=== PATIENT | male | born 1940 | race Caucasian/White ===

== ENCOUNTER 2020-04-06 09:32 | Outpatient (CLI) | payer MEDICARE, OTHER, SELFPAY ==
--- NOTE | ~2020-04-06 | CT_ITS ---
EXAMINATION: CT abdomen pelvis wo/w con DATE: 04/06/2020 10:33 INDICATION: Hematuria TECHNIQUE: Computed tomography (CT) of the head was performed without and with 130 cc Omnipaque 350 i ntravenous contrast. The dose-length product was 2012.61 mGy-cm. Automated exposure control and itera tive reconstruction technique were employed. COMPARISON: CT dated 11/19/2011 FINDINGS: There are areas of pleural thickening with pleural calcifications, consistent with previous asbestos exposure. There is bibasilar dependent atelectasis. Cardiomegaly. Pacemaker leads are prese nt. No significant pleural or pericardial effusion. There are bilateral renal cysts. No enhancing renal masses are identified. No hydronephrosis. Ureters are normal in course and caliber. Prostate gland is enlarged. No renal stones. Gallbladder is presen t. Colonic diverticulosis without diverticulitis. Normal appendix. Nonobstructive bowel gas pattern. No lymphadenopathy. Small fat-containing bilateral inguinal hernia. No free air or free fluid. There is atherosclerosis and ectasia of the aorta without aneurysm. No abnormal pelvic masses or fluid jackie ections. There is mild-moderate lumbar spondylosis. IMPRESSION: 1. Bilateral renal cysts. 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 Reviewed, dictated and finalized at location A. IMPRESSION: 1. Bilateral renal cysts. 2: Bilateral calcified pleural plaques, consistent with previous asbestos expos ure.
[2020-04-06 10:08] LABS: Estimated Glomerular Filt Rate > 60
== END 2020-04-06 09:33 | disposition home or self-care (01) ==
LOC: ANHIMG 09:38
PROVIDERS: PCP Internal Medicine; Visit Provider Nurse Practitioner
DX: R10.9 Unspecified abdominal pain (principal); R31.9 Hematuria, unspecified; N28.1 Cyst of kidney, acquired
CPT/HCPCS: 74178; Q9967

== ENCOUNTER 2020-05-09 09:22 | Outpatient (CLI) | payer MEDICARE, OTHER, SELFPAY ==
--- NOTE | ~2020-05-09 | CT_ITS ---
EXAMINATION: CT chest wo con DATE: 05/09/2020 09:43 INDICATION: SOLITARY PULMONARY NODULE R91.1 - Solitary pulmonary nodule TECHNIQUE: Computed tomography (CT) of the chest was performed without intravenous contrast. Addition al 3D reconstructions utilizing coronal maximum intensity projection (MIP) were performed. Automated exposure control and iterative reconstruction technique were employed. The dose-length product was 14 8.04 mGy-cm. COMPARISON: 04/28/2018 and 01/18/2016 FINDINGS: Mild paraseptal emphysema. Bilateral calcified pleural plaques consistent with prior asbestos exposur e. No interval change in peripheral reticular opacities at the lung bases. No interval change in a 4 mm subpleural nodule described as on the right upper lobe on the prior study but upon review of sagit evelia images is actually located in the right middle lobe. No interval change in a couple additional goddard bpleural nodules measuring 7 mm in the right lower lobe at the posterior dome of the right hemidiaphr agm and at the lingula. No new or enlarging pulmonary nodules. No pneumonia or pleural effusion. Hear t size is normal. Atherosclerotic coronary artery calcification. No pericardial effusion. Right atria l appendage and at the apex of the right ventricle. Scattered atherosclerotic calcification along the normal caliber thoracic aorta. No pathologically enlarged thoracic lymphadenopathy. Bilateral renal cysts, the largest on the left measuring 4.6 similar in maximal diameter. Mild upper thoracic levocur vature with mild spondylosis. IMPRESSION: 1. No interval change since 2015 in 3 small likely benign subpleural nodules in the lingula and right middle and lower lobes which are likely sequela of old granulomatous disease. No new or enlarging pu lmonary nodules. 2. Mild emphysema. 3. Bilateral calcified pleural plaques likely related to prior asbestos exposure with stable appearan ce of chronic mild interstitial fibrosis peripherally at the lung bases consistent with asbestosis. Reviewed, dictated and finalized at location B. IMPRESSION: 1. No interval change since 2015 in 3 small likely benign subpleural nodules in the lingula and right middle and lower lobes which are likely sequela of old g ranulomatous disease. No new or enlarging pulmonary nodules. 2. Mild emphysema. 3. Bilateral calcified pleural plaques likely related to prior asbestos exposur e with stable appearance of chronic mild interstitial fibrosis peripherally at the lung bases consistent with asbestosis.
== END 2020-05-09 09:23 | disposition home or self-care (01) ==
LOC: ANHIMG 09:26
PROVIDERS: PCP Internal Medicine; Visit Provider Internal Medicine Critical Care Medicine
DX: R91.1 Solitary pulmonary nodule (principal); J43.9 Emphysema, unspecified; R91.8 Other nonspecific abnormal finding of lung field
CPT/HCPCS: 71250

== ENCOUNTER 2021-05-08 08:25 | Observation (INO) | payer MEDICARE, OTHER, SELFPAY ==
[2021-05-08] VITALS (26 sets, daily range): BP systolic 106–163; BP diastolic 55–84; PULSE 65–70; RESP 13–23; TEMP 36.1–36.5; O2SAT 92–100; BMI 29.2
--- NOTE | 2021-05-08 09:06 | ECG_ITS ---
Measurements Intervals [place] Rate: 65 P: UT: 0 QRS: -77 QRSD: 205 T: 93 QT: 500 QTc: 521 Interpretive Statements ELECTRONIC VENTRICULAR PACEMAKER BASELINE ARTIFACT- V1-V2 NO FURTHER INTERPRETATION IS POSSIBLE ATYPICAL ECG Electronically Signed On 05-08-2021 10:00:41 CDT by Domingo Sun D.O.
[2021-05-08 09:08] LABS: Basophils Percent Auto 0.4 % (0.2-1.2); Eosinophils Absolute Auto 0.1 K/mm3 (0-0.3); Eosinophils Percent Auto 1.6 % (0-4.4); Hematocrit 40.6 % (42.0-52.0); Hemoglobin 13.8 g/dL (14.0-18.0); Immature Granulocyte Absolute 0.03 K/mm3 (0.00-0.031); Immature Granulocyte Percent A 0.4 % (0-0.5); Lymphocytes Absolute Auto 1.16 K/mm3 (0.9-3.2); Lymphocytes Percent Auto 14.7 % (18.3-44.2); Mean Corpuscular Hemoglobin 30.4 pg (26-34); Mean Corpuscular Volume 89.4 fl (80-100); Monocytes Absolute Auto 0.6 K/mm3 (0.1-0.6); Monocytes Percent Auto 7.2 % (2.6-8.5); Neutrophils Percent Auto 75.7 % (45.5-73.1); Platelet Count Result 162 k/mm3 (150-375); Red Blood Count 4.54 M/mm3 (4.6-6.20); Red Cell Distribution Width 13.9 % (11.5-14.5); White Blood Count 7.9 K/mm3 (4.5-10.0)
--- NOTE | 2021-05-08 09:20 | ED.RECABL ---
HPI - Recheck/Abnormal Lab/Rx General Chief Complaint: Recheck/Abnormal Lab/Rx Stated Complaint: Low potassium Time Seen by Provider: 05/08/21 08:27 Source: RN notes reviewed History of Present Illness HPI narrative: Patient presents emergency department from home for hypokalemia. The patient states he had issues with diarrhea last week that resolved approximately 3 days ago. He states secondary to this he was seen his PCP Dr. Talamantes he had lab work drawn last week that showed his potassium level been low and he been told to take extra potassium. States he had repeat lab work done yesterday and was called this morning to come to the emergency department for hypokalemia. Patient states that he has had no diarrhea for the past 3 days. He states he has been feeling weak with intermittent feelings of numbness and tingling in his bilateral upper and lower extremities. Denies any fevers or chills chest pain shortness of breath abdominal pain or any other symptoms Related Data Home Medications Medication Instructions Recorded Confirmed acetaminophen 325 mg tablet 325 mg PO Q6H PRN 06/29/19 05/01/21 aspirin 81 mg tablet,delayed 81 mg PO DAILY 06/29/19 05/01/21 release potassium gluconate 595 mg (99 mg) 595 mg PO BID tablet 03/07/20 05/01/21 tablet fexofenadine 180 mg tablet 180 mg PO DAILY 05/22/20 05/01/21 apixaban 5 mg tablet 5 mg PO BID 05/01/21 05/01/21 carvedilol 12.5 mg tablet 25 mg PO BID tablet 05/01/21 05/01/21 olmesartan 40 mg tablet 40 mg PO DAILY 05/01/21 05/01/21 Allergies Allergy/AdvReac Type Severity Reaction Status Date / Time No Known Allergies Allergy Mild Verified 05/08/21 08:48 Review of Systems Review of Systems: Gen.: Denies fevers or chills ENT: Denies congestion Respiratory: Denies shortness of breath or cough CV: Denies chest pain or palpitations GI: Denies abdominal pain nausea, emesis or diarrhea Musculoskeletal: Denies back pain or muscle pain Neuro: See HPI Skin: Denies rash Except as documented, all other systems reviewed and negative PMFSH Past Medical History Medical History Atrial fibrillation Cervical herniated disc COPD (chronic obstructive pulmonary disease) Eczema Hyperlipidemia Hypertension Hypomagnesemia Lung nodule Pacemaker Stent Peripheral polyneuropathy Type 2 diabetes mellitus Surgical History Surgical History H/O neck surgery H/O nephrolithotomy with removal of calculi Family History Family History Sibling Acute myocardial infarction Breast cancer Mother Leukemia Father Cirrhosis of liver Son Cancer Social History Social History Smoking packs per day: 0.5 Smoking cigarettes per day: 10.0 Smoking status: Heavy tobacco smoker Tobacco type: cigarettes Alcohol intake: current Alcohol use details: rarely Exam Narrative: APPEARANCE: No acute distress, nontoxic, resting in bed EYES: EOMI HEENT: Normocephalic, atraumatic, OMM RESPIRATORY: No respiratory distress Clear to auscultation bilaterally with no rhonchi wheezing or rales. CARDIOVASCULAR: Regular rate and rhythm without murmurs rubs or gallops. ABDOMINAL: Soft, nontender, nondistended, no rebound or guarding MUSCULOSKELETAl: Moves all extremities. No clubbing, cyanosis or edema. NEURO: Awake and alert. Following commands, speech normal, no focal deficits SKIN:: Warm, dry. No rashes lesions or abrasions PSYCHIATRIC: Normal affect/mood, Course Course Emergency Course: Reviewed records from lab draw yesterday showed a potassium of 2.[address] Justin presentation work-up agrees with admission at this time Discussed with patient and family results of workup and diagnosis. Discussed need for admission. Patient and family understand and agree to
[2021-05-08 09:41] LABS: Alanine Aminotransferase 19 U/L (4-50); Albumin Level 3.9 g/dL (3.5-5.1); Alkaline Phosphatase 50 U/L (38-126); Aspartate Amino Transferase 30 U/L (17-59); Bilirubin,Total 1.1 mg/dL (0.2-1.3); Blood Urea Nitrogen 16 mg/dL (9-20); Carbon Dioxide > 40 mmol/L (22-30); Chloride 94 mmol/L (98-107); Estimated CRCL calculation 63 ml/min; Estimated Glomerular Filt Rate > 60; Glucose 155 mg/dL (65-110); Magnesium 0.6 mg/dL (1.6-2.3); Potassium 2.7 mmol/L (3.4-5.0); Sodium 140 mmol/L (137-145)
[2021-05-08] MEDS: POTASSIUM CHLORIDE 20 MEQ TABLET 40 MEQ PO (09:55)
[2021-05-08] MEDS: MAGNESIUM SULFATE 3GM/D5W100ML 3 GM/100 ML BAG IVPB (10:32)
[2021-05-08] MEDS: ACETAMINOPHEN 500 MG TABLET 1000 MG PO (12:28)
--- NOTE | 2021-05-08 13:47 | PM.IMHP ---
H&P: HPI History of Present Illness Date/Time: 05/08/21 13:47 this is a 80-year-old male patient who has been dealing with diarrhea until the last 3 days. The patient stated that his diarrhea to stopped office of 3 days ago. He is not having normal bowel movements. The patient had some lab work performed by his primary care doctor and it showed that his potassium was low and he has been taking extra potassium. Has lab work done yesterday had been abnormal in his primary care doctor sent him to the emergency room. The patient has been feeling weak and having some numbness and tingling to his bilateral upper and lower extremities. He denied any fever chills or any shortness of breath. His H&H was 13.8 and 40.6. Potassium was found to be 2.7. His glucose is 155. Magnesium 0.6. The patient had been checked for C diff on the and was found to be negative. No ova cysts or parasites seen either. The patient was given magnesium IV, potassium IV and oral potassium. Patient is being admitted for observation status on the date of service of 05/08/2021. Chief Complaint: Paresthesia Review of Systems Review of Systems: All systems reviewed & are unremarkable except as noted in HPI and below Constitutional: Constitutional: Reports as per HPI and Reports no additional constitutional complaints Eyes: Eyes: Reports as per HPI and Reports no additional eye complaints ENT: Reports system reviewed and no additional complaints, except as documented and Reports Normal hearing present Cardiovascular: Cardiovascular: Reports no additional cardiovascular complaints Respiratory: Respiratory: Reports no additional respiratory complaints and Reports no additional respiratory complaints Gastrointestinal: Gastrointestinal: Reports as per HPI and Reports no additional gastrointestinal complaints Musculoskeletal: Musculoskeletal: Reports no additional musculoskeletal complaints Integumentary/Breasts: Skin/Breast: Reports system reviewed and no additional complaints, except as docu and Reports as per HPI Neurologic: Reports system reviewed and no additional complaints, except as documented, Reports as per HPI and Reports Normal hearing present Psychiatric: Psychiatric: Reports no additional psychiatric complaints and Reports as per HPI Endocrine: Endocrine: Reports no additional endocrine complaints Hematologic/Lymphatic: Hematologic/Lymphatic: Reports no additional hematologic/lymphatic complaints Allergic/Immunologic: Allergic/Immunologic: Reports no additional allergic/immunologic complaints [facility] Past Medical History Medical History (Updated 05/08/21 @ 14:09 by Yolande Tovar NP) Asbestosis Atrial fibrillation BPH (benign prostatic hyperplasia) Cervical herniated disc COPD (chronic obstructive pulmonary disease) Eczema Hyperkalemia Hyperlipidemia Hypertension Hypomagnesemia Lung nodule Pacemaker Stent Peripheral polyneuropathy Type 2 diabetes mellitus Surgical History Surgical History (Updated 05/08/21 @ 13:54 by Yolande Tovar NP) H/O colonoscopy with polypectomy H/O neck surgery H/O nephrolithotomy with removal of calculi S/P tonsillectomy and adenoidectomy Family History Family History Sibling Acute myocardial infarction Breast cancer Mother Leukemia Father Cirrhosis of liver Son Cancer Social History Social History (Updated 05/08/21 @ 14:00 by Yolande Tovar NP) Social History: The patient lives with his . He has 4 boys. 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 His is the durable power litigation attorney associate. Come patient smokes about half pack a cigarettes a day. No alcohol marijuana or illicit drugs. Code status full code Smoking packs per day: 0.5 Smoking cigarettes per day: 10.0 Years smoked: 55 Smoking pack-years: 27.50 Smoking status: Heavy tobacco smoker Tobacco type: cigarettes Second hand tobacco smoke ex
--- NOTE | 2021-05-08 13:48 | ADMGEN ---
This patient, Isacc Sorto, was admitted to [facility] Surg Room [id number]. Patient/family oriented to hospital policies and general routines including ID bracelet, bed and alarms, visiting hours, pain management, procedures, bathroom and other care routines, personal items, smoking policy, room service/diet, and visiting hours. Information on how to activate the Rapid Response Team has been discussed. Patient/Family are encouraged to report perceived risks to care and to ask questions if they do not understand what they are told or what they should do.
--- NOTE | 2021-05-08 17:09 | ADMGEN ---
This patient, Isacc Sorto, was admitted to 3 [facility] Surg Room [phone]. Patient/family oriented to hospital policies and general routines including ID bracelet, bed and alarms, visiting hours, pain management, procedures, bathroom and other care routines, personal items, smoking policy, room service/diet, and visiting hours. Information on how to activate the Rapid Response Team has been discussed. Patient/Family are encouraged to report perceived risks to care and to ask questions if they do not understand what they are told or what they should do.
[2021-05-08] MEDS: NICOTINE (*PBKC) 14 MG PATCH 1 PATCH TRANSDERM (18:12)
[2021-05-08] MEDS: OLMESARTAN MEDOXOMIL 20 MG TABLET PO (18:12)
[2021-05-08] MEDS: APIXABAN 5 MG TABLET PO (18:13)
[2021-05-08] MEDS: ASPIRIN 81 MG ENTERIC TABLET PO (21:15)
[2021-05-08] MEDS: carvediloL 25 MG TABLET PO (21:15)
[2021-05-08] MEDS: PANTOPRAZOLE 40 MG TABLET PO (21:16)
[2021-05-08 22:32] LABS: Anion Gap 9 mmol/L (8-16); Blood Urea Nitrogen 14 mg/dL (9-20); Calcium 7.8 mg/dL (8.4-10.2); Carbon Dioxide 33 mmol/L (22-30); Chloride 97 mmol/L (98-107); Estimated CRCL calculation 57 ml/min; Estimated Glomerular Filt Rate > 60; Glucose 101 mg/dL (65-110); Magnesium 1.3 mg/dL (1.6-2.3); Potassium 3.1 mmol/L (3.4-5.0); Sodium 139 mmol/L (137-145)
[2021-05-08] MEDS: diphenhydrAMINE HCl CAP 25 MG CAPSULE PO (22:35)
[2021-05-08] MEDS: ACETAMINOPHEN 325 MG TABLET PO (22:35)
[2021-05-09] VITALS: PULSE 65
[2021-05-09] MEDS: POTASSIUM CHLORIDE 20 MEQ TABLET PO (00:20)
[2021-05-09] MEDS: MAGNESIUM SULF 2 GM/WATER 50ML 2 GM/50 ML BAG IVPB (02:17)
[2021-05-09 06:00] VITALS: BP 161/78; PULSE 65; RESP 18; TEMP 36; O2SAT 97
[2021-05-09 06:22] LABS: Basophils Percent Auto 0.4 % (0.2-1.2); Eosinophils Absolute Auto 0.1 K/mm3 (0-0.3); Eosinophils Percent Auto 1.6 % (0-4.4); Hematocrit 40.5 % (42.0-52.0); Hemoglobin 13.3 g/dL (14.0-18.0); Immature Granulocyte Absolute 0.02 K/mm3 (0.00-0.031); Immature Granulocyte Percent A 0.3 % (0-0.5); Lymphocytes Absolute Auto 1.27 K/mm3 (0.9-3.2); Lymphocytes Percent Auto 16.5 % (18.3-44.2); Mean Corpuscular HGB Conc 32.8 g/dl (32-36); Mean Corpuscular Hemoglobin 30.2 pg (26-34); Mean Corpuscular Volume 91.8 fl (80-100); Mean Platelet Volume 11.2 fl (7.4-10.4); Monocytes Absolute Auto 0.7 K/mm3 (0.1-0.6); Monocytes Percent Auto 8.6 % (2.6-8.5); Neutrophils Absolute Auto 5.6 K/mm3 (1.3-6.7); Neutrophils Percent Auto 72.6 % (45.5-73.1); Platelet Count Result 156 k/mm3 (150-375); Red Blood Count 4.41 M/mm3 (4.6-6.20); White Blood Count 7.7 K/mm3 (4.5-10.0)
[2021-05-09 06:31] LABS: Anion Gap 8 mmol/L (8-16); Blood Urea Nitrogen 12 mg/dL (9-20); Calcium 7.9 mg/dL (8.4-10.2); Carbon Dioxide 33 mmol/L (22-30); Chloride 99 mmol/L (98-107); Estimated CRCL calculation 70 ml/min; Estimated Glomerular Filt Rate > 60; Glucose 108 mg/dL (65-110); Magnesium 1.9 mg/dL (1.6-2.3); Potassium 3.1 mmol/L (3.4-5.0); Sodium 140 mmol/L (137-145)
[2021-05-09] MEDS: POTASSIUM CHLORIDE 10 MEQ TABLET PO (09:15)
[2021-05-09 09:16] VITALS: PULSE 65
[2021-05-09] MEDS: OLMESARTAN MEDOXOMIL 20 MG TABLET PO (09:16)
[2021-05-09] MEDS: TAMSULOSIN HCL 0.4 MG CAPSULE PO (09:16)
[2021-05-09] MEDS: carvediloL 25 MG TABLET PO (09:16)
[2021-05-09] MEDS: SIMVASTATIN 20 MG TABLET 40 MG PO (09:16)
[2021-05-09] MEDS: LORATADINE 10 MG TABLET PO (09:16)
[2021-05-09 09:17] VITALS: PULSE 79
[2021-05-09] MEDS: DULoxetine HCL 60 MG CAPSULE.DR PO (09:17)
[2021-05-09] MEDS: APIXABAN 5 MG TABLET PO (09:17)
[2021-05-09] MEDS: NICOTINE (*PBKC) 14 MG PATCH 1 PATCH TRANSDERM (09:17)
[2021-05-09] MEDS: ACETAMINOPHEN 325 MG TABLET PO (09:17)
[2021-05-09] MEDS: POTASSIUM CHLORIDE 20 MEQ PACKET (FOR LIQUID) 40 MEQ PO (10:15)
[2021-05-09 12:00] VITALS: PULSE 70
[2021-05-09 13:06] LABS: Anion Gap 7 mmol/L (8-16); Blood Urea Nitrogen 12 mg/dL (9-20); Calcium 8.1 mg/dL (8.4-10.2); Carbon Dioxide 32 mmol/L (22-30); Chloride 99 mmol/L (98-107); Estimated CRCL calculation 70 ml/min; Estimated Glomerular Filt Rate > 60; Glucose 123 mg/dL (65-110); Magnesium 1.8 mg/dL (1.6-2.3); Potassium 4.1 mmol/L (3.4-5.0); Sodium 138 mmol/L (137-145)
--- NOTE | 2021-05-09 13:09 | PM.DS ---
DS: Admitting Diagnosis Discharge Date 05/09/2021 Admitting Diagnosis Chief Complaint: Paresthesia DS: Discharge Diagnosis Discharge Diagnosis (1) Acute hypokalemia: Code(s): E87.6 - Hypokalemia Status: Acute Assessment and Plan: Replace as necessary. Recheck labs again tonight. Patient had several days of diarrhea but has not had any since 3 days ago. Also the patient had been on diuretics. We will hold diuretics for now. (2) Hypomagnesemia: Code(s): E83.42 - Hypomagnesemia Status: Acute Assessment and Plan: Replace as necessary. Recheck again tonight. (3) Weakness: Code(s): R53.1 - Weakness Status: Acute Assessment and Plan: Most likely due to the electrolyte imbalance. (4) Paresthesias: Code(s): R20.2 - Paresthesia of skin Status: Acute Assessment and Plan: Most likely related to electrolyte imbalance. (5) Situational anxiety: Code(s): F41.8 - Other specified anxiety disorders Status: Acute Assessment and Plan: Continue with home medications. (6) Atrial fibrillation: Qualifiers: Atrial fibrillation type: unspecified Qualified Code(s): I48.91 - Unspecified atrial fibrillation Code(s): I48.91 - Unspecified atrial fibrillation Status: Chronic Assessment and Plan: Continue with apixaban and Coreg. The patient has paced beats at this time. (7) Hyperlipidemia: Code(s): E78.5 - Hyperlipidemia, unspecified Status: Acute Assessment and Plan: Continue with simvastatin (8) Hypertension: Qualifiers: Hypertension type: essential hypertension Qualified Code(s): I10 - Essential (primary) hypertension Code(s): I10 - Essential (primary) hypertension Status: Acute Assessment and Plan: Hold diuretics. Continue with Coreg and Benicar (9) Eczema: Code(s): L30.9 - Dermatitis, unspecified Status: Acute Assessment and Plan: P.r.n.steroid cream (10) BPH (benign prostatic hyperplasia): Code(s): N40.0 - Benign prostatic hyperplasia without lower urinary tract symptoms Status: Chronic Assessment and Plan: Continue with tamsulosin DS: Summary Hospital Course Reason for hospitalization: this is a 80-year-old male patient who has been dealing with diarrhea until the last 3 days. The patient stated that his diarrhea to stopped office of 3 days ago. He is not having normal bowel movements. The patient had some lab work performed by his primary care doctor and it showed that his potassium was low and he has been taking extra potassium. Has lab work done yesterday had been abnormal in his primary care doctor sent him to the emergency room. The patient has been feeling weak and having some numbness and tingling to his bilateral upper and lower extremities. He denied any fever chills or any shortness of breath. His H&H was 13.8 and 40.6. Potassium was found to be 2.7. His glucose is 155. Magnesium 0.6. The patient had been checked for C diff on the and was found to be negative. No ova cysts or parasites seen either. The patient was given magnesium IV, potassium IV and oral potassium. Patient is being admitted for observation status on the date of service of 05/08/2021. Hospital Course: Patient with a nausea or vomiting diarrhea, hypokalemia most likely secondary to diarrhea, today patient symptoms have improved is able to tolerate his diet, repeat potassium levels are normal, patient has no new complaint, patient states he has his sick at home and there is no one to take care of her, will like to be discharged as soon as possible, patient is clinically stable, will discharge the patient today. Status at Discharge Functional status at discharge: independent ambulation Overall status at discharge: patient is back to baseline Time Spent with Patient Time attestation: Total time spent providing and/or coordina
== END 2021-05-09 13:50 | disposition home or self-care (01) ==
LOC: ANHED 10:29 → ANH3MEDSUR 13:52
PROVIDERS: Nurse Practitioner; Admitting Provider Internal Medicine; Emergency Provider Emergency Medicine; PCP Internal Medicine; Visit Provider Family Medicine
DX: E87.6 Hypokalemia (principal); R20.2 Paresthesia of skin; E83.42 Hypomagnesemia; R53.1 Weakness; E78.5 Hyperlipidemia, unspecified; E11.9 Type 2 diabetes mellitus without complications; F41.8 Other specified anxiety disorders; F17.210 Nicotine dependence, cigarettes, uncomplicated; I48.91 Unspecified atrial fibrillation; I10 Essential (primary) hypertension; J44.9 Chronic obstructive pulmonary disease, unspecified; N40.0 Benign prostatic hyperplasia without lower urinary tract symptoms; Z79.82 Long term (current) use of aspirin; Z95.0 Presence of cardiac pacemaker
CPT/HCPCS: 36415; 80048; 80053; 83735; 85025; 93005; 96365; 96366; 96367; 96375; 96376; 99285; A9270; G0378; J3475; J3480; J7060

== ENCOUNTER 2021-07-10 14:07 | Outpatient (CLI) | payer MEDICARE, OTHER, SELFPAY ==
--- NOTE | ~2021-07-10 | US_ITS ---
EXAMINATION: US arterial ankle brachial ind DATE: 07/10/2021 14:49 INDICATION: Peripheral vascular disease TECHNIQUE: Segmental pressures and plethysmographic and Doppler waveforms of the brachial and lower e xtremity arteries were obtained. COMPARISON: None. FINDINGS: Right and left brachial artery pressures of 118 mm Hg and 132 mm Hg, respectively, are concordant (no rmal difference <= 30 mmHg). The right ankle-brachial index (TYRONE) is 0.93 (normal >= 0.9-1.0). The right great toe-brachial index (TBI) is 0.59 (normal >= 0.65). Arterial Doppler waveforms are biphasic with brisk systolic upstrokes at both the right posterior tibial and dorsalis pedis arteries. The moderately decreased left TYRONE is 0.55. The moderate to severely decreased left TBI is 0.20. Arter ial Doppler waveforms are biphasic but dampened with borderline delayed upstrokes.. IMPRESSION: 1. 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 Reviewed, dictated and finalized at location A. AVER APPRENTICE DECORATIVE IMPRESSION: 1. Mild right-sided and moderate to severe left-sided lower limb arterial occlu sive disease.
== END 2021-07-10 14:08 | disposition home or self-care (01) ==
LOC: ANHIMG 14:08
PROVIDERS: PCP Internal Medicine; Visit Provider Internal Medicine
DX: I73.9 Peripheral vascular disease, unspecified (principal); F17.200 Nicotine dependence, unspecified, uncomplicated; I77.9 Disorder of arteries and arterioles, unspecified; M79.604 Pain in right leg; M79.605 Pain in left leg
CPT/HCPCS: 93922

== ENCOUNTER → 2021-12-04 09:11 | Outpatient (CLI) | payer MEDICARE, OTHER, SELFPAY ==
--- NOTE | ~2021-12-04 | CT_ITS ---
EXAMINATION: CT diagnostic chest wo con DATE: 12/04/2021 09:30 INDICATION: Solitary nodule of lung TECHNIQUE: Computed tomography (CT) of the chest was performed without intravenous contrast. Addition al 3D reconstructions utilizing coronal maximum intensity projection (MIP) were performed. Automated exposure control and iterative reconstruction technique were employed. The dose-length product was 18 5.19 mGy-cm. COMPARISON: 05/01/2020, 01/18/2016 and 12/14/2009 FINDINGS: Extensive bilateral calcified and noncalcified pleural plaques suggestive of prior asbestos exposure. Mild emphysema. No significant interval change in a previous noted subpleural nodules measuring 4 mm in the right middle lobe, 7 mm in the right lower lobe along the posterior dome of the diaphragm and 5-6 mm at the lingula. No new or enlarging pulmonary nodules identified. Unchanged supine thickening at the bilateral lung bases most likely mild chronic interstitial lung disease/asbestosis with diffe rential including mild pulmonary edema. No pneumonia or pleural effusion. Heart size is normal. Ather osclerotic coronary artery calcifications. No pericardial effusion. Dual-lead cardiac pacemaker with lead tips at the right atrial appendage and apex of the right ventricle. Small amount of atherosclero tic calcific lesion along the normal caliber thoracic aorta. 1.5 cm left thyroid nodule. No pathologi sejal enlarged thoracic lymphadenopathy. Stenosis at the visualized upper poles of both kidneys measu ring at least 4 cm on the left and 1.9 cm on the right. There is also a 5 mm high attenuation likely proteinaceous/hemorrhagic cyst at the upper pole of the right kidney. Mild upper thoracic levocurvatu re with mild spondylosis. IMPRESSION: 1. Mild emphysema with extensive bilateral calcified and noncalcified pleural plaques suggesting prio r asbestos exposure. 2. Chronic mild irregular septal line thickening at the lung bases consistent with chronic interstiti al lung disease or potentially asbestosis. 3. No change in a few chronic likely noncalcified subpleural granuloma. No new or enlarging pulmonary nodules. 4. 1.5 cm left thyroid nodule. Could consider thyroid ultrasound for risk stratification. Reviewed, dictated and finalized at location B. IMPRESSION: 1. Mild emphysema with extensive bilateral calcified and noncalcified pleural p laques suggesting prior asbestos exposure. 2. Chronic mild irregular septal line thickening at the lung bases consistent w ith chronic interstitial lung disease or potentially asbestosis. 3. No change in a few chronic likely noncalcified subpleural granuloma. No new or enlarging pulmonary nodules. 4. 1.5 cm left thyroid nodule. Could consider thyroid ultrasound for risk strat ification.
== END ==
PROVIDERS: PCP Internal Medicine; Visit Provider Nurse Practitioner
DX: R91.1 Solitary pulmonary nodule (principal); E04.1 Nontoxic single thyroid nodule; M47.814 Spondylosis without myelopathy or radiculopathy, thoracic region; I25.10 Atherosclerotic heart disease of native coronary artery without angina pectoris
CPT/HCPCS: 71250

== ENCOUNTER → 2022-01-09 12:27 | Outpatient (CLI) | payer MEDICARE, OTHER, SELFPAY ==
--- NOTE | ~2022-01-09 | US_ITS ---
US thyroid INDICATION: Dysphasia and enlarged thyroid. TECHNIQUE: Real-time sonographic images of the thyroid gland were obtained. COMPARISON: Thyroid nodule FINDINGS: The right thyroid lobe measures 3.5 x 1.7 x 1.4 cm. The left thyroid lobe measures 2.7 x 2 x 1.3 cm. There is normal echotexture and echogenicity throughout the thyroid gland. There is a left thyroid nodule measuring 11 x 9 x 9 mm which is solid hypoechoic, wider than tall, smoothly marginat ed without calcifications, TR 4. Normal vascular flow is present. IMPRESSION: 1. Left thyroid nodule measuring 11 mm, TR 4. Recommend follow-up thyroid ultrasound to assess stabi lity. Reviewed, dictated and finalized at location A. IMPRESSION: 1. Left thyroid nodule measuring 11 mm, TR 4. Recommend follow-up thyroid ultr asound to assess stability.
== END ==
PROVIDERS: PCP Internal Medicine; Visit Provider Internal Medicine
DX: E04.1 Nontoxic single thyroid nodule (principal)
CPT/HCPCS: 76536

== ENCOUNTER → 2022-05-20 09:17 | Outpatient (CLI) | payer MEDICARE, OTHER, SELFPAY ==
--- NOTE | ~2022-05-20 | CT_ITS ---
EXAMINATION: CT diagnostic chest wo con DATE: 05/20/2022 09:39 INDICATION: Interstitial lung disease TECHNIQUE: Computed tomography (CT) of the chest was performed without intravenous contrast. The dose -length product (DLP) was 452.58 mGy-cm. Automated exposure control and iterative reconstruction tech nique were employed. COMPARISON: 12/04/2021 FINDINGS: Calcified and noncalcified bilateral pleural plaques are again noted which can be seen in t he setting of prior asbestos exposure. There are stable chronic subpleural reticular and groundglass opacities with a mid and lower lung zone predominance. There is mild emphysema. No pathologically enl arged thoracic lymph nodes are identified. The heart size is normal. Calcified coronary artery athero sclerosis is noted. There is mild thoracic spondylosis. IMPRESSION: 1. Stable chronic subpleural reticular and groundglass opacities in the mid and lower lung zone predo minance, consistent with chronic interstitial lung disease and/or asbestosis. 2. Unchanged bilateral calcified and noncalcified pleural plaques which can be seen in the setting of prior asbestos exposure. Reviewed, dictated and finalized at location B. AG MACHINE OPERATOR IMPRESSION: 1. Stable chronic subpleural reticular and groundglass opacities in the mid and lower lung zone predominance, consistent with chronic interstitial lung diseas e and/or asbestosis. 2. Unchanged bilateral calcified and noncalcified pleural plaques which can be seen in the setting of prior asbestos exposure.
== END ==
PROVIDERS: PCP Internal Medicine; Visit Provider Nurse Practitioner
DX: J84.9 Interstitial pulmonary disease, unspecified (principal); R91.8 Other nonspecific abnormal finding of lung field
CPT/HCPCS: 71250

== ENCOUNTER 2022-09-29 10:04 | Outpatient (CLI) | payer MEDICARE, SELFPAY ==
[2022-09-29 20:11] LABS: Basophils Absolute Auto 0.1 K/mm3 (0.0-0.1); Basophils Percent Auto 0.6 % (0.2-1.2); Eosinophils Absolute Auto 0.1 K/mm3 (0-0.3); Eosinophils Percent Auto 1.7 % (0-4.4); Hematocrit 45.8 % (42.0-52.0); Hemoglobin 14.7 g/dL (14.0-18.0); Immature Granulocyte Absolute 0.02 K/mm3 (0.00-0.031); Immature Granulocyte Percent A 0.2 % (0-0.5); Lymphocytes Absolute Auto 1.67 K/mm3 (0.9-3.2); Lymphocytes Percent Auto 20.2 % (18.3-44.2); Mean Corpuscular HGB Conc 32.1 g/dl (32-36); Mean Corpuscular Hemoglobin 29.3 pg (26-34); Mean Corpuscular Volume 91.2 fl (80-100); Monocytes Absolute Auto 0.7 K/mm3 (0.1-0.6); Neutrophils Absolute Auto 5.7 K/mm3 (1.3-6.7); Neutrophils Percent Auto 69.3 % (45.5-73.1); Platelet Count Result 164 k/mm3 (150-375); Red Blood Count 5.02 M/mm3 (4.6-6.20); Red Cell Distribution Width 15.4 % (11.5-14.5); White Blood Count 8.3 K/mm3 (4.5-10.0)
[2022-09-29 20:59] LABS: Appearance Urine Clear (Clear); Bilirubin Urine Negative (Negative); Blood Urine Trace-intact (Negative); Color Urine Yellow (Yellow); Glucose Urine UA Negative (Negative); Ketones Urine Negative (Negative); Leukocyte Esterase Ur Negative LEU/UL (NEGATIVE); Nitrate Urine Negative (Negative); Protein Urine 2+ mg/dL (Negative); Specific Grav Ur 1.025 (1.001-1.035); Urobilinogen Urine 0.2 mg/dL (<2.0)
[2022-09-29 21:03] LABS: Alanine Aminotransferase 18 U/L (6-50); Albumin Level 4.4 g/dL (3.5-5.1); Alkaline Phosphatase 62 U/L (38-126); Anion Gap 10 mmol/L (8-16); Aspartate Amino Transferase 25 U/L (17-59); Bilirubin,Total 0.9 mg/dL (0.2-1.3); Blood Urea Nitrogen 18 mg/dL (9-20); Calcium 8.9 mg/dL (8.4-10.2); Carbon Dioxide 29 mmol/L (22-30); Chloride 99 mmol/L (98-107); Estimated Glomerular Filt Rate > 60; Glucose 137 mg/dL (65-110); Potassium 3.5 mmol/L (3.4-5.0); Sodium 138 mmol/L (137-145)
[2022-09-29 21:20] LABS: Add Urine Microscopic? YES
[2022-09-29 21:22] LABS: RBC Urine 0-2 /hpf (0-2)
[2022-09-29 21:23] LABS: Squamous Epithelial Cell Urine None seen /hpf (Few)
[2022-09-29 21:24] LABS: Bacteria Urine None Seen /hpf; Hemoglobin A1C 6.6 % (<5.7)
== END 2022-09-29 10:05 | disposition home or self-care (01) ==
LOC: ANHGOSHLAB 10:06
PROVIDERS: PCP Internal Medicine; Visit Provider Internal Medicine
DX: E11.9 Type 2 diabetes mellitus without complications (principal); I48.91 Unspecified atrial fibrillation; I73.9 Peripheral vascular disease, unspecified
CPT/HCPCS: 36415; 80053; 81001; 83036; 85025

== ENCOUNTER 2022-11-27 08:04 | Outpatient (CLI) | payer MEDICARE, SELFPAY ==
[2022-11-18 13:32] VITALS: BMI 27.8
--- NOTE | 2022-11-18 13:33 | PC.NURSE ---
Pre Radiology instructions Report to the outpatient [facility]de on date __11/27/22___ at time ___0800____ for procedure Time: __1000__ YOU MAY BE MONITORED AT HOSPITAL FOR UP TO 4 HOURS AFTER YOUR PROCEDURE. A visitor will be allowed to accompany the patient into the hospital. You and your visitor will be asked to self-screen and do not enter if you have any COVID symptoms. A mask is OPTIONAL within the hospital. Patients are to have no food or drink 6 hours prior to procedure time Driving will be restricted after the procedure, you must have a person to drive you home. Labs will be drawn in preop area and once reviewed, you will be taken to radiology area for procedure. When the procedure is completed, you will be taken to outpatient where you will be monitored for several hours. You may have one visitor in this area. Other than holding anti-coagulants, patient may take other medication(s) as scheduled. Prior to your appointment date patients are instructed to hold anti-coagulants after discussing with ordering provider to stop. If unable to discontinue anti-coagulants please notify radiologist. ? No aspirin or warfarin (Coumadin) for 7 days prior to the procedure. ? No clopidogrel (Plavix), ticagrelor (Brilinta), prasugrel (Effient) or dabigatran (Pradaxa) for 5 days prior to the procedure. ? No rivaroxaban (Xarelto), apixaban (Eliquis), dipyridamole (Aggrenox or Persantine) or cilostazol (Pletal) for 2 days prior to the procedure. Medications to discontinue per physician: __ASPIRIN, ELIQUIS [address] KONG - (PT STATED) Date to take last dose: __11/23/22 Please leave all valuables, including medications, at home the day of procedure. The hospital will not accept responsibility for valuables. Wear comfortable, loose fitting clothing.? Follow any additional instructions given to you from ordering provider. Telephone instructions given to __PATIENT__and asked if any additional questions and then verbalized understanding. Patient advised to call scheduling provider office or registration scheduling [phone] if any additional questions.
--- NOTE | ~2022-11-27 | CT_ITS ---
EXAMINATION: 1. XR myelogram spine lumbosacral 2. CT lumbar spine w con DATE: 11/27/2022 10:13 INDICATION: Lumbar spinal stenosis with neurogenic claudication. TECHNIQUE: The procedure including the risks, benefits, and alternatives was discussed with the patie nt. Risks discussed included spinal headache, bleeding, and infection. The patient understood the ris ks and agreed to proceed. A timeout was performed to verify the patient's name, date of , and procedure to be performed. The skin overlying the L3-L4 level was prepped and draped in usual steri le fashion. Subcutaneous 1% lidocaine was used for local anesthesia. A 22 gauge spinal needle was a dvanced under fluoroscopic guidance. 17 mL Omnipaque 180 was injected. The needle was removed and the entry site was cleaned and dressed. There were no immediate complications. Fluoroscopy exposure snehal e was 0.6 minutes. The total number of images was 9. Computed tomography (CT) of the lumbar spine was performed without intravenous contrast. Automated exposure control and iterative reconstruction tech [employer] were employed. The dose-length product was 1131.97 mGy-cm. COMPARISON: lumbar spine CT 11/19/18 FINDINGS: LUMBAR MYELOGRAM: Real-time fluoroscopy demonstrates the needle at the L3-L4 level. There is indentat ion of the thecal sac at multiple levels that will be further described on the postmyelogram CT. Ther e is no abnormal motion with flexion or extension. POST MYELOGRAM LUMBAR SPINE CT: There are cysts in the kidneys measuring up to 3.3 cm on the left. Th ere is calcified atherosclerosis of the aorta and many of the other arteries. There is a stent in lef t common and external iliac artery. There is 9 degrees dextrocurvature of lumbar spine. There is 3 mm retrolisthesis of L2 on L3, L4 on L5, and L5 on S1. There is mild chronic anterior wedging of T12-L2 vertebral bodies. There is mildly decreased disc height at L2-L3, moderately decreased disc height a t L3-L4 and L4-L5, and severely decreased disc height at L5-S1 with endplate remodeling. The conus me dullaris is at L1. The following disc levels are specifically discussed: L1-L2: The disc does not extend beyond the endplate margin. There is severe right and mild left facet joint osteoarthritis. There is no neural foraminal stenosis. There is no central canal stenosis. L2-L3: The disc is bulging. There is moderate bilateral facet joint osteoarthritis. There is mild indira ateral neural foraminal stenosis. There is mild central canal stenosis. L3-L4: The disc is bulging. There is moderate right and mild left facet joint osteoarthritis. There i s mild right and moderate left neural foraminal stenosis. There is mild central canal stenosis. There is moderate stenosis of left lateral recess. L4-L5: The disc is bulging. There is moderate bilateral facet joint osteoarthritis. There is mild rig ht and moderate left neural foraminal stenosis. There is mild central canal stenosis. There is modera te stenosis of left lateral recess. L5-S1: The disc is bulging. There is severe bilateral facet joint osteoarthritis. There is moderate b ilateral neural foraminal stenosis. There is mild central canal stenosis. IMPRESSION: 1. Severe lumbar spondylosis, stable from 11/19/2018. Reviewed, dictated and finalized at location A. IMPRESSION: 1. Severe lumbar spondylosis, stable from 11/19/2018.
[2022-11-27 08:50] VITALS: BP 154/76; PULSE 59; RESP 14; TEMP 35.9; O2SAT 100
[2022-11-27 08:50] LABS: Mean Platelet Volume 11.5 fl (7.4-10.4); Platelet Count Result 150 k/mm3 (150-375)
[2022-11-27 09:04] LABS: Prothrombin Time 13.3 Seconds (11.1-14.7)
[2022-11-27 10:10] VITALS: BP 138/68; PULSE 59; RESP 14; O2SAT 100
[2022-11-27 10:25] VITALS: BP 131/70; PULSE 59; RESP 12; O2SAT 99
[2022-11-27 10:40] VITALS: BP 132/62; PULSE 59; RESP 16; O2SAT 95
[2022-11-27 10:55] VITALS: BP 145/66; PULSE 60; RESP 16; O2SAT 99
[2022-11-27 11:25] VITALS: BP 142/72; PULSE 59; RESP 16
--- NOTE | 2022-11-27 13:32 | SUR.PHASEII ---
[address] robertson on pt condition, pt meets discharge protocol. dr robertson ok for discharge
== END 2022-11-27 12:20 | disposition home or self-care (01) ==
PROVIDERS: PCP Internal Medicine; Referring Provider Anesthesiology Pain Medicine; Visit Provider Radiology Diagnostic Radiology
DX: M48.062 Spinal stenosis, lumbar region with neurogenic claudication (principal); M47.896 Other spondylosis, lumbar region
CPT/HCPCS: 36415; 62304; 72132; 85049; 85610; Q9965

== ENCOUNTER 2023-01-27 06:18 | Day surgery (SDC) | payer MEDICARE, SELFPAY ==
[2023-01-23 10:04] VITALS: BMI 28.4
--- NOTE | ~2023-01-27 | XR_ITS ---
EXAMINATION: XR fluoroscopy no charge DATE: 01/27/2023 8:30 CDT INDICATION: L4-5 INTERLAMINAR EPIDURAL STEROID . TECHNIQUE: 2 fluoroscopic images of the lumbar spine were obtained during L4-5 interlaminar epidural steroid performed by the surgeon. I was not present in the operating room. Fluoroscopy exposure time was 7 seconds. DAP 4.91 mGym2. COMPARISON: None FINDINGS: Needle access at the level of L4-5. Epidural contrast is present. IMPRESSION: Fluoroscopic documentation of L4-5 interlaminar epidural steroid. Please refer to the operative note for complete procedural details . Reviewed, dictated and finalized at location K.
--- NOTE | 2023-01-27 07:22 | WPDHPUPDATE1 ---
History and Physical Update Update Date/Time: 01/27/23 07:22 History and Physical has been reviewed, including an updated exam of the patient. There are NO changes in the patient's condition. Risks, benefits, and alternatives have been discussed and questions answered. Patient agrees to proceed with procedure.
[2023-01-27 07:48] VITALS: BP 148/79; PULSE 59; RESP 18; TEMP 36.7; O2SAT 99; BMI 28.7
[2023-01-27 08:39] VITALS: BP 140/90; PULSE 60; RESP 14; O2SAT 98
[2023-01-27 08:44] VITALS: BP 138/70; PULSE 62; O2SAT 98
--- NOTE | 2023-01-27 08:46 | W.PM.PROC2 ---
Procedure Note - Detailed Date of Procedure 01/27/23 Pre-op Diagnosis Lumbar Radiculopathy, Lumbar Spinal Stenosis with Neurogenic Claudication Post-op Diagnosis Same Procedure Performed Lumbar Interlaminar Epidural Steroid Injection with Fluoroscopy Surgeon Kip Parrish MD Anesthesia Local Description of Procedure INFORMED CONSENT: Risks, benefits and alternatives to the procedure were discussed in detail with the patient who expressed explicit understanding and consent to proceed. Patient was informed verbally and in written form regarding the risks associated with the procedure including the low risk of serious infection, bleeding/bruising, allergic reaction, nerve or organ injury, paralysis, procedural site pain or discomfort, worsening pain and/or mobility, failure to treat and/or disfigurement. The patient expressed explicit understanding and consent to proceed. All materials required for the procedure were available prior to procedure start. Site and side were marked prior to procedure and confirmed in the presence of the patient. PROCEDURE IN DETAIL: The patient was brought to the procedural suite and placed in the prone position. Patient was made comfortable with use of pillows under the head/chest, hips and ankles. Skin overlying the injection site was prepared broadly with ChloraPrep applicator and draped in a sterile manner. Aseptic technique was employed throughout. The endplates of the vertebral body at the site of interest were aligned in the AP view. Slight caudad tilt and ipsilateral oblique angulation was utilized to optimize visualization of the targeted posterior intervertebral foramen at L4-5. Local anesthesia was established by infiltration with approximately 5 mL of 2% lidocaine via a 1-1/2 inch 27-gauge needle. A 20-gauge 3.5-inch Tuohy epidural needle was advanced intermittently until appropriate loss of resistance to air was identified via plastic loss of resistance syringe. Lateral view was used to confirm the appropriate positioning of the needle tip within the posterior epidural space. In the AP and lateral views, a total of 2.0 mL of Omnipaque 300 contrast medium was injected after negative aspiration for CSF, blood or other bodily fluid, showing appropriate posterior epidural spread of contrast without evidence of intravascular or intrathecal placement. After a repeat negative aspiration for blood or other bodily fluid, a 6 mL solution containing 10 mg of dexamethasone in sterile PF Normal Saline was injected after negative repeat aspiration. Appropriate spread of the injectate was confirmed with washout of previously injected contrast. No parasthesias were elicited. Needle was removed completely intact without difficulty. Images were saved and documented in the patient chart. Patient's skin was cleaned and sterile bandage applied. The patient tolerated the procedure well. The patient was transported to the recovery area in stable condition where they were observed for an appropriate amount of time prior to discharge, without evidence of complication. The patient was instructed to avoid excessive activity for the next 48 hours, including climbing and frequent use of stairs. Showers only for 48 hours. They were instructed not to drive or operate heavy machinery for 24 hours. They are to monitor for severe headaches, fevers, chills, night sweats, erythema/swelling at the site or any other signs of infection, bleeding/bruising, bowel or bladder changes as well as new pain, weakness or numbness in the upper or lower extremity. Should they notice these changes, they are instructed to call our office immediately or report directly to the nearest Emergency Department if no answer or if after posted office hours. COMPLICATIONS: None COMMENTS: None EXPOSURE: Time: 7.0s, Dose: 4.91mGy CONTRAST WASTED: 13mL Omnipaque 300. Complications No immediate complications Condition Stable Disposition PACU [facility] - Charge For
[2023-01-27] MEDS: LIDOCAINE HCL 1% PF INJ 5 ML VIAL 3 ML AFFCTD EYE (08:51)
--- NOTE | 2023-01-27 09:20 | SUR.PHASEII ---
late note 0900 Pt states headache post-procedure 4-11/19. Pt states has had injection previously and is not prone to headaches. Pt states has not ate this AM, drank his normal caffeine, or taken morning medications. VSS. Pt denies dizziness or blurry vision. extremity strength and sensation normal in post-op. This RN educated Pt that a severe headache not relieved by OTC medications should be reported to physician. Dr. Parrish paged to notify. Pt states does not want to wait for physician to reply and states headache is getting better. Pt states will call office if comes back, has dizziness, blurry vision, neck stiffness. Pt wheeled out of surgery center in no apparent distress. VSS, no blurry vision or dizziness at time of D/C. 0924 Dr. Parrish called back. Updated physician on pt condition, no new orders at this time.
== END 2023-01-27 09:20 | disposition home or self-care (01) ==
PROVIDERS: PCP Internal Medicine; Visit Provider Anesthesiology Pain Medicine
PROC: (CPT 62323; principal; 2023-01-27 08:30)
DX: M54.16 Radiculopathy, lumbar region (principal)
CPT/HCPCS: 62323; 99199

== ENCOUNTER 2023-03-10 07:47 | Day surgery (SDC) | payer MEDICARE, SELFPAY ==
[2023-03-03 07:35] VITALS: BMI 26.9
--- NOTE | ~2023-03-10 | XR_ITS ---
EXAMINATION: XR fluoroscopy no charge DATE: 03/10/2023 9:30 CDT INDICATION: BILATERAL L2,L3,L4,[id number] BRANCH DORSAL RAMUS BLOCK . TECHNIQUE: 7 fluoroscopic images of the lumbar spine were obtained during bilateral L2, L3, L4, and L 5 medial branch, dorsal ramus block performed by the surgeon. I was not present in the operating room . Fluoroscopy exposure time was 34.3 seconds. Air Kerma 23.04 mGy. COMPARISON: None FINDINGS: Bilateral needles approach the lateral aspect of L2, L3, L4, and L5, followed by localizing contrast injection. IMPRESSION: Fluoroscopic documentation of bilateral L2, L3, L4, and L5 medial branch, dorsal ramus block. Please refer to the operative note for complete procedural details . Reviewed, dictated and finalized at location K. IMPRESSION: Fluoroscopic documentation of bilateral L2, L3, L4, and L5 medial branch, dorsa l ramus block. Please refer to the operative note for complete procedural detai ls .
--- NOTE | 2023-03-10 08:05 | WPDHPUPDATE1 ---
History and Physical Update Update Date/Time: 03/10/23 08:05 History and Physical has been reviewed, including an updated exam of the patient. There are NO changes in the patient's condition. Risks, benefits, and alternatives have been discussed and questions answered. Patient agrees to proceed with procedure.
--- NOTE | 2023-03-10 08:10 | WPDHPUPDATE1 ---
History and Physical Update Update Date/Time: 03/10/23 08:10 History and Physical has been reviewed, including an updated exam of the patient. There are NO changes in the patient's condition. Risks, benefits, and alternatives have been discussed and questions answered. Patient agrees to proceed with procedure. Decision was made with the patient's informed consent to add the L2 level (L2, L3, L4, L5) given the broad region of pain and concordant arthropathy and the need to limit time off 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/reduce number of visits required to complete total treatment. Facet levels to be addressed today, therefore, include the bilateral L3-4, L4-5, L5-S1 joints.
[2023-03-10 08:17] VITALS: BP 142/75; PULSE 60; RESP 16; TEMP 36.4; O2SAT 100
[2023-03-10 09:30] VITALS: BP 164/74; PULSE 59; O2SAT 97
[2023-03-10 09:40] VITALS: BP 144/71; PULSE 59; O2SAT 99
[2023-03-10] MEDS: LIDOCAINE HCL 1% PF INJ 5 ML VIAL 3 ML XX (09:47)
[2023-03-10] MEDS: BUPivacaine HCL 0.5% 10 ML AMP INFILTRATE (09:49)
[2023-03-10 09:50] VITALS: BP 143/74; PULSE 59; O2SAT 100
--- NOTE | 2023-03-10 09:56 | W.PM.PROC2 ---
Procedure Note - Detailed Date of Procedure 03/10/23 Pre-op Diagnosis Lumbosacral Spondylosis, Chronic Low Back Pain Post-op Diagnosis Same Procedure Performed Bilateral L2, L3, L4, L5 medial branch/dorsal ramus blocks (#1) addressing the bilateral L3-4, L4-5, L5-S1 lumbar facet joints (6 total) under fluoroscopic guidance with contrast control. Surgeon Kip Parrish MD Anesthesia Local Indications Chronic low back pain secondary to extensive lumbar facet arthropathy Description of Procedure INFORMED CONSENT: Risks, benefits and alternatives to the procedure were discussed in detail with the patient who expressed explicit understanding and consent to proceed. Patient was informed verbally and in written form regarding the risks associated with the procedure including the low risk of serious infection, bleeding/bruising, allergic reaction, nerve or organ injury, paralysis, procedural site pain or discomfort, worsening pain and/or mobility, failure to treat and/or disfigurement. The patient expressed explicit understanding and consent to proceed. All materials required for the procedure were available prior to procedure start. Site and side were marked prior to procedure and confirmed in the presence of the patient. PROCEDURE IN DETAIL: The patient was brought to the procedural suite and placed in the prone position. Patient was made comfortable with use of pillows under the head/chest, hips and ankles. Skin overlying the injection site on the affected side(s) was prepared broadly with ChloraPrep applicator and draped in a sterile manner. Aseptic technique was used throughout. The endplates of the vertebral bodies at the site(s) of interest were aligned in the AP view. Ipsilateral oblique angulation was utilized to optimize visualization of the intersection between the superior articulating process and transverse process at each target site. Local anesthesia was established by infiltration with approximately 5 mL of 1% lidocaine via a 1-1/2 inch 27-gauge needle. A 25-gauge 3.5 inch Quincke spinal needle was advanced until the needle tip contacted periosteum at the target site, left L3. Lateral view was utilized to confirm the appropriate placement of the needle tip just anterior to the facet line and superior to the pedicle. In the Lateral view, 0.25 mL of Omnipaque 300 contrast medium was injected after negative aspiration for CSF, blood or other bodily fluid, showing appropriate extra-articular spread of contrast without evidence of intravascular, foraminal or intrathecal placement. A 0.5 mL solution of 0.5% PF bupivacaine was injected after negative repeat aspiration. Appropriate spread of the injectate was confirmed with washout of previously injected contrast. No parasthesias were elicited. Needle was removed completely intact without difficulty. The same exact procedure was repeated for all remaining levels on the ipsilateral side, left L4, L5 medial branches/dorsal ramus, modified as necessary to accommodate for the new target location with identical findings and results and no evidence of complication. The same exact procedure was repeated for all remaining levels on the contralateral side, right L3, L4, L5 medial branches/dorsal ramus, modified as necessary to accommodate for the new target location with identical findings and results and no evidence of complication. Images were saved and documented in the patient chart. Patient's skin was cleaned and sterile bandage applied. The patient tolerated the procedure well. The patient was transported to the recovery area in stable condition where they were observed for an appropriate amount of time prior to discharge, without evidence of complication. Patient was instructed on the appropriate completion of a pain diary over the next 12-24 hours. The patient was instructed to avoid excessive activity for the next 48 hours, including climbing and frequent use of stairs. Showers only for 48 hours. They were instru
[2023-03-10 09:58] VITALS: BP 151/74; PULSE 59; RESP 16; O2SAT 100
== END 2023-03-10 10:23 | disposition home or self-care (01) ==
PROVIDERS: PCP Internal Medicine; Visit Provider Anesthesiology Pain Medicine
PROC: (CPT 64493; principal; 2023-03-10 09:00)
DX: M47.817 Spondylosis without myelopathy or radiculopathy, lumbosacral region (principal); M54.59 Other low back pain
CPT/HCPCS: 64493; 99199

== ENCOUNTER → 2023-05-01 12:38 | Outpatient (CLI) | payer MEDICARE, SELFPAY ==
--- NOTE | ~2023-05-01 | CT_ITS ---
EXAMINATION: CT diagnostic chest wo con DATE: 05/01/2023 12:53 INDICATION: Pleural plaques TECHNIQUE: Computed tomography (CT) of the chest was performed without intravenous contrast. The dose -length product (DLP) was 347.16 mGy-cm. Automated exposure control and iterative reconstruction tech [employer] were employed. COMPARISON: 05/20/2022 FINDINGS: Again noted are calcified and noncalcified bilateral pleural plaques. There are subpleural reticular and groundglass opacities with a mid and lower lung zone predominance which demonstrate sli ght interval worsening. No honeycombing is identified. There is mild emphysema. No pathologically enl arged thoracic lymph nodes are identified. The heart size is normal. There is mild thoracic spondylos is. There are multiple cysts of the partially imaged kidneys, one of which on the right is hemorrhagi c. IMPRESSION: 1. Stable bilateral calcified and noncalcified pleural plaques which can be seen in the setting of pr ior asbestos exposure. 2. Chronic subpleural reticular and groundglass opacities with a mid and lower lung zone predominance which demonstrate slight interval worsening, consistent with chronic interstitial lung disease and/o r asbestosis. Reviewed, dictated and finalized at location F. IMPRESSION: 1. Stable bilateral calcified and noncalcified pleural plaques which can be see n in the setting of prior asbestos exposure. 2. Chronic subpleural reticular and groundglass opacities with a mid and lower lung zone predominance which demonstrate slight interval worsening, consistent with chronic interstitial lung disease and/or asbestosis.
== END ==
PROVIDERS: PCP Internal Medicine; Visit Provider Nurse Practitioner
DX: J92.9 Pleural plaque without asbestos (principal)
CPT/HCPCS: 71250

== ENCOUNTER 2023-05-12 08:30 | Outpatient (CLI) | payer MEDICARE, SELFPAY ==
--- NOTE | ~2023-05-12 | US_ITS ---
EXAMINATION: US arterial ankle brachial ind DATE: 05/12/2023 09:16 INDICATION: Peripheral vascular disease. TECHNIQUE: Segmental pressures and plethysmographic and Doppler waveforms of the brachial and lower e xtremity arteries were obtained. COMPARISON: ABIs 07/10/2021 FINDINGS: Right and left brachial artery pressures of 129 mm Hg and 124 mm Hg, respectively, are concordant (no rmal difference <= 30 mmHg). The right ankle-brachial index (TYRONE) is 1.21 (normal >= 0.9-1.0). The right great toe-brachial index (TBI) is 0.55 (normal >= 0.65). Arterial Doppler waveforms are biphasic in posterior tibial artery an d triphasic in dorsalis pedis. The left TYRONE is 1.19. The left TBI is 0.60. Arterial Doppler waveforms are biphasic at the ankle. IMPRESSION: 1. Mildly decreased TBIs and normal ABIs with interval improvement, consistent with arterial occlusiv e disease. Reviewed, dictated and finalized at location E. IMPRESSION: 1. Mildly decreased TBIs and normal ABIs with interval improvement, consistent with arterial occlusive disease.
== END 2023-05-12 08:31 | disposition home or self-care (01) ==
LOC: ANHIMG 08:33
PROVIDERS: PCP Internal Medicine; Visit Provider Internal Medicine
DX: I73.9 Peripheral vascular disease, unspecified (principal)
CPT/HCPCS: 93922

== ENCOUNTER 2023-05-19 12:26 | Outpatient (CLI) | payer MEDICARE, SELFPAY ==
--- NOTE | 2023-05-19 16:50 | WPDPFTINT ---
PFT Procedure Performed PFT Procedure Performed Spirometry with Pre/Post Bronchodilator Plethysmography (Lung Vol) Diffusing Cap (DLCO) Flow Vol Loop PFT Interpretation This is a pulmonary function test with pre and post-bronchodilator spirometry, plethysmography and diffusing capacity. The test was performed and results interpreted in accordance with the 2019 and 2005 ATS/ERS Task Force guidelines respectively using the Global Lung Function Initiative-2012 reference equations. Patient demonstrated good effort and cooperation. Reproducibility criteria were met. The quality of the pre bronchodilator spirometry maneuver was Grade A and post bronchodilator spirometry maneuver was Grade A. Findings: Spirometry: There is decreased maximal expiratory airflow at low lung volumes with concave expiratory flow tracing. The contour the inspiratory flow tracing is normal. The pre bronchodilator FVC is 3.26 L, 80% predicted. The pre bronchodilator FEV1 is 2.22 L, 74% predicted. The pre bronchodilator FEV1: FVC ratio 68%. The post bronchodilator FVC is 3.14 L, representing a 4% decrease. The post bronchodilator FEV1 is 2.14 L, representing a 4% decrease. The post bronchodilator FEV1: FVC ratio 68%. Plethysmography: The total lung capacity is 7.14 L, 95% predicted. The functional residual capacity is 4.58 L, 112% predicted. The residual volume is 3.84 L, 137% predicted. The residual volume: Total lung capacity ratio is 54% predicted. Diffusing capacity: The diffusing capacity unadjusted for hemoglobin and carboxyhemoglobin is 16.0, 66% predicted. The diffusing capacity adjusted for alveolar volume is 3.48, 101% predicted. In comparison to previous pulmonary function testing on 05/26/2018 in which only pre bronchodilator spirometry was performed the pre bronchodilator FVC is unchanged from 3.78 L to 3.26 L. The pre bronchodilator FEV1 is decreased from 2.54 L to 2.22 L. The total lung capacity has increased from 6.23 L to 7.14 L. The functional residual capacity has increased from 3.42 L to 4.58 L. The residual volume has increased from 2.44 L to 3.84 L. The diffusing capacity unadjusted for hemoglobin and carboxyhemoglobin is unchanged from 17.9 to 16.0. The diffusing capacity adjusted for alveolar volume is unchanged from 3.22 to 3.48. Impression: The spirometry is normal without evidence of an obstructive abnormality. There is no significant improvement after inhaling a single dose of albuterol. The total lung capacity is normal. The residual volume is increased with an increased residual volume: Total lung capacity ratio consistent with hyperinflation. The diffusing capacity unadjusted for hemoglobin and carboxyhemoglobin is mildly decreased and normalizes when adjusted for alveolar volume. In comparison to previous pulmonary function testing on 05/26/2018 there has been a greater than anticipated time dependent decrease in the FEV1. There has been a greater than anticipated time dependent increase in the total lung capacity, functional residual capacity and residual volume with no significant change in the FVC or diffusing capacity. Clinical correlation is recommended.
== END 2023-05-19 12:27 | disposition home or self-care (01) ==
PROVIDERS: PCP Internal Medicine; Visit Provider Nurse Practitioner
DX: J44.9 Chronic obstructive pulmonary disease, unspecified (principal)
CPT/HCPCS: 94060; 94726; 94729

== ENCOUNTER 2023-05-29 08:47 | Outpatient (CLI) | payer MEDICARE, SELFPAY ==
[2023-05-29 18:39] LABS: Basophils Absolute Auto 0.1 K/mm3 (0.0-0.1); Basophils Percent Auto 0.8 % (0.2-1.2); Eosinophils Absolute Auto 0.2 K/mm3 (0-0.3); Eosinophils Percent Auto 3.1 % (0-4.4); Hematocrit 46.8 % (42.0-52.0); Hemoglobin 14.7 g/dL (14.0-18.0); Immature Granulocyte Absolute 0.02 K/mm3 (0.00-0.031); Immature Granulocyte Percent A 0.3 % (0-0.5); Lymphocytes Absolute Auto 1.92 K/mm3 (0.9-3.2); Lymphocytes Percent Auto 26.6 % (18.3-44.2); Mean Corpuscular HGB Conc 31.4 g/dl (32-36); Mean Corpuscular Hemoglobin 28.5 pg (26-34); Mean Corpuscular Volume 90.7 fl (80-100); Mean Platelet Volume 10.8 fl (7.4-10.4); Monocytes Absolute Auto 0.6 K/mm3 (0.1-0.6); Monocytes Percent Auto 8.6 % (2.6-8.5); Neutrophils Absolute Auto 4.4 K/mm3 (1.3-6.7); Neutrophils Percent Auto 60.6 % (45.5-73.1); Platelet Count Result 156 k/mm3 (150-375); Red Blood Count 5.16 M/mm3 (4.6-6.20); Red Cell Distribution Width 14.5 % (11.5-14.5); White Blood Count 7.2 K/mm3 (4.5-10.0)
[2023-05-29 18:50] LABS: Alanine Aminotransferase 17 U/L (6-50); Albumin Level 4.1 g/dL (3.5-5.1); Alkaline Phosphatase 62 U/L (38-126); Anion Gap 6 mmol/L (8-16); Aspartate Amino Transferase 35 U/L (17-59); Bilirubin,Total 0.9 mg/dL (0.2-1.3); Blood Urea Nitrogen 22 mg/dL (9-20); Calcium 9.8 mg/dL (8.4-10.2); Carbon Dioxide 33 mmol/L (22-30); Chloride 101 mmol/L (98-107); Cholesterol 174 mg/dL (0-200); Estimated Glomerular Filt Rate > 60; Glucose 111 mg/dL (65-110); HDL Direct 40 mg/dL; Potassium 4.5 mmol/L (3.4-5.0); Sodium 140 mmol/L (137-145); Triglycerides 123 mg/dL (<150)
[2023-05-29 19:01] LABS: LDL Cholesterol Direct 104 mg/dL
[2023-05-29 20:31] LABS: Hemoglobin A1C 5.9 % (<5.7)
== END 2023-05-29 08:48 | disposition home or self-care (01) ==
PROVIDERS: PCP Internal Medicine; Visit Provider Internal Medicine
DX: I25.10 Atherosclerotic heart disease of native coronary artery without angina pectoris (principal); I48.91 Unspecified atrial fibrillation; I73.9 Peripheral vascular disease, unspecified; E11.9 Type 2 diabetes mellitus without complications; E83.42 Hypomagnesemia; E78.5 Hyperlipidemia, unspecified
CPT/HCPCS: 36415; 80053; 80061; 83036; 83735; 85025

== ENCOUNTER 2023-08-28 11:43 | Observation (INO) | payer MEDICARE, SELFPAY ==
[2023-08-28] VITALS (13 sets, daily range): BP systolic 117–195; BP diastolic 53–92; PULSE 60–75; RESP 14–18; TEMP 36–36.5; O2SAT 95–99; BMI 27.0
--- NOTE | ~2023-08-28 | XR_ITS ---
EXAMINATION: XR chest 2V DATE: 08/28/2023 12:24 INDICATION: Left-sided chest pain and heaviness. TECHNIQUE: PA and lateral views of the chest were obtained. COMPARISON: Chest CT dated 05/01/2023 FINDINGS: There are bilateral calcified pleural plaques. There are coarse reticular opacities at the bilateral lung bases inflammatory CT favoring chronic interstitial lung disease. No new airspace opacities, ple ural effusion or pneumothorax. Cardiomegaly. Dual lead pacemaker seen with leads projecting over the expected locations of the right atrium and right ventricle. IMPRESSION: 1. Bilateral calcified pleural plaques and chronic interstitial lung disease to bilateral lower lung zones. No acute cardiopulmonary disease. 2. Cardiomegaly. Reviewed, dictated and finalized at location A. O TECHNICIAN
--- NOTE | 2023-08-28 11:48 | ECG_ITS ---
Measurements Intervals [place] Rate: 59 P: MT: 0 QRS: -75 QRSD: 199 T: 103 QT: 489 QTc: 487 Interpretive Statements ELECTRONIC VENTRICULAR PACEMAKER ABNORMAL RHYTHM ECG COMPARED TO ECG 05/08/2021 09:18:11 NO SIGNIFICANT CHANGES Electronically Signed On 08-28-2023 15:25:52 SENIOR ACCOUNTANT CPA by Obi Trujillo M.D.
[2023-08-28 12:12] LABS: Basophils Percent Auto 0.4 % (0.2-1.2); Eosinophils Absolute Auto 0.1 K/mm3 (0-0.3); Eosinophils Percent Auto 1.4 % (0-4.4); Hemoglobin 14.4 g/dL (14.0-18.0); Immature Granulocyte Absolute 0.02 K/mm3 (0.00-0.031); Immature Granulocyte Percent A 0.3 % (0-0.5); Lymphocytes Absolute Auto 1.49 K/mm3 (0.9-3.2); Lymphocytes Percent Auto 20.2 % (18.3-44.2); Mean Corpuscular Hemoglobin 28.7 pg (26-34); Mean Corpuscular Volume 89.6 fl (80-100); Mean Platelet Volume 10.5 fl (7.4-10.4); Monocytes Absolute Auto 0.6 K/mm3 (0.1-0.6); Monocytes Percent Auto 7.4 % (2.6-8.5); Neutrophils Absolute Auto 5.2 K/mm3 (1.3-6.7); Neutrophils Percent Auto 70.3 % (45.5-73.1); Platelet Count Result 157 k/mm3 (150-375); Red Blood Count 5.02 M/mm3 (4.6-6.20); Red Cell Distribution Width 15.5 % (11.5-14.5); White Blood Count 7.4 K/mm3 (4.5-10.0)
[2023-08-28 12:26] LABS: INR 1.1; Prothrombin Time 15.1 Seconds (11.1-14.7)
[2023-08-28 12:27] LABS: Alanine Aminotransferase 34 U/L (6-50); Albumin Level 4.1 g/dL (3.5-5.1); Alkaline Phosphatase 86 U/L (38-126); Anion Gap 5 mmol/L (8-16); Aspartate Amino Transferase 34 U/L (17-59); Bilirubin,Total 1.1 mg/dL (0.2-1.3); Blood Urea Nitrogen 14 mg/dL (9-20); Calcium 9.6 mg/dL (8.4-10.2); Carbon Dioxide 36 mmol/L (22-30); Chloride 97 mmol/L (98-107); Estimated CRCL calculation 61 ml/min; Estimated Glomerular Filt Rate > 60; Glucose 113 mg/dL (65-110); Lipase 64 U/L (23-300); Partial Thromboplastin Time 38.1 SECONDS (22.3-36.8); Potassium 3.7 mmol/L (3.4-5.0); Sodium 138 mmol/L (137-145)
[2023-08-28 12:39] LABS: Troponin I < 0.012 ng/mL (0.000-0.034)
--- NOTE | 2023-08-28 14:47 | ECG_ITS ---
Measurements Intervals [place] Rate: 67 P: [place]: 0 QRS: 183 QRSD: 156 T: -71 QT: 464 QTc: 492 Interpretive Statements ATRIAL FIBRILLATION ELECTRONIC VENTRICULAR DEMAND PACEMAKER DEMONSTRATING APPROPRIATE SENSING AND CAPTURE MARKED RIGHT AXIS DEVIATION [QRS AXIS > 100] RIGHT BUNDLE BRANCH BLOCK [120+ ms QRS DURATION, UPRIGHT V1, 40+ ms S IN I/aVL/V4/V5/V6] ST DEVIATION AND MARKED T-WAVE ABNORMALITY, CONSIDER INFERIOR ISCHEMIA [-0.5+ mV T WAVE IN II/aVF] COMPARED TO ECG 08/28/2023 12:03:33 THE CURRENT TRACING DEMONSTRATES SOME INTRINSIC COMPLEXES WITH NORMAL PACEMAKER SENSING AND CAPTURE. PREVIOUS TRACING WAS PACED Electronically Signed On 08-28-2023 15:30:59 TOOL AND DIE MACHINIST by Obi Trujillo M.D.
[2023-08-28] MEDS: ASPIRIN 81 MG CHEWABLE TABLET 324 MG PO (15:17)
--- NOTE | 2023-08-28 15:19 | ED.CHESTPAIN ---
HPI - Chest Pain General Chief Complaint: Chest Pain <WILLAM Pa Last Filed: 08/28/23 19:37> Stated Complaint: heart problems <WILLAM Pa Last Filed: 08/28/23 19:37> Time Seen by Provider: 08/28/23 14:55 <WILLAM Pa Last Filed: 08/28/23 19:37> Source: patient <WILLAM Pa Last Filed: 08/28/23 19:37> Mode of arrival: ambulatory <WILLAM Pa Last Filed: 08/28/23 19:37> Limitations: no limitations <WILLAM Pa Last Filed: 08/28/23 19:37> History of Present Illness HPI narrative: Patient is an 82 y/o male, with past medical history of CAD, PAD, DM, AFIB chronically anticoagulated on eliquis, pacemaker, who presents to the ED with c/o CP. Patient reports having intermittent midsternal chest pain the last 1 week. No significant aggravating or alleviating factors. States pain occurred at random. No significant aggravation with exertion. Pain became worse today which prompted his presentation. He does complain of heaviness and pressure across his midsternal chest currently. He also reports he having intermittent lower extremity swelling over the last couple of days, intermittent shortness of breath, headaches, elevated blood pressures. Denies abd pain, N/V, cough, fevers, BLE pain. <WILLAM Pa Last Filed: 08/28/23 19:37> Related Data Home Medications: Home Medications Medication Instructions Recorded Confirmed apixaban 5 mg tablet (Eliquis) 5 mg PO Q12H 05/01/21 08/28/23 magnesium oxide 400 mg (241.3 mg 400 mg PO DAILY 09/30/21 08/28/23 magnesium) tablet acetaminophen 500 mg tablet 1,000 mg PO Q6H PRN Pain 11/18/22 08/28/23 aspirin 81 mg capsule 81 mg PO DAILY 11/18/22 08/28/23 gabapentin 600 mg tablet 600 mg PO BID 02/17/23 08/28/23 Metanx levomefolate/alge-S/Pydoxal 2 mg PO BID 06/16/23 08/28/23 Phos/Methycob carvedilol 25 mg tablet 12.5 mg PO BID 06/16/23 08/28/23 olmesartan 40 mg tablet (Benicar) 40 mg PO DAILY 08/28/23 08/28/23 <Angeli Moreno PA-C - Last Filed: 08/28/23 19:37> Allergies/Adverse Reactions: Allergies Allergy/AdvReac Type Severity Reaction Status Date / Time No Known Allergies Allergy Mild Verified 08/28/23 10:36 <Angeli Moreno PA-C - Last Filed: 08/28/23 19:37> Review of Systems Review of Systems: CONSTITUTIONAL: Denies fever, chills, or sweats. CARDIOVASCULAR: See HPI. RESPIRATORY: See HPI. GASTROINTESTINAL: Denies abdominal pain, nausea, vomiting. MUSCULOSKELETAL: Denies back pain, extremity pain, myalgia. NEUROLOGIC: See HPI. <Angeli Moreno PA-C - Last Filed: 08/28/23 19:37> All systems reviewed & are unremarkable except as noted in HPI and below <Angeli Moreno PA-C - Last Filed: 08/28/23 19:37> [facility] Past Medical History Medical History: Medical History Actinic keratosis Asbestosis Benign prostatic hyperplasia Cervical herniated disc Chronic anticoagulation Chronic obstructive pulmonary disease Eczema Gastroesophageal reflux disease History of nephrolithotomy with removal of calculi Hyperlipidemia Hypertension Lung nodule Paroxysmal atrial fibrillation Peripheral arterial disease Peripheral polyneuropathy Spinal stenosis Type 2 diabetes mellitus <Angeli Moreno PA-C - Last Filed: 08/28/23 19:37> Surgical History Surgical History: Surgical History History of cardiac catheterization History of colonoscopy with polypectomy History of coronary artery stent placement History of cystoscopy History of neck surgery History of skin graft History of tonsillectomy and adenoidectomy History of vascular surgery (09/2021) Lower extremity stents. <Angeli Moreno PA-C - Last Filed: 08/28/23 19:37> Family History Family History:
[2023-08-28] MEDS: NITROGLYCERIN SL 0.4 MG TABLET SUBLINGUAL (15:23)
[2023-08-28 15:25] LABS: Troponin I 0.014 ng/mL (0.000-0.034)
--- NOTE | 2023-08-28 15:52 | PC.NURSE ---
1528: second dose of 0.4mg nitroglycerin given sublingually after pt reported chest pressure is still present 1532: third dose of 0.4mg nitroglycerin given sublingually after pt reported chest pressure is still present 1537: Pt reports chest pressure is better but states he still has slight discomfort.
[2023-08-28 16:00] LABS: NT Pro B Type Natriuretic Pept 2990 pg/mL (19.9-100)
[2023-08-28 16:13] LABS: D Dimer 0.71 ug/mL (<0.48)
--- NOTE | 2023-08-28 17:26 | PM.IMHP ---
H&P: HPI History of Present Illness Date/Time: 08/28/23 19:30 Chief Complaint: Chest pain. Narrative: This is a pleasant 82-year-old male with coronary artery disease, status post permanent pacemaker implantation, paroxysmal atrial fibrillation on chronic anticoagulation, peripheral arterial disease with history of lower extremity stents, hypertension, hyperlipidemia, diet control type 2 diabetes mellitus, and benign prostatic hyperplasia who presented to the emergency department for evaluation of chest pain. The patient provides the following history. His of 63 years about 2 weeks ago since that time he has had intermittent episodes of self-limiting, nonradiating mid chest pressure. He sees no pattern as to when his symptoms occur and denies that they are solely related to exertion. He has not noticed any aggravating factors. Sometimes he feels better after eating. With further questioning he admits that at 1st he thought it was due to indigestion as he has been belching more than usual though his symptoms seem to be better after that as well. He denies syncope, near syncope, sweats, nausea, vomiting, shortness of breath, pleuritic pain, calf pain, abdominal pain, hematemesis, melena, or hematochezia. He has intermittent lower extremity edema which tends to go down by morning, and that has not changed. Initial EKG showed a paced rhythm. His initial troponin was normal. Given his extensive cardiac history, I was asked to admit the patient in this setting for closer monitoring and Cardiology consultation. At the time my evaluation he is resting comfortably and has no current discomfort. Review of Systems Review of Systems: Twelve systems were reviewed and are negative except for as per HPI. [facility] Past Medical History Medical History Actinic keratosis Asbestosis Benign prostatic hyperplasia Cervical herniated disc Chronic anticoagulation Chronic obstructive pulmonary disease Eczema Gastroesophageal reflux disease History of nephrolithotomy with removal of calculi Hyperlipidemia Hypertension Lung nodule Paroxysmal atrial fibrillation Peripheral arterial disease Peripheral polyneuropathy Spinal stenosis Type 2 diabetes mellitus Surgical History Surgical History (Updated 08/28/23 @ 23:48 by Anila Oneill PA-C) History of cardiac catheterization History of colonoscopy with polypectomy History of coronary angioplasty History of cystoscopy History of neck surgery History of skin graft History of tonsillectomy and adenoidectomy History of vascular surgery (09/2021) Lower extremity stents. Family History Family History Sibling Acute myocardial infarction Breast cancer Mother Leukemia Father Cirrhosis of liver Son Cancer Social History Social History (Updated 08/28/23 @ 23:49 by Anila Oneill PA-C) Social History: Surrogate medical decision maker: Obi Sorto, son. Code status: Full code. Smoking packs per day: 0.5 Smoking cigarettes per day: 10.0 Years smoked: 50 Smoking pack-years: 25.00 Smoking status: Current every day smoker Tobacco type: cigarettes Second hand tobacco smoke exposure: No Alcohol intake: former Drinks per week: 0 Alcohol use details: rarely Substance use: former Substance use type: marijuana Last use: 1987 Do You Feel Safe in your Home?: Yes Lack of Transportation: No Lack of Food: Never True Current Housing: I Have Housing Concerned About Future Housing: No Difficulty Paying Gas/Electric Bills: No Difficulty Paying for Meds: No Currently Unemployed: No Education: Associate Degree Difficulty w/ Childcare or Family Care: No Living arrangements: with family Additional living arrangements comments: as of July 2023. Lives in [place]. Has 4 sons. 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
--- NOTE | 2023-08-28 17:42 | ECG_ITS ---
Measurements Intervals [place] Rate: 59 P: [place]: 0 QRS: -76 QRSD: 205 T: 106 QT: 495 QTc: 493 Interpretive Statements ELECTRONIC VENTRICULAR PACEMAKER WITH APPROPRIATE SENSING AND CAPTURE INTRINSIC RHYTHM IS MOST CONSISTENT WITH CONTROLLED ATRIAL FIBRILLATION NONSPECIFIC T-WAVE ABNORMALITY ABNORMAL RHYTHM ECG COMPARED TO ECG 08/28/2023 15:08:27 NO SIGNIFICANT CHANGES Electronically Signed On 08-29-2023 8:16:48 PSYCHIATRIC NURSING AIDE by Obi Trujillo M.D.
[2023-08-28 18:19] LABS: Troponin I 0.015 ng/mL (0.000-0.034)
[2023-08-28] MEDS: GABAPENTIN 300 MG CAPSULE 600 MG PO (20:40)
[2023-08-28] MEDS: POTASSIUM CHLORIDE 10 MEQ ER TABLET PO (20:40)
[2023-08-28] MEDS: carvediloL 12.5 MG TABLET PO (20:45)
[2023-08-28] MEDS: APIXABAN 5 MG TABLET PO (20:46)
--- NOTE | 2023-08-28 23:06 | ADMGEN ---
This patient, Isacc Sorto, was admitted to IMU Room 211-01 at approximately 1845. Patient/family oriented to hospital policies and general routines including ID bracelet, bed and alarms, visiting hours, pain management, procedures, bathroom and other care routines, personal items, smoking policy, room service/diet, and visiting hours. Information on how to activate the Rapid Response Team has been discussed. Patient/Family are encouraged to report perceived risks to care and to ask questions if they do not understand what they are told or what they should do.
[2023-08-29] VITALS (10 sets, daily range): BP systolic 142–159; BP diastolic 69–82; PULSE 58–88; RESP 18–20; TEMP 35.9–36.5; O2SAT 96–97
[2023-08-29 05:15] LABS: Anion Gap 3 mmol/L (8-16); Blood Urea Nitrogen 15 mg/dL (9-20); Calcium 9.2 mg/dL (8.4-10.2); Carbon Dioxide 34 mmol/L (22-30); Chloride 100 mmol/L (98-107); Estimated CRCL calculation 61 ml/min; Estimated Glomerular Filt Rate > 60; Glucose 90 mg/dL (65-110); Magnesium 1.3 mg/dL (1.6-2.3); Sodium 137 mmol/L (137-145)
[2023-08-29] MEDS: ACETAMINOPHEN 325 MG TABLET 650 MG PO (08:22)
[2023-08-29] MEDS: hydroCHLOROthiazide 12.5 MG CAPSULE PO (09:50)
[2023-08-29] MEDS: GABAPENTIN 300 MG CAPSULE 600 MG PO (09:50)
[2023-08-29] MEDS: NICOTINE (*PBKC) 14 MG PATCH 1 PATCH TRANSDERM (09:50)
[2023-08-29] MEDS: POTASSIUM CHLORIDE 20 MEQ ER TABLET 40 MEQ PO (09:51)
[2023-08-29] MEDS: MAGNESIUM OXIDE 400 MG TABLET PO (09:51)
[2023-08-29] MEDS: POTASSIUM CHLORIDE 10 MEQ ER TABLET PO (09:51)
[2023-08-29] MEDS: ROSUVASTATIN 10 MG TABLET PO (09:51)
[2023-08-29] MEDS: TAMSULOSIN HCL 0.4 MG CAPSULE PO (09:51)
[2023-08-29] MEDS: OLMESARTAN MEDOXOMIL 20 MG TABLET 40 MG PO (09:51)
[2023-08-29] MEDS: carvediloL 12.5 MG TABLET PO (09:51)
[2023-08-29] MEDS: MAGNESIUM SULF 4 GM/WATER100ML 4 GM/100 ML BAG IVPB (09:52)
[2023-08-29] MEDS: FLUTICASONE PROPIONATE 0.05% NA SPR 16 GM BTL (*BKC) 2 SPRAY NASAL (09:52)
[2023-08-29] MEDS: KCL 20 MEQ/SW 100 ML 100 ML 50 MEQ IVPB (09:52)
[2023-08-29] MEDS: ASPIRIN 81 MG ENTERIC TABLET PO (09:52)
[2023-08-29] MEDS: APIXABAN 5 MG TABLET PO (09:52)
--- NOTE | 2023-08-29 10:29 | PM.IMPN ---
Subjective Date/time seen: 08/29/23 10:29 Objective Data Vital Signs Vital Signs: Vital Signs - 24 hr 08/28/23 11:49 08/28/23 14:41 08/28/23 14:44 Temperature 36.0 C L Pulse Rate 60 66 Respiratory Rate 16 14 Blood Pressure 195/79 H 174/92 H Pulse Oximetry 99 99 99 Oxygen Delivery Room Air Room Air 08/28/23 14:44 08/28/23 15:23 08/28/23 15:28 Temperature Pulse Rate 68 67 67 Respiratory Rate 15 16 Blood Pressure 178/76 H 130/70 Pulse Oximetry 95 95 Oxygen Delivery 08/28/23 15:32 08/28/23 17:41 08/28/23 18:36 Temperature Pulse Rate 68 60 75 Respiratory Rate 17 14 15 Blood Pressure 117/68 147/73 H 154/74 H Pulse Oximetry 95 96 96 Oxygen Delivery 08/28/23 19:28 08/28/23 20:45 08/28/23 20:00 Temperature 36.2 C L Pulse Rate 60 66 Respiratory Rate 16 Blood Pressure 169/69 H Pulse Oximetry 98 Oxygen Delivery Room Air 08/28/23 23:38 08/28/23 20:00 08/28/23 22:00 Temperature 36.5 C Pulse Rate 60 67 63 Respiratory Rate 18 Blood Pressure 122/53 L Pulse Oximetry 97 Oxygen Delivery 08/29/23 00:00 08/29/23 02:00 08/29/23 04:00 Temperature Pulse Rate 60 58 L 60 Respiratory Rate Blood Pressure Pulse Oximetry Oxygen Delivery 08/29/23 04:00 08/29/23 06:00 08/29/23 08:11 Temperature 36.5 C 36.3 C L Pulse Rate 60 59 L 62 Respiratory Rate 18 20 Blood Pressure 158/82 H 142/69 H Pulse Oximetry 96 96 Oxygen Delivery 08/29/23 09:51 Temperature Pulse Rate 62 Respiratory Rate Blood Pressure Pulse Oximetry Oxygen Delivery Intake/Output Intake/Output: Intake & Output 08/26/23 08/27/23 08/28/23 08/29/23 23:59 23:59 23:59 23:59 Intake Total 500 Balance 500 Meds/Results Medications: Active Medications Generic Name Dose Route Start Last Admin Trade Name Freq PRN Reason Stop Dose Admin Acetaminophen 650 mg 08/28/23 17:37 08/29/23 08:22 Acetaminophen 325 Mg Tablet PO 650 mg Q6H PRN Administration Mild Pain (1-3) or Fever Apixaban 5 mg 08/28/23 09:00 08/29/23 09:52 Apixaban 5 Mg Tablet PO 5 mg Q12H ALEXANDRA Administration Aspirin 81 mg 08/29/23 09:00 08/29/23 09:52 Aspirin 81 Mg Enteric Tablet PO 09/28/23 08:59 81 mg DAILY ALEXANDRA Administration Carvedilol 12.5 mg 08/29/23 09:00 08/29/23 09:51 Carvedilol 12.5 Mg Tablet PO 12.5 mg Q12HR ALEXANDRA Administration Fluticasone Propionate 2 spray 08/28/23 09:00 08/29/23 09:52 Fluticasone Propionate 0.05% Na Spr 16 Gm Btl (*Bkc) NASAL 2 spray DAILY ALEXANDRA Administration Gabapentin 600 mg 08/29/23 09:00 08/29/23 09:50 Gabapentin 300 Mg Capsule PO 600 mg Q12HR ALEXANDRA Administration Hydrochlorothiazide 12.5 mg 08/29/23 09:00 08/29/23 09:50 Hydrochlorothiazide 12.5 Mg Capsule PO 12.5 mg DAILY ALEXANDRA Administration Magnesium Sulfate 4 gm in 100 mls @ 25 mls/hr 08/29/23 07:51 08/29/23 09:52 Magnesium Sulf 4 Gm/[id number] IVPB 08/29/23 11:50 25 mls/hr ONCE ONE Administration Magnesium Oxide 400 mg 08/29/23 09:00 08/29/23 09:51 Magnesium Oxide 400 Mg Tablet PO 400 mg DAILY ALEXANDRA Administration Miscellaneous Information 1 each 08/28/23 00:01 Nonformulary Drug (Metanx Levomefolate/Alge-S/Pydoxal Phos/Methycob 2 Mg) Can Patient Use XX 09/27/23 00:00 [facility]IFY [facility] Nicotine 1 patch 08/29/23 09:00 08/29/23 09:50 Nicotine (*Pbkc) 14 Mg Patch TRANSDERM 1 patch DAILY ALEXANDRA Administration Nitroglycerin 0.4 mg 08/28/23 16:44 Nitroglycerin Sl 0.4 Mg Tablet SUBLINGUAL Q5MIN PRN Chest Pain Non-Formulary Medication 2 mg 08/29/23 09:00 Metanx Levomefolate/Alge-S/Pydoxal Phos/Methycob PO 09/28/23 08:59 BID ALEXANDRA Olmesartan 40 mg 08/29/23 09:00 08/29/23 09:51 Olmesartan Medoxomil 20 Mg Tablet PO 09/28/23 08:59 40 mg DAILY ALEXANDRA Administration Pantoprazole Sodium 40 mg 08/29/23 21:00 Pantoprazole 40 Mg Tablet PO 09/28/23 20:59 HS ALEXANDRA
--- NOTE | 2023-08-29 12:12 | PM.CNCAR ---
Assessment and Plan Assessment and plan (1) Chest pain: Qualifiers: Chest pain type: unspecified Qualified Code(s): R07.9 - Chest pain, unspecified Code(s): R07.9 - Chest pain, unspecified Status: Acute Plan This is an 82-year-old man with longstanding coronary disease he has been stable following percutaneous revascularization approximately 20 years ago. He has chronic atrial fibrillation and for the most part his rhythm is electronically paced. Despite his symptoms and history his troponin levels are negative for any evidence of acute coronary syndrome. Obviously with his paced rhythm his electrocardiogram is unhelpful as far as ischemic evaluation is concern. I believe most of his symptoms currently are related to the very stressful event of losing his and I do not believe we need to initiate an ischemia workup at [facility]. From my perspective he can be discharged for follow-up with his established shared services representative Obi Trujillo MD [facility] History of Present Illness History of Present Illness Consult date/time: 08/29/23 12:12 Reason For Visit: cp heart score - 5 Narrative: This is 82-year-old man I am seeing today at the request of the hospitalist because of some chest pain that occurred yesterday which caused him concerned enough to come to the emergency room where he was evaluated and admitted to this hospital. This patient is not known to me prior to this consultation but he has a long history of coronary disease, atrial fib, pacemaker and peripheral vascular disease and is followed by the cardiologists elsewhere. He states that he has been under lot of stress lately as his of 62 years recently after a fall and a hip fracture and complications of this. She apparently also had severe longstanding COPD. The patient states that yesterday he began to become concerned about his health because he was checking his blood pressure at home and found it to be higher than it typically is he took some of his blood pressure medication and instead of the pressure improving it got worse so that he became concerned and came to the emergency room here for evaluation. He was reporting some mild central chest discomfort at the time of his ER evaluation but he states that is not the main reason he came into the emergency room it was primarily because of his concern regarding his blood pressure. The patient's electrocardiogram in the ER shows electronically paced rhythm and his troponin levels have been negative. He is not reporting any orthopnea PND or edema and denies any symptoms otherwise and he is comfortable at the time of this interview. The patient's electrocardiograms in the chart either show paced rhythm some of them show paced rhythm alternating with intrinsic rhythm which is appropriately sensed and his inferior leads shows significant T-wave inversion on those leads. In any event he states that he is a long-standing patient of shared services representative, Dr. Cheng and he is known to have coronary disease he has believes that he has had several of his coronary arteries addressed with stenting but nothing recent. He is known to have atrial fibrillation and a pacemaker device although this is followed in his shared services representative's office. He also has chronic atrial fibrillation for which he is anticoagulated with apixaban. Review of Systems Constitutional: Constitutional: Reports no additional constitutional complaints Eyes: Eyes: Reports no additional eye complaints ENT: Reports system reviewed and no additional complaints, except as documented Cardiovascular: Cardiovascular: Reports as per HPI Respiratory: Respiratory: Reports no additional respiratory complaints Gastrointestinal: Gastrointestinal: Reports no additional gastrointestinal complaints Musculoskeletal: Musculoskeletal: Reports back pain Integumentary/Breasts: Skin/Breast: Reports system reviewed and no additional complaints, except as docu Neurologic
--- NOTE | 2023-08-29 13:51 | PM.DS ---
DS: Admitting Diagnosis Discharge Date 08/29/2023 Admitting Diagnosis Chest pain, coronary artery disease, hypertension, paroxysmal atrial fibrillation, chronic anticoagulation type 2 diabetes mellitus DS: Discharge Diagnosis Discharge Diagnosis (1) Chest pain: Qualifiers: Chest pain type: unspecified Qualified Code(s): R07.9 - Chest pain, unspecified Code(s): R07.9 - Chest pain, unspecified Status: Acute (2) Coronary artery disease: Qualifiers: Coronary Disease-Associated Artery/Lesion type: [place] artery [place] vs. transplanted heart: [place] heart Associated angina: without angina Qualified Code(s): I25.10 - Atherosclerotic heart disease of [place] coronary artery without angina pectoris Code(s): I25.10 - Atherosclerotic heart disease of [place] coronary artery without angina pectoris Status: Acute (3) Hypertension: Qualifiers: Hypertension type: essential hypertension Qualified Code(s): I10 - Essential (primary) hypertension Code(s): I10 - Essential (primary) hypertension Status: Acute (4) Paroxysmal atrial fibrillation: Code(s): I48.0 - Paroxysmal atrial fibrillation Status: Acute (5) Chronic anticoagulation: Code(s): Z79.01 - emt intermediate (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 Status: Acute (6) Type 2 diabetes mellitus: Qualifiers: Diabetes mellitus senior living insulin use: without intermediate school teacher use Diabetes mellitus complication status: without complication Qualified Code(s): E11.9 - Type 2 diabetes mellitus without complications Code(s): E11.9 - Type 2 diabetes mellitus without complications Status: Acute (7) Pacemaker: Code(s): Z95.0 - Presence of cardiac pacemaker Status: Acute DS: Summary Hospital Course Hospital Course: This is an 82-year-old male patient who was admitted to the hospital due to elevated blood pressure and chest discomfort. Patient recently lost his 2 weeks ago and states he has not been feeling well ever since. He had negative troponins and denies chest pain stating that it is actually a little bit just upset stomach that he believes is stress related. Blood pressure was well controlled in the hospital. He has an underlying pacemaker with known AFib currently anticoagulated on Eliquis. Potassium and magnesium were found to be low today and replaced. Patient refused to complete the IV potassium replacement because he was ready to go home immediately after Cardiology saw him and stated no further ischemic workup needed to be completed. Patient refused to stay to complete potassium or additional blood draw. He states that he is going to see his primary care, his primary vp sales and will take his potassium that he already has at home. Patient has family at the bedside who is supportive of his decision to leave at this time. Patient already takes omeprazole daily. Prescription for Pepcid twice daily written as patient describes stressed related abdominal discomfort. Discussed strict return precautions. Status at Discharge Cognitive/behavioral status at discharge: Awake alert oriented and pleasant Functional status at discharge: independent ambulation Overall status at discharge: patient is back to baseline Time Spent with Patient Time attestation: Total time spent providing and/or coordinating discharge services: 35 minutes Time spent: Greater than 30 minutes Exam Narrative: General: Well-developed elderly gentleman lying on his right side in bed in no acute distress. Weight: 90.5 kg. BMI: 27.1. HEENT: Hard of hearing. PERRL, EOMI. Sclera anicteric. Oral mucosa moist. Neck: Supple. Respiratory: Lungs are clear to auscultation bilaterally. Chest: No tenderness to palpation over the chest wall. Pacemaker in the left anterior chest. Cardiovascular: Regular rate and rhythm. Occasional ectopy. Gastrointestinal: Abdomen is soft, nontender, and nondistended w
== END 2023-08-29 12:55 | disposition home or self-care (01) ==
LOC: ANHED 16:46 → ANHIMU 19:37
PROVIDERS: Emergency Medicine; Physician Assistant; Admitting Provider Hospitalist; Emergency Provider Physician Assistant; PCP Internal Medicine; Visit Provider Internal Medicine
DX: R07.9 Chest pain, unspecified (principal); I25.10 Atherosclerotic heart disease of native coronary artery without angina pectoris; Z95.5 Presence of coronary angioplasty implant and graft; I10 Essential (primary) hypertension; I48.0 Paroxysmal atrial fibrillation; E11.51 Type 2 diabetes mellitus with diabetic peripheral angiopathy without gangrene; E11.42 Type 2 diabetes mellitus with diabetic polyneuropathy; Z98.62 Peripheral vascular angioplasty status; Z95.0 Presence of cardiac pacemaker; J92.9 Pleural plaque without asbestos; E78.5 Hyperlipidemia, unspecified; K21.9 Gastro-esophageal reflux disease without esophagitis; N40.0 Benign prostatic hyperplasia without lower urinary tract symptoms; J84.9 Interstitial pulmonary disease, unspecified; R60.0 Localized edema; J44.9 Chronic obstructive pulmonary disease, unspecified; R51.9 Headache, unspecified; F17.210 Nicotine dependence, cigarettes, uncomplicated; Z79.01 Long term (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; Z79.1 Long term (current) use of non-steroidal anti-inflammatories (NSAID); Z79.82 Long term (current) use of aspirin; Z79.899 Other long term (current) drug therapy; Z82.49 Family history of ischemic heart disease and other diseases of the circulatory system
CPT/HCPCS: 36415; 71046; 80048; 80053; 83690; 83735; 83880; 84443; 84484; 85025; 85380; 85610; 85730; 93005; 96374; 96375; 99285; A9270; G0378; J3475; J3480

== ENCOUNTER 2023-09-25 09:14 | Outpatient (CLI) | payer MEDICARE, SELFPAY ==
--- NOTE | ~2023-09-25 | CT_ITS ---
Head CT History: Dizziness and gait Technique: Axial imaging of the brain was performed prior to and following intravenous administratio n of 100 cc of Omnipaque 350 contrast material. Dose reduction technique was used on this scan by uti lizing automated exposure control and iterative reconstruction technique. The dose-length product (DL P) was 1199.14 mGy-cm. Findings: There is no evidence of intracranial hemorrhage, mass lesion, or acute infarct. Hypodense areas in the periventricular white matter consistent with chronic microvascular ischemic change. The ventricles and subarachnoid spaces are normal in size. The calvarium appears normal. The visualize d paranasal sinuses and mastoid air cells are clear. No abnormal postcontrast enhancement seen. Impression: No acute abnormality. Mild to moderate chronic microvascular ischemic changes. Reviewed, dictated and finalized at [facility]. Impression: No acute abnormality. Mild to moderate chronic microvascular ischemic changes.
[2023-09-25 09:31] LABS: Estimated Glomerular Filt Rate 49
== END 2023-09-25 09:15 ==
LOC: MICIMG 09:15
PROVIDERS: PCP Internal Medicine; Visit Provider Nurse Practitioner
DX: R51.9 Headache, unspecified (principal); R42 Dizziness and giddiness
CPT/HCPCS: 36415; 70470; Q9967

== ENCOUNTER 2023-10-28 10:41 | Outpatient (CLI) | payer MEDICARE, SELFPAY ==
--- NOTE | ~2023-10-28 | US_ITS ---
EXAMINATION: US soft tissue groin RT, US soft tissue groin LT DATE: 10/28/2023 11:23 INDICATION: Bilateral groin pain and swelling TECHNIQUE: Multiple grayscale and Doppler ultrasound images of the inguinal regions were obtained. COMPARISON: CT abdomen and pelvis dated 04/06/2020 FINDINGS: There are normal-sized inguinal lymph nodes with central fatty aida at the bilateral inguinal regions of concern. No inguinal hernias identified on the provided images however review of prior CT demonst rates small bilateral fat-containing inguinal hernias with the junction of the descending and sigmoid colon extending minimally into the orifice of the left inguinal hernia. No other abnormal masses or fluid collections identified. IMPRESSION: 1. No pathologically enlarged lymphadenopathy or other abnormal masses or fluid collections identifie d at the bilateral inguinal regions of concern. 2. There are small bilateral fat-containing inguinal hernias evident on the prior CT imaging which ar e not identified on the provided ultrasound images. If clinically indicated could consider CT of the pelvis to assess for any interval change. Reviewed, dictated and finalized at location A. IMPRESSION: 1. No pathologically enlarged lymphadenopathy or other abnormal masses or fluid collections identified at the bilateral inguinal regions of concern. 2. There are small bilateral fat-containing inguinal hernias evident on the lara or CT imaging which are not identified on the provided ultrasound images. If cl inically indicated could consider CT of the pelvis to assess for any interval c hange.
== END 2023-10-28 10:42 ==
LOC: MICIMG 10:42
PROVIDERS: PCP Internal Medicine; Visit Provider Nurse Practitioner
DX: K40.20 Bilateral inguinal hernia, without obstruction or gangrene, not specified as recurrent (principal); M79.604 Pain in right leg; M79.605 Pain in left leg
CPT/HCPCS: 76882

== ENCOUNTER 2023-12-15 14:12 | Outpatient (CLI) | payer MEDICARE, SELFPAY ==
[2023-12-15 20:17] LABS: Anion Gap 8 mmol/L (4-12); Blood Urea Nitrogen 26 mg/dL (9-20); Calcium 9.6 mg/dL (8.4-10.2); Carbon Dioxide 27 mmol/L (22-30); Chloride 101 mmol/L (98-107); Estimated Glomerular Filt Rate 53; Glucose 81 mg/dL (65-110); Potassium 4.6 mmol/L (3.4-5.0); Sodium 136 mmol/L (137-145)
[2023-12-15 20:21] LABS: Hemoglobin A1C 6.1 % (<5.7)
== END 2023-12-15 14:13 | disposition home or self-care (01) ==
LOC: ANHGOSHLAB 14:14
PROVIDERS: PCP Internal Medicine; Visit Provider Internal Medicine
DX: Z95.0 Presence of cardiac pacemaker (principal); K40.20 Bilateral inguinal hernia, without obstruction or gangrene, not specified as recurrent; J44.9 Chronic obstructive pulmonary disease, unspecified; I48.91 Unspecified atrial fibrillation; I25.10 Atherosclerotic heart disease of native coronary artery without angina pectoris; Z79.01 Long term (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; I10 Essential (primary) hypertension; E11.9 Type 2 diabetes mellitus without complications
CPT/HCPCS: 36415; 80048; 83036

== ENCOUNTER 2023-12-18 10:02 | Outpatient (CLI) | payer MEDICARE, SELFPAY | END 2023-12-18 10:03 | disposition home or self-care (01) | PROVIDERS: PCP Internal Medicine; Visit Provider Surgery | DX: K40.20 Bilateral inguinal hernia, without obstruction or gangrene, not specified as recurrent (principal); Z01.818 Encounter for other preprocedural examination | CPT/HCPCS: 36415; 86850; 86900; 86901 ==

== ENCOUNTER 2024-02-13 09:33 | Outpatient (CLI) | payer MEDICARE, SELFPAY ==
[2024-02-13 10:37] LABS: Anion Gap 7 mmol/L (4-12); Blood Urea Nitrogen 16 mg/dL (9-20); Calcium 9.1 mg/dL (8.4-10.2); Carbon Dioxide 31 mmol/L (22-30); Chloride 98 mmol/L (98-107); Estimated Glomerular Filt Rate > 60; Glucose 121 mg/dL (65-110); Potassium 4.4 mmol/L (3.4-5.0); Sodium 136 mmol/L (137-145)
== END 2024-02-13 09:34 | disposition home or self-care (01) ==
PROVIDERS: PCP Internal Medicine; Visit Provider Anesthesiology
DX: Z01.818 Encounter for other preprocedural examination (principal); K40.90 Unilateral inguinal hernia, without obstruction or gangrene, not specified as recurrent; Z79.899 Other long term (current) drug therapy
CPT/HCPCS: 36415; 80048; 86850; 86900; 86901

== ENCOUNTER 2024-02-17 00:30 | Day surgery (SDC) | payer MEDICARE, SELFPAY ==
[2023-12-16 09:31] VITALS: BMI 27.8
--- NOTE | 2023-12-16 09:51 | PC.NURSE ---
PRE-OP INSTRUCTIONS PLEASE READ CAREFULLY Report to the Outpatient Waiting Room, entrance under the green pavilion located off [facility], at time _0600_ on date _12/23/23_. Planned Procedure Time: _0730_. PACK A SMALL OVERNIGHT BAG AND LEAVE IN THE CAR Time changes happen often and if your time is changed the preop area will call you the afternoon before. - You and your visitor will be asked to self-screen and do not enter if you have any COVID symptoms. - A mask is optional within the hospital at this time. -VISITING HOURS 8AM-8PM Patients may have clear liquids (water, carbonated beverages, clear teas, apple juice) until 3 hours prior to surgery (0430 AM) with a maximum of 20 ounces. - No food from midnight until time of surgery Take the following medications with a SIP of water the morning of surgery: _COREG, GABAPENTIN, & TYLENOL IF NEEDED_ DO NOT STOP ANY OF YOUR OTHER PRESCRIPTION MEDICATIONS PRIOR TO SURGERY ?EXCEPT THE FOLLOWING Medications to discontinue per DR. STERLING/DR. DE LA FUENTE -_ELIQUIS 3 DAYS PRIOR TO SURGERY, Date to take last dose 12/19/23_ Medications to discontinue per ANESTHESIA - _METANX 3 DAYS PRIOR TO SURGERY, Date to take last dose 12/19/23_ Please no make-up, nail luxembourgish, hairspray, perfume, deodorant, or body powder the day of surgery. No jewelry (including any body piercings) or valuables the day of surgery, leave them at home. Please take a shower or bath the night before, or the morning of, surgery with an antibacterial soap. Wear comfortable, loose fitting clothing. - Jewelry must be removed prior to entering the operating room. Rings and piercings that are not removed may be cut off. - The hospital will not accept responsibility for valuables. - Please leave all valuables, including medications, at home the day of surgery. If you are going home after surgery, a licensed utility worker driver must drive you home. - NO public transportation without another adult if you receive anesthesia. - We recommend that an adult stay with you for 24 hours following discharge. - We also recommend that you do not drive, make important decision, drink alcoholic beverages, or take any drugs that were not prescribed by your health care provider for at least 24 hours after your discharge time. Follow any additional instructions given to you from your surgeon. If you or anyone in your household have experienced Covid symptoms in the past week, please notify your surgeon or the nurse liaison at the phone number below for possible testing. Telephone instructions given to _PATIENT_and asked if any additional questions and then verbalized understanding. Patient advised to call surgeon office or pre surgery nurse liaison [phone] if any additional questions.
--- NOTE | 2024-02-12 15:49 | PC.NURSE ---
Report to the Outpatient Waiting Room, entrance under the green pavilion located off [facility], at time _0600_ on date _[id number]_. Planned Procedure Time: _0730_. Time changes happen often and if your time is changed the preop area will call you the afternoon before. - You and your visitor will be asked to self-screen and do not enter if you have any COVID symptoms. - A mask is optional within the hospital at this time. Patients may have clear liquids (water, carbonated beverages, clear teas, apple juice) until 3 hours prior to surgery with a maximum of 20 ounces. - No food from midnight until time of surgery Take the following medications with a SIP of water the morning of surgery: ___Carvidilol and Gabapentin DO NOT STOP ANY OF YOUR OTHER PRESCRIPTION MEDICATIONS PRIOR TO SURGERY ?EXCEPT THE FOLLOWING Medications to discontinue per physician ___Metanx Date to take last kxua___[id number] Fffj stopping Eliquis 3 days prior to surgery as instructed by Dr Gallardo and Dr Cheng Please no make-up, nail jordanian, hairspray, perfume, deodorant, or body powder the day of surgery. No jewelry (including any body piercings) or valuables the day of surgery, leave them at home. Please take a shower or bath the night before, or the morning of, surgery with an antibacterial soap. Wear comfortable, loose fitting clothing. - Jewelry must be removed prior to entering the operating room. Rings and piercings that are not removed may be cut off. - The hospital will not accept responsibility for valuables. - Please leave all valuables, including medications, at home the day of surgery. If you are going home after surgery, a licensed clark driver must drive you home. - NO public transportation without another adult if you receive anesthesia. - We recommend that an adult stay with you for 24 hours following discharge. - We also recommend that you do not drive, make important decision, drink alcoholic beverages, or take any drugs that were not prescribed by your health care provider for at least 24 hours after your discharge time. Follow any additional instructions given to you from your surgeon. If you or anyone in your household have experienced Covid symptoms in the past week, please notify your surgeon or the nurse liaison at the phone number below for possible testing. Telephone instructions given to __David__and asked if any additional questions and then verbalized understanding. Patient advised to call surgeon office or pre surgery nurse liaison [phone] if any additional questions.
[2024-02-17] VITALS (15 sets, daily range): BP systolic 91–163; BP diastolic 52–74; PULSE 59–64; RESP 10–19; TEMP 36.2–36.6; O2SAT 92–99; BMI 28.5
[2024-02-17] MEDS: LACTATED RINGERS 1,000 ML 30 ML IV CONT ×2 (06:40→09:15)
[2024-02-17] MEDS: ACETAMINOPHEN 500 MG TABLET 1000 MG PO (06:55)
[2024-02-17] MEDS: KETOROLAC 15 MG/ML VIAL (*BKC) IV PUSH (06:55)
--- NOTE | 2024-02-17 07:15 | PM.IMHP ---
H&P: HPI History of Present Illness Date/Time: 02/17/24 07:15 Chief Complaint: bilateral inguinal hernias Narrative: 83 yo man presents for bilateral inguinal hernia repair. He reports no changes since last seen in office. Review of Systems Review of Systems: All systems reviewed & are unremarkable except as noted in HPI and below Constitutional: Constitutional: Denies chills, Denies fever(s), Denies headache(s) and Denies weight loss Eyes: Eyes: Denies change in vision ENT: Denies dizziness, Denies headache(s), Denies neck mass and Denies throat swelling Cardiovascular: Cardiovascular: Denies chest pain, Denies lightheadedness and Denies dyspnea Respiratory: Respiratory: Denies cough, Denies dyspnea and Denies wheezing Gastrointestinal: Gastrointestinal: Denies abdominal pain, Denies change in bowel habits, Denies nausea and Denies vomiting Genitourinary: Genitourinary: Denies hematuria and Denies dysuria Musculoskeletal: Musculoskeletal: Reports as per HPI Integumentary/Breasts: Skin/Breast: Reports as per HPI Neurologic: Denies dizziness and Denies headache(s) Allergic/Immunologic: Allergic/Immunologic: Denies throat swelling and Denies wheezing [facility] Past Medical History Medical History (Updated 12/15/23 @ 14:02 by Isacc Talamantes DO) Actinic keratosis Asbestosis Benign prostatic hyperplasia Cervical herniated disc Chronic anticoagulation Chronic obstructive pulmonary disease Eczema Essential hypertension Gastroesophageal reflux disease History of nephrolithotomy with removal of calculi Hyperlipidemia Hypertension Lung nodule Paroxysmal atrial fibrillation Peripheral arterial disease Peripheral polyneuropathy Spinal stenosis Type 2 diabetes mellitus Surgical History Surgical History History of cardiac catheterization History of colonoscopy with polypectomy History of coronary angioplasty History of cystoscopy History of neck surgery History of skin graft History of tonsillectomy and adenoidectomy History of vascular surgery (09/2021) Lower extremity stents. Family History Family History Sibling Acute myocardial infarction Breast cancer Mother Leukemia Father Cirrhosis of liver Son Cancer Social History Social History Social History: Surrogate medical decision maker: Obi Sorto, son. Code status: Full code. Smoking packs per day: 0.5 Smoking cigarettes per day: 10.0 Years smoked: 50 Smoking pack-years: 25.00 Smoking status: Current every day smoker Tobacco type: cigarettes Second hand tobacco smoke exposure: No Additional smoking assessment comments: PT STATES SMOKING 50+ YEARS Alcohol intake: current Drinks per week: 0 Alcohol use details: 2-3/WEEK Substance use: former Substance use type: marijuana Last use: 1987 Do You Feel Safe in your Home?: Yes Lack of Transportation: No Lack of Food: Never True Current Housing: I Have Housing Concerned About Future Housing: No Difficulty Paying Gas/Electric Bills: No Difficulty Paying for Meds: No Currently Unemployed: No Education: Associate Degree Difficulty w/ Childcare or Family Care: No Living arrangements: alone Additional living arrangements comments: as of July 2023. Lives in [place]. Has 4 sons. 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 Spiritual care concerns: No Meds Home Medications and Allergies Home Medications Medication Instructions Recorded Confirmed Type apixaban 5 mg tablet (Eliquis) 5 mg PO Q12H 05/01/21 02/17/24 History acetaminophen 500 mg tablet 1,000 mg PO Q6H PRN Pain 11/18/22 02/12/24 History aspirin 81 mg capsule 81 mg PO DAILY 11/18/22 02/12/24 History gabapentin 600 mg tablet 600 mg PO BID 02/17/23 02/17/24 Hi
--- NOTE | 2024-02-17 07:17 | WPDHPUPDATE1 ---
History and Physical Update Update Date/Time: 02/17/24 07:17 History and Physical has been reviewed, including an updated exam of the patient. There are NO changes in the patient's condition. Risks, benefits, and alternatives have been discussed and questions answered. Patient agrees to proceed with procedure.
--- NOTE | 2024-02-17 07:31 | WPDANESEPPF ---
Anes - Initial Pre Proc Eval Procedure: Operation Date: 02/17/24 07:30 Proposed Procedures p Laparoscopic Bilateral Inguinal Hernia Repair with Mesh, Davinci Assisted - Asad Gallardo DO Date/Time: 02/17/24 07:31 Surgeon: Asad Gallardo DO Pre Op Diagnosis: Bilateral Ing Hernias Patient Data Age: 83 Gender: M Height: 1.83 m Weight: 95.5 kg Last Vital Signs Temp 97.8 F 02/17/24 06:10 Pulse 59 L 02/17/24 06:10 Resp 16 02/17/24 06:10 BP 148/68 H 02/17/24 06:10 Pulse Ox 99 02/17/24 06:10 O2 Del Method Room Air 02/17/24 06:10 Allergies Allergy/AdvReac Type Severity Reaction Status Date / Time No Known Allergies Allergy Mild Verified 02/17/24 06:59 Home Medications Medication Instructions Recorded Confirmed Type apixaban 5 mg tablet (Eliquis) 5 mg PO Q12H 05/01/21 02/17/24 History acetaminophen 500 mg tablet 1,000 mg PO Q6H PRN Pain 11/18/22 02/12/24 History aspirin 81 mg capsule 81 mg PO DAILY 11/18/22 02/12/24 History gabapentin 600 mg tablet 600 mg PO BID 02/17/23 02/17/24 History hydrochlorothiazide 25 mg tablet 12.5 mg PO DAILY #90 tabs 02/17/23 02/12/24 Rx Metanx levomefolate/alge-S/Pydoxal 2 mg PO BID 06/16/23 02/17/24 History Phos/Methycob carvedilol 25 mg tablet 12.5 mg PO BID 06/16/23 02/17/24 History rosuvastatin 10 mg tablet 10 mg PO DAILY #90 tabs 09/21/23 02/12/24 Rx tamsulosin 0.4 mg capsule (Flomax) 0.4 mg PO DAILY #90 caps 09/21/23 02/12/24 Rx olmesartan 40 mg tablet (Benicar) 20 mg PO DAILY 12/15/23 02/12/24 History diphenhydramine 25 2 tablet PO HS 12/16/23 02/12/24 History mg-acetaminophen 500 mg tablet (Tylenol PM Extra Strength) fluticasone propionate 50 See Rx Instructions .Route 12/16/23 02/12/24 History mcg/actuation nasal .COMPLEX PRN Congestion spray,suspension magnesium 500 mg tablet 500 mg PO DAILY 12/16/23 02/12/24 History sertraline 25 mg tablet 25 mg PO DAILY #90 tabs 01/18/24 02/12/24 Rx esomeprazole magnesium 40 mg 40 mg PO HS #90 caps 02/05/24 02/12/24 Rx capsule,delayed release (Nexium) potassium chloride 10 mEq 10 meq PO BID #180 tabs 02/05/24 02/12/24 Rx tablet,extended release Patient hx anesthesia problems: none Family hx anesthesia problems: none Results Review: All pre-operative results and documents have been reviewed as part of the pre-operative evaluation. [facility] Past Medical History Medical History (Updated 12/15/23 @ 14:02 by Isacc Talamantes DO) Actinic keratosis Asbestosis Benign prostatic hyperplasia Cervical herniated disc Chronic anticoagulation Chronic obstructive pulmonary disease Eczema Essential hypertension Gastroesophageal reflux disease History of nephrolithotomy with removal of calculi Hyperlipidemia Hypertension Lung nodule Paroxysmal atrial fibrillation Peripheral arterial disease Peripheral polyneuropathy Spinal stenosis Type 2 diabetes mellitus Surgical History Surgical History (Reviewed 12/15/23 @ 13:31 by Bridget Melendez [facility]) History of cardiac catheterization History of colonoscopy with polypectomy History of coronary angioplasty History of cystoscopy History of neck surgery History of skin graft History of tonsillectomy and adenoidectomy History of vascular surgery (09/2021) Lower extremity stents. Family History Family History (Reviewed 12/15/23 @ 13:31 by Bridget Melendez [facility]) Sibling Acute myocardial infarction Breast cancer Mother Leukemia Father Cirrhosis of liver Son Cancer Social History Social History Social History: Surrogate medical decision maker: Obi Sorto, son. Code status: Full code. Smoking packs per day: 0.5 Smoking cigarettes per day: 10.0 Years smoked: 50 Smoking pack-years: 25.00 Smoking status: Current every day smoker Tobacco type: cigarettes Second hand tobacco smoke exposure: No Additional smoking assessment comments: PT STATES SMOKING 5
[2024-02-17] MEDS: ceFAZolin 2 GM/D5W 50 ML 2 GM/50 ML BAG IVPB (07:37)
[2024-02-17] MEDS: BUPIVACAINE/EPINEPHRINE 0.5% 50 ML VIAL 30 ML INFILTRATE (08:10)
--- NOTE | 2024-02-17 09:14 | W.PM.PROC2 ---
Procedure Note - Detailed Date of Procedure 02/17/24 Pre-op Diagnosis Bilateral Ing Hernias Post-op Diagnosis Same (Bilateral indirect inguinal hernias) Procedure Performed Laparoscopic bilateral inguinal hernia repair with mesh, da Avery assisted Surgeon Asad Gallardo, Anesthesia General and Local (0.5% bupivacaine with epinephrine) Indications This is an 83-year-old man who presented with bilateral groin bulges that he 1st noticed about 8-10 months ago. He was noticing some discomfort in the left groin but none in the right. He was found to have bilateral inguinal hernias on exam. He also had an ultrasound and CT which confirmed bilateral inguinal hernias. The patient has a cardiac history and is on blood thinners. Discussions were made with the patient about watchful waiting verses proceeding with surgery. Cardiac clearance was obtained for surgery and decision was made to proceed with robotic assisted laparoscopic bilateral inguinal hernia repair with mesh. Findings Laparoscopic bilateral inguinal hernia repair was performed. The patient was found to have bilateral indirect inguinal hernias. The left inguinal hernia was slightly larger and contained a loop of sigmoid colon. A robotic transabdominal preperitoneal approach was utilized for repair. Once a wide enough preperitoneal pocket was created on each side, I then placed a large 3DMax mid mesh overlying each myopectineal orifice. No specimens were obtained for pathology. Description of Procedure Procedure as well as risks, benefits, and alternatives were discussed with the patient. Written consent was obtained and placed in chart prior to procedure. Patient was brought back to surgical suite. He was placed supine on operating table. Time-out was done to confirm patient and procedure. He was then intubated by Anesthesia Department. He is abdomen was prepped and draped in sterile fashion using chlorhexidine prep. 0.5% bupivacaine with epinephrine was infiltrated at each location for incision. An 8 mm incision was made in the left lateral abdomen, and a 5 mm Optiview trocar was advanced through the abdominal layers under direct visualization. Once inside the abdominal cavity, carbon dioxide insufflation was used to create a pneumoperitoneum. A camera was inserted and the abdominal cavity was inspected. The patient was placed in slight Trendelenburg position. An 8 millimeter incision was made on the right lateral abdomen and an 8 millimeter trocar was inserted under direct visualization. Another 8 millimeter incision was made just superior to the umbilicus and an 8 millimeter trocar was inserted under direct visualization. The 5 mm port was then removed and this was replaced with another 8 mm robotic port. The robotic arms were brought up to the patient's bedside and secured to the ports. The camera and instruments were inserted. I then moved over to the robotic console and took control of the camera and instruments. After careful inspection of the abdominal cavity, I began scoring the peritoneum along the left lower quadrant using scissors with electrocautery. The preperitoneal plane was entered and this was carefully dissected caudally along the inferior epigastric vessels. Careful dissection with scissors with electrocautery and blunt dissection was used to continue this dissection. I dissected far enough laterally to allow for mesh placement, and also dissected medially to identify the pubic arch and César's ligament. The hernia sac was identified and carefully dissected posteriorly. The cord contents were also identified and the peritoneum was carefully dissected far enough posteriorly to allow for mesh placement. Once an adequate pocket was created, I then placed the mesh within the preperitoneal pocket and carefully unfolded it. The mesh was centered on the hernia defect with adequate overlap circumferentially. The inferior edge of the mesh was inspected to ensure that it was
--- NOTE | 2024-02-17 11:01 | PC.NURSE ---
This patient, Isacc Sorto, was admitted to [facility] Surg Room 302-01 at 10:46. Patient/family oriented to hospital policies and general routines including ID bracelet, bed and alarms, visiting hours, pain management, procedures, bathroom and other care routines, personal items, smoking policy, room service/diet, and visiting hours. Information on how to activate the Rapid Response Team has been discussed. Patient/Family are encouraged to report perceived risks to care and to ask questions if they do not understand what they are told or what they should do.
[2024-02-17] MEDS: hydroCHLOROthiazide 6.25 MG TABLET 12.5 MG PO (11:23)
[2024-02-17] MEDS: HYDROcodone/acetaminophen (*CRX) 5-325 MG TABLET 1 TAB PO ×2 (11:23→18:09)
[2024-02-17] MEDS: LACTATED RINGERS 1,000 ML 100 ML IV CONT (11:23)
[2024-02-17] MEDS: NICOTINE (*PBKC) 21 MG PATCH 1 PATCH TRANSDERM (11:23)
[2024-02-17] MEDS: OLMESARTAN MEDOXOMIL 20 MG TABLET PO (14:56)
[2024-02-17] MEDS: HYDROcodone/acetaminophen (*CRX) 10-325 MG TABLET 1 TAB PO ×2 (15:05→21:47)
[2024-02-17] MEDS: POTASSIUM CHLORIDE 10 MEQ ER TABLET PO (17:07)
[2024-02-17] MEDS: PANTOPRAZOLE 40 MG TABLET PO (20:01)
[2024-02-17] MEDS: GABAPENTIN 300 MG CAPSULE 600 MG PO (20:01)
[2024-02-17] MEDS: ASPIRIN 81 MG ENTERIC TABLET PO (20:01)
[2024-02-17] MEDS: SERTRALINE HCL 25 MG TABLET PO (20:01)
[2024-02-17] MEDS: carvediloL 12.5 MG TABLET PO (20:02)
[2024-02-18 00:15] VITALS: BP 122/61; PULSE 59; RESP 18; TEMP 36.6; O2SAT 95
[2024-02-18 04:14] VITALS: BP 133/55; PULSE 58; RESP 19; TEMP 36.4; O2SAT 97
[2024-02-18] MEDS: HYDROcodone/acetaminophen (*CRX) 5-325 MG TABLET 1 TAB PO (05:11)
[2024-02-18 08:22] VITALS: BP 175/78; PULSE 59; RESP 18; TEMP 36.1; O2SAT 99
[2024-02-18] MEDS: polyethylene glycoL 3350 17 GM POWD.PACK PO (08:35)
[2024-02-18] MEDS: GABAPENTIN 300 MG CAPSULE 600 MG PO (08:36)
[2024-02-18] MEDS: ROSUVASTATIN 10 MG TABLET PO (08:36)
[2024-02-18] MEDS: hydroCHLOROthiazide 6.25 MG TABLET 12.5 MG PO (08:36)
[2024-02-18] MEDS: NICOTINE (*PBKC) 21 MG PATCH 1 PATCH TRANSDERM (08:36)
[2024-02-18 08:37] VITALS: PULSE 70
[2024-02-18] MEDS: carvediloL 12.5 MG TABLET PO (08:37)
[2024-02-18] MEDS: POTASSIUM CHLORIDE 10 MEQ ER TABLET PO (08:39)
--- NOTE | 2024-02-18 11:40 | WPDANESPN ---
Anes - Prog Note Post-Op Date/Time: 02/18/24 11:40 Cardiovascular status: normal Respiratory status: normal Airway patency: baseline Mental status: baseline Post-Op hydration status: normal Vital Signs: Last Vital Signs Temp 36.1 C L 02/18/24 08:22 Pulse 70 02/18/24 08:37 Resp 18 02/18/24 08:22 BP 175/78 H 02/18/24 08:22 Pulse Ox 99 02/18/24 08:22 O2 Del Method Room Air 02/17/24 10:54 O2 Flow Rate 8 02/17/24 09:30 Pain Score (VAS): 0 I/O: Intake & Output 02/17/24 02/18/24 02/18/24 23:59 07:59 15:59 Intake Total 1240 118 Output Total 350 Balance 890 118 Post-procedural complaints: none Patient Feedback: Patient satisfied with anesthetic care.
--- NOTE | 2024-02-18 12:18 | PM.DS ---
DS: Admitting Diagnosis Discharge Date 02/18/2024 Admitting Diagnosis Bilateral inguinal hernia, paroxysmal AFib, peripheral arterial disease, hypertension, type 2 diabetes DS: Discharge Diagnosis Discharge Diagnosis (1) Bilateral inguinal hernia: Qualifiers: Obstruction and gangrene presence: without obstruction or gangrene Recurrence: non-recurrent Qualified Code(s): K40.20 - Bilateral inguinal hernia, without obstruction or gangrene, not specified as recurrent Code(s): K40.20 - Bilateral inguinal hernia, without obstruction or gangrene, not specified as recurrent Status: Acute (2) Paroxysmal atrial fibrillation: Code(s): I48.0 - Paroxysmal atrial fibrillation Status: Acute (3) Peripheral arterial disease: Code(s): I73.9 - Peripheral vascular disease, unspecified Status: Acute (4) Tobacco abuse: Code(s): Z72.0 - Tobacco use Status: Acute (5) Essential hypertension: Code(s): I10 - Essential (primary) hypertension Status: Acute (6) Type 2 diabetes mellitus: Qualifiers: Diabetes mellitus jail insulin use: without jail use Diabetes mellitus complication status: without complication Qualified Code(s): E11.9 - Type 2 diabetes mellitus without complications Code(s): E11.9 - Type 2 diabetes mellitus without complications Status: Acute DS: Summary Hospital Course Reason for hospitalization: Bilateral inguinal hernia Hospital Course: This is a an 83-year-old man who presented for robotic assisted laparoscopic bilateral inguinal hernia repair with mesh 02/17/2024. He was placed in out patient extended recovery due to his multiple other comorbidities. Surgery was uncomplicated. He was recovered in the typical fashion postoperatively. His diet and activity were gradually advanced as tolerated. Pain was controlled with p.o. pain medications. He remained hemodynamically stable. On postop day 1 his pain was continuing to improve and he was tolerating a regular diet. He was ambulating in the halls and vitals remained stable. He was discharged on 02/18/2024. Time spent discussing smoking cessation with patient: 3 to 10 minutes Status at Discharge Functional status at discharge: independent ambulation Overall status at discharge: patient is progressing back to baseline Time Spent with Patient Time attestation: Total time spent providing and/or coordinating discharge services: Time spent: Less than 30 minutes Exam Const: General: comfortable and no acute distress Cardio: Rate: regular rate Rhythm: regular rhythm Heart sounds: S1 normal heart sound present and S2 normal heart sound present GI: Inspection: non-distended and incision (Intact with glue) GI Palp: Yes Soft to palpation, No Tenderness to palpation present (GI) and No Guarding due to palpation present (GI) : Scrotum: no inguinal hernias Discharge Plan Discharge Patient Disposition: Home, Self-Care Discharge Instructions: DISCHARGE INSTRUCTION SHEET FOR HERNIA, GALLBLADDER AND APPENDIX SURGERIES DR. STERLING PATIENT TO TAKE HOME 1. May shower, no soaking in bath x 2weeks. 2. Call office for: Wound increasingly painful or bleeding Vomiting Fever of greater than 101 degrees 3. If no bowel movement for three days, take 1 oz. (30 ml) Milk of Magnesia or MiraLax 17g 1 to 2 times daily. 4. No heavy lifting > 10-15 pounds x 2 weeks for hernia repairs 5. No driving for 3 days or while taking narcotic pain medications. 6. Ice to surgical site for 48 hours (30 min on, then 30 min off). 7. Up walking 10-30 minutes three times per day. 8. Resume previous home medications. 9. Follow-up 10-14 days in office for wound check or as previously scheduled. ([id number]) 10. Oral pain medications prescription to be sent to pharmacy. Take Tylenol 500mg every 6 hours and Ibuprofen 600mg every
[2024-02-18 12:22] VITALS: BP 167/80; PULSE 101; RESP 18; TEMP 36.1; O2SAT 100
== END 2024-02-18 13:08 | disposition home or self-care (01) ==
LOC: ANHSURGERY 09:10 → ANH3MEDSUR 10:41
PROVIDERS: PCP Internal Medicine; Visit Provider Surgery
PROC: 8E0Y4CZ Robotic Assisted Procedure of Lower Extremity, Percutaneous Endoscopic Approach (ICD-10-PCS; CPT 49650; principal; 2024-02-17 07:30)
DX: K40.20 Bilateral inguinal hernia, without obstruction or gangrene, not specified as recurrent (principal); I10 Essential (primary) hypertension; E78.5 Hyperlipidemia, unspecified; N40.0 Benign prostatic hyperplasia without lower urinary tract symptoms; J44.9 Chronic obstructive pulmonary disease, unspecified; K21.9 Gastro-esophageal reflux disease without esophagitis; I48.0 Paroxysmal atrial fibrillation; E11.9 Type 2 diabetes mellitus without complications; I73.9 Peripheral vascular disease, unspecified; F17.210 Nicotine dependence, cigarettes, uncomplicated; F12.90 Cannabis use, unspecified, uncomplicated; E66.9 Obesity, unspecified; Z68.28 Body mass index [BMI] 28.0-28.9, adult; Z79.01 Long term (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; Z79.82 Long term (current) use of aspirin; Z98.890 Other specified postprocedural states; Z98.61 Coronary angioplasty status; Z80.3 Family history of malignant neoplasm of breast; Z82.49 Family history of ischemic heart disease and other diseases of the circulatory system
CPT/HCPCS: 49650; S2900; 36415; 80048; 86850; 86900; 86901; A9270; C1781; J0690; J1100; J1885; J2405; J2704; J3010; J7030; J7120

== ENCOUNTER 2024-06-29 15:24 | Outpatient (CLI) | payer MEDICARE, SELFPAY | END 2024-06-29 15:25 | disposition home or self-care (01) | LOC: ANHGOSHLAB 15:26 | PROVIDERS: PCP Internal Medicine; Visit Provider Nurse Practitioner | DX: Z12.5 Encounter for screening for malignant neoplasm of prostate (principal) | CPT/HCPCS: 36415; 84153; G0103 ==

== ENCOUNTER 2024-06-29 22:58 | Emergency (ER) | payer MEDICARE, SELFPAY ==
--- NOTE | ~2024-06-29 | CT_ITS ---
CT ANGIOGRAM NECK AND HEAD History: Vertigo. Technique: Axial noncontrast imaging of the brain was performed. Serial spiral axial images through t he head and neck were then obtained during arterial phase IV injection of 100 cc of Omnipaque 350. 3- D postprocessing and MIP images were then reconstructed on the remote workstation. Dose reduction ralph hnique was used on this scan by utilizing automated exposure control and iterative reconstruction ralph hnique. The dose-length product (DLP) was 2044.36 mGy-cm. CTA neck findings: Bilateral vertebral arteries are patent. Bilateral common carotid, internal carot id, and external carotid arteries were patent. There are small calcified plaques the proximal interna l carotid arteries bilaterally, without significant stenosis. No large vessel occlusion or stenosis. No aneurysm. The proximal right internal carotid artery demonstrates 0% stenosis relative to the norm al distal artery lumen diameter. The proximal left internal carotid artery demonstrates 0% stenosis r elative to the normal distal artery lumen diameter. CTA head findings: Distal vertebral arteries, basilar artery, and posterior cerebral arteries are pat ent. Distal internal carotid arteries, middle cerebral arteries, and anterior cerebral arteries are p atent. No large vessel occlusion or stenosis. No aneurysm identified. Axial noncontrast imaging of brain demonstrate no acute infarct, intracranial hemorrhage, or mass les ion. There are hypointense areas in the periventricular white matter bilaterally, consistent with chr onic microvascular ischemic change. No mass effect or midline shift. Ventricles and subarachnoid spac es are dilated, consistent with moderate atrophy. Paranasal sinuses and mastoid air cells are clear. Calvarium intact. Impression: No acute abnormality in the brain. Chronic microvascular ischemic change and moderate generalized atrophy. No significant vascular abnormality seen. Reviewed, dictated and finalized at [facility]. ER HELPER Impression: No acute abnormality in the brain. Chronic microvascular ischemic change and moderate generalized atrophy. No significant vascular abnormality seen.
[2024-06-29 22:55] VITALS: BP 152/78; PULSE 60; RESP 17; TEMP 36.5; O2SAT 97
[2024-06-29 23:08] VITALS: PULSE 60
[2024-06-29 23:19] LABS: Basophils Absolute Auto 0.1 K/mm3 (0.0-0.1); Basophils Percent Auto 0.6 % (0.2-1.2); Eosinophils Absolute Auto 0.2 K/mm3 (0-0.3); Eosinophils Percent Auto 1.7 % (0-4.4); Hematocrit 46.9 % (42.0-52.0); Hemoglobin 15.6 g/dL (14.0-18.0); Immature Granulocyte Absolute 0.03 K/mm3 (0.00-0.031); Immature Granulocyte Percent A 0.3 % (0-0.5); Lymphocytes Absolute Auto 1.79 K/mm3 (0.9-3.2); Lymphocytes Percent Auto 20.8 % (18.3-44.2); Mean Corpuscular HGB Conc 33.3 g/dl (32-36); Mean Corpuscular Hemoglobin 29.8 pg (26-34); Mean Corpuscular Volume 89.5 fl (80-100); Mean Platelet Volume 10.5 fl (7.4-10.4); Monocytes Absolute Auto 0.7 K/mm3 (0.1-0.6); Monocytes Percent Auto 8.4 % (2.6-8.5); Neutrophils Absolute Auto 5.9 K/mm3 (1.3-6.7); Neutrophils Percent Auto 68.2 % (45.5-73.1); Platelet Count Result 146 k/mm3 (150-375); Red Blood Count 5.24 M/mm3 (4.6-6.20); Red Cell Distribution Width 14.7 % (11.5-14.5); White Blood Count 8.6 K/mm3 (4.5-10.0)
[2024-06-29 23:30] LABS: Alanine Aminotransferase 18 U/L (6-50); Albumin Level 4.1 g/dL (3.5-5.1); Alkaline Phosphatase 68 U/L (38-126); Anion Gap 5 mmol/L (4-12); Aspartate Amino Transferase 31 U/L (17-59); Bilirubin,Total 0.6 mg/dL (0.2-1.3); Blood Urea Nitrogen 21 mg/dL (9-20); Calcium 9.5 mg/dL (8.4-10.2); Carbon Dioxide 29 mmol/L (22-30); Chloride 100 mmol/L (98-107); Estimated CRCL calculation 56 ml/min; Estimated Glomerular Filt Rate > 60; Glucose 133 mg/dL (65-110); Potassium 3.8 mmol/L (3.4-5.0); Sodium 134 mmol/L (137-145)
[2024-06-29] MEDS: SODIUM CHLORIDE 0.9% IV 1,000 ML 999 ML IV CONT (23:55)
[2024-06-29] MEDS: ONDANSETRON INJ 4 MG/2 ML VIAL IV PUSH (23:56)
[2024-06-29] MEDS: MECLIZINE HCL 25 MG TABLET PO (23:56)
[2024-06-30] VITALS (8 sets, daily range): BP systolic 132–154; BP diastolic 60–82; PULSE 55–135; RESP 14–18; O2SAT 98–100
--- NOTE | 2024-06-30 01:36 | ED.GENADULT ---
HPI - General Adult General Chief complaint: Dizziness Stated complaint: SUDDEN ONSET N/V/D & DIZZINESS Time Seen by Provider: 06/29/24 23:01 History of Present Illness HPI narrative: This is an 83-year-old male presenting ED with chief complaint of dizziness. Patient was feeling well throughout the day when he had a bowel movement. When he got up he felt a sensation vertigo. He then had 1 episode of nausea and vomiting. No falls. No dysarthria dysphagia double vision or loss of coordination. No numbness tingling weakness to any extremity. Symptoms are worse with head movement, specifically going from lying to standing. Related Data Home Medications ?Medication ?Instructions ?Recorded ?Confirmed ?Last Taken ?Type apixaban 5 mg tablet (Eliquis) 5 mg PO Q12H 05/01/21 06/29/24 02/13/24 History acetaminophen 500 mg tablet 1,000 mg PO Q6H PRN Pain 11/18/22 06/29/24 01/26/23 History aspirin 81 mg capsule 81 mg PO DAILY 11/18/22 06/29/24 08/27/23 History gabapentin 600 mg tablet 600 mg PO BID 02/17/23 06/29/24 02/17/24 05:00 History Metanx levomefolate/alge-S/Pydoxal 2 mg PO BID 06/16/23 06/29/24 02/13/24 History Phos/Methycob carvedilol 25 mg tablet 12.5 mg PO BID 06/16/23 06/29/24 02/17/24 05:00 History olmesartan 40 mg tablet (Benicar) 20 mg PO DAILY 12/15/23 06/29/24 Unknown History diphenhydramine 25 2 tablet PO HS 12/16/23 06/29/24 Unknown History mg-acetaminophen 500 mg tablet (Tylenol PM Extra Strength) fluticasone propionate 50 See Rx Instructions .Route 12/16/23 06/29/24 Unknown History mcg/actuation nasal .COMPLEX PRN Congestion spray,suspension magnesium 500 mg tablet 500 mg PO DAILY 12/16/23 06/29/24 Unknown History Allergies Allergy/AdvReac Type Severity Reaction Status Date / Time No Known Allergies Allergy Mild Verified 06/29/24 14:48 [facility] Past Medical History Medical History Essential hypertension History of nephrolithotomy with removal of calculi Spinal stenosis Gastroesophageal reflux disease Peripheral arterial disease Chronic obstructive pulmonary disease Benign prostatic hyperplasia Chronic anticoagulation Paroxysmal atrial fibrillation Actinic keratosis Asbestosis Eczema Lung nodule Cervical herniated disc Peripheral polyneuropathy Hyperlipidemia Hypertension Type 2 diabetes mellitus Surgical History Surgical History H/O inguinal hernia repair 02/17/24 Laparoscopic bilateral inguinal hernia repair with mesh, da [facility] assisted History of coronary angioplasty History of neck surgery History of cystoscopy History of vascular surgery (09/2021) Lower extremity stents. History of cardiac catheterization History of tonsillectomy and adenoidectomy History of skin graft History of colonoscopy with polypectomy Family History Family History Sibling Acute myocardial infarction Breast cancer Mother Leukemia Father Cirrhosis of liver Son Cancer Social History Social History Social History: Surrogate medical decision maker: Obi Sorto, son. Code status: Full code. Smoking packs per day: 0.5 Smoking cigarettes per day: 10.0 Years smoked: 50 Smoking pack-years: 25.00 Smoking status: Current every day smoker Tobacco type: cigarettes Second hand tobacco smoke exposure: No Additional smoking assessment comments: PT STATES SMOKING 50+ YEARS Alcohol intake: former Drinks per week: 0 Alcohol use details: 2-3/WEEK Substance use: never Substance use type: marijuana Last use: 1987 Do You Feel Safe in your Home?: Yes Lack of Transportation: No Lack of Food: Never True Current Housing: I Have Housing Concerned About Future Housing: No Difficulty Paying Gas/Electric Bills: No Difficulty Paying for Meds: No Currently Unemployed: No Education: Decline to Answer Difficulty w/ Childcare or Family Care: No Living arrangements: alone Additional living arrangements comments: as of July 2023. Lives in [place]. Has 4 sons. 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 Spiritual care concerns: No Exam Narrative: APPEARANCE: No apparent distress. A&O x4 hard of hearing Head: atraumatic. EYES: EOMI, no nystagmus at rest, NOSE: Atraumatic NECK: Trachea midline RESPIRATORY: No increased rate of breathing CARDIOVASCULAR: RRR, ABDOMINAL: Non-distended MUSCULOSKELETAl: No obvious deformities NEURO: Alert. Cranial nerves 2-12 grossly intact. Sensation light touch, motor function cerebellar function intact for 4 extremities. Gait exam was deferred. SKIN:: Warm, dry. Normal color PSYCHIATRIC: Normal affect Course Vital Signs Vital signs: Vital Signs Temperature 97.7 F 06/29/24 22:55 Pulse Rate 60 06/29/24 22:55 Respiratory Rate 17 06/29/24 22:55 Blood Pressure 152/78 H 06/29/24 22:55 Pulse Oximetry 97 06/29/24 22:55 Oxygen Delivery Room Air 06/29/24 22:55 Temperature 97.7 F 06/29/24 22:55 Pulse Rate 76 06/30/24 01:09 Respiratory Rate 15 06/30/24 00:23 Blood Pressure 154/60 H 06/30/24 01:09 Pulse Oximetry 99 06/30/24 00:23 Oxygen Delivery Room Air 06/29/24 22:55 Medical Decision Making [facility] Narrative Medical decision making narrative: -Course: 83-year-old male presenting dizziness, nausea and vomiting. Neurologic exam was normal. CTA of the head and neck without acute findings. Patient received meclizine and 1 L of fluids with improvement. His vertigo is now resolved. He is able to ambulate around the emergency department with a steady gait. He is requesting discharge home. Patient discharged with prescription of meclizine and return precautions. -DDX includes but is not limited to: Vertigo, orthostatic hypertension, vasovagal syncope CVA -Co-morbidities complicating care: hypertension, GERD, AFib, BPH -Social determinants of health: lives alone, denies drugs or alcohol -Independent interpretation of studies: labs reviewed, stat read interpretation CTA showed no acute findings. -Interventions: 1 L normal saline, meclizine -Shared decision making / Disposition: discharged. Vital Signs Vital Signs: Vital Signs Temperature 97.7 F 06/29/24 22:55 Pulse Rate 60 06/29/24 22:55 Respiratory Rate 17 06/29/24 22:55 Blood Pressure 152/78 H 06/29/24 22:55 Pulse Oximetry 97 06/29/24 22:55 Oxygen Delivery Room Air 06/29/24 22:55 Temperature 97.7 F 06/29/24 22:55 Pulse Rate 76 06/30/24 01:09 Respiratory Rate 15 06/30/24 00:23 Blood Pressure 154/60 H 06/30/24 01:09 Pulse Oximetry 99 06/30/24 00:23 Oxygen Delivery Room Air 06/29/24 22:55 Lab Data 06/29/24 23:11 06/29/24 23:11 Labs: Lab Results 06/29/24 Range/Units 23:11 WBC 8.6 (4.5-10.0) K/mm3 RBC 5.24 (4.6-6.20) M/mm3 Hgb 15.6 (14.0-18.0) g/dL Hct 46.9 (42.0-52.0) % MCV 89.5 (80-100) fl MCH 29.8 (26-34) pg MCHC 33.3 (32-36) g/dl RDW 14.7 H (11.5-14.5) % Plt Count 146 L (150-375) k/mm3 MPV 10.5 H (7.4-10.4) fl Immature Gran % (Auto) 0.3 (0-0.5) % Neut % (Auto) 68.2 (45.5-73.1) % Lymph % (Auto) 20.8 (18.3-44.2) % [place] % (Auto) 8.4 (2.6-8.5) % Eos % (Auto) 1.7 (0-4.4) % Baso % (Auto) 0.6 (0.2-1.2) % Lymph # (Auto) 1.79 (0.9-3.2) K/mm3 [place] # (Auto) 0.7 H (0.1-0.6) K/mm3 Eos # (Auto) 0.2 (0-0.3) K/mm3 Baso # (Auto) 0.1 (0.0-0.1) K/mm3 Abs Immat Gran (auto) 0.03 (0.00-0.031) K/mm3 Absolute Neuts (auto) 5.9 (1.3-6.7) K/mm3 Absolute Nucleated RBC 0.000 (0.0-0.012) K/mm3 Nucleated RBC % 0.0 (0.0-0.2) % Sodium 134 L (137-145) mmol/L Potassium 3.8 (3.4-5.0) mmol/L Chloride 100 (98-107) mmol/L Carbon Dioxide 29 (22-30) mmol/L Anion Gap 5 (4-12) mmol/L BUN 21 H (9-20) mg/dL Creatinine 1.10 (0.7-1.3) mg/dL Estim Creat Clear Calc 56 ml/min Estimated GFR > 60 (59 - ) Glucose 133 H (65-110) mg/dL Calcium 9.5 (8.4-10.2) mg/dL Total Bilirubin 0.6 (0.2-1.3) mg/dL AST 31 (17-59) U/L ALT 18 (6-50) U/L Alkaline Phosphatase 68 (38-126) U/L Total Protein 7.0 (6.3-8.2) g/dL Albumin 4.1 (3.5-5.1) g/dL Discharge Plan Discharge Clinical Impression: Dizziness Patient Disposition: Home, Self-Care Condition: Stable Instructions: Antibiotic Form, Dizziness (ED) Patient Language: Taiwanese Prescriptions: New meclizine 25 mg tablet 25 mg PO TID Qty: 30 0RF No Action Eliquis 5 mg tablet 5 mg PO Q12H Rx Instructions: PRESCRIBED BY CARDIOLOGY gabapentin 600 mg tablet 600 mg PO BID hydrochlorothiazide 25 mg tablet 12.5 mg PO DAILY Qty: 90 3RF olmesartan [Benicar] 40 mg tablet 20 mg PO DAILY Rx Instructions: PRESCRIBED BY CARDIOLOGY TAKES IN AFTERNOON AROUND [id number] carvedilol 25 mg tablet 12.5 mg PO BID Metanx levomefolate/alge-S/Pydoxal Phos/Methycob 2 mg PO BID tamsulosin [Flomax] 0.4 mg capsule 0.4 mg PO DAILY Qty: 90 1RF acetaminophen 500 mg Tablet 1,000 mg PO Q6H PRN (Reason: Pain) aspirin 81 mg Capsule 81 mg PO DAILY Rx Instructions: TAKES AT HS magnesium 500 mg Tablet 500 mg PO DAILY Rx Instructions: Take at 1600 diphenhydramine-acetaminophen [Tylenol PM Extra Strength] 25-500 mg Tablet 2 tablet PO HS fluticasone propionate 50 mcg/actuation spray,suspension See Rx Instructions .ROUTE .COMPLEX PRN (Reason: Congestion) Rx Instructions: INHALE TWO SPRAYS IN EACH NOSTRIL ONCE DAILY rosuvastatin 10 mg tablet 10 mg PO DAILY Qty: 90 3RF esomeprazole magnesium [Nexium] 40 mg capsule,delayed release(DR/EC) 40 mg PO HS Qty: 90 1RF potassium chloride 10 mEq tablet extended release 10 meq PO BID Qty: 180 1RF sertraline 25 mg tablet 25 mg PO DAILY Qty: 90 1RF Rx Instructions: TAKES AT HS Follow-up/Referrals: Isacc Talamantes DO [Primary Care Provider] -
--- NOTE | 2024-06-30 11:53 | ECG_ITS ---
Test Date: 2024-06-29 22:59:04 Measurements Intervals [place] Rate: 59 P: 0 FL: 0 QRS: -78 QRSD: 199 T: 95 QT: 486 QTc: 484 Interpretive Statements ELECTRONIC VENTRICULAR PACEMAKER ABNORMAL RHYTHM ECG No previous ECG available for comparison Electronically Signed On 06-30-2024 15:55:39 RECEIVER/LABORER by Fitz De Dios M.D.
== END 2024-06-30 02:00 | disposition home or self-care (01) ==
PROVIDERS: Emergency Provider Emergency Medicine; PCP Internal Medicine
DX: R42 Dizziness and giddiness (principal); J44.9 Chronic obstructive pulmonary disease, unspecified; I10 Essential (primary) hypertension; I48.0 Paroxysmal atrial fibrillation; E11.42 Type 2 diabetes mellitus with diabetic polyneuropathy; E11.51 Type 2 diabetes mellitus with diabetic peripheral angiopathy without gangrene; I73.9 Peripheral vascular disease, unspecified; N40.0 Benign prostatic hyperplasia without lower urinary tract symptoms; K21.9 Gastro-esophageal reflux disease without esophagitis; F17.210 Nicotine dependence, cigarettes, uncomplicated; Z98.61 Coronary angioplasty status; Z95.0 Presence of cardiac pacemaker; Z86.0100 Personal history of colon polyps, unspecified; Z87.442 Personal history of urinary calculi; Z79.82 Long term (current) use of aspirin; Z79.899 Other long term (current) drug therapy; Z79.01 Long term (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
CPT/HCPCS: 36415; 70496; 70498; 80053; 84153; 85025; 93005; 96361; 96374; 99284; A9270; G0103; J2405; J7030; Q9967

== ENCOUNTER 2024-07-12 12:20 | Outpatient (CLI) | payer MEDICARE, SELFPAY ==
[2024-07-12 12:12] LABS: Basophils Percent Auto 0.5 % (0.2-1.2); Eosinophils Absolute Auto 0.2 K/mm3 (0-0.3); Eosinophils Percent Auto 2.5 % (0-4.4); Hematocrit 46.5 % (42.0-52.0); Hemoglobin 15.1 g/dL (14.0-18.0); Immature Granulocyte Absolute 0.02 K/mm3 (0.00-0.031); Immature Granulocyte Percent A 0.3 % (0-0.5); Lymphocytes Absolute Auto 1.74 K/mm3 (0.9-3.2); Lymphocytes Percent Auto 26.8 % (18.3-44.2); Mean Corpuscular HGB Conc 32.5 g/dl (32-36); Mean Corpuscular Hemoglobin 29.6 pg (26-34); Mean Corpuscular Volume 91.2 fl (80-100); Monocytes Absolute Auto 0.5 K/mm3 (0.1-0.6); Monocytes Percent Auto 7.2 % (2.6-8.5); Neutrophils Absolute Auto 4.1 K/mm3 (1.3-6.7); Neutrophils Percent Auto 62.7 % (45.5-73.1); Platelet Count Result 141 k/mm3 (150-375); Red Cell Distribution Width 14.6 % (11.5-14.5); White Blood Count 6.5 K/mm3 (4.5-10.0)
[2024-07-12 12:47] LABS: Alanine Aminotransferase 19 U/L (6-50); Albumin Level 3.8 g/dL (3.5-5.1); Alkaline Phosphatase 56 U/L (38-126); Anion Gap 1 mmol/L (4-12); Aspartate Amino Transferase 58 U/L (17-59); Bilirubin,Total 0.9 mg/dL (0.2-1.3); Blood Urea Nitrogen 16 mg/dL (9-20); Carbon Dioxide 32 mmol/L (22-30); Chloride 105 mmol/L (98-107); Estimated Glomerular Filt Rate > 60; Glucose 143 mg/dL (65-110); Magnesium 1.5 mg/dL (1.6-2.3); Potassium 3.9 mmol/L (3.4-5.0); Sodium 138 mmol/L (137-145)
[2024-07-12 12:50] LABS: Add Urine Microscopic? YES; Appearance Urine Cloudy (Clear); Bacteria Urine None Seen /hpf; Bilirubin Urine 1+ (Negative); Blood Urine Negative (Negative); Color Urine Dark Yellow (Yellow); Glucose Urine UA Negative (Negative); Ketones Urine Trace mg/dL (Negative); Leukocyte Esterase Ur 1+ LEU/UL (Negative); Need Manual Microscopic Reviewed; Nitrate Urine Negative (Negative); Non Pathogenic Casts >20; Protein Urine 3+ mg/dL (Negative); RBC Urine 0-2 /hpf (0-2); Specific Grav Ur 1.026 (1.001-1.035); Squamous Epithelial Cell Urine Few /hpf (Few); WBC Urine 21-50 /hpf (0-3); pH Urine 5.5 (5.0-9.0)
[2024-07-12 13:07] LABS: Hemoglobin A1C 6.5 % (<5.7)
[2024-07-12 13:53] LABS: Vitamin B12 > 1000.0 pg/mL (239-931)
[2024-07-12 15:04] LABS: Toxigenic C. Diff NEGATIVE (NEGATIVE)
== END 2024-07-12 12:21 | disposition home or self-care (01) ==
PROVIDERS: PCP Internal Medicine; Visit Provider Clinical Nurse Specialist
DX: R19.7 Diarrhea, unspecified (principal); I48.91 Unspecified atrial fibrillation; E04.1 Nontoxic single thyroid nodule; E83.42 Hypomagnesemia; E87.6 Hypokalemia; R53.1 Weakness
CPT/HCPCS: 36415; 80053; 81001; 82607; 83036; 83735; 84443; 85025; 87045; 87086; 87177; 87209; 87427; 87449; 87493; 89055

== ENCOUNTER 2024-08-03 14:41 | Outpatient (CLI) | payer MEDICARE, SELFPAY ==
[2024-08-03 19:27] LABS: Basophils Percent Auto 0.4 % (0.2-1.2); Eosinophils Absolute Auto 0.2 K/mm3 (0-0.3); Hematocrit 46.6 % (42.0-52.0); Hemoglobin 15.1 g/dL (14.0-18.0); Immature Granulocyte Absolute 0.07 K/mm3 (0.00-0.031); Immature Granulocyte Percent A 0.6 % (0-0.5); Lymphocytes Absolute Auto 2.39 K/mm3 (0.9-3.2); Lymphocytes Percent Auto 21.8 % (18.3-44.2); Mean Corpuscular HGB Conc 32.4 g/dl (32-36); Mean Corpuscular Hemoglobin 29.4 pg (26-34); Mean Corpuscular Volume 90.7 fl (80-100); Monocytes Percent Auto 8.9 % (2.6-8.5); Neutrophils Absolute Auto 7.3 K/mm3 (1.3-6.7); Neutrophils Percent Auto 66.3 % (45.5-73.1); Platelet Count Result 183 k/mm3 (150-375); Red Blood Count 5.14 M/mm3 (4.6-6.20); Red Cell Distribution Width 15.1 % (11.5-14.5)
[2024-08-03 20:08] LABS: Erythrocyte Sedimentation Rate 6 mm/hr (0-20)
[2024-08-03 20:18] LABS: HIV 1/2 Ab P24 Ag Result Negative (Negative)
[2024-08-03 20:26] LABS: Hepatitis C Virus Antibody Negative (Negative)
[2024-08-03 20:27] LABS: Alanine Aminotransferase 16 U/L (6-50); Albumin Level 3.6 g/dL (3.5-5.1); Alkaline Phosphatase 57 U/L (38-126); Anion Gap 6 mmol/L (4-12); Aspartate Amino Transferase 31 U/L (17-59); Blood Urea Nitrogen 25 mg/dL (9-20); Calcium 7.7 mg/dL (8.4-10.2); Carbon Dioxide 36 mmol/L (22-30); Chloride 97 mmol/L (98-107); Estimated Glomerular Filt Rate 57; Glucose 81 mg/dL (65-110); Potassium 3.8 mmol/L (3.4-5.0); Sodium 139 mmol/L (137-145)
--- OUTSIDE RECORDS SUMMARY | 2024-08-05 02:23 | XMS_ITS | Patient Health Summary ---
Author Organization [facility] Address [address] [place] [address] Care Team Providers Care Nematologist Name Role Phone Jones Talamantes DO Primary Care Provider [phone] Note from [facility],non-owned Affiliates and Associated Physician Practices is amultiple site organization consisting of ambulatory clinics and hospital sitesin [place] and [place]. This disclosure is being madepursuant to the Care Everywhere program and may not contain all information available regarding this patient. Last updated 18.[facility] Allergies No known active allergies Medications * Be aware that medications may not be up to date on this document. Alwaysverify current medications with the patient. * acetaminophen (TYLENOL) 325 MG tablet Take 650 mg by mouth as needed * apixaban (ELIQUIS) 5 MG tablet(Started 12/17/2016) Take 5 mg by mouth * esomeprazole (NEXIUM) 40 MG capsule(Started 10/13/2014) 40 mg * carvedilol (COREG) 12.5 MG tablet(Started 04/02/2015) 12.5 mg * hydroCHLOROthiazide (HYDRODIURIL) 25 MG tablet(Started 10/07/2016) 25 mg * fluticasone propionate (FLONASE) 50 MCG/ACT nasal spray(Started 10/13/2014) [place]vere 1 spray into each nostril once daily * aspirin (ASPIRIN) 81 MG tablet(Started 10/13/2014) 81 mg * Potassium Gluconate 595 MG(Started 10/13/2014) * olmesartan (BENICAR) 40 MG tablet Take 40 mg by mouth once daily * Loratadine (CLARITIN PO) Take 10 mg by mouth once daily * simvastatin (ZOCOR) 20 MG tablet Take 10 mg by mouth once daily * fexofenadine (LEONID) 60 MG tablet Take 180 mg by mouth once daily * azilsartan (EDARBI) 40 MG tablet Take 40 mg by mouth 2 times daily * magnesium oxide (MAG-OX) 400 (241.3 Mg) MG tablet(Started 03/30/2019) TAKE ONE TABLET DAILY FOR 2 WEEKS * diclofenac sodium (VOLTAREN) 1 % gel(Started 03/02/2019) APPLY 2 GRAMS TO EACH KNEE THREE TIMES DAILY 5 refills left * ketoconazole (NIZORAL) 2 % cream(Started 05/13/2019) Apply to both feet twice daily. 30 days supply. 2 refills remaining * fluorouracil (EFUDEX) 5 % cream(Started 02/20/2020) Apply to affected area (scalp, lateral neck, forearms/dorsal hands) twice daily for 2 weeks at a time. #30 DS 1 refill by 02/19/2021 Active Problems Problem Noted Date Diagnosed Date Tinea pedis of both feet 05/15/2019 Onychodystrophy 05/15/2019 Melanocytic nevi of trunk 05/15/2019 Multiple benign nevi of uppe r and lower extremities, and trunk 12/05/2017 Actinic keratosis 12/05/2017 Seborrheic keratosis 12/05/2017 Solar lentiginosis 12/05/2017 History of nonmelanoma skin cancer 11/07/2017 Chronic atrial fibrillation 04/07/2017 Cardiac pacemaker in situ 04/02/2017 Lumbago 05/01/2014 S/P sinus surgery 03/12/2009 Status post skin graft 03/12/2009 Myalgia and myositis 03/12/2009 Lumbar spondylosis 03/12/2009 Headache 03/12/2009 Chronic pain 03/12/2009 Neck pain 03/12/1989 Social History Tobacco Use Types Packs/Day Years Used Date Smoking Tobacco: Every Day Cigarettes 1 43 Smokeless Tobacco: Never Alcohol Use Standard Drinks/Week Comments Yes 2.5 (1 standard drink = 0.6 oz p ure alcohol) social Sex and Gender Information Value Date Recorded Sex Assigned at Not on file Gender Identity Not on file Sexual Orientation Not on file Last Filed Vital Signs Vital Sign Reading Time Taken Comments Blood Pressure 161/97 09/22/2017 10:15 AM CDT Pulse 63 09/22/2017 10:15 AM CDT Temperature - - Respiratory Rate - - Oxygen Saturation 96% 09/22/2017 10:15 AM CDT Inhaled Oxygen Concentration - - Weight 90.7 kg (200 lb) 09/22/2017 7:21 AM CDT Height 182.9 cm (6') 09/22/2017 7:21 AM CDT Body Mass Index 27.12 09/22/2017 7:21 AM CDT Procedures * DC DSTRJ ALL PRMLG 15 OR MORE(Performed 05/13/2019) Performed for Actinic keratoses * DC DSTRJ ALL PRMLG 15 OR MORE(Performed 11/12/2018) Performed for Actinic keratosis * DC DESTROY PREMALIG LESION, 1ST LESION(Performed 05/14/2018) Performed for Actinic keratosis * DC DESTROY PREMALIG LESION, 2-14(Performed 05/14/2018) Performed for Actinic keratosis * DC DESTROY PREMALIG LESION, 1ST LESION(Performed 11/09/2017) Performed for Actinic keratosis * DC DESTROY PREMALIG LESION, 2-14(Performed 11/09/2017) Performed for Actinic keratosis * DERMATOPATHOLOGY(Performed 05/01/2017) * DERMATOPATHOLOGY(Performed 02/01/2016) * DERMATOPATHOLOGY(Performed 08/03/2015) * TROPONIN I(Performed 01/19/2009) Performed for Syncope and Collapse * CK + CKMB PANEL(Performed 01/19/2009) Performed for Syncope and Collapse * LIPID PROFILE(Performed 01/19/2009) Performed for Unspecified Chest Pain * TROPONIN I(Performed 01/19/2009) Performed for Syncope and Collapse * MAGNESIUM BLOOD(Performed 01/19/2009) Performed for Syncope and Collapse * CK + CKMB PANEL(Performed 01/19/2009) Performed for Syncope and Collapse * CT CHEST ABDOMEN WWO CONTRAST(Performed 01/18/2009) Performed for Unspecified Chest Pain * CT HEAD WO CONTRAST(Performed 01/18/2009) Performed for Syncope and Collapse * XR CHEST 2VW(Performed 01/18/2009) Performed for Syncope and Collapse * URINALYSIS REFLEX TO MICROSCOPIC NO CULTURE(Performed 01/18/2009) Performed for Syncope and Collapse * TROPONIN I(Performed 01/18/2009) Performed for Syncope and Collapse * MYOGLOBIN BLOOD(Performed 01/18/2009) Performed for Syncope and Collapse * COMPREHENSIVE METABOLIC PANEL(Performed 01/18/2009) Performed for Syncope and Collapse * CBC W AUTO DIFFERENTIAL(Performed 01/18/2009) Performed for Syncope and Collapse Results * DC DSTRJ ALL PRMLG 15 OR MORE (11/12/2018 10:41 AM CDT) Narrative Shai Hull MD - 11/12/2018 10:41 AM CDT Shai Hull MD ? 11/12/2018 10:41 AM 23 lesions cryo Shai Hull MD PROCEDURE/MINOR SURG ICAL ORDERABLES * DC DESTROY PREMALIG LESION, 2-14, DC DESTROY PREMALIG LESION, 1ST LESION (11/09/2017 5:06 PM CDT) Narrative Shai Hull MD - 11/09/2017 5:06 PM CDT Franklyn Hinton MD ? 11/07/2017 12:33 PM Diagnosis and treatment options discussed. Cryotherapy (Liquid Nitrogen) to 11 lesions for 5-7 seconds each. Number of cycles: 1. Wound care reviewed. Franklyn Hinton M.D. PGY-2 dermatology resident Shai Hull MD PROCEDURE/MINOR SURG ICAL ORDERABLES * PATHOLOGY TISSUE FOR DERMATOLOGY (05/01/2017 12:00 AM CDT) Only the most recent of3 resultswithin the time period is included. Result CASE: [id number] PATIENT: JONES SORTO PATHOLOGIC DIAGNOSIS: A. 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 Left helix: SQUAMOUS CELL CARCINOMA, ACANTHOLYTIC TYPE CLINICAL DATA: A-B: R/O NMSC. GROSS DESCRIPTION: A: Received is one formalin filled container labeled with the patients name and designated right volar forearm. The specimen consists of a shave biopsy measuring [id number]. Jar 0. B: Received is one formalin filled container labeled with the patients name and designated left helix. The specimen consists of a shave biopsy measuring [id number]. Jar 0. MICROSCOPIC DESCRIPTION: SPECIMEN ??A The epidermis shows full thickness disorderly maturation of keratinocytes, mitoses at different levels, and dyskeratotic cells. ??There is overlying parakeratosis. SPECIMEN ??B Sections show skin with irregularly shaped nests of keratinocytes with evidence of cornification. In some nests, there is loss of cohesion between the neoplastic cells, as well as individual dyskeratotic cells that lack intercellular bridges. Electronically signed out by Heather Steven M.D. 05/05/2017 1:12:58PM [facility] Comment: Performed at: Dermatopathology Laboratory [facility] Department of Dermatology [address]th [place] [address] Phone number: [phone] FAX: [phone] Skin (tissue) specimen (specimen) 05/01/2017 05/04/2017 Narrative [facility] - 05/05/2017 1:13 PM CDT How many specimens?->2 Specimen A: Type->Shave ?Site->R volar forearm History->pink scaly plaque ?Impression->r/o NMSC ?Check Margins:->N/A ?Prior Biopsy->N/A Specimen B: Type->Shave ?Site->L helix ?History->crusty papule, failed cryo ?Impression->r/o NMSC ?Check Margins:->N/A ?Prior Biopsy->N/A Shai Hull MD LAB - PATHOLOGY/CYTO LOGY ORDERABLES [facility] [address] [place] [address]. [address] [place] [address], [facility] [phone] * TROPONIN I (01/19/2009 1:26 PM CDT) Only the most recent of3 resultswithin the time period is included. Troponin I <0.10 SEE BELOW ng/ml [facility] Comment: Normal ? <0.10 [place] ??0.10-0.99 Positive ?? >=1.00 BLOOD SPECIMEN / Unknown 01/19/2009 1:26 PM CDT Sofia Spangler MD LAB - CHEMISTRY NAYELY LAU Performing Organization Address [facility] Co de Phone Number [facility] [address] [place] [address] * CK + CKMB PANEL (01/19/2009 1:26 PM CDT) Only the most recent of2 resultswithin the time period is included. Pathologist [facility] CK 61 55.0 - 170.0 U/L [facility] CK-MB 1.7 ng/ml [facility] Interpretation CK-MB [facility] Comment: An abrupt rise/fall of CKMB over 24 hours is an acute injury pattern. BLOOD SPECIMEN / Unknown 01/19/2009 1:26 PM CDT Sofia Spangler MD LAB - CHEMISTRY NAYELY LAU Performing Organization Address [facility] de Phone Number [facility] [address] [place] [address] * MAGNESIUM BLOOD (01/19/2009 5:17 AM CDT) Pathologist [facility] Magnesium 1.9 1.6 - 2.3 mg/dl [facility] BLOOD SPECIMEN / Unknown 01/19/2009 5:17 AM CDT Sofia Spangler MD LAB - CHEMISTRY NAYELY LAU Performing Organization Address [facility] Co de Phone Number [facility] [address] [place] [address] * (ABNORMAL) LIPID PROFILE (01/19/2009 5:17 AM CDT) Pathologist [facility] Cholesterol 148 120.0 - 200.0 mg/dl [facility] Triglycerides 369(H) 0.0 - 250.0 mg/dl [facility] HDL Cholesterol 27(L) >40 mg/dl [facility] LDL Calculated 47.2 mg/dl [facility] Chol HDL Ratio 5.5 [facility] Comment Lipid [facility] Comment: Risk Classification ? HDL CHOL ?? LDL CHOL ?TOTAL CHOL According to NCEP ? (mg/dl) ?(mg/dL) ?(mg/dl) ? Desirable ? >40 ?<130 ? < 200 ? Borderline/High ?- ?130-159 ?200-239 ? High ? - ? >159 ? > 239 The total cholesterol to HDL cholesterol ratio may be used to predict risk for coronary heart disease in untreated patients according to data reported from the [place] Study by Kip Turner M.D. ??The predictive value in patients over 60 years of age is uncertain. ? Risk ?TOTAL CHOL/HDL RATIO ? MEN ?WOMEN ? 1/2 Average ? 3.43 ? 3.27 ? Average ? 4.97 ? 4.44 ? 2X Average ?9.55 ? 7.05 ? 3X Average ? 23.39 ?11.04 In Coronary Artery Disease patients, in whom nonpharmacological therapy has failed, the AHA recommends that drug therapy should be prescribed to lower LDL cholesterol to <100mg/dL. ??Drug therapy may be instituted in patients with HDL <35mg/dL. ??The reported LDL is a calculated result. ??For a more precise measurement, a direct LDL test is available, as necessary. BLOOD SPECIMEN / Unknown 01/19/2009 5:17 AM CDT Sofia Spangler MD LAB - CHEMISTRY NAYELY LAU [facility] Organization Address City/State/ZIP Co de Phone Number [facility] [address] [place] [address] * CT THORAX ABDOMEN W/WO CONTRAST (01/18/2009 10:45 PM CDT) Anatomical Region Laterality Modality Other 01/18/2009 10:4 5 PM CDT Narrative 01/18/2009 11:[address] thorax with and without contrast CT abdomen with and without contrast Clinical Indication- Chest pain, abdominal pain, aortic dissection Technique- Axial CT images from the lung apices to the aortic bifurcation were obtained before and after administration of 100 cc Omnipaque-350 intravenous contrast. The pelvis was not imaged. Findings- Thorax- There is no evidence of aortic aneurysm or aortic dissection. Mediastinal structures are unremarkable. There is a subcentimeter nodule within the the right upper lobe on image 30. Scattered pleural calcifications are noted. There is no pleural effusion. The bony thorax is intact. Abdomen- There are bilateral renal cysts. The liver, spleen, gallbladder, adrenal glands, and pancreas are unremarkable. Visualized bowel loops are unremarkable. The appendix is unremarkable. Impression- No acute findings. Indeterminate right upper lobe pulmonary nodule. Recommend surveillance. ? Read By- LAUREL NUÑEZ ??M.D. ? Released By- LAUREL NUÑEZ ??M.D. ? Released Date Time- 01/18/090 ? Aerial Gunner- NWShakeel ??M.D. ? ADM- EMERGENCY,PHYSICIANS ? ATT- EMERGENCY,PHYSICIANS REF- ?CON- PCP- ?SCP- Procedure Note Laurel Nuñez MD - 01/18/2009 CT thorax with and without contrast CT abdomen with and without contrast Clinical Indication- Chest pain, abdominal pain, aortic dissection Technique- Axial CT images from the lung apices to the aortic bifurcation were obtained before and after administration of 100 cc Omnipaque-350 intravenous contrast. The pelvis was not imaged. Findings- Thorax- There is no evidence of aortic aneurysm or aortic dissection. Mediastinal structures are unremarkable. There is a subcentimeter nodule within the the right upper lobe on image 30. Scattered pleural calcifications are noted. There is no pleural effusion. The bony thorax is intact. Abdomen- There are bilateral renal cysts. The liver, spleen, gallbladder, adrenal glands, and pancreas are unremarkable. Visualized bowel loops are unremarkable. The appendix is unremarkable. Impression- No acute findings. Indeterminate right upper lobe pulmonary nodule. Recommend surveillance. Read By- LAUREL NUÑEZ M.D. Released By- LAUREL NUÑEZ M.D. Released Date Time- 01/18/09 4681 Aerial Gunner- MARIN Canlea ADM- EMERGENCY,PHYSICIANS ATT- EMERGENCY,PHYSICIANS REF- CON- PCP- SCP- Soren Maldonado MD CT ORDERABLES * CT HEAD NON CONTRAST (01/18/2009 10:45 PM CDT) Anatomical Region Laterality Modality Head Other 01/18/2009 10:4 5 PM CDT Narrative 01/18/2009 11:[address] scan of the brain without contrast Indication- Syncope and collapse Comparison- None available Findings- Axial CT images of the brain were obtained without contrast. There is no evidence of acute intracranial hemorrhage or recent cortical ischemia. There is no mass-effect or midline shift. Ventricular and sulcal size is within normal limits. There are no extra-axial fluid collections. The bony calvarium is intact. The paranasal sinuses are well aerated. Impression- No acute intracranial abnormalities. ? Read By- LAUREL NUÑEZ ??M.D. ? Released By- LAUREL NUÑEZ ??M.D. ? Released Date Time- 01/18/092324 ? Aerial Gunner- NWS ??M.D. ? ADM- EMERGENCY,PHYSICIANS ? ATT- EMERGENCY,PHYSICIANS REF- ?CON- PCP- ?SCP- Procedure Note Laurel Nuñez MD - 01/18/2009 CT scan of the brain without contrast Indication- Syncope and collapse Comparison- None available Findings- Axial CT images of the brain were obtained without contrast. There is no evidence of acute intracranial hemorrhage or recent cortical ischemia. There is no mass-effect or midline shift. Ventricular and sulcal size is within normal limits. There are no extra-axial fluid collections. The bony calvarium is intact. The paranasal sinuses are well aerated. Impression- No acute intracranial abnormalities. Read By- LAUREL NUÑEZ M.D. Released By- LAUREL NUÑEZ M.D. Released Date Time- 01/18/09 0907 Aerial Gunner- MARIN Canela ADM- EMERGENCY,PHYSICIANS ATT- EMERGENCY,PHYSICIANS REF- CON- PCP- SCP- Soren Maldonado MD CT ORDERABLES * XR CHEST PA AND LATERAL (01/18/2009 9:53 PM CDT) Anatomical Region Laterality Modality Chest Other 01/18/2009 9:53 PM CDT Narrative 01/19/2009 8:26 AM CDT Two views chest Clinical Indication- Syncope. Description- A dual-chamber pacemaker is present. There are low lung volumes with bronchovascular crowding. The heart size is normal. No pneumothorax. ? Read By- LAUREL NUÑEZ ??M.D. ? Released By- LAUREL NUÑEZ ??M.D. ? Released Date Time- 01/19/09825 ? Aerial Gunner- SOCRATES ? SOFIA PARRA ? SOFIA JESUS REF- ?CON- PCP- ?SCP- Procedure Note Laurel Nuñez MD - 01/19/2009 Two views chest Clinical Indication- Syncope. Description- A dual-chamber pacemaker is present. There are low lung volumes with bronchovascular crowding. The heart size is normal. No pneumothorax. Read By- LAUREL NUÑEZ M.D. Released By- LAUREL NUÑEZ M.D. Released Date Time- 01/19/09825 Aerial Gunner- MEO - SOFIA SPANGLER ATTSOFIA BUSTOS REF- CON- PCP- SCP- Soren Maldonado MD DIAGNOSTIC IMAGING O REGERATUNDE * URINALYSIS ROUTINE AUTO (01/18/2009 9:25 PM CDT) Color UA DK YELLOW [facility] Character UA CLEAR [facility] Specific Waucoma UA 1.029 1.005 - 1.0300 [facility] pH UA 5.0 4.6 - 8.0 pH Units [facility] Leukocyte UA NEGATIVE Negative /ul [facility] Nitrite UA NEGATIVE Negative [facility] Protein UA 30 Negative mg/dl [facility] Glucose UA NEGATIVE Normal mg/dl [facility] Ketone UA NEGATIVE Negative mg/dl [facility] Urobilinogen UA 0.2 Normal Perfecto Units [facility] Bilirubin UA SMALL Negative mg/dl [facility] Blood UA NEGATIVE Negative /ul [facility] WBC UA 10-20 /HPF [facility] RBC UA <5 /HPF [facility] Epithelial Cell UA <5 /HPF [facility] Casts UA 10-20 /LPF [facility] Bacteria UA NEGATIVE [facility] URINE SPECIMEN OBTAINED BY CLEAN CATCH PROCEDURE / Unknown 01/18/2009 9:25 PM CDT Soren Maldonado MD LAB - URINALYSIS ORD ERABLES Performing Organization Address [facility] Co de Phone Number [facility] [address] [place] [address] * MYOGLOBIN BLOOD (01/18/2009 9:06 PM CDT) Pathologist [facility] Myoglobin 64.6 0.0 - 110.0 ng/ml [facility] BLOOD SPECIMEN / Unknown 01/18/2009 9:06 PM CDT Soren Maldonado MD LAB - CHEMISTRY ORDE RABLES Performing Organization Address [facility] Co de Phone Number [facility] [address] [place] [address] * (ABNORMAL) CBC W AUTO DIFFERENTIAL (01/18/2009 9:06 PM CDT) WBC 13.7(H) 4.5 - 11.0 1000/mm3 [facility] RBC 4.94 4.7 - 6.1 10X6 [facility] Hemoglobin 14.7 13.0 - 18.0 gm/dl [facility] Hematocrit 43.9 39.0 - 54.0 % [facility] MCV 88.9 80.0 - 99.0 fl [facility] MCH 29.8 25.0 - 31.0 pg [facility] MCHC 33.5 32.0 - 36.0 gm/dl [facility] RDW 14.0 11.5 - 14.5 % [facility] Platelet Count 155 130.0 - 400.0 1000/mm3 [facility] Granulocytes % 77.0(H) 40.0 - 70.0 % [facility] Lymphocytes % Manual 17.2(L) 22.0 - 40.0 % [facility] Monocytes % 4.1 2.0 - 10.0 % [facility] Eosinophils % 1.5 0.0 - 6.0 % [facility] Basophils % 0.2 0.0 - 3.0 % [facility] Comment Manual Diff Not Indicated [facility] Granulocytes Absolute 10.54(H) 1.8 - 7.7 [facility] BLOOD SPECIMEN / Unknown 01/18/2009 9:06 PM CDT Soren Maldonado MD LAB - HEMATOLOGY ORD ERABLES [facility] [address] [place] [address] * (ABNORMAL) COMPREHENSIVE METABOLIC PANEL (01/18/2009 9:06 PM CDT) BUN 20 9.0 - 20.0 mg/dl [facility] Sodium 137 137 - 145 mEq/L [facility] Potassium 3.3(L) 3.6 - 5.0 mEq/L [facility] Chloride 99 98.0 - 107.0 mEq/L [facility] Glucose 190(H) 75 - 110 mg/dl [facility] Creatinine 1.3 0.8 - 1.5 mg/dl [facility] AST 31 17.0 - 59.0 U/L [facility] Alkaline Phosphatase 60 38.0 - 126.0 U/L [facility] Calcium 9.3 8.4 - 10.2 mg/dl [facility] Bilirubin Total 0.3 0.2 - 1.3 mg/dl [facility] Albumin 4.2 3.5 - 5.0 gm/dl [facility] Protein Total 6.7 6.3 - 8.2 gm/dl [facility] CO2 27 22.0 - 30.0 mEq/L [facility] ALT 23 21.0 - 72.0 U/L [facility] eGFR by MDRD 58.3 ml/min/1.7 3m2 [facility] BLOOD SPECIMEN / Unknown 01/18/2009 9:06 PM CDT Soren Maldonado MD LAB - CHEMISTRY NAYELY Block Organization Address City/State/ZIP Co de Phone Number [facility] [address] [place] [address] Care Teams Nematologist Relationship Specialty Start Date End Date Jones Talamantes DO PCP - General 03/12/09
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
--- OUTSIDE RECORDS SUMMARY | 2024-08-05 02:23 | XMS_ITS | Encounter Summary ---
Author Organization [facility] Address [address] [place] [address] Care Team Providers Care Bus And Rail Operator Name Role Phone Isacc Talamantes DO Primary Care Provider [phone] Isacc Talamantes DO Primary Care Provider [phone] Kip Chandler MD Unavailable [phone] Anel Ansari MD Unavailable [phone] Encounter Details Date Type Department Care Team (Late st Contact Info) Description 09/10/2016 Orders Only [facility] ProviderDonovan MD [address] [place] [id number] Social History Tobacco Use Types Packs/Day Years Used Date Smoking Tobacco: Heavy Smoker Comments:Smoking History Pac ks/day: 1 Packs Alcohol Use Standard Drinks/Week Comments Yes 0 (1 standard drink = 0.6 oz pur e alcohol) Sex and Gender Information Value Date Recorded Sex Assigned at Not on file Legal Sex Male 3:35 AM [employer] Gender Identity Not on file Sexual Orientation Not on file documented as of this encounter Plan of Treatment Not on file documented as of this encounter Procedures Procedure Name Priority Date/Time Associated Diagnosis Comments CARDIOLOGY REPORT 09/10/2016 documented in this encounter Results * CARDIOLOGY REPORT (09/10/2016) Anatomical Region Laterality Modality Other Narrative 09/10/2016 Ordered by an unspecified provider. Historical Provider [facility] Final Result documented in this encounter Visit Diagnoses Not on filedocumented in this encounter Care Teams Bus And Rail Operator Relationship Specialty Start Date End Date Isacc Talamantes DO PCP - General 10/10/16 Isacc Talamantes DO PCP - General 03/05/16 10/09/16 Kip Chandler MD Medical Oncologist/Biochemistry Specialist Hematology and Oncology 01/24/19 02/17/23 Anel Ansari MD [address] [place] [address] Medical Oncologist/Biochemistry Specialist Hematology 03/11/24 documented as of this encounter
--- OUTSIDE RECORDS SUMMARY | 2024-08-05 02:23 | XMS_ITS | Clinical Summary ---
Author Organization [facility] Address [address] [place] [address] Care Team Providers Care Site Surveyor Name Role Phone Isacc Talamantes DO Primary Care Provider [phone] Source Comments [facility],non-owned Affiliates and Associated Physician Practices is amultiple site organization consisting of ambulatory clinics and hospital sitesin [place] and [place]. This disclosure is being madepursuant to the Care Everywhere program and may not contain all information available regarding this patient. Last updated 18.[facility] Allergies No known active allergies Medications * [...] fluticasone propionate (FLONASE) 50 MCG/ACT nasal spray [place] 1 spray into each nostril once daily [...] SSS, PAF. DOI 03/18/2011, Chronic leads 08/11/2002. 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 Family History Medical History Relation Name Comments CAD (Coronary Artery Disease) Brother 2 Cancer Father liver Cancer Mother lymphoma Cancer Sister Breast Asthma Neg Hx CVA Neg Hx Cancer - Breast Neg Hx Cancer - Other Neg Hx Cancer - Skin, Melanoma Neg Hx Cancer - Skin, Non Melanoma Neg Hx Eczema Neg Hx Hemophilia Neg Hx Psoriasis Neg Hx Relation Name Status Comments Brother 1 [place] Brother 2 Father Mother Sister Social History Tobacco Use Types Packs/Day Years [...] 09/22/2017 7:21 AM CDT Plan of Treatment Health Maintenance Due Date Last Done Comments MEDICARE AWV ? 12 MONTHS 1940 DTAP/TDAP/TD VACCINES (1 - Tdap) 10/20/1959 PNEUMOCOCCAL VACCINE 50+ (1 of 2 - PCV) 10/20/1959 ZOSTER VACCINE (1 of 2) 1990 Respiratory Syncytial Virus (RSV) Vaccine Pt: or over 60 yrs (1 - 1-dose 75+ series) 10/20/2015 COVID-19 VACCINE (1 - 2023-2 5 season) 2024 INFLUENZA VACCINE (#1) 2024 7, 05/05/2016, 05/05/2015 DEPRESSION SCREENING 07/13/2024 HEPATITIS B VACCINE Aged Out No longe r eligible based on patient's age to complete this topic HIB VACCINE Aged Out No longer eligi ble based on patient's age to complete this topic HPV VACCINE Aged Out No longer eligi ble based on patient's age to complete this topic MENINGOCOCCAL (Group B) VACCINE Aged Out No longer eligible b ased on patient's age to complete this topic MENINGOCOCCAL VACCINE Aged Out No kike barbara eligible based on patient's age to complete this topic Care Teams Site Surveyor Relationship Specialty Start Date End Date Isacc Talamantes DO PCP - General 03/12/09
--- OUTSIDE RECORDS SUMMARY | 2024-08-05 02:23 | XMS_ITS | CONTINUITY OF CARE DOCUMENT ---
Author Name jd jd Address Unknown Organization [facility] Address [address] [place] [address] Phone [phone] Care Team Providers Care Call Center Operations Manager Name Role Phone Chapo Cheng MD Unavailable JONES SALES DO Unavailable JONES SALES DO Unavailable PROBLEMS Condition Status Date Provider Notes WEAKNESS, MUSCLE active Anastasia Lovell CAD-07/21 CAROTID NEG 07/19 CAROTID NEG active ? Andrzej Reaves RN HTN-10/22 ECHO EF 60-08/23 ECH O MILD LAE EF 60-01/17 ECHO EF 60 active ? Chapo Cheng MD CHEST PAIN-02/15 CATH EF50 MO LD LAD, NO ISS RCA active ? Chapo Cehng MD CAD-S/P RCA AND LAD VISION STENTS active Ra bekah Cheng MD AAA-07/19 ABD US NEG active ? Chapo Cheng MD STENT-01/13 TAXUS RCA active ? Chapo Alcantar TOBACCO ABUSE active ? Chapo Cheng MD Atrial fib active Chapo Cheng MD PVD with claudication active Chapo Cheng MD Coronary Heart Disease active Chapo Cheng MD Hyperlipidemia active Chapo Cheng MD SYNCOPE AND COLLAPSE-10/22 NU C NEG-08/23 NUC NEG active ? Chapo Cheng MD SSS-03/23 GEN REPLACEMENT - MEDTR[employer] DC PACER/Gen change DC PM Biotronik 06/17/21 ( NOT MRI SAFE/[employer] Leads) active Shobha Johnston ENCOUNTERS Date Type Provider Location Encounter Diag nosis - In-person encounter Office Visit Chapo Chegn MD [facility] - In-person encounter Office Visit Chapo Cheng MD [facility] - In-person encounter Office Visit Chapo Cheng MD [facility] - In-person encounter Office Visit Chapo Cheng MD [facility] - In-person encounter Office Visit Chapo Cheng MD [facility] - In-person encounter Office Visit Chapo Cheng MD [facility] - In-person encounter Office Visit Chapo Cheng MD [facility] Hyperlipidemia - In-person encounter Office Visit Chapo Cheng MD [facility] Coronary Heart Disease - In-person encounter Office Visit Chapo Cheng MD [facility] PVD with claudication - In-person encounter Office Visit Chapo Cheng MD [facility] - In-person encounter Office Visit Chapo Cheng MD [facility] - In-person encounter Office Visit Chapo Cheng MD [facility] - In-person encounter Office Visit Chapo Cheng MD [facility] - In-person encounter Office Visit Chapo Cheng MD [facility] - In-person encounter Office Visit Chapo Cheng MD [facility] - In-person encounter Office Visit Chapo Cheng MD [facility] - In-person encounter Office Visit Chapo Cheng MD [facility] - In-person encounter Office Visit Chapo Cheng MD [facility] Atrial fib - In-person encounter Office Visit Chapo Cheng MD [facility] - In-person encounter Office Visit Chapo Cheng MD [facility] - In-person encounter Office Visit Chapo Cheng MD [facility] HTN-4/12 ECHO EF 60-2/11 ECHO MILD LAE EF 60-7/08 ECHO EF 60SYNCOPE AND COLLAPSE-4/12 NUC NEG-2 NUC NEG - In-person encounter Office Visit Chapo Cheng MD [facility] - In-person encounter Office Visit Chapo Cheng MD [facility] - In-person encounter Office Visit Chapo Cheng MD [facility] - In-person encounter Office Visit Chapo Cheng MD [facility] HTN-4/12 ECHO EF 60-2/11 ECHO MILD LAE EF 60-7/08 ECHO EF 60SYNCOPE AND COLLAPSE-10/22 NUC NEG-2 NUC NEG - In-person encounter Office Visit Chapo Cheng MD [facility] - In-person encounter Office Visit Chapo Cheng MD [facility] TOBACCO ABUSE - In-person encounter Office Visit Chapo Cheng MD [facility] CAD-S/P RCA AND LAD VISION STENTS - In-person encounter Office Visit Chapo Cheng MD [facility] CAD-S/P RCA AND LAD VISION STENTSSYNCOPE AND COLLAPSE-10/22 NUC NEG-2/11 NUC NEG - In-person encounter Office Visit Chapo Cheng MD [facility] SSS-9/11 GEN REPLACEMENT - 07/15 [employer] DC PACER/Gen change DC PM Biotronik 06/17/21 ( NOT MRI SAFE/[employer]tr[employer] Leads)CAD-07/21 CAROTID NEG 07/19 CAROTID NEGHTN-10/22 ECHO EF 60-08/23 ECHO MILD LAE EF 60-01/17 ECHO EF 60CHEST PAIN-02/15 CATH EF50 MILD LAD, NO ISS RCACAD-S/P RCA AND LAD VISION STENTSAAA-07/19 ABD US NEGSTENT-01/13 TAXUS RCA - In-person encounter Office Visit Chapo Cheng MD [facility] CHEST PAIN-02/15 CATH EF50 MILD LAD, NO ISS RCA VITAL SIGNS Date Observation Value Provider Body Mass Index (Ratio) 30.85 kg/m2 Roger Cheng MD blood pressure, diastolic -1 mm[Hg] Jade wilburnLog blood pressure, systolic 119 mm[Hg] [facility] blood pressure, diastolic 65 mm[Hg] Cyndi neftalyteradonovan Christianson blood pressure, systolic 119 mm[Hg] Brittnee hernandez Christianson oxygen saturation, oximetry 97 % Yukodonovan Christianson pulse rate 65 /min Yuko Christianson weight E&M 215 [lb_av] Yuko Christianson respiratory rate E&M 14 /min Yuko Christianson height E&M 70 [in_i] Yuko Christianson blood pressure, cuff size regular An neftalymary Christianson Body Mass Index (Ratio) 30.13 kg/m2 Roger Cheng MD respiratory rate E&M 20 /min Salvatore Nelson pulse rate 65 /min Salvatore Nelson oxygen saturation, oximetry 96 % Salvatore Nelson blood pressure, cuff size regular Do heather Nelson blood pressure, diastolic 58 mm[Hg] Do heather Nelson blood pressure, systolic 105 mm[Hg] Eliel Nelson weight E&M 210 [lb_av] Salvatore Nelson height E&M 70 [in_i] Salvatore Nelson Body Mass Index (Ratio) 29.55 kg/m2 Roger Cheng MD blood pressure, cuff size regular Kaity alvarenga [place] blood pressure, diastolic 63 mm[Hg] [facility] blood pressure, systolic 134 mm[Hg] Nikita castanon [place] oxygen saturation, oximetry 98 % [facility] pulse rate 71 /min [facility] respiratory rate E&M 16 /min Yadira Badillo [facility] weight E&M 206 [lb_av] [facility] height E&M 70 [in_i] [facility] Body Mass Index (Ratio) 29.27 kg/m2 Roger Cheng MD blood pressure, cuff size regular [facility] blood pressure, diastolic 66 mm[Hg] Martin et blood pressure, systolic 118 mm[Hg] Elijah ret pulse rate 60 /min Philip y respiratory rate E&M 12 /min Philip oxygen saturation, oximetry 96 % Philip weight E&M 204 [lb_av] Philip erda y height E&M 70 [in_i] Philip erda y Body Mass Index (Ratio) 31.28 kg/m2 Roger Cheng MD blood pressure, cuff size regular Madeleine Moore blood pressure, diastolic 79 mm[Hg] Madeleine Moore blood pressure, systolic 149 mm[Hg] She delvinsanti Teresa oxygen saturation, oximetry 99 % Alia Moore respiratory rate E&M 20 /min Alia Moore pulse rate 79 /min Alia Moore weight E&M 218 [lb_av] Alia Moore height E&M 70 [in_i] Alia Moore Body Mass Index (Ratio) 30.85 kg/m2 Roger Cheng MD blood pressure, diastolic 83 mm[Hg] Ke rri Gruenenfelder blood pressure, systolic 159 mm[Hg] Ker ri Gruenenfelder blood pressure, cuff size large Ke rri Gruenenfelder oxygen saturation, oximetry 98 % Tasneem Tonykatinnekaelder respiratory rate E&M 16 /min Tasneem Mendez shabanaenennekaelder pulse rate 70 /min Tasneem Grtammynenfe lder weight E&M 215 [lb_av] Tasneem Kimmynfe lder height E&M 70 [in_i] Tasneem Onealnfe lder blood pressure, diastolic 88 mm[Hg] Ri marcelle Peter blood pressure, systolic 144 mm[Hg] Luis jaxon Robleroerson blood pressure, cuff size large Ri marcelle Peter oxygen saturation, oximetry 99 % Lianna Peter respiratory rate E&M 16 /min Suresh Peter pulse rate 58 /min Liannajesus Roblerodarien son Body Mass Index (Ratio) 42.75 kg/m2 Dyllan Peter weight in kilograms E&M 135.17 kg Dyllan Peter weight E&M 298 [lb_av] Liannajesus Roblerodarien son height E&M 70 [in_i] Lianna Fleming son height in centimeters E&M 177.80 cm Jerry Peter blood pressure, diastolic 58 mm[Hg] Latasha Gonzaelz blood pressure, systolic 99 mm[Hg] Lisette Gonzalez oxygen saturation, oximetry 95 % Brenda Gonzalez respiratory rate E&M 18 /min Darrell Gonzalez temperature site oral Brenda Gonzalez pulse rate 64 /min Brenda cross blood pressure, cuff size regular La Jagruti Gonzalez height E&M 70 [in_i] Brenda cross Body Mass Index (Ratio) 30.56 kg/m2 Roger Cheng MD blood pressure, diastolic 84 mm[Hg] Sa ra Aragon blood pressure, systolic 158 mm[Hg] Georgiana a Aragon blood pressure, cuff size regular Sa ra Aragon oxygen saturation, oximetry 98 % Raya Aragon respiratory rate E&M 17 /min Raay Si ms pulse rate 66 /min Raya Aragon weight E&M 213 [lb_av] Raya Aragon height E&M 70 [in_i] Raya Aragon Body Mass Index (Ratio) 29.99 kg/m2 Roger Cheng MD blood pressure, cuff size large Ke rri Ana blood pressure, diastolic 70 mm[Hg] Ke rri Tonynemaddie blood pressure, systolic 132 mm[Hg] Izabela Perez oxygen saturation, oximetry 98 % Tasneem Perez respiratory rate E&M 16 /min Tasneem bahena pulse rate 64 /min Tasneem Collado lder weight E&M 209 [lb_av] Tasneem Collado lder height E&M 70 [in_i] Tasneem Collado lder Body Mass Index (Ratio) 29.70 kg/m2 Roger Cheng MD weight E&M 207 [lb_av] Michelle agarwald blood pressure, resting Yes Clint Barney blood pressure, diastolic 80 mm[Hg] sunshine Mullenford blood pressure, systolic 134 mm[Hg] She stan [place]ullen[place] oxygen saturation, oximetry 99 % Michelle Barney respiratory rate E&M 18 /min Genevieve Mullenford pulse rate 89 /min Michelle schultz height E&M 70 [in_i] [facility] Body Mass Index (Ratio) 28.84 kg/m2 Roger Cheng MD blood pressure, cuff size large Ke rri Gruenenfelder blood pressure, diastolic 82 mm[Hg] Ke rri Gruenenfelder blood pressure, systolic 148 mm[Hg] Izabela ri Kimmynfcrystaler oxygen saturation, oximetry 98 % Tasneem Demetriuser respiratory rate E&M 18 /min Tasneem Vanessa laceynfelder pulse rate 84 /min Tasneem Tonynennekae er weight E&M 201 [lb_av] Tasneem Gruenenfe er height E&M 70 [in_i] Tasneem Gruenenfe er Body Mass Index (Ratio) 28.49 kg/m2 Roger Cheng MD blood pressure, diastolic 60 mm[Hg] Marilu Childers blood pressure, systolic 120 mm[Hg] Jeny Childers oxygen saturation, oximetry 98 % Gilbert Childers respiratory rate E&M 20 /min Shalini Childers pulse rate 77 /min Gilbert alvarado weight E&M 198.6 [lb_av] Gilbert berkowitz height E&M 70 [in_i] Gilbert Tuttle nieves Body Mass Index (Ratio) 29.70 kg/m2 Roger Cheng MD blood pressure, diastolic 80 mm[Hg] Cy beth Tamayo blood pressure, systolic 137 mm[Hg] Lolis celso Tamayo respiratory rate E&M 16 /min Rosaliacelso Tamayo pulse rate 71 /min Rosalia Hoffmann l oxygen saturation, oximetry 98 % Rosalia Tamayo blood pressure, cuff size regular Cy beth Tamayo weight E&M 207 [lb_av] Rosalia Campbel l height E&M 70 [in_i] Rosalia Campbel l temperature site temporal Paula [facility] temperature E&M 96.4 [degF] Paula [facility] Body Mass Index (Ratio) 29.41 kg/m2 Roger Cheng MD blood pressure, diastolic 80 mm[Hg] Marilu ireland OSingh blood pressure, systolic 122 mm[Hg] Jeny bolden OSingh oxygen saturation, oximetry 97 % Dorcas O'Singh respiratory rate E&M 18 /min Dorcas O'Singh pulse rate 91 /min Dorcas O'Singh blood pressure, resting Yes [facility] O'Singh weight E&M 205 [lb_av] Dorcas O'Singh height E&M 70 [in_i] Dorcas O'Singh Body Mass Index (Ratio) 29.84 kg/m2 Roger Cheng MD blood pressure, cuff size regular Ke feng Perez blood pressure, diastolic 90 mm[Hg] Ke rri Ana blood pressure, systolic 142 mm[Hg] Izabela oscar Ana oxygen saturation, oximetry 97 % Tasneem Ana respiratory rate E&M 20 /min Tasneem Vanessa bahena pulse rate 87 /min Tasneem Heaven mcbride weight E&M 208 [lb_av] Tasneem Heaven hardwick height E&M 70 [in_i] Tasneem Heaven [place] blood pressure, diastolic 90 mm[Hg] Dario nowak Plascencia blood pressure, systolic 146 mm[Hg] Dave Plascencia Body Mass Index (Ratio) 29.41 kg/m2 Kaity long Thais pulse rate 90 /min Beti Plascencia oxygen saturation, oximetry 98 % Beti Plascencia respiratory rate E&M 16 /min Beti Plascencia weight E&M 205 [lb_av] Beti Plascencia Body Mass Index (Ratio) 29.12 kg/m2 Anea shira Cahuhan blood pressure, diastolic 92 mm[Hg] An eatris Tien blood pressure, systolic 127 mm[Hg] Ane atris Tien pulse rate 88 /min Aneatredwina Chauhan oxygen saturation, oximetry 97 % Mary Chauhan respiratory rate E&M 17 /min Aneatri james Chauhan weight E&M 203 [lb_av] Candaceatredwina Chauhan Body Mass Index (Ratio) 29.41 kg/m2 Perry de los santos O'Singh blood pressure, diastolic 91 mm[Hg] Ma rsha O'Singh blood pressure, systolic 145 mm[Hg] Jeny bolden O'Singh pulse rate 85 /min Dorcas O'Singh oxygen saturation, oximetry 98 % Dorcas O'Singh respiratory rate E&M 16 /min Dorcas O'Singh weight E&M 205 [lb_av] Dorcas O'Singh blood pressure, diastolic 93 mm[Hg] Martin granda Jean Paul LOREN blood pressure, systolic 177 mm[Hg] Andrzej Reaves RN pulse rate 78 /min Andrzej Reaves LOREN oxygen saturation, oximetry 98 % Andrzej Reaves LOREN respiratory rate E&M 18 /min Andrzej parikhjames RN Body Mass Index (Ratio) 30.24 kg/m2 Andrzej Reaves LOREN weight E&M 210 [lb_av] Andrzej Reaves RN blood pressure, diastolic 79 mm[Hg] Martin granda Jean Paul RN blood pressure, systolic 151 mm[Hg] Andrzej Reaves LOREN pulse rate 67 /min Andrzej Reaves LOREN oxygen saturation, oximetry 99 % Andrzej Reaves LOREN respiratory rate E&M 16 /min Andrzej parikhjames RN Body Mass Index (Ratio) 29.09 kg/m2 Andrzej Reaves LOREN weight E&M 202 [lb_av] Andrzej Reaves LOREN height E&M 70 [in_i] Andrzej Reaves LOREN blood pressure, diastolic 80 mm[Hg] Bowen blood pressure, systolic 138 mm[Hg] Guerrero Jordan pulse rate 69 /min Star Jordan oxygen saturation, oximetry 95 % Star Jordan respiratory rate E&M 16 /min Star Jordan weight E&M 208 [lb_av] Star Jordan blood pressure, diastolic 88 mm[Hg] Kamla babcock [place] blood pressure, systolic 146 mm[Hg] Tyson krishna [place] pulse rate 83 /min Flo [place] oxygen saturation, oximetry 98 % Flo [place] respiratory rate E&M 16 /min Flo [place] weight E&M 208 [lb_av] Flo [place] blood pressure, diastolic 80 mm[Hg] Martin Reaves RN blood pressure, systolic 134 mm[Hg] Andrzej Reaves RN pulse rate 66 /min Andrzej Reaves RN oxygen saturation, oximetry 98 % Andrzej Reaves RN respiratory rate E&M 18 /min Andrzej ceballos RN weight E&M 214 [lb_av] Andrzej Reaves RN blood pressure, diastolic 89 mm[Hg] Marilu lowery O'Singh blood pressure, systolic 156 mm[Hg] Jeny bolden O'[place] pulse rate 65 /min Dorcas O'Singh oxygen saturation, oximetry 96 % Dorcas O'Singh respiratory rate E&M 16 /min Dorcas O'Singh weight E&M 213 [lb_av] Dorcas O'Singh blood pressure, diastolic 75 mm[Hg] Bronson Moseley blood pressure, systolic 143 mm[Hg] Austin Moseley pulse rate 62 /min Cecy Moseley oxygen saturation, oximetry 98 % Cecy Moseley respiratory rate E&M 16 /min Olayinka Moseley weight E&M 206 [lb_av] Cecy Moseley blood pressure, diastolic 87 mm[Hg] Martin Reaves RN blood pressure, systolic 139 mm[Hg] Andrzej Reaves RN pulse rate 61 /min Andrzej Reaves RN oxygen saturation, oximetry 97 % Andrzej Reaves RN respiratory rate E&M 18 /min Andrzej ceballos RN weight E&M 211 [lb_av] Andrzej Reaves RN blood pressure, diastolic, left arm 73 mm [Hg] Teo Gonzalez blood pressure, systolic, left arm 104 mm [Hg] Teo Gonzalez blood pressure, diastolic, right arm 73 m m[Hg] Teo Gonzalez blood pressure, systolic, right arm 114 m m[Hg] Teo Gonzalez blood pressure, diastolic 73 mm[Hg] Raul Gonzalez blood pressure, systolic 104 mm[Hg] Inder Gonzalez pulse rate 79 /min Teo Gonzalez oxygen saturation, oximetry 97 % Teo Gonzalez respiratory rate E&M 12 /min Teo Gonzalez weight E&M 199 [lb_av] Teo Carlos blood pressure, diastolic 72 mm[Hg] Martin Reaves RN blood pressure, systolic 130 mm[Hg] Andrzej Reaves RN pulse rate 79 /min Andrzej Reaves RN oxygen saturation, oximetry 97 % Andrzej Reaves RN respiratory rate E&M 16 /min Andrzej ceballos RN weight E&M 208 [lb_av] Andrzej Reaves RN blood pressure, diastolic 90 mm[Hg] Martin Reaves RN blood pressure, systolic 152 mm[Hg] Andrzej Reaves RN pulse rate 71 /min Andrzej Reaves RN oxygen saturation, oximetry 95 % Andrzej Reaves RN respiratory rate E&M 16 /min Andrzej ceballos RN weight E&M 203 [lb_av] Andrzej Reaves RN blood pressure, diastolic 87 mm[Hg] Ibrahima Morgan blood pressure, systolic 143 mm[Hg] Masterson pulse rate 74 /min Calli Morgan oxygen saturation, oximetry 96 % Calli Morgan respiratory rate E&M 18 /min Calli arguelles weight E&M 207 [lb_av] Calli Morgan ALLERGIES No Known Drug Allergies RESULTS Date Observation Value Provider Reference Range Interpretation Location lipoprotein, beta, serum, point, quantitative, calculated 100 mg/dL [facility] 0-99 High HDL cholesterol, serum 36 mg/dL [facility] >39 Low triglyceride, serum, random 262 mg/dL [facility] 0-149 High cholesterol, serum 181 mg/dL [facility] [id number] 9039/02 /23 calcium, serum 9.3 mg/dL [facility] 8.6-10.2 carbon dioxide, venous blood 26 mmol/L [facility] 20-29 chloride, serum 99 mmol/L [facility] 96-106 potassium, serum 3.7 mmol/L [facility] 3.5-5.2 sodium, serum 144 mmol/L [facility] 179-477 9721/02 /23 urea nitrogen/creatinine ratio, serum 16 [facility] 10-24 eGFR if 85 mL/min/{1.73_ m2} [facility] >59 eGFR if not 73 mL/min/{1.73_ m2} [facility] >59 creatinine, serum 0.97 mg/dL [facility] 0.76-1.27 urea nitrogen, blood 16 mg/dL [facility] 8-27 blood glucose, random 116 mg/dL [facility] 65-99 High basophil count, absolute 0.1 x10E3/uL [facility] 0.0-0.2 Eosinophil Absolute Count 0.2 X10E3/UL [facility] 0.0-0.4 monocyte count, blood, automated 0.6 X10E3/UL [facility] 0.1-0.9 lymphocyte count, blood, automated 1.6 X10E3/UL [facility] 0.7-3.1 Absolute Neutrophils 4.3 X10E3/UL [facility] 1.4-7.0 basophils as percent of blood leukocytes 1 % [facility] Not Estab. eosinophils as percent of blood leukocytes 2 % [facility] Not Estab. monocytes as percent of blood leukocytes 8 % [facility] Not Estab. lymphocytes as percent of blood leukocytes 24 % [facility] Not Estab. neutrophils as percent of blood leukocytes 65 % [facility] Not Estab. platelet count 184 X10E3/UL [facility] [phone]/02 /23 red blood cell distribution width 14.2 % [facility] 11.6-15.4 mean corpuscular hemoglobin concentration, RBC 32.4 G/DL [facility] 31.5-35.7 mean corpuscular hemoglobin, RBC 28.7 pg [facility] 26.6-33.0 mean corpuscular volume, RBC 88 fL [facility] 79-97 hematocrit, blood 48.7 % [facility] 37.5-51.0 hemoglobin, blood 15.8 g/dL [facility] 13.0-17.7 erythrocyte (RBC) count 5.51 X10E6/UL [facility] 4.14-5.80 leukocyte count, blood 6.7 X10E3/UL [facility] 3.4-10.8 prothrombin time (patient) 10.9 s [facility] 9.1-12.0 international normalized ratio (INR) 1.0 [facility] 0.9-1.2 bacteria, urine microscopy None seen [facility] None seen/Few hyaline casts, urine None seen [facility] None seen epithelial cells, urine None seen [facility] 0 - 10 RBC, Urine 3-10 /hpf [facility] 0 - 2 Abnormal WBC urine on microscopy 11-30 /hpf [facility] 0 - 5 Abnormal urinalysis, microscopic examination See below: [facility] nitrate, urine Negative [facility] Negative urobilinogen, urine, semiquantitative (dipstick) 1.0 [facility] 0.2-1.0 bilirubin, urine Negative [facility] Negative hemoglobin, urine, by dipstick Trace [facility] Negative Abnormal ketones, urine, by test strip Negative [facility] Negative glucose, urine Negative [facility] Negative protein, urine, semiquantitative (dipstick) 3+ [facility] Negative/Tr luiz Abnormal leukocyte esterase, urine, by dipstick Trace [facility] Negative Abnormal appearance, urine Clear [facility] Clear urine color Yellow [facility] Yellow pH, urine, semiquantitative 6.5 [facility] 5.0-7.5 specific gravity, body fluid 1.022 [facility] 1.005-1.030 activated partial thromboplastin time (aPTT) 31.0 s [facility] Units converted. See lab report for original value. prothrombin time (patient) 10.9 s [facility] 9.1-12.0 international normalized ratio (INR) 1.0 [facility] 0.9-1.2 basophil count, absolute 0.1 x10E3/uL [facility] 0.0-0.2 Eosinophil Absolute Count 0.3 X10E3/UL [facility] 0.0-0.4 monocyte count, blood, automated 0.6 X10E3/UL [facility] 0.1-0.9 lymphocyte count, blood, automated 1.8 X10E3/UL [facility] 0.7-3.1 Absolute Neutrophils 4.9 X10E3/UL [facility] 1.4-7.0 basophils as percent of blood leukocytes 1 % [facility] Not Estab. eosinophils as percent of blood leukocytes 4 % [facility] Not Estab. monocytes as percent of blood leukocytes 8 % [facility] Not Estab. lymphocytes as percent of blood leukocytes 23 % [facility] Not Estab. neutrophils as percent of blood leukocytes 64 % [facility] Not Estab. platelet count 165 X10E3/UL [facility] 034-186 0669/12 /03 red blood cell distribution width 13.0 % [facility] 11.6-15.4 mean corpuscular hemoglobin concentration, RBC 32.6 G/DL [facility] 31.5-35.7 mean corpuscular hemoglobin, RBC 29.2 pg [facility] 26.6-33.0 mean corpuscular volume, RBC 90 fL [facility] 79-97 hematocrit, blood 46.0 % [facility] 37.5-51.0 hemoglobin, blood 15.0 g/dL [facility] 13.0-17.7 erythrocyte (RBC) count 5.13 X10E6/UL [facility] 4.14-5.80 leukocyte count, blood 7.7 X10E3/UL [facility] 3.4-10.8 alanine aminotransferase (SGPT), serum 13 1/L [facility] 0-44 aspartate aminotransferase (SGOT), serum 18 1/L [facility] 0-40 alkaline phosphatase, serum 69 1/L [facility] 44-121 bilirubin, serum, total 0.7 mg/dL [facility] 0.0-1.2 albumin/globulin ratio, serum 1.8 [facility] 1.2-2.2 globulin, serum 2.4 [facility] 1.5-4.5 albumin, serum 4.3 g/dL [facility] 3.7-4.7 protein, total, serum 6.7 g/dL [facility] 6.0-8.5 calcium, serum 8.6 mg/dL [facility] 8.6-10.2 carbon dioxide, venous blood 28 mmol/L [facility] 20-29 chloride, serum 98 mmol/L [facility] 96-106 potassium, serum 3.7 mmol/L [facility] 3.5-5.2 sodium, serum 142 mmol/L [facility] 923-370 6254/12 /03 urea nitrogen/creatinine ratio, serum 19 [facility] 10-24 eGFR if 88 mL/min/{1.73_ m2} [facility] >59 eGFR if not 76 mL/min/{1.73_ m2} [facility] >59 creatinine, serum 0.94 mg/dL [facility] 0.76-1.27 urea nitrogen, blood 18 mg[facility] 8-27 blood glucose, random 134 mg/dL [facility] 65-99 High urine color Perla Armando Vergara yeast identified on urinalysis No Armando Vergara mucus on urinalysis Yes Armando Vergara urine crystals, microscopic None Armando Vergara epithelial cells, urine, per microscopy few Armando Vergara casts, urine Occasional Armando Vergara WBC urine on microscopy 3-5 Armando Vergara bacteria, urine microscopy Few Armando Vergara RBC urine by microscopy 2-4 Armando Vergara leukocyte esterase, urine, by dipstick Negative Armando Vergara urobilinogen, urine, semiquantitative (dipstick) Normal Armando Vergara nitrite, urine, semiquantitative Negative Armando Vergara RBC, urine, dipstick Negative Armando Vergara bilirubin, urine Negative Armando Vergara ketones, urine, by test strip Negative Armando Vergara glucose, urine, semiquantitative Normal Armando Vergara protein, urine, semiquantitative (dipstick) 25 Armando Vergara pH, urine, semiquantitative 5.0 Armando Vergara specific gravity, urine 1.020 Armando Vergara appearance, urine Hazy Armando Vergara platelet count 147 10*3/uL Armando Vergara red blood cell distribution width 15.1 % Armando Vergara mean corpuscular hemoglobin concentration, RBC 33.0 g/dL [facility] mean corpuscular hemoglobin, RBC 29.7 pg [facility] mean corpuscular volume, RBC 89.8 fL [facility] hematocrit, blood 45.7 % [facility] Jai hemoglobin, blood 15.1 g/dL [facility] Jai erythrocyte (RBC) count 5.09 10*6/mm3 [facility] leukocyte count, blood 5.7 10*3/mm3 [facility] J[facility] anion gap, serum 11.9 [facility] estimated glomerular filtration rate >60 [facility] calcium, serum 8.9 mg/dL [facility] blood glucose, fasting 146 mg/dL [facility] creatinine, serum 1.02 mg/dL [facility] J[facility] urea nitrogen, blood 15.3 mg/dL [facility] carbon dioxide, serum, total 28 mmol/L [facility] chloride, serum 104 mmol/L [facility] potassium, serum 3.9 mmol/L [facility] sodium, serum 140 mmol/L [facility] [facility] PTT patient 27.8 s [facility] prothrombin time (patient) 10.7 s [facility] international normalized ratio (INR) 1.0 Armando Vergara international normalized ratio (INR) 1.0 Marnie Quinonez RN blood glucose, fasting 114 mg/dL Marnie Quinonez RN creatinine, serum 1.09 mg/dL Marnie Quinonez RN urea nitrogen, blood 18 mg/dL Marnie Quinonez RN carbon dioxide, serum, total 31 mmol/L Marnie Quinonez RN chloride, serum 101 mmol/L Marnie Quinonez RN potassium, serum 3.9 mmol/L Marnie Quinonez RN sodium, serum 136 mmol/L Marnie Quinonez RN platelet count 142 10*3/uL Marnie Quinonez RN hematocrit, blood 43.3 % Marnie Quinonez RN hemoglobin, blood 14.2 g/dL [facility] leukocyte count, blood 5.8 10*3/mm3 Marnie Quinonez RN alanine aminotransferase (SGPT), serum 23 1/L [facility] aspartate aminotransferase (SGOT), serum 31 1/L Marnie Quinonez RN blood glucose, random 190 mg/dL [facility] creatinine, serum 1.3 mg/dL [facility] urea nitrogen, blood 20 mg/dL [facility] carbon dioxide, serum, total 27 mmol/L [facility] chloride, serum 99 mmol/L [facility] potassium, serum 3.3 mmol/L [facility] sodium, serum 137 mmol/L [facility] platelet count 155 10*3/uL Marnie Quinonez RN hematocrit, blood 43.9 % Marnie Quinonez RN hemoglobin, blood 14.7 g/dL [facility] leukocyte count, blood 13.7 10*3/mm3 Marnie Quinonez RN triglyceride, serum, fasting 369 mg/dL Marniekarla LevineQuinonez RN HDL cholesterol, serum 27 mg/dL Marnie Quinonez RN LDL cholesterol, serum 47 mg/dL Marnie Quinonez RN cholesterol, serum 148 mg/dL Marniekarla Quinonez HISTORY OF MEDICATION USE Medication Status Instructions Dates Provider Indications Com ments carvedilol 12.5 mg tablet active TAKE 1 TABLET BY MOUTH TWICE DAILY 11/02 Chapo Cheng MD olmesartan 20 mg tablet active 1 tablet once a day TAKE 1 TABLET BY MOUTH EVERY DAY 11/02 Chapo Cheng MD hydrochlorothiazide 12.5 mg tablet active 1 tablet once a day 1 tab daily 11/02 Chapo Cheng MD esomeprazole magnesium 40 mg capsule,delayed release(DR/EC) active 1 tab daily Salvatore Nelson sertraline 25 mg tablet active 1 tab daily Salvatore Nelson nifedipine 60 mg tablet extended release 24hr completed Take 1 tablet by mouth once a day 08/31 - 09/20 Chapo Cheng MD carvedilol 25 mg tablet completed TAKE 1 TABLET BY MOUTH TWICE DAILY 08/31 - 11/02 Chapo Cheng MD olmesartan 40 mg tablet completed 1/2 tablet once a day TAKE 1 TABLET BY MOUTH EVERY DAY 08/31 - 11/02 Chapo Cheng MD Eliquis 5 mg tablet active TAKE 1 TABLE T BY MOUTH TWICE DAILY 07/28 Yuko Christianson rosuvastatin 10 mg tablet active 1 tab daily Salvatore Nelson potassium chloride 10 mEq tablet extended release active 1 tab twice daily Salvatore Nelson gabapentin 300 mg capsule active 1 tab twice a day Salvatore Nelson Benicar 40 mg tablet completed - 08/31 [facility] hydrochlorothiazide 25 mg tablet completed 1/2 tablet once a day 1 tab daily - 11/02 Chapo Cheng MD Flonase Allergy Relief unspecified unspecified completed as needed - 11/02 Salvatore Nelson carvedilol 25 mg tablet completed Take 1 tablet by mouth twice a day 10/02 - 08/31 [facility] Eliquis 5 mg tablet completed Take 1 table t by mouth twice a day 08/19 - 07/28 [facility] amlodipine 10 mg tablet completed Take 1 tablet by mouth once a day 09/03 - [facility] nifedipine 60 mg tablet extended release 24hr completed 1 tablet by mouth once a day TAKE 1 TABLET BY MOUTH ONCE A DAY 08/26 - 09/03 Chapo Cheng MD Brilinta 90 mg tablet completed TAKE 1 TABLET BY MOUTH TWICE DAILY - 08/26 Tasneem Perez olmesartan 40 mg tablet completed TAKE ONE TABLET BY MOUTH EVERY DAY 12/03 - 08/26 Tasneem Perez carvedilol 25 mg tablet completed TAKE ONE TABLET BY MOUTH TWICE DAILY 12/03 - 10/02 Tasneem Perez Brilinta 90 mg tablet completed Take 1 tablet by mouth twice a day 09/25 - Darcy Terrazas clopidogrel 75 mg tablet completed Take 1 tablet by mouth once a day TAKE 1 TABLET BY MOUTH EVERY DAY 09/25 - 09/25 Chapo Cheng MD hydrochlorothiazide 12.5 mg capsule completed TAKE ONE CAPSULE BY MOUTH EVERY DAY 09/11 - 10/02 Tasneem Perez tamsulosin 0.4 mg capsule active Take 1 capsule by mouth once a day Raya Aragon Magnesium 400 mg 400 mg active Take 1 by mouth once a day Raya Aragon Nexium 24HR 40 mg 40 mg completed Take 1 by mouth once a day - 08/26 Tasneem Perez Eliquis 5 mg tablet completed TAKE ONE TABLET BY MOUTH TWICE DAILY 07/23 - 08/19 Amanda Aranda RN Benicar 40 mg tablet completed Take 1/2 tablet by mouth once a day - 08/31 Philip Cymbalta 60 mg capsule,delayed release(DR/EC) completed Take 1 capsule by mouth once a day - [facility] Flomax 0.4 mg capsule active Take 1 once a day Tasneem Perez TYLENOL CAPSULE active 1-2 tablet as needed Gilbert Childers simvastatin 40 mg tablet completed Take 1 tablet once a day 11/09 - [facility] Eliquis 5 mg tablet completed Take 1 table t by mouth twice a day 09/26 - 07/23 Jae Stout olmesartan 40 mg tablet completed 1 by mouth once a day 08/03 - 08/26 Tasneem Perez replaces the Olmasartan ASPIRIN 81 MG ORAL TABLET completed 1 tablet once a day 08/09 - 09/25 Chapo Cheng MD ELIQUIS 5 MG ORAL TABLET completed one tablet twice daily - 08/09 Andrzej Reaves RN VITAMIN D 2000 UNIT ORAL CAPSULE completed - Dorcas Martines'Singh potassium gluconate 595 mg (99 mg) tablet completed 1 tablet three times a day - 07/15 Gilbert Childers Nena Allergy 180 mg tablet active 1 tablet once a day Gilbert Childers ALEVE TABLET completed - 03/19 Aneatris Brown FLONASE 50 MCG/ACT NASAL SUSPENSION active as needed Andrzej Reaves RN AUGMENTIN 500-125 MG ORAL TABLET completed 1 tab 3 times a day for 14 days 10/13 - Andrzej Reaves RN TYLENOL TABLET completed 1 tab daily as needed - Andrzej Reaves RN hydrochlorothiazide 25 mg tablet completed 0.5 tablet once a day - 09/11 Andrzej Reaves RN SULFAMETHOXAZOLE-TR IMETHOPRIM 800-160 MG ORAL TABLET completed - 08/14 Andrzej Reaves RN PLAVIX 75 MG ORAL TABLET completed - 08/14 Andrzej Reaves RN POTASSIUM CHLORIDE MARKO ER 20 MEQ ORAL TABLET EXTENDED RELEASE completed ONE TAB. DAILY 02/21 - 04/04 Teo FOSTER ACETAMINOPHEN EX ST TABS completed as needed - Andrzej Reaves RN CYMBALTA 30 MG ORAL CAPSULE DELAYED RELEASE PARTICLES completed for 7 days then increase to 60mg daily - 02/13 Andrzej Reaves RN ARTHROTEC 75 TABS completed twice daily - 02/13 Andrzej Reaves RN VERAMYST 27.5 MCG/SPRAY NASAL SUSPENSION completed twice daily - Andrzej Reaves RN COREG 12.5 MG ORAL TABLET completed 1 1/2 tab in pm - 02/13 Andrzej Reaves RN ANDROGEL PUMP GEL completed as directed - 02/12 Cecy Moseley DAILY VITAMINS ORAL TABLET completed one tab daily - 08/01 Andrzej Reaves RN Nexium 40 mg capsule,delayed release(DR/EC) completed 1 tablet once a day - 11/02 Salvatore Omar BENICAR 40 MG ORAL TABLET completed ONE TAB. DAILY - Andrzej Reaves RN VITAMIN B12 TABLET completed - 01/17 Andrzej Reaves RN ASPIRIN 81 MG ORAL TABLET completed ONE TAB. DAILY - 03/19 Mary Chauhan PREDNISONE 5 MG ORAL TABLET completed QD - 01/17 Andrzej Reaves RN LIPITOR 20 MG ORAL TABLET completed ONE TAB. DAILY 10/13 - 11/09 Dorcas Iyer HYDROCHLOROTHIAZIDE 12.5 MG ORAL CAPSULE completed 1/2 TAB. DAILY - 04/04 Teo Gonzalez POTASSIUM CHLORIDE MARKO ER 20 MEQ ORAL TABLET EXTENDED RELEASE completed ONE TAB. DAILY - 08/01 Andrzej Reaves RN AVANDIA 4 MG ORAL TABLET completed one tab. daily - 01/17 Andrzej Reaves RN carvedilol 25 mg tablet completed 1 tablet twice a day 10/01 - 12/03 Chapo Cheng MD SOCIAL HISTORY Date Observation Value Provider drug use none Chapo Alcantar alcohol use, average drinks per day social basis only Chapo Cheng MD alcohol use, type beer Chapo edmonds MD alcohol use yes Chapo Alcantar passive cigarette sm carlos a exposure no Chapo Cheng MD smoking/tobacco cess ation, patient education and counseling yes Chapo Cheng MD number of years as a smoker 10 years or m ore Chapo Cheng MD smoking, date started 1966 Chapo Cheng MD smoking history, tot al pack/year 55 Chapo Cheng MD smoking history, tot al pack/day 1/2 pkg a day Chapo Cheng MD cigarette use yes Chapo Cheng MD smoking status Current every day smoker R shanel Cheng MD drug use none Chapo Alcantar alcohol use, average drinks per day social basis only Chapo Cheng MD alcohol use, type beer Chapo edmonds MD alcohol use yes Chapo Alcantar passive cigarette sm carlos a exposure no Chapo Cheng MD smoking/tobacco cess ation, patient education and counseling yes Chapo Cheng MD number of years as a smoker 10 years or m ore Chapo Cheng MD smoking, date started 1966 Chapo Cheng MD smoking history, tot al pack/year 55 Chapo Cheng MD smoking history, tot al pack/day 1/2 pkg a day Chapo Cheng MD cigarette use yes Chapo Cheng MD smoking status Current every day smoker R shanel Cheng MD drug use none [facility] alcohol use, average drinks per day social basis only [facility] alcohol use, type beer [facility] alcohol use yes [facility] passive cigarette sm carlos a exposure no [facility] smoking/tobacco cess ation, patient education and counseling yes [facility] number of years as a smoker 10 years or m ore [facility] smoking, date started 1966 [facility] smoking history, tot al pack/year 55 [facility] smoking history, tot al pack/day 1/2 pkg a day [facility] cigarette use yes [facility] smoking status Current every day smoker F nick Hu social history reviewed E&M revi ewed - no changes required Chapo Cheng MD social history reviewed E&M revi ewed - no changes required Chapo Cheng MD smoking history, tot al pack/day 1/2 pkg a day Alia Moore cigarette use yes Alia Moore smoking status Current every day smoker S jessica Moore social history E&M Marital Statu s: E thnicity: J ob Status: Retired Smoking History: P ted currently smokes every day. P ted has been counseled to quit. Chapo Cheng MD social history reviewed E&M revi ewed - no changes required Chapo Cheng MD seatbelt usage 100 % Tasneem Concepcion dinorah exercise type golf Tasneem quiñones physical exercise, frequency, days per week 3 /wk Tasneem Eliasnuria caffeine use, averag e drinks per day yes Tasneem Eliasnuria passive cigarette sm carlos a exposure no Tasneem Eliasnuria smoking/tobacco cess ation, patient education and counseling yes Tasneem Rouseemilee number of years as a smoker 10 years or m ore Tasneem Perez smoking, date started 1966 Tasneem Perez smoking history, tot al pack/year 55 Tasneem Perez smoking history, tot al pack/day 1 Tasneem Perez cigarette use yes Tasneem quiñones smoking status Current every day smoker K ariadna Romodarien social history E&M Marital Statu s: E thnicity: J ob Status: Retired Smoking History: Estuardo jean currently smokes every day. P ted has been counseled to quit. Chapo Cheng MD social history reviewed E&M revi ewed - no changes required Chapo Cheng MD seatbelt usage 100 % Lianna davis exercise type golf Lianna Stephenson rson physical exercise, frequency, days per week 3 /wk Lianna Peter caffeine use, averag e drinks per day yes Lianna Peter passive cigarette sm carlos a exposure no Lianna Peter smoking/tobacco cess ation, patient education and counseling yes Lianna Peter number of years as a smoker 10 years or m ore Lianna Peter smoking, date started 1965 Monica Chan smoking history, tot al pack/year 55 Lianna Peter smoking history, tot al pack/day 1 Lianna Peter cigarette use yes Lianna aly smoking status Current every day smoker R akua Peter social history reviewed E&M revi ewed - no changes required Chapo Cheng MD social history reviewed E&M revi ewed - no changes required Chapo Cheng MD smoking history, tot al pack/year 55 Shobhaher Johnston social history reviewed E&M revi ewed - no changes required Chapo Cheng MD social history E&M Marital Statu s: E thnicity: J ob Status: Retired Smoking History: P ted currently smokes every day. P atreena has been counseled to quit. Chapo Cheng MD social history reviewed E&M revi ewed - no changes required Chapo Cheng MD seatbelt usage 100 % Michelle malcolm exercise type golf Michelle page physical exercise, frequency, days per week 3 /wk Michelle Barney caffeine use, averag e drinks per day yes Michelle Barney passive cigarette sm carlos a exposure no Michelle Barney smoking/tobacco cess ation, patient education and counseling yes Michelle Barney number of years as a smoker 10 years or m ore Michelle Barney smoking, date started 1966 Maggi Barney smoking history, tot al pack/year 49 Michelle Barney smoking history, tot al pack/day 1 Michelle Barney cigarette use yes Michelle page smoking status Current every day smoker S shun Barney social history E&M Marital Statu s: E thnicity: J ob Status: Retired Smoking History: P atient currently smokes every day. P atient has been counseled to quit. Chapo Cheng MD social history reviewed E&M revi ewed - no changes required Chapo Cheng MD seatbelt usage 100 % Tasneem copeland exercise type golf Tasneem quiñones physical exercise, frequency, days per week 3 /wk Tasneem Perez caffeine use, averag e drinks per day yes Tasneem Perez passive cigarette sm carlos a exposure no Tasneem Perez smoking/tobacco cess ation, patient education and counseling yes Tasneem Perez number of years as a smoker 10 years or m ore Tasneem Preez smoking, date started 1966 Tasneem Perez smoking history, tot al pack/year 49 Tasneem Perez smoking history, tot al pack/day 1 Tasneem Perez cigarette use yes Tasneem quiñones smoking status Current every day smoker K ariadna Ana social history E&M Marital Statu s: E thnicity: J ob Status: Retired Smoking History: P atient currently smokes every day. P atient has been counseled to quit. Chapo Cheng MD social history reviewed E&M revi ewed - no changes required Chapo Cheng MD seatbelt usage 100 % Gilbert Corrigan exercise type golf Gilbert berkowitz physical exercise, frequency, days per week 3 /wk Gilbert Childers caffeine use, averag e drinks per day yes Gilbert Childers passive cigarette sm carlos a exposure no Gilbert Childers smoking/tobacco cess ation, patient education and counseling yes Gilbert Childers number of years as a smoker 10 years or m ore Gilbert Childers smoking, date started 1966 Patricia Childers smoking history, tot al pack/year 49 Gilbert Childers smoking history, tot al pack/day 1 Gilbert Childers cigarette use yes Gilbert berkowitz smoking status Current every day smoker Justino Childers social history E&M Marital Statu s: E thnicity: J ob Status: Retired Smoking History: P atreena currently smokes every day. P atreena has been counseled to quit. Chapo Cheng MD social history reviewed E&M revi ewed - no changes required Chapo Cheng MD seatbelt usage 100 % Rosalia garcia exercise type golf Rosalia leslie physical exercise, frequency, days per week 3 /wk Rosalia Tamayo caffeine use, averag e drinks per day yes Rosalia Tamayo passive cigarette sm carlos a exposure no Rosalia Tamayo smoking/tobacco cess ation, patient education and counseling yes Rosalia Tamayo number of years as a smoker 10 years or m ore Rosalia Tamayo smoking, date started 1966 Lisa Tamayo smoking history, tot al pack/year 49 Rosalia Tamayo smoking history, tot al pack/day 1 Rosalia Tamayo cigarette use yes Rosalia leslie smoking status Current every day smoker Zulema Tamayo social history E&M Marital Statu s: E thnicity: J ob Status: Retired Smoking History: Estuardo jean currently smokes every day. Estuardo jean has been counseled to quit. Chapo Cheng MD social history reviewed E&M alice russo - no changes required Chapo Cheng MD seatbelt usage 100 % Dorcas MartinesSingh exercise type golf Dorcas MartinesSingh physical exercise, frequency, days per week 3 /wk Dorcas MartinesSingh alcohol counseling no Dorcas Singh In the past 3 months , have you been waking up wanting to use drugs? (CAGE substance use question #4) N Dorcas Singh In the past 3 months , have you felt guilty or bad about using drugs? (CAGE substance use question #3) N Dorcas al In the past 3 months , has anyone annoyed you by telling you to cut down or stop using drugs? (CAGE substance use question #2) N Dorcas In the past 3 months , have you felt you should cut down or stop using drugs?(CAGE substance use question #1) N Dorcas Singh alcohol use, average drinks per day social basis only alcohol use, type beer Dorcas MartinesKalee edwardsl alcohol use yes Dorcas Singh caffeine use, averag e drinks per day yes Dorcas MartinesSingh drug use none Dorcas smoking/tobacco cess ation, patient education and counseling yes Dorcas MartinesSingh passive cigarette sm carlos a exposure no Dorcas MartinesSingh number of years as a smoker 10 years or m ore Dorcas MartinesSingh smoking, date started 1966 Dorcas MartinesSingh smoking history, tot al pack/year 49 Dorcas MartinesSingh smoking history, tot al pack/day 1 Dorcas MartinesSingh cigarette use yes Dorcas Iyer smoking status Current every day smoker M gisele Shireen social history E&M Marital Statu s: E thnicity: J ob Status: Retired Smoking History: P ted currently smokes every day. P ted has been counseled to quit. Chapo Cheng MD social history reviewed E&M revi ewed - no changes required Chapo Cheng MD seatbelt usage 100 % Tasneem copeland exercise type golf Tasneem quiñones physical exercise, frequency, days per week 3 /wk Tasneem Perez alcohol counseling no Tasneem mejia In the past 3 months , have you been waking up wanting to use drugs? (CAGE substance use question #4) N Tasneem Perez In the past 3 months , have you felt guilty or bad about using drugs? (CAGE substance use question #3) N Tasneem Perez In the past 3 months , has anyone annoyed you by telling you to cut down or stop using drugs? (CAGE substance use question #2) N Tasneem Perez In the past 3 months , have you felt you should cut down or stop using drugs?(CAGE substance use question #1) N Tasneem Perez alcohol use, average drinks per day social basis only Tasneem Perez alcohol use, type beer Tasneem alex alcohol use yes Tasneem mcbride caffeine use, averag e drinks per day yes Tasneem Perez drug use none Tasneem mcbride smoking/tobacco cess ation, patient education and counseling yes Tasneem Perez passive cigarette sm carlos a exposure no Tasneem Perez number of years as a smoker 10 years or m ore Tasneem Eliaselder smoking, date started 1966 Tasneem Ana smoking history, tot al pack/year 49 Tasneem Rouseemilee smoking history, tot al pack/day 1 Tasneem Rouseemilee cigarette use yes Tasneem Elias nuria smoking status Current every day smoker K ariadna Ana smoking history, tot al pack/year 49 Andrzej Reaves RN social history reviewed E&M revi ewed - no changes required Chapo Cheng MD social history reviewed E&M revneftaly ewed - no changes required Chapo Cheng MD smoking history, tot al pack/year 48 Andrzej Reaves RN smoking/tobacco cess ation, patient education and counseling yes Chapo Cheng MD social history reviewed E&M revi ewed - no changes required Chapo Cheng MD smoking, date started 1966 Dorcas Iyer smoking history, tot al pack/day 1 Dorcas Iyer cigarette use yes Dorcas Iyer smoking status Current every day smoker M gisele Iyer social history reviewed E&M reviewed Andrzej Reaves RN smoking history, tot al pack/year 47 Andrzej Reaves RN seatbelt usage 100 % Chapo Cheng MD exercise type golf Chapo Cheng MD physical exercise, frequency, days per week 3 /wk Chapo Cheng MD alcohol counseling no Chapo evans MD In the past 3 months , have you been waking up wanting to use drugs? (CAGE substance use question #4) N Chapo Cheng MD In the past 3 months , have you felt guilty or bad about using drugs? (CAGE substance use question #3) N Chapo Cheng MD In the past 3 months , has anyone annoyed you by telling you to cut down or stop using drugs? (CAGE substance use question #2) Kalee Cheng MD In the past 3 months , have you felt you should cut down or stop using drugs?(CAGE substance use question #1) Kalee Cheng MD drug use none Chapo Alcantar passive cigarette sm carlos a exposure no Chapo Cheng MD smoking/tobacco cess ation, patient education and counseling yes Chapo Cheng MD alcohol use, type beer Andrzej Reaves RN smoking history, tot al pack/day 1 Andrzej Reaves RN smoking history, tot al pack/year 46 Andrzej Reaves RN cigarette use yes Andrzej Reaves RN smoking, date started 1966 Jul Maynor deleon RN smoking status current every day smoker Tony Reaves RN social history reviewed E&M reviewed Andrzej Reaves RN social history reviewed E&M reviewed Andrzej Reaves RN social history reviewed E&M reviewed Andrzej Reaves RN social history reviewed E&M reviewed Andrzej Reaves RN social history reviewed E&M reviewed Andrzej Reaves RN social history reviewed E&M reviewed Chapo Cheng MD smoking/tobacco cess ation, patient education and counseling yes Andrzej Reaves RN social history reviewed E&M reviewed Andrzej Reaves RN social history reviewed E&M reviewed Chapo Cheng MD smoking/tobacco cess ation, patient education and counseling yes Marnie Quinonez RN social history reviewed E&M reviewed Andrzej Reaves RN social history reviewed E&M reviewed Andrzej Reaves RN social history E&M Marital Statu s: E thnicity: J ob Status: Retired Chapo Cheng MD drug use none Chapo Alcantar social history reviewed E&M reviewed Chapo Cheng MD physical exercise, frequency, days per week yes [employer] caffeine use, averag e drinks per day yes [facility] alcohol use, average drinks per day social basis only [facility] number of years as a smoker 10 years or m ore [facility] smoking status Smoker [employer] FUNCTIONAL STATUS Date Observation Value Provider HRA, CV Assess/Plan, Angina (inactive) Management Plan continue current therapy Chapo Cheng MD HRA, CV Assess/Plan, Angina (inactive) Management Plan continue current therapy Chapo Cheng MD HRA, CV Assess/Plan, Angina (inactive) Management Plan continue current therapy Chapo Cheng MD HRA, CV Assess/Plan, Angina (inactive) Management Plan continue current therapy Chapo Cheng MD HRA, CV Assess/Plan, Angina (inactive) Management Plan continue current therapy Chapo Cheng MD HRA, CV Assess/Plan, Angina (inactive) Management Plan continue current therapy Chapo Cheng MD HRA, CV Assess/Plan, Angina (inactive) Management Plan continue current therapy Chapo Cheng MD HRA, CV Assess/Plan, Angina (inactive) Management Plan continue current therapy Chapo Cheng MD MENTAL STATUS Date Observation Value Provider assessment of judgme nt and insight E&M Alert and oriented to time, place and person. Mood and affect are normal. Chapo Cheng MD assessment of judgme nt and insight E&M Alert and oriented to time, place and person. Mood and affect are normal. Andrzej Reaves RN assessment of judgme nt and insight E&M Alert and oriented to time, place and person. Mood and affect are normal. Andrzej Reaves RN assessment of judgme nt and insight E&M Alert and oriented to time, place and person. Mood and affect are normal. Andrzej Reaves RN assessment of judgme nt and insight E&M Alert and oriented to time, place and person. Mood and affect are normal. Andrzej Reaves RN assessment of judgme nt and insight E&M Alert and oriented to time, place and person. Mood and affect are normal. Andrzej Reaves RN assessment of judgme nt and insight E&M Alert and oriented to time, place and person. Mood and affect are normal. Chapo Cheng MD assessment of judgme nt and insight E&M Alert and oriented to time, place and person. Mood and affect are normal. Andrzej Reaves RN assessment of judgme nt and insight E&M Alert and oriented to time, place and person. Mood and affect are normal. Chapo Cheng MD assessment of judgme nt and insight E&M Alert and oriented to time, place and person. Mood and affect are normal. Andrzej Reaves RN assessment of judgme nt and insight E&M Alert and oriented to time, place and person. Mood and affect are normal. Andrzej Reaves RN assessment of judgme nt and insight E&M Alert and oriented to time, place and person. Mood and affect are normal. Chapo Cheng MD FAMILY HISTORY Family Member Condition Full Brother Family History of Co ronary Artery Disease: INSURANCE PROVIDERS Payer name Policy type / Coverage type [place] [employer] green party ID [employer] GRP MEDICARE ADVANTAGE PLAN (PPO) Medicare [id number] ADVANCE DIRECTIVES Name Date DISCUSSED - NO DECISION MADE TREATMENT PLAN Date Name Performer [id number],S, Chapo granda MD [id number],B, Chapo granda MD [id number],S, Chapo granda MD [id number],S, Chapo granda MD [id number],S, Chapo granda MD [id number],S, Chapo granda MD [id number],B, Chapo granda MD [id number],S, Chapo granda MD [id number],S, Chapo Ramada n [id number],S, Chapo Ramada n [place] [id number],S, Chapo [place] n [place] [id number],B, Chapo Ramada n [id number],S, Chapo Ramada n [id number],S, Chapo Ramada n [id number],S, Chapo Ramada n [place] [id number],C,Prevail study Chapo Trevn [id number],B, Chapo Ram[place] n [place] [id number],B, Chapo Ramada n [place] [id number],S, Chapo Ram[place] n [place] [id number],S,L ast LDL was 100. Current recommendation is that it be less than 55. Consider for Prevail trial. Chapo Ramnathan MORRISON [id number],S, Chapo Ramada n [place] [id number],S, Chapo Ramada n [place] [id number],S, Chapo Ramada n [place] [id number],S, Chapo [place] n [place] [id number],S, Chapo [place] n [place] [id number],S, Chapo Ram[place] n [place] [id number],B,S/P stent to L iliac artery Chapo Cheng MD [id number],S,Needs AIF and possible intervention. Chapo Skylar MORRISON [id number],S, Chapo Ramada n [id number],S, Chapo Ramada n [id number],B, Chapo Ramada kalee MORRISON [id number],B, Chapo Trev granda [place] [id number],S, Chapo Trev granda MD [id number],S, Chapoolimpia granda MD [id number],S, Chapoolimpia granda MD [id number],S, Chapoolimpia granda MD [id number],B, Chapoolimpia granda MD [id number],S, Chapoolimpia granda MD [id number],S, Chapo Trev granda MD [id number],B, Chapo granda MD Cardiology Chapo Cheng MD Cardiology Chapo Cheng MD Cardiology Chapo Cheng MD Cardiology:Has been having claudication with less walking. W ill check ABIs Chapo Cheng MD Cardiology Chapo Cheng MD Cardiology Chapo Cheng MD Cardiology Chapo Cheng MD Cardiology Chapo Cheng MD Cardiology Chapo Cheng MD Cardiology Chapo Cheng MD Cardiology Chapo Cheng MD Cardiology Chapo Cheng MD Cardiology Chapo Cheng MD Cardiology Chapo Cheng MD Cardiology Chapo Cheng MD Cardiology Chapo Cheng MD Cardiology Chapo Cheng MD Cardiology Chapo Cheng MD Cardiology Chapo Cheng MD Cardiology Chapo Cheng MD Cardiology Chapo Cheng MD Cardiology Chapo Cheng MD Cardiology Chapo Cheng MD Cardiology Chapo Cheng MD Cardiology Chapo Cheng MD Cardiology Chapo Cheng MD Cardiology Chapo Cheng MD Cardiology Chapo Cheng MD Cardiology Chapo Cheng MD Cardiology Chapo Cheng MD Cardiology:Prevail study Chapo oglesby MD Cardiology Chapo Cheng MD Cardiology Chapo Cheng MD Cardiology Chapo Cheng MD Cardiology:Last LDL was 100. Current recommendation is that it be less than 55. Consider for Prevail trial. Chapo Cheng MD Cardiology Chapo Cheng MD Cardiology Chapo Cheng MD Cardiology Chapo Cheng MD Cardiology Chapo Cheng MD Cardiology Chapo Cheng MD Cardiology Chapo Cheng MD Cardiology:S/P stent to L iliac artery Chapo Cheng MD Cardiology:Needs AIF and possibl e intervention. Chapo Cheng MD Cardiology Chapo Cheng MD Cardiology Chapo Cheng MD Cardiology Chapo Cheng MD Cardiology Chapo Cheng MD Cardiology Chapo Cheng MD Cardiology Chapo Cheng MD Cardiology Chapo Cheng MD Cardiology Chapo Cheng MD Cardiology Chapo Cheng MD Cardiology Chapo Cheng MD Cardiology Chapo Cheng MD Cardiology Chapo Cheng MD Cardiology Chapo Cheng MD Cardiology Chapo Cheng MD Cardiology Chapo Cheng MD Cardiology Chapo Cheng MD Cardiology Chapo Cheng MD Cardiology Chapo Cheng MD Cardiology Follow up Chapo pratt MD Cardiology Follow up Chapo pratt MD Cardiology Follow up Chapo pratt MD Cardiology Follow up Chapo pratt MD Cardiology Follow up Chapo pratt MD Cardiology:Atypical N ormal stress test 1 week ago Chapo Cheng MD Cardiology Chapo Cheng MD Cardiology Chapo Cheng MD Cardiology Chapo Cheng MD Cardiology Chapo Cheng MD Cardiology Chapo Cheng MD Cardiology Chapo Cheng MD Cardiology Chapo Cheng MD Cardiology Chapo Cheng MD Cardiology Chapo Cheng MD Cardiology Chapo Cheng MD Cardiology Chapo Cheng MD Cardiology Chapo Cheng MD Cardiology Chapo Cheng MD Cardiology Follow up Chapo pratt MD Cardiology Follow up Chapo pratt MD Cardiology Follow up Chapo pratt MD Cardiology Follow up Chapo pratt MD Cardiology Follow up Chapo pratt MD hfu: H is updated medication list for this problem includes: Coreg 25 Mg Tabs (Carvedilol) ..... One tab twice daily Hydrochlorothiazide 25 Mg Tabs (Hydrochlorothiazide) ..... 1/2 tab daily Chapo Cheng MD hfu Chapo Cheng MD hfu Chapo Cheng MD hfu Chapo Cheng MD hfu Chapo Cheng MD follow up: T he following medications were removed from the medication list: Aspirin 81 Mg Tabs (Aspirin) ..... One tab. daily His updated medication list for this problem includes: Coreg 12.5 Mg Tabs (Carvedilol) ..... One tab. twice daily Hydrochlorothiazide 25 Mg Tabs (Hydrochlorothiazide) ..... 1/2 tab daily Chapo Cheng MD follow up: T he following medications were removed from the medication list: Aspirin 81 Mg Tabs (Aspirin) ..... One tab. daily His updated medication list for this problem includes: Coreg 12.5 Mg Tabs (Carvedilol) ..... One tab. twice daily Hydrochlorothiazide 25 Mg Tabs (Hydrochlorothiazide) ..... 1/2 tab daily Orders: Zulema cooney - PRETTY ([id number]) Chapo Cheng MD follow up: T he following medications were removed from the medication list: Aspirin 81 Mg Tabs (Aspirin) ..... One tab. daily His updated medication list for this problem includes: Coreg 12.5 Mg Tabs (Carvedilol) ..... One tab. twice daily Chapo Cheng MD follow up: T he following medications were removed from the medication list: Aspirin 81 Mg Tabs (Aspirin) ..... One tab. daily His updated medication list for this problem includes: Coreg 12.5 Mg Tabs (Carvedilol) ..... One tab. twice daily Simvastatin 40 Mg Tabs (Simvastatin) ..... One tab. daily Orders: Kitty KG ([id number]) Chapo Cheng MD routine : B P today: / Prior BP: 151/79 (04/27/2012) H gb: 15.1 (03/14/2011) HCT: 45.7 (03/14/2011) RBC: 5.09 (03/14/2011) WBC: 5.7 (03/14/2011) B UN: 15.3 (03/14/2011) Creat: 1.02 (03/14/2011) Glucose: 146 (03/14/2011) N a+: 140 (03/14/2011) K+: 3.9 (03/14/2011) Cl: 104 (03/14/2011) Anion Gap: 11.9 (03/14/2011) Calcium: 8.9 (03/14/2011) Nuclear Stress Findings: 1. Normal myocardial perfusion imaging after vasodilator stress with Regadenoson. 2 . Abnormal left ventricular systolic function with a calculated ejection fraction of 46%( Please correlate with Echo EF). 3 . No obvious significant scintigraphic evidence of myocardial ischemia or scar. - (10/21/2011) C ardiac Cath: Severe or high grade 2-vessel CAD. Normal LV wall motion systolic function. EF 60%. & #13;[facility] (03/06/2009) C ardiac Cath Comments: Successful stent implantation of RCA 3.0 x 23mm Vision stent & LAD 3.0 x 12mm Vision bare-metal stent. [facility] (03/06/2009) Chapo Cheng MD routine : B P today: / Prior BP: 151/79 (04/27/2012) N uclear Stress Findings: 1. Normal myocardial perfusion imaging after vasodilator stress with Regadenoson. 2 . Abnormal left ventricular systolic function with a calculated ejection fraction of 46%( Please correlate with Echo EF). 3 . No obvious significant scintigraphic evidence of myocardial ischemia or scar. - (10/21/2011) Cardiac Cath: Severe or high grade 2-vessel CAD. Normal LV wall motion systolic function. EF 60%. [facility] (03/06/2009) C ardiac Cath Comments: Successful stent implantation of RCA 3.0 x 23mm Vision stent & LAD 3.0 x 12mm Vision bare-metal stent. 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 [facility] (08/04/2008) C HOL: 148 (01/19/2009) LDL: 47 (01/19/2009) HDL: 27 (01/19/2009) T (01/19/2009) H gb: 15.1 (03/14/2011) HCT: 45.7 (03/14/2011) RBC: 5.09 (03/14/2011) WBC: 5.7 (03/14/2011) B UN: 15.3 (03/14/2011) Creat: 1.02 (03/14/2011) Glucose: 146 (03/14/2011) N a+: 140 (03/14/2011) K+: 3.9 (03/14/2011) Cl: 104 (03/14/2011) PT: 10.7 (03/14/2011) INR: 1.0 (03/14/2011) P TT: 27.8 (03/14/2011) Chapo Cheng MD routine : P rior BP: 151/79 (04/27/2012) Labs Reviewed: C reat: 1.02 (03/14/2011) C hol: 148 (01/19/2009) HDL: 27 (01/19/2009) LDL: 47 (01/19/2009) T (01/19/2009) Chapo Cheng MD routine : B P today: / Prior BP: 151/79 (04/27/2012) N uclear Stress Findings: 1. Normal myocardial perfusion imaging after vasodilator stress with Regadenoson. 2 . Abnormal left ventricular systolic function with a calculated ejection fraction of 46%( Please correlate with Echo EF). 3 . No obvious significant scintigraphic evidence of myocardial ischemia or scar. - (10/21/2011) Cardiac Cath: Severe or high grade 2-vessel CAD. Normal LV wall motion systolic function. EF 60%. [facility] (03/06/2009) C ardiac Cath Comments: Successful stent implantation of RCA 3.0 x 23mm Vision stent & LAD 3.0 x 12mm Vision bare-metal stent. 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 [facility] (08/04/2008) C HOL: 148 (01/19/2009) LDL: 47 (01/19/2009) HDL: 27 (01/19/2009) T (01/19/2009) H gb: 15.1 (03/14/2011) HCT: 45.7 (03/14/2011) RBC: 5.09 (03/14/2011) WBC: 5.7 (03/14/2011) B UN: 15.3 (03/14/2011) Creat: 1.02 (03/14/2011) Glucose: 146 (03/14/2011) N a+: 140 (03/14/2011) K+: 3.9 (03/14/2011) Cl: 104 (03/14/2011) PT: 10.7 (03/14/2011) INR: 1.0 (03/14/2011) P TT: 27.8 (03/14/2011) Chapo Cheng MD routine : B P today: / Prior BP: 151/79 (04/27/2012) N uclear Stress Findings: 1. Normal myocardial perfusion imaging after vasodilator stress with Regadenoson. 2 . Abnormal left ventricular systolic function with a calculated ejection fraction of 46%( Please correlate with Echo EF). 3 . No obvious significant scintigraphic evidence of myocardial ischemia or scar. - (10/21/2011) Cardiac Cath: Severe or high grade 2-vessel CAD. Normal LV wall motion systolic function. EF 60%. [facility] (03/06/2009) C ardiac Cath Comments: Successful stent implantation of RCA 3.0 x 23mm Vision stent & LAD 3.0 x 12mm Vision bare-metal stent. 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 & #13;[facility] (08/04/2008) C HOL: 148 (01/19/2009) LDL: 47 (01/19/2009) HDL: 27 (01/19/2009) T (01/19/2009) H gb: 15.1 (03/14/2011) HCT: 45.7 (03/14/2011) RBC: 5.09 (03/14/2011) WBC: 5.7 (03/14/2011) B UN: 15.3 (03/14/2011) Creat: 1.02 (03/14/2011) Glucose: 146 (03/14/2011) N a+: 140 (03/14/2011) K+: 3.9 (03/14/2011) Cl: 104 (03/14/2011) PT: 10.7 (03/14/2011) INR: 1.0 (03/14/2011) P TT: 27.8 (03/14/2011) Chapo Cheng MD routine : B P today: / Prior BP: 151/79 (04/27/2012) N uclear Stress Findings: 1. Normal myocardial perfusion imaging after vasodilator stress with Regadenoson. 2 . Abnormal left ventricular systolic function with a calculated ejection fraction of 46%( Please correlate with Echo EF). 3 . No obvious significant scintigraphic evidence of myocardial ischemia or scar. - (10/21/2011) Cardiac Cath: Severe or high grade 2-vessel CAD. Normal LV wall motion systolic function. EF 60%. [facility] (03/06/2009) C ardiac Cath Comments: Successful stent implantation of RCA 3.0 x 23mm Vision stent & LAD 3.0 x 12mm Vision bare-metal stent. 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 [facility] (08/04/2008) C HOL: 148 (01/19/2009) LDL: 47 (01/19/2009) HDL: 27 (01/19/2009) T (01/19/2009) H gb: 15.1 (03/14/2011) HCT: 45.7 (03/14/2011) RBC: 5.09 (03/14/2011) WBC: 5.7 (03/14/2011) B UN: 15.3 (03/14/2011) Creat: 1.02 (03/14/2011) Glucose: 146 (03/14/2011) N a+: 140 (03/14/2011) K+: 3.9 (03/14/2011) Cl: 104 (03/14/2011) PT: 10.7 (03/14/2011) INR: 1.0 (03/14/2011) P TT: 27.8 (03/14/2011) Chapo Cheng MD routine : B P today: / Prior BP: 151/79 (04/27/2012) H gb: 15.1 (03/14/2011) HCT: 45.7 (03/14/2011) RBC: 5.09 (03/14/2011) WBC: 5.7 (03/14/2011) B UN: 15.3 (03/14/2011) Creat: 1.02 (03/14/2011) Glucose: 146 (03/14/2011) N a+: 140 (03/14/2011) K+: 3.9 (03/14/2011) Cl: 104 (03/14/2011) Anion Gap: 11.9 (03/14/2011) Calcium: 8.9 (03/14/2011) Nuclear Stress Findings: 1. Normal myocardial perfusion imaging after vasodilator stress with Regadenoson. 2 . Abnormal left ventricular systolic function with a calculated ejection fraction of 46%( Please correlate with Echo EF). 3 . No obvious significant scintigraphic evidence of myocardial ischemia or scar. - (10/21/2011) C ardiac Cath: Severe or high grade 2-vessel CAD. Normal LV wall motion systolic function. EF 60%. & #13;[facility] (03/06/2009) C ardiac Cath Comments: Successful stent implantation of RCA 3.0 x 23mm Vision stent & LAD 3.0 x 12mm Vision bare-metal stent. [facility] (03/06/2009) Chapo Cheng MD routine: H is updated medication list for this problem includes: Coreg 12.5 Mg Tabs (Carvedilol) ..... One tab. twice daily Aspirin 81 Mg Tabs (Aspirin) ..... One tab. daily BP today: / Prior BP: 138/80 (10/14/2011) H gb: 15.1 (03/14/2011) HCT: 45.7 (03/14/2011) RBC: 5.09 (03/14/2011) WBC: 5.7 (03/14/2011) B UN: 15.3 (03/14/2011) Creat: 1.02 (03/14/2011) Glucose: 146 (03/14/2011) N a+: 140 (03/14/2011) K+: 3.9 (03/14/2011) Cl: 104 (03/14/2011) Anion Gap: 11.9 (03/14/2011) Calcium: 8.9 (03/14/2011) Nuclear Stress Findings: 1. Normal myocardial perfusion imaging after vasodilator stress with Regadenoson. 2 . Abnormal left ventricular systolic function with a calculated ejection fraction of 46%( Please correlate with Echo EF). 3 . No obvious significant scintigraphic evidence of myocardial ischemia or scar. - (10/21/2011) C ardiac Cath: Severe or high grade 2-vessel CAD. Normal LV wall motion systolic function. EF 60%. [facility] (03/06/2009) C ardiac Cath Comments: Successful stent implantation of RCA 3.0 x 23mm Vision stent & LAD 3.0 x 12mm Vision bare-metal stent. [facility] (03/06/2009) Chapo Cheng MD routine: H is updated medication list for this problem includes: Coreg 12.5 Mg Tabs (Carvedilol) ..... One tab. twice daily Simvastatin 40 Mg Tabs (Simvastatin) ..... One tab. daily Aspirin 81 Mg Tabs (Aspirin) ..... One tab. daily BP today: / Prior BP: 138/80 (10/14/2011) N uclear Stress Findings: 1. Normal myocardial perfusion imaging after vasodilator stress with Regadenoson. 2 . Abnormal left ventricular systolic function with a calculated ejection fraction of 46%( Please correlate with Echo EF). 3 . No obvious significant scintigraphic evidence of myocardial ischemia or scar. - (10/21/2011) C ardiac Cath: Severe or high grade 2-vessel CAD. Normal LV wall motion systolic function. EF 60%. [facility] (03/06/2009) C ardiac Cath Comments: Successful stent implantation of RCA 3.0 x 23mm Vision stent & LAD 3.0 x 12mm Vision bare-metal stent. 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 [facility] (08/04/2008) C HOL: 148 (01/19/2009) LDL: 47 (01/19/2009) HDL: 27 (01/19/2009) T (01/19/2009) H gb: 15.1 (03/14/2011) HCT: 45.7 (03/14/2011) RBC: 5.09 (03/14/2011) WBC: 5.7 (03/14/2011) B UN: 15.3 (03/14/2011) Creat: 1.02 (03/14/2011) Glucose: 146 (03/14/2011) N a+: 140 (03/14/2011) K+: 3.9 (03/14/2011) Cl: 104 (03/14/2011) PT: 10.7 (03/14/2011) INR: 1.0 (03/14/2011) P TT: 27.8 (03/14/2011) Chapo Cheng MD routine: H is updated medication list for this problem includes: Coreg 12.5 Mg Tabs (Carvedilol) ..... One tab. twice daily Aspirin 81 Mg Tabs (Aspirin) ..... One tab. daily BP today: / Prior BP: 138/80 (10/14/2011) N uclear Stress Findings: 1. Normal myocardial perfusion imaging after vasodilator stress with Regadenoson. 2 . Abnormal left ventricular systolic function with a calculated ejection fraction of 46%( Please correlate with Echo EF). 3 . No obvious significant scintigraphic evidence of myocardial ischemia or scar. - (10/21/2011) C ardiac Cath: Severe or high grade 2-vessel CAD. Normal LV wall motion systolic function. EF 60%. [facility] (03/06/2009) C ardiac Cath Comments: Successful stent implantation of RCA 3.0 x 23mm Vision stent & LAD 3.0 x 12mm Vision bare-metal stent. 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 [facility] (08/04/2008) CHOL: 148 (01/19/2009) LDL: 47 (01/19/2009) HDL: 27 (01/19/2009) T (01/19/2009) H gb: 15.1 (03/14/2011) HCT: 45.7 (03/14/2011) RBC: 5.09 (03/14/2011) WBC: 5.7 (03/14/2011) B UN: 15.3 (03/14/2011) Creat: 1.02 (03/14/2011) Glucose: 146 (03/14/2011) N a+: 140 (03/14/2011) K+: 3.9 (03/14/2011) Cl: 104 (03/14/2011) PT: 10.7 (03/14/2011) INR: 1.0 (03/14/2011) P TT: 27.8 (03/14/2011) Chapo Cheng MD routine: H is updated medication list for this problem includes: Coreg 12.5 Mg Tabs (Carvedilol) ..... One tab. twice daily Simvastatin 40 Mg Tabs (Simvastatin) ..... One tab. daily Aspirin 81 Mg Tabs (Aspirin) ..... One tab. daily BP today: / Prior BP: 138/80 (10/14/2011) N uclear Stress Findings: 1. Normal myocardial perfusion imaging after vasodilator stress with Regadenoson. 2 . Abnormal left ventricular systolic function with a calculated ejection fraction of 46%( Please correlate with Echo EF). 3 . No obvious significant scintigraphic evidence of myocardial ischemia or scar. - (10/21/2011) C ardiac Cath: Severe or high grade 2-vessel CAD. Normal LV wall motion systolic function. EF 60%. [facility] (03/06/2009) C ardiac Cath Comments: Successful stent implantation of RCA 3.0 x 23mm Vision stent & LAD 3.0 x 12mm Vision bare-metal stent. 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 [facility] (08/04/2008) C HOL: 148 (01/19/2009) LDL: 47 (01/19/2009) HDL: 27 (01/19/2009) T (01/19/2009) H gb: 15.1 (03/14/2011) HCT: 45.7 (03/14/2011) RBC: 5.09 (03/14/2011) WBC: 5.7 (03/14/2011) B UN: 15.3 (03/14/2011) Creat: 1.02 (03/14/2011) Glucose: 146 (03/14/2011) N a+: 140 (03/14/2011) K+: 3.9 (03/14/2011) Cl: 104 (03/14/2011) PT: 10.7 (03/14/2011) INR: 1.0 (03/14/2011) P TT: 27.8 (03/14/2011) Chapo Cheng MD routine: H is updated medication list for this problem includes: Coreg 12.5 Mg Tabs (Carvedilol) ..... One tab. twice daily Simvastatin 40 Mg Tabs (Simvastatin) ..... One tab. daily Aspirin 81 Mg Tabs (Aspirin) ..... One tab. daily BP today: / Prior BP: 138/80 (10/14/2011) N uclear Stress Findings: 1. Normal myocardial perfusion imaging after vasodilator stress with Regadenoson. 2 . Abnormal left ventricular systolic function with a calculated ejection fraction of 46%( Please correlate with Echo EF). 3 . No obvious significant scintigraphic evidence of myocardial ischemia or scar. - (10/21/2011) C ardiac Cath: Severe or high grade 2-vessel CAD. Normal LV wall motion systolic function. EF 60%. [facility] (03/06/2009) C ardiac Cath Comments: Successful stent implantation of RCA 3.0 x 23mm Vision stent & LAD 3.0 x 12mm Vision bare-metal stent. 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 [facility] (08/04/2008) C HOL: 148 (01/19/2009) LDL: 47 (01/19/2009) HDL: 27 (01/19/2009) T (01/19/2009) H gb: 15.1 (03/14/2011) HCT: 45.7 (03/14/2011) RBC: 5.09 (03/14/2011) WBC: 5.7 (03/14/2011) B UN: 15.3 (03/14/2011) Creat: 1.02 (03/14/2011) Glucose: 146 (03/14/2011) N a+: 140 (03/14/2011) K+: 3.9 (03/14/2011) Cl: 104 (03/14/2011) PT: 10.7 (03/14/2011) INR: 1.0 (03/14/2011) P TT: 27.8 (03/14/2011) Chapo Cheng MD routine: H is updated medication list for this problem includes: Coreg 12.5 Mg Tabs (Carvedilol) ..... One tab. twice daily Aspirin 81 Mg Tabs (Aspirin) ..... One tab. daily Hydrochlorothiazide 25 Mg Tabs (Hydrochlorothiazide) ..... 1/2 tab daily BP today: / Prior BP: 138/80 (10/14/2011) H gb: 15.1 (03/14/2011) HCT: 45.7 (03/14/2011) RBC: 5.09 (03/14/2011) WBC: 5.7 (03/14/2011) B UN: 15.3 (03/14/2011) Creat: 1.02 (03/14/2011) Glucose: 146 (03/14/2011) N a+: 140 (03/14/2011) K+: 3.9 (03/14/2011) Cl: 104 (03/14/2011) Anion Gap: 11.9 (03/14/2011) Calcium: 8.9 (03/14/2011) Nuclear Stress Findings: 1. Normal myocardial perfusion imaging after vasodilator stress with Regadenoson. 2 . Abnormal left ventricular systolic function with a calculated ejection fraction of 46%( Please correlate with Echo EF). 3 . No obvious significant scintigraphic evidence of myocardial ischemia or scar. - (10/21/2011) C ardiac Cath: Severe or high grade 2-vessel CAD. Normal LV wall motion systolic function. EF 60%. [facility] (03/06/2009) C ardiac Cath Comments: Successful stent implantation of RCA 3.0 x 23mm Vision stent & LAD 3.0 x 12mm Vision bare-metal stent. [facility] (03/06/2009) Chapo Cheng MD routine: H is updated medication list for this problem includes: Coreg 12.5 Mg Tabs (Carvedilol) ..... One tab. twice daily Aspirin 81 Mg Tabs (Aspirin) ..... One tab. daily Benicar 40 Mg Tabs (Olmesartan medoxomil) ..... One tab. daily Hydrochlorothiazide 25 Mg Tabs (Hydrochlorothiazide) ..... 1/2 tab daily Prior BP: 138/80 (10/14/2011) Labs Reviewed: C reat: 1.02 (03/14/2011) C hol: 148 (01/19/2009) HDL: 27 (01/19/2009) LDL: 47 (01/19/2009) T (01/19/2009) Chapo Cheng MD follow up: His updated medication list for this problem includes: Coreg 12.5 Mg Tabs (Carvedilol) ..... One tab. twice daily Aspirin 81 Mg Tabs (Aspirin) ..... One tab. daily Chapo Cheng MD follow up: His updated medication list for this problem includes: Coreg 12.5 Mg Tabs (Carvedilol) ..... One tab. twice daily Vytorin 10-20 Mg Tabs (Ezetimibe-simvastatin) ..... One tab. at bedtime Aspirin 81 Mg Tabs (Aspirin) ..... One tab. daily Chapo Cheng MD follow up: H is updated medication list for this problem includes: Coreg 12.5 Mg Tabs (Carvedilol) ..... One tab. twice daily Aspirin 81 Mg Tabs (Aspirin) ..... One tab. daily Benicar 40 Mg Tabs (Olmesartan medoxomil) ..... One tab. daily Hydrochlorothiazide 25 Mg Tabs (Hydrochlorothiazide) ..... 1/2 tab daily Chapo Cheng MD follow up: BP today: 138/80 Prior BP: 146/88 (04/15/2011) N uclear Stress Findings: 1. Regadenoson mediated myocardial perfusion study 2 . Normal left ventricular systolic function with a calculated ejection fraction of 57%. 3 . No obvious significant scintigraphic evidence of myocardial ischemia or scar. (08/19/2010) C ardiac Cath: Severe or high grade 2-vessel CAD. Normal LV wall motion systolic function. EF 60%. [facility] (03/06/2009) C ardiac Cath Comments: Successful stent implantation of RCA 3.0 x 23mm Vision stent & LAD 3.0 x 12mm Vision bare-metal stent. 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 [facility] (08/04/2008) C HOL: 148 (01/19/2009) LDL: 47 (01/19/2009) HDL: 27 (01/19/2009) T (01/19/2009) H gb: 15.1 (03/14/2011) HCT: 45.7 (03/14/2011) RBC: 5.09 (03/14/2011) WBC: 5.7 (03/14/2011) B UN: 15.3 (03/14/2011) Creat: 1.02 (03/14/2011) Glucose: 146 (03/14/2011) N a+: 140 (03/14/2011) K+: 3.9 (03/14/2011) Cl: 104 (03/14/2011) PT: 10.7 (03/14/2011) INR: 1.0 (03/14/2011) P TT: 27.8 (03/14/2011) E chocardiogram: Normal left ventricular systolic function. Normal left ventricular size. Normal left ventricular wall thickness. There is E to A wave reversal consistent with impaired LV relaxation. Normal E/E` 10.0. L eft ventricular ejection fraction is estimated at 60%. Normal right ventricular size. Normal right ventricular systolic function. Linear artifact seen in the right ventricle is suggestive of a catheter, pacer lead, or ICD lead. There is mild enlargement of the left atrium. The right atrium is normal in size. Linear artifact in right atrium suggestive of catheter, pacer lead, or ICD lead. No significant valvular abnormalities. - [facility] (08/19/2010) His updated medication list for this problem includes: Coreg 12.5 Mg Tabs (Carvedilol) ..... One tab. twice daily Aspirin 81 Mg Tabs (Aspirin) ..... One tab. daily Chapo Cheng MD follow up: H is updated medication list for this problem includes: Coreg 12.5 Mg Tabs (Carvedilol) ..... One tab. twice daily Vytorin 10-20 Mg Tabs (Ezetimibe-simvastatin) ..... One tab. at bedtime Aspirin 81 Mg Tabs (Aspirin) ..... One tab. daily BP today: 138/80 Prior BP: 146/88 (04/15/2011) N uclear Stress Findings: 1. Regadenoson mediated myocardial perfusion study 2 . Normal left ventricular systolic function with a calculated ejection fraction of 57%. 3 . No obvious significant scintigraphic evidence of myocardial ischemia or scar. (08/19/2010) C ardiac Cath: Severe or high grade 2-vessel CAD. Normal LV wall motion systolic function. EF 60%. [facility] (03/06/2009) C ardiac Cath Comments: Successful stent implantation of RCA 3.0 x 23mm Vision stent & LAD 3.0 x 12mm Vision bare-metal stent. 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 [facility] (08/04/2008) C HOL: 148 (01/19/2009) LDL: 47 (01/19/2009) HDL: 27 (01/19/2009) T (01/19/2009) H gb: 15.1 (03/14/2011) HCT: 45.7 (03/14/2011) RBC: 5.09 (03/14/2011) WBC: 5.7 (03/14/2011) B UN: 15.3 (03/14/2011) Creat: 1.02 (03/14/2011) Glucose: 146 (03/14/2011) N a+: 140 (03/14/2011) K+: 3.9 (03/14/2011) Cl: 104 (03/14/2011) PT: 10.7 (03/14/2011) INR: 1.0 (03/14/2011) P TT: 27.8 (03/14/2011) Chapo Cheng MD follow up: H is updated medication list for this problem includes: Coreg 12.5 Mg Tabs (Carvedilol) ..... One tab. twice daily Vytorin 10-20 Mg Tabs (Ezetimibe-simvastatin) ..... One tab. at bedtime Aspirin 81 Mg Tabs (Aspirin) ..... One tab. daily BP today: 138/80 Prior BP: 146/88 (04/15/2011) N uclear Stress Findings: 1. Regadenoson mediated myocardial perfusion study 2 . Normal left ventricular systolic function with a calculated ejection fraction of 57%. 3 . No obvious significant scintigraphic evidence of myocardial ischemia or scar. (08/19/2010) C ardiac Cath: Severe or high grade 2-vessel CAD. Normal LV wall motion systolic function. EF 60%. [facility] (03/06/2009) C ardiac Cath Comments: Successful stent implantation of RCA 3.0 x 23mm Vision stent & LAD 3.0 x 12mm Vision bare-metal stent. 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 [facility] (08/04/2008) C HOL: 148 (01/19/2009) LDL: 47 (01/19/2009) HDL: 27 (01/19/2009) T (01/19/2009) H gb: 15.1 (03/14/2011) HCT: 45.7 (03/14/2011) RBC: 5.09 (03/14/2011) WBC: 5.7 (03/14/2011) B UN: 15.3 (03/14/2011) Creat: 1.02 (03/14/2011) Glucose: 146 (03/14/2011) N a+: 140 (03/14/2011) K+: 3.9 (03/14/2011) Cl: 104 (03/14/2011) PT: 10.7 (03/14/2011) INR: 1.0 (03/14/2011) P TT: 27.8 (03/14/2011) Chapo Cheng MD follow up: H is updated medication list for this problem includes: Coreg 12.5 Mg Tabs (Carvedilol) ..... One tab. twice daily Aspirin 81 Mg Tabs (Aspirin) ..... One tab. daily Hydrochlorothiazide 25 Mg Tabs (Hydrochlorothiazide) ..... 1/2 tab daily BP today: 138/80 Prior BP: 146/88 (04/15/2011) H gb: 15.1 (03/14/2011) HCT: 45.7 (03/14/2011) RBC: 5.09 (03/14/2011) WBC: 5.7 (03/14/2011) B UN: 15.3 (03/14/2011) Creat: 1.02 (03/14/2011) Glucose: 146 (03/14/2011) N a+: 140 (03/14/2011) K+: 3.9 (03/14/2011) Cl: 104 (03/14/2011) Anion Gap: 11.9 (03/14/2011) Calcium: 8.9 (03/14/2011) Nuclear Stress Findings: 1. Regadenoson mediated myocardial perfusion study 2 . Normal left ventricular systolic function with a calculated ejection fraction of 57%. 3 . No obvious significant scintigraphic evidence of myocardial ischemia or scar. (08/19/2010) E chocardiogram: Normal left ventricular systolic function. Normal left ventricular size. Normal left ventricular wall thickness. There is E to A wave reversal consistent with impaired LV relaxation. Normal E/E` 10.0. L eft ventricular ejection fraction is estimated at 60%. Normal right ventricular size. Normal right ventricular systolic function. Linear artifact seen in the right ventricle is suggestive of a catheter, pacer lead, or ICD lead. There is mild enlargement of the left atrium. The right atrium is normal in size. Linear artifact in right atrium suggestive of catheter, pacer lead, or ICD lead. No significant valvular abnormalities. - O (08/19/2010) C ardiac Cath: Severe or high grade 2-vessel CAD. Normal LV wall motion systolic function. EF 60%. [facility] (03/06/2009) C ardiac Cath Comments: Successful stent implantation of RCA 3.0 x 23mm Vision stent & LAD 3.0 x 12mm Vision bare-metal stent. [facility] (03/06/2009) Chapo Cheng MD Follow-up device negrito cement: H is updated medication list for this problem includes: Coreg 12.5 Mg Tabs (Carvedilol) ..... One tab. twice daily Aspirin 81 Mg Tabs (Aspirin) ..... One tab. daily Chapo Cheng MD Follow-up device negrito cement: H is updated medication list for this problem includes: Coreg 12.5 Mg Tabs (Carvedilol) ..... One tab. twice daily Vytorin 10-20 Mg Tabs (Ezetimibe-simvastatin) ..... One tab. at bedtime Aspirin 81 Mg Tabs (Aspirin) ..... One tab. daily BP today: 146/88 Prior BP: 134/80 (03/11/2011) N uclear Stress Findings: 1. Regadenoson mediated myocardial perfusion study 2 . Normal left ventricular systolic function with a calculated ejection fraction of 57%. 3 . No obvious significant scintigraphic evidence of myocardial ischemia or scar. [facility] (08/19/2010) C ardiac Cath: Severe or high grade 2-vessel CAD. Normal LV wall motion systolic function. EF 60%. [facility] (03/06/2009) C ardiac Cath Comments: Successful stent implantation of RCA 3.0 x 23mm Vision stent & LAD 3.0 x 12mm Vision bare-metal stent. 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 [facility] (08/04/2008) C HOL: 148 (01/19/2009) LDL: 47 (01/19/2009) HDL: 27 (01/19/2009) T (01/19/2009) H gb: 15.1 (03/14/2011) HCT: 45.7 (03/14/2011) RBC: 5.09 (03/14/2011) WBC: 5.7 (03/14/2011) B UN: 15.3 (03/14/2011) Creat: 1.02 (03/14/2011) Glucose: 146 (03/14/2011) N a+: 140 (03/14/2011) K+: 3.9 (03/14/2011) Cl: 104 (03/14/2011) PT: 10.7 (03/14/2011) INR: 1.0 (03/14/2011) P TT: 27.8 (03/14/2011) Chpao Cheng MD Follow-up device negrito cement: H is updated medication list for this problem includes: Coreg 12.5 Mg Tabs (Carvedilol) ..... One tab. twice daily Aspirin 81 Mg Tabs (Aspirin) ..... One tab. daily Benicar 40 Mg Tabs (Olmesartan medoxomil) ..... One tab. daily Hydrochlorothiazide 25 Mg Tabs (Hydrochlorothiazide) ..... 1/2 tab daily BP today: 146/88 P rior BP: 134/80 (03/11/2011) Labs Reviewed: C reat: 1.02 (03/14/2011) C hol: 148 (01/19/2009) HDL: 27 (01/19/2009) LDL: 47 (01/19/2009) T (01/19/2009) Chapo Cheng MD Follow-up device negrito cement: H is updated medication list for this problem includes: Coreg 12.5 Mg Tabs (Carvedilol) ..... One tab. twice daily Aspirin 81 Mg Tabs (Aspirin) ..... One tab. daily BP today: 146/88 Prior BP: 134/80 (03/11/2011) N uclear Stress Findings: 1. Regadenoson mediated myocardial perfusion study 2 . Normal left ventricular systolic function with a calculated ejection fraction of 57%. 3 . No obvious significant scintigraphic evidence of myocardial ischemia or scar. (08/19/2010) C ardiac Cath: Severe or high grade 2-vessel CAD. Normal LV wall motion systolic function. EF 60%. [facility] (03/06/2009) C ardiac Cath Comments: Successful stent implantation of RCA 3.0 x 23mm Vision stent & LAD 3.0 x 12mm Vision bare-metal stent. 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 [facility] (08/04/2008) C HOL: 148 (01/19/2009) LDL: 47 (01/19/2009) HDL: 27 (01/19/2009) T (01/19/2009) H gb: 15.1 (03/14/2011) HCT: 45.7 (03/14/2011) RBC: 5.09 (03/14/2011) WBC: 5.7 (03/14/2011) B UN: 15.3 (03/14/2011) Creat: 1.02 (03/14/2011) Glucose: 146 (03/14/2011) N a+: 140 (03/14/2011) K+: 3.9 (03/14/2011) Cl: 104 (03/14/2011) PT: 10.7 (03/14/2011) INR: 1.0 (03/14/2011) P TT: 27.8 (03/14/2011) E chocardiogram: Normal left ventricular systolic function. Normal left ventricular size. Normal left ventricular wall thickness. There is E to A wave reversal consistent with impaired LV relaxation. Normal E/E` 10.0. L eft ventricular ejection fraction is estimated at 60%. Normal right ventricular size. Normal right ventricular systolic function. Linear artifact seen in the right ventricle is suggestive of a catheter, pacer lead, or ICD lead. There is mild enlargement of the left atrium. The right atrium is normal in size. Linear artifact in right atrium suggestive of catheter, pacer lead, or ICD lead. No significant valvular abnormalities. - [facility] (08/19/2010) Chapo Cheng MD Follow-up device negrito cement: H is updated medication list for this problem includes: Coreg 12.5 Mg Tabs (Carvedilol) ..... One tab. twice daily Vytorin 10-20 Mg Tabs (Ezetimibe-simvastatin) ..... One tab. at bedtime Aspirin 81 Mg Tabs (Aspirin) ..... One tab. daily BP today: 146/88 Prior BP: 134/80 (03/11/2011) N uclear Stress Findings: 1. Regadenoson mediated myocardial perfusion study 2 . Normal left ventricular systolic function with a calculated ejection fraction of 57%. 3 . No obvious significant scintigraphic evidence of myocardial ischemia or scar. [facility] (08/19/2010) C ardiac Cath: Severe or high grade 2-vessel CAD. Normal LV wall motion systolic function. EF 60%. [facility] (03/06/2009) C ardiac Cath Comments: Successful stent implantation of RCA 3.0 x 23mm Vision stent & LAD 3.0 x 12mm Vision bare-metal stent. 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 [facility] (08/04/2008) C HOL: 148 (01/19/2009) LDL: 47 (01/19/2009) HDL: 27 (01/19/2009) T (01/19/2009) H gb: 15.1 (03/14/2011) HCT: 45.7 (03/14/2011) RBC: 5.09 (03/14/2011) WBC: 5.7 (03/14/2011) B UN: 15.3 (03/14/2011) Creat: 1.02 (03/14/2011) Glucose: 146 (03/14/2011) N a+: 140 (03/14/2011) K+: 3.9 (03/14/2011) Cl: 104 (03/14/2011) PT: 10.7 (03/14/2011) INR: 1.0 (03/14/2011) P TT: 27.8 (03/14/2011) Chapo Cheng MD Follow-up device negrito cement: H is updated medication list for this problem includes: Coreg 12.5 Mg Tabs (Carvedilol) ..... One tab. twice daily Vytorin 10-20 Mg Tabs (Ezetimibe-simvastatin) ..... One tab. at bedtime Aspirin 81 Mg Tabs (Aspirin) ..... One tab. daily BP today: 146/88 Prior BP: 134/80 (03/11/2011) N uclear Stress Findings: 1. Regadenoson mediated myocardial perfusion study 2 . Normal left ventricular systolic function with a calculated ejection fraction of 57%. 3 . No obvious significant scintigraphic evidence of myocardial ischemia or scar. [facility] (08/19/2010) C ardiac Cath: Severe or high grade 2-vessel CAD. Normal LV wall motion systolic function. EF 60%. [facility] (03/06/2009) C ardiac Cath Comments: Successful stent implantation of RCA 3.0 x 23mm Vision stent & LAD 3.0 x 12mm Vision bare-metal stent. 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 [facility] (08/04/2008) C HOL: 148 (01/19/2009) LDL: 47 (01/19/2009) HDL: 27 (01/19/2009) T (01/19/2009) H gb: 15.1 (03/14/2011) HCT: 45.7 (03/14/2011) RBC: 5.09 (03/14/2011) WBC: 5.7 (03/14/2011) B UN: 15.3 (03/14/2011) Creat: 1.02 (03/14/2011) Glucose: 146 (03/14/2011) N a+: 140 (03/14/2011) K+: 3.9 (03/14/2011) Cl: 104 (03/14/2011) PT: 10.7 (03/14/2011) INR: 1.0 (03/14/2011) P TT: 27.8 (03/14/2011) Chapo Cheng MD Follow-up device negrito cement: H is updated medication list for this problem includes: Coreg 12.5 Mg Tabs (Carvedilol) ..... One tab. twice daily Aspirin 81 Mg Tabs (Aspirin) ..... One tab. daily Hydrochlorothiazide 25 Mg Tabs (Hydrochlorothiazide) ..... 1/2 tab daily BP today: 146/88 Prior BP: 134/80 (03/11/2011) H gb: 15.1 (03/14/2011) HCT: 45.7 (03/14/2011) RBC: 5.09 (03/14/2011) WBC: 5.7 (03/14/2011) B UN: 15.3 (03/14/2011) Creat: 1.02 (03/14/2011) Glucose: 146 (03/14/2011) N a+: 140 (03/14/2011) K+: 3.9 (03/14/2011) Cl: 104 (03/14/2011) Anion Gap: 11.9 (03/14/2011) Calcium: 8.9 (03/14/2011) Nuclear Stress Findings: 1. Regadenoson mediated myocardial perfusion study 2 . Normal left ventricular systolic function with a calculated ejection fraction of 57%. 3 . No obvious significant scintigraphic evidence of myocardial ischemia or scar. (08/19/2010) E chocardiogram: Normal left ventricular systolic function. Normal left ventricular size. Normal left ventricular wall thickness. There is E to A wave reversal consistent with impaired LV relaxation. Normal E/E` 10.0. L eft ventricular ejection fraction is estimated at 60%. Normal right ventricular size. Normal right ventricular systolic function. Linear artifact seen in the right ventricle is suggestive of a catheter, pacer lead, or ICD lead. There is mild enlargement of the left atrium. The right atrium is normal in size. Linear artifact in right atrium suggestive of catheter, pacer lead, or ICD lead. No significant valvular abnormalities. - [facility] [place] (08/19/2010) C ardiac Cath: Severe or high grade 2-vessel CAD. Normal LV wall motion systolic function. EF 60%. [facility] (03/06/2009) C ardiac Cath Comments: Successful stent implantation of RCA 3.0 x 23mm Vision stent & LAD 3.0 x 12mm Vision bare-metal stent. [facility] (03/06/2009) Chapo Cheng MD routine-device check : H is updated medication list for this problem includes: Coreg 12.5 Mg Tabs (Carvedilol) ..... One tab. twice daily Aspirin 81 Mg Tabs (Aspirin) ..... One tab. daily B P today: 134/80 Prior BP: 156/89 (08/20/2010) H gb: 14.2 (03/06/2009) HCT: 43.3 (03/06/2009) WBC: 5.8 (03/06/2009) B UN: 18 (03/06/2009) Creat: 1.09 (03/06/2009) Glucose: 114 (03/06/2009) N a+: 136 (03/06/2009) K+: 3.9 (03/06/2009) Cl: 101 (03/06/2009) Nuclear Stress Findings: 1. Regadenoson mediated myocardial perfusion study 2 . Normal left ventricular systolic function with a calculated ejection fraction of 57%. 3 . No obvious significant scintigraphic evidence of myocardial ischemia or scar. (08/19/2010) E chocardiogram: Normal left ventricular systolic function. Normal left ventricular size. Normal left ventricular wall thickness. There is E to A wave reversal consistent with impaired LV relaxation. Normal E/E` 10.0. L eft ventricular ejection fraction is estimated at 60%. Normal right ventricular size. Normal right ventricular systolic function. Linear artifact seen in the right ventricle is suggestive of a catheter, pacer lead, or ICD lead. There is mild enlargement of the left atrium. The right atrium is normal in size. Linear artifact in right atrium suggestive of catheter, pacer lead, or ICD lead. No significant valvular abnormalities. - O (08/19/2010) C ardiac Cath: Severe or high grade 2-vessel CAD. Normal LV wall motion systolic function. EF 60%. [facility] (03/06/2009) C ardiac Cath Comments: Successful stent implantation of RCA 3.0 x 23mm Vision stent & LAD 3.0 x 12mm Vision bare-metal stent. [facility] (03/06/2009) Chapo Cheng MD routine-device check : H is updated medication list for this problem includes: Coreg 12.5 Mg Tabs (Carvedilol) ..... One tab. twice daily Vytorin 10-20 Mg Tabs (Ezetimibe-simvastatin) ..... One tab. at bedtime Aspirin 81 Mg Tabs (Aspirin) ..... One tab. daily BP today: 134/80 Prior BP: 156/89 (08/20/2010) N uclear Stress Findings: 1. Regadenoson mediated myocardial perfusion study 2 . Normal left ventricular systolic function with a calculated ejection fraction of 57%. 3 . No obvious significant scintigraphic evidence of myocardial ischemia or scar. (08/19/2010) C ardiac Cath: Severe or high grade 2-vessel CAD. Normal LV wall motion systolic function. EF 60%. [facility] (03/06/2009) C ardiac Cath Comments: Successful stent implantation of RCA 3.0 x 23mm Vision stent & LAD 3.0 x 12mm Vision bare-metal stent. 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 [facility] (08/04/2008) C HOL: 148 (01/19/2009) LDL: 47 (01/19/2009) HDL: 27 (01/19/2009) T (01/19/2009) H gb: 14.2 (03/06/2009) HCT: 43.3 (03/06/2009) WBC: 5.8 (03/06/2009) BUN: 18 (03/06/2009) Creat: 1.09 (03/06/2009) Glucose: 114 (03/06/2009) N a+: 136 (03/06/2009) K+: 3.9 (03/06/2009) Cl: 101 (03/06/2009) INR: 1.0 (03/06/2009) Chapo Cheng MD routine-device check : H is updated medication list for this problem includes: Coreg 12.5 Mg Tabs (Carvedilol) ..... One tab. twice daily Aspirin 81 Mg Tabs (Aspirin) ..... One tab. daily Benicar 40 Mg Tabs (Olmesartan medoxomil) ..... One tab. daily Hydrochlorothiazide 25 Mg Tabs (Hydrochlorothiazide) ..... 1/2 tab daily BP today: 134/80 P rior BP: 156/89 (08/20/2010) Labs Reviewed: C reat: 1.09 (03/06/2009) C hol: 148 (01/19/2009) HDL: 27 (01/19/2009) LDL: 47 (01/19/2009) T (01/19/2009) Chapo Cheng MD routine-device check : H is updated medication list for this problem includes: Coreg 12.5 Mg Tabs (Carvedilol) ..... One tab. twice daily Aspirin 81 Mg Tabs (Aspirin) ..... One tab. daily B P today: 134/80 Prior BP: 156/89 (08/20/2010) N uclear Stress Findings: 1. Regadenoson mediated myocardial perfusion study 2 . Normal left ventricular systolic function with a calculated ejection fraction of 57%. 3 . No obvious significant scintigraphic evidence of myocardial ischemia or scar. [facility] (08/19/2010) C ardiac Cath: Severe or high grade 2-vessel CAD. Normal LV wall motion systolic function. EF 60%. [facility] (03/06/2009) C ardiac Cath Comments: Successful stent implantation of RCA 3.0 x 23mm Vision stent & LAD 3.0 x 12mm Vision bare-metal stent. 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 [facility] (08/04/2008) C HOL: 148 (01/19/2009) LDL: 47 (01/19/2009) HDL: 27 (01/19/2009) T (01/19/2009) H gb: 14.2 (03/06/2009) HCT: 43.3 (03/06/2009) WBC: 5.8 (03/06/2009) B UN: 18 (03/06/2009) Creat: 1.09 (03/06/2009) Glucose: 114 (03/06/2009) Na+: 136 (03/06/2009) K+: 3.9 (03/06/2009) Cl: 101 (03/06/2009) INR: 1.0 (03/06/2009) E chocardiogram: Normal left ventricular systolic function. Normal left ventricular size. Normal left ventricular wall thickness. There is E to A wave reversal consistent with impaired LV relaxation. Normal E/E` 10.0. L eft ventricular ejection fraction is estimated at 60%. Normal right ventricular size. Normal right ventricular systolic function. Linear artifact seen in the right ventricle is suggestive of a catheter, pacer lead, or ICD lead. There is mild enlargement of the left atrium. The right atrium is normal in size. Linear artifact in right atrium suggestive of catheter, pacer lead, or ICD lead. No significant valvular abnormalities. - [facility] (08/19/2010) Chapo Cheng MD routine-device check : H is updated medication list for this problem includes: Coreg 12.5 Mg Tabs (Carvedilol) ..... One tab. twice daily Vytorin 10-20 Mg Tabs (Ezetimibe-simvastatin) ..... One tab. at bedtime Aspirin 81 Mg Tabs (Aspirin) ..... One tab. daily BP today: 134/80 Prior BP: 156/89 (08/20/2010) N uclear Stress Findings: 1. Regadenoson mediated myocardial perfusion study 2 . Normal left ventricular systolic function with a calculated ejection fraction of 57%. 3 . No obvious significant scintigraphic evidence of myocardial ischemia or scar. (08/19/2010) C ardiac Cath: Severe or high grade 2-vessel CAD. Normal LV wall motion systolic function. EF 60%. [facility] (03/06/2009) C ardiac Cath Comments: Successful stent implantation of RCA 3.0 x 23mm Vision stent & LAD 3.0 x 12mm Vision bare-metal stent. 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 [facility] (08/04/2008) C HOL: 148 (01/19/2009) LDL: 47 (01/19/2009) HDL: 27 (01/19/2009) T (01/19/2009) H gb: 14.2 (03/06/2009) HCT: 43.3 (03/06/2009) WBC: 5.8 (03/06/2009) BUN: 18 (03/06/2009) Creat: 1.09 (03/06/2009) Glucose: 114 (03/06/2009) N a+: 136 (03/06/2009) K+: 3.9 (03/06/2009) Cl: 101 (03/06/2009) INR: 1.0 (03/06/2009) Chapo Cheng MD routine-device check : H is updated medication list for this problem includes: Coreg 12.5 Mg Tabs (Carvedilol) ..... One tab. twice daily Vytorin 10-20 Mg Tabs (Ezetimibe-simvastatin) ..... One tab. at bedtime Aspirin 81 Mg Tabs (Aspirin) ..... One tab. daily BP today: 134/80 Prior BP: 156/89 (08/20/2010) N uclear Stress Findings: 1. Regadenoson mediated myocardial perfusion study 2 . Normal left ventricular systolic function with a calculated ejection fraction of 57%. 3 . No obvious significant scintigraphic evidence of myocardial ischemia or scar. (08/19/2010) C ardiac Cath: Severe or high grade 2-vessel CAD. Normal LV wall motion systolic function. EF 60%. [facility] (03/06/2009) C ardiac Cath Comments: Successful stent implantation of RCA 3.0 x 23mm Vision stent & LAD 3.0 x 12mm Vision bare-metal stent. 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 [facility] (08/04/2008) C HOL: 148 (01/19/2009) LDL: 47 (01/19/2009) HDL: 27 (01/19/2009) T (01/19/2009) H gb: 14.2 (03/06/2009) HCT: 43.3 (03/06/2009) WBC: 5.8 (03/06/2009) BUN: 18 (03/06/2009) Creat: 1.09 (03/06/2009) Glucose: 114 (03/06/2009) N a+: 136 (03/06/2009) K+: 3.9 (03/06/2009) Cl: 101 (03/06/2009) INR: 1.0 (03/06/2009) Orders: Kityt VERGARA ([id number]) Chapo Cheng MD routine-device check : H is updated medication list for this problem includes: Coreg 12.5 Mg Tabs (Carvedilol) ..... One tab. twice daily Aspirin 81 Mg Tabs (Aspirin) ..... One tab. daily Hydrochlorothiazide 25 Mg Tabs (Hydrochlorothiazide) ..... 1/2 tab daily BP today: 134/80 Prior BP: 156/89 (08/20/2010) H gb: 14.2 (03/06/2009) HCT: 43.3 (03/06/2009) WBC: 5.8 (03/06/2009) B UN: 18 (03/06/2009) Creat: 1.09 (03/06/2009) Glucose: 114 (03/06/2009) N a+: 136 (03/06/2009) K+: 3.9 (03/06/2009) Cl: 101 (03/06/2009) Nuclear Stress Findings: 1. Regadenoson mediated myocardial perfusion study 2 . Normal left ventricular systolic function with a calculated ejection fraction of 57%. 3 . No obvious significant scintigraphic evidence of myocardial ischemia or scar. (08/19/2010) E chocardiogram: Normal left ventricular systolic function. Normal left ventricular size. Normal left ventricular wall thickness. There is E to A wave reversal consistent with impaired LV relaxation. Normal E/E` 10.0. L eft ventricular ejection fraction is estimated at 60%. Normal right ventricular size. Normal right ventricular systolic function. Linear artifact seen in the right ventricle is suggestive of a catheter, pacer lead, or ICD lead. There is mild enlargement of the left atrium. The right atrium is normal in size. Linear artifact in right atrium suggestive of catheter, pacer lead, or ICD lead. No significant valvular abnormalities. - [facility] [place] (08/19/2010) C ardiac Cath: Severe or high grade 2-vessel CAD. Normal LV wall motion systolic function. EF 60%. [facility] (03/06/2009) C ardiac Cath Comments: Successful stent implantation of RCA 3.0 x 23mm Vision stent & LAD 3.0 x 12mm Vision bare-metal stent. [facility] [facility] ([facility] Chapo Cheng MD test results : H is updated medication list for this problem includes: Coreg 12.5 Mg Tabs (Carvedilol) ..... One tab. twice daily Aspirin 81 Mg Tabs (Aspirin) ..... One tab. daily & #13;BP today: 156/89 Prior BP: 143/75 (02/12/2010) H gb: 14.2 (03/06/2009) HCT: 43.3 (03/06/2009) WBC: 5.8 (03/06/2009) B UN: 18 (03/06/2009) Creat: 1.09 (03/06/2009) Glucose: 114 (03/06/2009) Na+: 136 (03/06/2009) K+: 3.9 (03/06/2009) Cl: 101 (03/06/2009) Nuclear Stress Findings: 1. Regadenoson mediated myocardial perfusion study 2 . Normal left ventricular systolic function with a calculated ejection fraction of 57%. 3 . No obvious significant scintigraphic evidence of myocardial ischemia or scar. (08/19/2010) E chocardiogram: Normal left ventricular systolic function. Normal left ventricular size. Normal left ventricular wall thickness. There is E to A wave reversal consistent with impaired LV relaxation. Normal E/E` 10.0. L eft ventricular ejection fraction is estimated at 60%. Normal right ventricular size. Normal right ventricular systolic function. Linear artifact seen in the right ventricle is suggestive of a catheter, pacer lead, or ICD lead. There is mild enlargement of the left atrium. The right atrium is normal in size. Linear artifact in right atrium suggestive of catheter, pacer lead, or ICD lead. No significant valvular abnormalities. - [facility] [place] (08/19/2010) C ardiac Cath: Severe or high grade 2-vessel CAD. Normal LV wall motion systolic function. EF 60%. [facility] (03/06/2009) C ardiac Cath Comments: Successful stent implantation of RCA 3.0 x 23mm Vision stent & LAD 3.0 x 12mm Vision bare-metal stent. [facility] (03/06/2009) Chapo Cheng MD test results : H is updated medication list for this problem includes: Coreg 12.5 Mg Tabs (Carvedilol) ..... One tab. twice daily Aspirin 81 Mg Tabs (Aspirin) ..... One tab. daily Benicar 40 Mg Tabs (Olmesartan medoxomil) ..... One tab. daily Hydrochlorothiazide 25 Mg Tabs (Hydrochlorothiazide) ..... 1/2 tab daily BP today: 156/89 P rior BP: 143/75 (02/12/2010) L abs Reviewed: C reat: 1.09 (03/06/2009) C hol: 148 (01/19/2009) HDL: 27 (01/19/2009) LDL: 47 (01/19/2009) T (01/19/2009) Chapo Cheng MD test results : H is updated medication list for this problem includes: Coreg 12.5 Mg Tabs (Carvedilol) ..... One tab. twice daily Aspirin 81 Mg Tabs (Aspirin) ..... One tab. daily & #13;BP today: 156/89 Prior BP: 143/75 (02/12/2010) N uclear Stress Findings: 1. Regadenoson mediated myocardial perfusion study 2 . Normal left ventricular systolic function with a calculated ejection fraction of 57%. 3 . No obvious significant scintigraphic evidence of myocardial ischemia or scar. (08/19/2010) C ardiac Cath: Severe or high grade 2-vessel CAD. Normal LV wall motion systolic function. EF 60%. [facility] (03/06/2009) C ardiac Cath Comments: Successful stent implantation of RCA 3.0 x 23mm Vision stent & LAD 3.0 x 12mm Vision bare-metal stent. 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 [facility] (08/04/2008) C HOL: 148 (01/19/2009) LDL: 47 (01/19/2009) HDL: 27 (01/19/2009) T (01/19/2009) H gb: 14.2 (03/06/2009) HCT: 43.3 (03/06/2009) WBC: 5.8 (03/06/2009) B UN: 18 (03/06/2009) Creat: 1.09 (03/06/2009) Glucose: 114 (03/06/2009) N a+: 136 (03/06/2009) K+: 3.9 (03/06/2009) Cl: 101 (03/06/2009) INR: 1.0 (03/06/2009) E chocardiogram: Normal left ventricular systolic function. Normal left ventricular size. Normal left ventricular wall thickness. There is E to A wave reversal consistent with impaired LV relaxation. Normal E/E` 10.0. L eft ventricular ejection fraction is estimated at 60%. Normal right ventricular size. Normal right ventricular systolic function. Linear artifact seen in the right ventricle is suggestive of a catheter, pacer lead, or ICD lead. There is mild enlargement of the left atrium. The right atrium is normal in size. Linear artifact in right atrium suggestive of catheter, pacer lead, or ICD lead. No significant valvular abnormalities. - [facility] (08/19/2010) Chapo Cheng MD test results : H is updated medication list for this problem includes: Coreg 12.5 Mg Tabs (Carvedilol) ..... One tab. twice daily Vytorin 10-20 Mg Tabs (Ezetimibe-simvastatin) ..... One tab. at bedtime Aspirin 81 Mg Tabs (Aspirin) ..... One tab. daily BP today: 156/89 Prior BP: 143/75 (02/12/2010) N uclear Stress Findings: 1. Regadenoson mediated myocardial perfusion study 2 . Normal left ventricular systolic function with a calculated ejection fraction of 57%. 3 . No obvious significant scintigraphic evidence of myocardial ischemia or scar. (08/19/2010) C ardiac Cath: Severe or high grade 2-vessel CAD. Normal LV wall motion systolic function. EF 60%. [facility] (03/06/2009) C ardiac Cath Comments: Successful stent implantation of RCA 3.0 x 23mm Vision stent & LAD 3.0 x 12mm Vision bare-metal stent. 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 [facility] (08/04/2008) C HOL: 148 (01/19/2009) LDL: 47 (01/19/2009) HDL: 27 (01/19/2009) T (01/19/2009) H gb: 14.2 (03/06/2009) HCT: 43.3 (03/06/2009) WBC: 5.8 (03/06/2009) B UN: 18 (03/06/2009) Creat: 1.09 (03/06/2009) Glucose: 114 (03/06/2009) N a+: 136 (03/06/2009) K+: 3.9 (03/06/2009) Cl: 101 (03/06/2009) INR: 1.0 (03/06/2009) Chapo Cheng MD test results : H is updated medication list for this problem includes: Coreg 12.5 Mg Tabs (Carvedilol) ..... One tab. twice daily Vytorin 10-20 Mg Tabs (Ezetimibe-simvastatin) ..... One tab. at bedtime Aspirin 81 Mg Tabs (Aspirin) ..... One tab. daily BP today: 156/89 Prior BP: 143/75 (02/12/2010) N uclear Stress Findings: 1. Regadenoson mediated myocardial perfusion study 2 . Normal left ventricular systolic function with a calculated ejection fraction of 57%. 3 . No obvious significant scintigraphic evidence of myocardial ischemia or scar. (08/19/2010) C ardiac Cath: Severe or high grade 2-vessel CAD. Normal LV wall motion systolic function. EF 60%. [facility] (03/06/2009) C ardiac Cath Comments: Successful stent implantation of RCA 3.0 x 23mm Vision stent & LAD 3.0 x 12mm Vision bare-metal stent. 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 [facility] (08/04/2008) C HOL: 148 (01/19/2009) LDL: 47 (01/19/2009) HDL: 27 (01/19/2009) T (01/19/2009) H gb: 14.2 (03/06/2009) HCT: 43.3 (03/06/2009) WBC: 5.8 (03/06/2009) B UN: 18 (03/06/2009) Creat: 1.09 (03/06/2009) Glucose: 114 (03/06/2009) N a+: 136 (03/06/2009) K+: 3.9 (03/06/2009) Cl: 101 (03/06/2009) INR: 1.0 (03/06/2009) Chapo Cheng MD test results : H is updated medication list for this problem includes: Coreg 12.5 Mg Tabs (Carvedilol) ..... One tab. twice daily Aspirin 81 Mg Tabs (Aspirin) ..... One tab. daily Hydrochlorothiazide 25 Mg Tabs (Hydrochlorothiazide) ..... 1/2 tab daily BP today: 156/89 Prior BP: 143/75 (02/12/2010) H gb: 14.2 (03/06/2009) HCT: 43.3 (03/06/2009) WBC: 5.8 (03/06/2009) BUN: 18 (03/06/2009) Creat: 1.09 (03/06/2009) Glucose: 114 (03/06/2009) N a+: 136 (03/06/2009) K+: 3.9 (03/06/2009) Cl: 101 (03/06/2009) Nuclear Stress Findings: 1. Regadenoson mediated myocardial perfusion study 2 . Normal left ventricular systolic function with a calculated ejection fraction of 57%. 3 . No obvious significant scintigraphic evidence of myocardial ischemia or scar. [facility] (08/19/2010) E chocardiogram: Normal left ventricular systolic function. Normal left ventricular size. Normal left ventricular wall thickness. There is E to A wave reversal consistent with impaired LV relaxation. Normal E/E` 10.0. L eft ventricular ejection fraction is estimated at 60%. Normal right ventricular size. Normal right ventricular systolic function. Linear artifact seen in the right ventricle is suggestive of a catheter, pacer lead, or ICD lead. There is mild enlargement of the left atrium. The right atrium is normal in size. Linear artifact in right atrium suggestive of catheter, pacer lead, or ICD lead. No significant valvular abnormalities. - [facility] [place] (08/19/2010) C ardiac Cath: Severe or high grade 2-vessel CAD. Normal LV wall motion systolic function. EF 60%. [facility] (03/06/2009) C ardiac Cath Comments: Successful stent implantation of RCA 3.0 x 23mm Vision stent & LAD 3.0 x 12mm Vision bare-metal stent. [facility] (03/06/2009) Chapo Cheng MD PM check with f/u: H is updated medication list for this problem includes: Coreg 12.5 Mg Tabs (Carvedilol) ..... One tab. twice daily Aspirin 81 Mg Tabs (Aspirin) ..... One tab. daily Chapo Cheng MD PM check with f/u: H is updated medication list for this problem includes: Coreg 12.5 Mg Tabs (Carvedilol) ..... One tab. twice daily Aspirin 81 Mg Tabs (Aspirin) ..... One tab. daily Hydrochlorothiazide 25 Mg Tabs (Hydrochlorothiazide) ..... 1/2 tab daily BP today: 143/75 Prior BP: 139/87 (08/14/2009) H gb: 14.2 (03/06/2009) HCT: 43.3 (03/06/2009) WBC: 5.8 (03/06/2009) B UN: 18 (03/06/2009) Creat: 1.09 (03/06/2009) Glucose: 114 (03/06/2009) N a+: 136 (03/06/2009) K+: 3.9 (03/06/2009) Cl: 101 (03/06/2009) Nuclear Stress Findings: Abnormal adenosine mediated myocardial perfusion study There is mild reversible ischemia of the basal to the mid inferior wall. There is significant 'Transient Ischemic Dilattion of the LV at peak stress (T.I.D. index of 1.86) Normal left ventricular systolic function with a calculated ejection fraction of 68% (01/24/2009) E chocardiogram: The left ventricular chamber size is normal. N ormal left ventricular wall thickness. L V EF is estimated at 60%. M yxomatous mitral valve. T he aortic valve appears mildly thickened (sclerotic). M inimal mitral regurgitation. T here is a trace of aortic regurgitation. M inimal tricuspid regurgitation. Minimal tricuspid regurgitation. N o evidence of pulmonic valve regurgitation. (02/03/2008) C ardiac Cath: Severe or high grade 2-vessel CAD. Normal LV wall motion systolic function. EF 60%. [facility] (03/06/2009) C ardiac Cath Comments: Successful stent implantation of RCA 3.0 x 23mm Vision stent & LAD 3.0 x 12mm Vision bare-metal stent. [facility] (03/06/2009) Chapo Cheng MD PM check with f/u: H is updated medication list for this problem includes: Coreg 12.5 Mg Tabs (Carvedilol) ..... One tab. twice daily Vytorin 10-20 Mg Tabs (Ezetimibe-simvastatin) ..... One tab. at bedtime Aspirin 81 Mg Tabs (Aspirin) ..... One tab. daily BP today: 143/75 Prior BP: 139/87 (08/14/2009) N uclear Stress Findings: Abnormal adenosine mediated myocardial perfusion study There is mild reversible ischemia of the basal to the mid inferior wall. There is significant 'Transient Ischemic Dilattion of the LV at peak stress (T.I.D. index of 1.86) Normal left ventricular systolic function with a calculated ejection fraction of 68% (01/24/2009) C ardiac Cath: Severe or high grade 2-vessel CAD. Normal LV wall motion systolic function. EF 60%. [facility] [place] (03/06/2009) C ardiac Cath Comments: Successful stent implantation of RCA 3.0 x 23mm Vision stent & LAD 3.0 x 12mm Vision bare-metal stent. 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 [facility] (08/04/2008) C HOL: 148 (01/19/2009) LDL: 47 (01/19/2009) HDL: 27 (01/19/2009) T (01/19/2009) H gb: 14.2 (03/06/2009) HCT: 43.3 (03/06/2009) WBC: 5.8 (03/06/2009) B UN: 18 (03/06/2009) Creat: 1.09 (03/06/2009) Glucose: 114 (03/06/2009) N a+: 136 (03/06/2009) K+: 3.9 (03/06/2009) Cl: 101 (03/06/2009) INR: 1.0 (03/06/2009) Chapo Cheng MD routine: T he following medications were removed from the medication list: Plavix 75 Mg Tabs (Clopidogrel bisulfate) His updated medication list for this problem includes: Coreg 12.5 Mg Tabs (Carvedilol) ..... One tab. twice daily Aspirin 81 Mg Tabs (Aspirin) ..... One tab. daily BP today: 139/87 Prior BP: 104/73 (04/04/2009) H gb: 14.2 (03/06/2009) HCT: 43.3 (03/06/2009) WBC: 5.8 (03/06/2009) B UN: 18 (03/06/2009) Creat: 1.09 (03/06/2009) Glucose: 114 (03/06/2009) N a+: 136 (03/06/2009) K+: 3.9 (03/06/2009) Cl: 101 (03/06/2009) Nuclear Stress Findings: Abnormal adenosine mediated myocardial perfusion study There is mild reversible ischemia of the basal to the mid inferior wall. There is significant 'Transient Ischemic Dilattion of the LV at peak stress (T.I.D. index of 1.86) Normal left ventricular systolic function with a calculated ejection fraction of 68% (01/24/2009) E chocardiogram: The left ventricular chamber size is normal. N ormal left ventricular wall thickness. L V EF is estimated at 60%. M yxomatous mitral valve. T he aortic valve appears mildly thickened (sclerotic). M inimal mitral regurgitation. T here is a trace of aortic regurgitation. M inimal tricuspid regurgitation. Minimal tricuspid regurgitation. N o evidence of pulmonic valve regurgitation. (02/03/2008) C ardiac Cath: Severe or high grade 2-vessel CAD. Normal LV wall motion systolic function. EF 60%. [facility] (03/06/2009) C ardiac Cath Comments: Successful stent implantation of RCA 3.0 x 23mm Vision stent & LAD 3.0 x 12mm Vision bare-metal stent. [facility] (03/06/2009) Chapo Cheng MD routine: T he following medications were removed from the medication list: Plavix 75 Mg Tabs (Clopidogrel bisulfate) His updated medication list for this problem includes: Coreg 12.5 Mg Tabs (Carvedilol) ..... One tab. twice daily Vytorin 10-20 Mg Tabs (Ezetimibe-simvastatin) ..... One tab. at bedtime Aspirin 81 Mg Tabs (Aspirin) ..... One tab. daily BP today: 139/87 Prior BP: 104/73 (04/04/2009) N uclear Stress Findings: Abnormal adenosine mediated myocardial perfusion study There is mild reversible ischemia of the basal to the mid inferior wall. There is significant 'Transient Ischemic Dilattion of the LV at peak stress (T.I.D. index of 1.86) Normal left ventricular systolic function with a calculated ejection fraction of 68% (01/24/2009) C ardiac Cath: Severe or high grade 2-vessel CAD. Normal LV wall motion systolic function. EF 60%. [facility] (03/06/2009) C ardiac Cath Comments: Successful stent implantation of RCA 3.0 x 23mm Vision stent & LAD 3.0 x 12mm Vision bare-metal stent. 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 [facility] (08/04/2008) C HOL: 148 (01/19/2009) LDL: 47 (01/19/2009) HDL: 27 (01/19/2009) T (01/19/2009) H gb: 14.2 (03/06/2009) HCT: 43.3 (03/06/2009) WBC: 5.8 (03/06/2009) B UN: 18 (03/06/2009) Creat: 1.09 (03/06/2009) Glucose: 114 (03/06/2009) N a+: 136 (03/06/2009) K+: 3.9 (03/06/2009) Cl: 101 (03/06/2009) INR: 1.0 (03/06/2009) Chapo Cheng MD routine: H is updated medication list for this problem includes: Coreg 12.5 Mg Tabs (Carvedilol) ..... One tab. twice daily Aspirin 81 Mg Tabs (Aspirin) ..... One tab. daily Benicar 40 Mg Tabs (Olmesartan medoxomil) ..... One tab. daily Hydrochlorothiazide 25 Mg Tabs (Hydrochlorothiazide) ..... 1/2 tab daily BP today: 139/87 P rior BP: 104/73 (04/04/2009) & #13;Labs Reviewed: C reat: 1.09 (03/06/2009) C hol: 148 (01/19/2009) HDL: 27 (01/19/2009) LDL: 47 (01/19/2009) T (01/19/2009) Chapo Cheng MD routine: T he following medications were removed from the medication list: Plavix 75 Mg Tabs (Clopidogrel bisulfate) His updated medication list for this problem includes: Coreg 12.5 Mg Tabs (Carvedilol) ..... One tab. twice daily Aspirin 81 Mg Tabs (Aspirin) ..... One tab. daily BP today: 139/87 Prior BP: 104/73 (04/04/2009) N uclear Stress Findings: Abnormal adenosine mediated myocardial perfusion study There is mild reversible ischemia of the basal to the mid inferior wall. There is significant 'Transient Ischemic Dilattion of the LV at peak stress (T.I.D. index of 1.86) Normal left ventricular systolic function with a calculated ejection fraction of 68% (01/24/2009) C ardiac Cath: Severe or high grade 2-vessel CAD. Normal LV wall motion systolic function. EF 60%. [facility] (03/06/2009) C ardiac Cath Comments: Successful stent implantation of RCA 3.0 x 23mm Vision stent & LAD 3.0 x 12mm Vision bare-metal stent. 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 [facility] (08/04/2008) C HOL: 148 (01/19/2009) LDL: 47 (01/19/2009) HDL: 27 (01/19/2009) T (01/19/2009) H gb: 14.2 (03/06/2009) HCT: 43.3 (03/06/2009) WBC: 5.8 (03/06/2009) B UN: 18 (03/06/2009) Creat: 1.09 (03/06/2009) Glucose: 114 (03/06/2009) N a+: 136 (03/06/2009) K+: 3.9 (03/06/2009) Cl: 101 (03/06/2009) INR: 1.0 (03/06/2009) E chocardiogram: The left ventricular chamber size is normal. N ormal left ventricular wall thickness. L V EF is estimated at 60%. M yxomatous mitral valve. T he aortic valve appears mildly thickened (sclerotic). M inimal mitral regurgitation. T here is a trace of aortic regurgitation. M inimal tricuspid regurgitation. Minimal tricuspid regurgitation. N o evidence of pulmonic valve regurgitation. (02/03/2008) Chapo Cheng MD routine: T he following medications were removed from the medication list: Plavix 75 Mg Tabs (Clopidogrel bisulfate) His updated medication list for this problem includes: Coreg 12.5 Mg Tabs (Carvedilol) ..... One tab. twice daily Vytorin 10-20 Mg Tabs (Ezetimibe-simvastatin) ..... One tab. at bedtime Aspirin 81 Mg Tabs (Aspirin) ..... One tab. daily BP today: 139/87 Prior BP: 104/73 (04/04/2009) N uclear Stress Findings: Abnormal adenosine mediated myocardial perfusion study There is mild reversible ischemia of the basal to the mid inferior wall. There is significant 'Transient Ischemic Dilattion of the LV at peak stress (T.I.D. index of 1.86) Normal left ventricular systolic function with a calculated ejection fraction of 68% (01/24/2009) C ardiac Cath: Severe or high grade 2-vessel CAD. Normal LV wall motion systolic function. EF 60%. [facility] (03/06/2009) C ardiac Cath Comments: Successful stent implantation of RCA 3.0 x 23mm Vision stent & LAD 3.0 x 12mm Vision bare-metal stent. 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 [facility] (08/04/2008) C HOL: 148 (01/19/2009) LDL: 47 (01/19/2009) HDL: 27 (01/19/2009) T (01/19/2009) H gb: 14.2 (03/06/2009) HCT: 43.3 (03/06/2009) WBC: 5.8 (03/06/2009) B UN: 18 (03/06/2009) Creat: 1.09 (03/06/2009) Glucose: 114 (03/06/2009) N a+: 136 (03/06/2009) K+: 3.9 (03/06/2009) Cl: 101 (03/06/2009) INR: 1.0 (03/06/2009) Orders: E KG ([id number]) Chapo Cheng MD routine: T he following medications were removed from the medication list: Plavix 75 Mg Tabs (Clopidogrel bisulfate) His updated medication list for this problem includes: Coreg 12.5 Mg Tabs (Carvedilol) ..... One tab. twice daily Vytorin 10-20 Mg Tabs (Ezetimibe-simvastatin) ..... One tab. at bedtime Aspirin 81 Mg Tabs (Aspirin) ..... One tab. daily BP today: 139/87 Prior BP: 104/73 (04/04/2009) N uclear Stress Findings: Abnormal adenosine mediated myocardial perfusion study There is mild reversible ischemia of the basal to the mid inferior wall. There is significant 'Transient Ischemic Dilattion of the LV at peak stress (T.I.D. index of 1.86) Normal left ventricular systolic function with a calculated ejection fraction of 68% (01/24/2009) C ardiac Cath: Severe or high grade 2-vessel CAD. Normal LV wall motion systolic function. EF 60%. [facility] (03/06/2009) C ardiac Cath Comments: Successful stent implantation of RCA 3.0 x 23mm Vision stent & LAD 3.0 x 12mm Vision bare-metal stent. 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 [facility] (08/04/2008) C HOL: 148 (01/19/2009) LDL: 47 (01/19/2009) HDL: 27 (01/19/2009) T (01/19/2009) H gb: 14.2 (03/06/2009) HCT: 43.3 (03/06/2009) WBC: 5.8 (03/06/2009) B UN: 18 (03/06/2009) Creat: 1.09 (03/06/2009) Glucose: 114 (03/06/2009) N a+: 136 (03/06/2009) K+: 3.9 (03/06/2009) Cl: 101 (03/06/2009) INR: 1.0 (03/06/2009) Chapo Cheng MD routine: T he following medications were removed from the medication list: Plavix 75 Mg Tabs (Clopidogrel bisulfate) His updated medication list for this problem includes: Coreg 12.5 Mg Tabs (Carvedilol) ..... One tab. twice daily Aspirin 81 Mg Tabs (Aspirin) ..... One tab. daily Hydrochlorothiazide 25 Mg Tabs (Hydrochlorothiazide) ..... 1/2 tab daily BP today: 139/87 Prior BP: 104/73 (04/04/2009) H gb: 14.2 (03/06/2009) HCT: 43.3 (03/06/2009) WBC: 5.8 (03/06/2009) B UN: 18 (03/06/2009) Creat: 1.09 (03/06/2009) Glucose: 114 (03/06/2009) N a+: 136 (03/06/2009) K+: 3.9 (03/06/2009) Cl: 101 (03/06/2009) Nuclear Stress Findings: Abnormal adenosine mediated myocardial perfusion study There is mild reversible ischemia of the basal to the mid inferior wall. There is significant 'Transient Ischemic Dilattion of the LV at peak stress (T.I.D. index of 1.86) Normal left ventricular systolic function with a calculated ejection fraction of 68% & #13;[facility] (01/24/2009) E chocardiogram: The left ventricular chamber size is normal. N ormal left ventricular wall thickness. L V EF is estimated at 60%. M yxomatous mitral valve. T he aortic valve appears mildly thickened (sclerotic). M inimal mitral regurgitation. T here is a trace of aortic regurgitation. M inimal tricuspid regurgitation. Minimal tricuspid regurgitation. No evidence of pulmonic valve regurgitation. (02/03/2008) C ardiac Cath: Severe or high grade 2-vessel CAD. Normal LV wall motion systolic function. EF 60%. [facility] (03/06/2009) C ardiac Cath Comments: Successful stent implantation of RCA 3.0 x 23mm Vision stent & LAD 3.0 x 12mm Vision bare-metal stent. [facility] (03/06/2009) Chapo Cheng MD letter xfd: H is updated medication list for this problem includes: Coreg 6.25 Mg Tabs (Carvedilol) ..... Twice daily Aspirin 81 Mg Tabs (Aspirin) ..... One tab. daily Plavix 75 Mg Tabs (Clopidogrel bisulfate) BP today: 104/73 Prior BP: 130/72 (02/13/2009) H gb: 14.2 (03/06/2009) HCT: 43.3 (03/06/2009) WBC: 5.8 (03/06/2009) B UN: 18 (03/06/2009) Creat: 1.09 (03/06/2009) Glucose: 114 (03/06/2009) N a+: 136 (03/06/2009) K+: 3.9 (03/06/2009) Cl: 101 (03/06/2009) Nuclear Stress Findings: Abnormal adenosine mediated myocardial perfusion study There is mild reversible ischemia of the basal to the mid inferior wall. There is significant 'Transient Ischemic Dilattion of the LV at peak stress (T.I.D. index of 1.86) Normal left ventricular systolic function with a calculated ejection fraction of 68% (01/24/2009) E chocardiogram: The left ventricular chamber size is normal. N ormal left ventricular wall thickness. L V EF is estimated at 60%. M yxomatous mitral valve. T he aortic valve appears mildly thickened (sclerotic). M inimal mitral regurgitation. T here is a trace of aortic regurgitation. M inimal tricuspid regurgitation. Minimal tricuspid regurgitation. N o evidence of pulmonic valve regurgitation. (02/03/2008) C ardiac Cath: Severe or high grade 2-vessel CAD. Normal LV wall motion systolic function. EF 60%. [facility] (03/06/2009) C ardiac Cath Comments: Successful stent implantation of RCA 3.0 x 23mm Vision stent & LAD 3.0 x 12mm Vision bare-metal stent. [facility] (03/06/2009) Chapo Cheng MD letter xfd: H is updated medication list for this problem includes: Coreg 6.25 Mg Tabs (Carvedilol) ..... Twice daily Aspirin 81 Mg Tabs (Aspirin) ..... One tab. daily Plavix 75 Mg Tabs (Clopidogrel bisulfate) BP today: 104/73 Prior BP: 130/72 (02/13/2009) H gb: 14.2 (03/06/2009) HCT: 43.3 (03/06/2009) WBC: 5.8 (03/06/2009) B UN: 18 (03/06/2009) Creat: 1.09 (03/06/2009) Glucose: 114 (03/06/2009) N a+: 136 (03/06/2009) K+: 3.9 (03/06/2009) Cl: 101 (03/06/2009) Nuclear Stress Findings: Abnormal adenosine mediated myocardial perfusion study There is mild reversible ischemia of the basal to the mid inferior wall. There is significant 'Transient Ischemic Dilattion of the LV at peak stress (T.I.D. index of 1.86) Normal left ventricular systolic function with a calculated ejection fraction of 68% (01/24/2009) E chocardiogram: The left ventricular chamber size is normal. N ormal left ventricular wall thickness. L V EF is estimated at 60%. M yxomatous mitral valve. T he aortic valve appears mildly thickened (sclerotic). M inimal mitral regurgitation. T here is a trace of aortic regurgitation. M inimal tricuspid regurgitation. Minimal tricuspid regurgitation. N o evidence of pulmonic valve regurgitation. (02/03/2008) C ardiac Cath: Severe or high grade 2-vessel CAD. Normal LV wall motion systolic function. EF 60%. [facility] (03/06/2009) C ardiac Cath Comments: Successful stent implantation of RCA 3.0 x 23mm Vision stent & LAD 3.0 x 12mm Vision bare-metal stent. [facility] (03/06/2009) Chapo Cheng MD letter xfd: H is updated medication list for this problem includes: Coreg 6.25 Mg Tabs (Carvedilol) ..... Twice daily Vytorin 10-20 Mg Tabs (Ezetimibe-simvastatin) ..... One tab. at bedtime Aspirin 81 Mg Tabs (Aspirin) ..... One tab. daily Plavix 75 Mg Tabs (Clopidogrel bisulfate) BP today: 104/73 Prior BP: 130/72 (02/13/2009) N uclear Stress Findings: Abnormal adenosine mediated myocardial perfusion study There is mild reversible ischemia of the basal to the mid inferior wall. There is significant 'Transient Ischemic Dilattion of the LV at peak stress (T.I.D. index of 1.86) Normal left ventricular systolic function with a calculated ejection fraction of 68% (01/24/2009) C ardiac Cath: Severe or high grade 2-vessel CAD. Normal LV wall motion systolic function. EF 60%. [facility] (03/06/2009) C ardiac Cath Comments: Successful stent implantation of RCA 3.0 x 23mm Vision stent & LAD 3.0 x 12mm Vision bare-metal stent. 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 [facility] (08/04/2008) C HOL: 148 (01/19/2009) LDL: 47 (01/19/2009) HDL: 27 (01/19/2009) T (01/19/2009) H gb: 14.2 (03/06/2009) HCT: 43.3 (03/06/2009) WBC: 5.8 (03/06/2009) B UN: 18 (03/06/2009) Creat: 1.09 (03/06/2009) Glucose: 114 (03/06/2009) N a+: 136 (03/06/2009) K+: 3.9 (03/06/2009) Cl: 101 (03/06/2009) INR: 1.0 (03/06/2009) Chapo Cheng MD routine-letter fdx: T he following medications were removed from the medication list: Coreg 12.5 Mg Tabs (Carvedilol) ..... 1 1/2 tab in pm His updated medication list for this problem includes: Coreg 6.25 Mg Tabs (Carvedilol) ..... Twice daily Aspirin 81 Mg Tabs (Aspirin) ..... One tab. daily BP today: 130/72 Prior BP: 152/90 (08/01/2008) N uclear Stress Findings: Abnormal adenosine mediated myocardial perfusion study There is mild reversible ischemia of the basal to the mid inferior wall. There is significant 'Transient Ischemic Dilattion of the LV at peak stress (T.I.D. index of 1.86) Normal left ventricular systolic function with a calculated ejection fraction of 68% (01/24/2009) E chocardiogram: The left ventricular chamber size is normal. N ormal left ventricular wall thickness. L V EF is estimated at 60%. M yxomatous mitral valve. T he aortic valve appears mildly thickened (sclerotic). M inimal mitral regurgitation. T here is a trace of aortic regurgitation. M inimal tricuspid regurgitation. Minimal tricuspid regurgitation. N o evidence of pulmonic valve regurgitation. (02/03/2008) C ardiac Cath: EF - 50%. N o instent restenosis, previously placed stent in the RCA. V roman mild disease involving the mid LAD. (02/16/2006) Chapo Cheng MD routine-letter fdx: T he following medications were removed from the medication list: Coreg 12.5 Mg Tabs (Carvedilol) ..... 1 1/2 tab in pm His updated medication list for this problem includes: Coreg 6.25 Mg Tabs (Carvedilol) ..... Twice daily Vytorin 10-20 Mg Tabs (Ezetimibe-simvastatin) ..... One tab. at bedtime Aspirin 81 Mg Tabs (Aspirin) ..... One tab. daily B P today: 130/72 Prior BP: 152/90 (08/01/2008) N uclear Stress Findings: Abnormal adenosine mediated myocardial perfusion study There is mild reversible ischemia of the basal to the mid inferior wall. There is significant 'Transient Ischemic Dilattion of the LV at peak stress (T.I.D. index of 1.86) Normal left ventricular systolic function with a calculated ejection fraction of 68% GC (01/24/2009) C ardiac Cath: EF - 50%. N o instent restenosis, previously placed stent in the RCA. V roman mild disease involving the mid LAD. (02/16/2006) C arotid Doppler/Duplex: LESS THAN 50 % STENOSIS OF THE INTERNAL CAROTID A RTERIES BILATERALLY. [facility] (08/04/2008) Chapo Cheng MD routine-letter fdx: T he following medications were removed from the medication list: Coreg 12.5 Mg Tabs (Carvedilol) ..... 1 1/2 tab in pm His updated medication list for this problem includes: Coreg 6.25 Mg Tabs (Carvedilol) ..... Twice daily Hydrochlorothiazide 12.5 Mg Caps (Hydrochlorothiazide) ..... 1/2 tab. daily Aspirin 81 Mg Tabs (Aspirin) ..... One tab. daily Benicar 20 Mg Tabs (Olmesartan medoxomil) ..... Daily BP today: 130/72 P rior BP: 152/90 (08/01/2008) Chapo Cheng MD routine-letter fdx: T he following medications were removed from the medication list: Coreg 12.5 Mg Tabs (Carvedilol) ..... 1 1/2 tab in pm His updated medication list for this problem includes: Coreg 6.25 Mg Tabs (Carvedilol) ..... Twice daily Aspirin 81 Mg Tabs (Aspirin) ..... One tab. daily BP today: 130/72 Prior BP: 152/90 (08/01/2008) N uclear Stress Findings: Abnormal adenosine mediated myocardial perfusion study There is mild reversible ischemia of the basal to the mid inferior wall. There is significant 'Transient Ischemic Dilattion of the LV at peak stress (T.I.D. index of 1.86) Normal left ventricular systolic function with a calculated ejection fraction of 68% GC (01/24/2009) C ardiac Cath: EF - 50%. N o instent restenosis, previously placed stent in the RCA. V roman mild disease involving the mid LAD. (02/16/2006) C arotid Doppler/Duplex: LESS THAN 50 % STENOSIS OF THE INTERNAL CAROTID A RTERIES BILATERALLY. [facility] (08/04/2008) E chocardiogram: The left ventricular chamber size is normal. N ormal left ventricular wall thickness. L V EF is estimated at 60%. M yxomatous mitral valve. T he aortic valve appears mildly thickened (sclerotic). M inimal mitral regurgitation. T here is a trace of aortic regurgitation. M inimal tricuspid regurgitation. Minimal tricuspid regurgitation. N o evidence of pulmonic valve regurgitation. (02/03/2008) Chapo Cheng MD routine-letter fdx: T he following medications were removed from the medication list: Coreg 12.5 Mg Tabs (Carvedilol) ..... 1 1/2 tab in pm His updated medication list for this problem includes: Coreg 6.25 Mg Tabs (Carvedilol) ..... Twice daily Vytorin 10-20 Mg Tabs (Ezetimibe-simvastatin) ..... One tab. at bedtime Aspirin 81 Mg Tabs (Aspirin) ..... One tab. daily B P today: 130/72 Prior BP: 152/90 (08/01/2008) N uclear Stress Findings: Abnormal adenosine mediated myocardial perfusion study There is mild reversible ischemia of the basal to the mid inferior wall. There is significant 'Transient Ischemic Dilattion of the LV at peak stress (T.I.D. index of 1.86) Normal left ventricular systolic function with a calculated ejection fraction of 68% GC (01/24/2009) C ardiac Cath: EF - 50%. N o instent restenosis, previously placed stent in the RCA. V roman mild disease involving the mid LAD. (02/16/2006) C arotid Doppler/Duplex: LESS THAN 50 % STENOSIS OF THE INTERNAL CAROTID A RTERIES BILATERALLY. [facility] (08/04/2008) Chapo Cheng MD routine-letter fdx: T he following medications were removed from the medication list: Coreg 12.5 Mg Tabs (Carvedilol) ..... 1 1/2 tab in pm His updated medication list for this problem includes: Coreg 6.25 Mg Tabs (Carvedilol) ..... Twice daily Vytorin 10-20 Mg Tabs (Ezetimibe-simvastatin) ..... One tab. at bedtime Aspirin 81 Mg Tabs (Aspirin) ..... One tab. daily B P today: 130/72 Prior BP: 152/90 (08/01/2008) N uclear Stress Findings: Abnormal adenosine mediated myocardial perfusion study There is mild reversible ischemia of the basal to the mid inferior wall. There is significant 'Transient Ischemic Dilattion of the LV at peak stress (T.I.D. index of 1.86) Normal left ventricular systolic function with a calculated ejection fraction of 68% GC (01/24/2009) C ardiac Cath: EF - 50%. N o instent restenosis, previously placed stent in the RCA. V roman mild disease involving the mid LAD. (02/16/2006) C arotid Doppler/Duplex: LESS THAN 50 % STENOSIS OF THE INTERNAL CAROTID A RTERIES BILATERALLY. [facility] (08/04/2008) Chapo Cheng MD office visit: H is updated medication list for this problem includes: Coreg 12.5 Mg Tabs (Carvedilol) ..... One tab. daily am Vytorin 10-20 Mg Tabs (Ezetimibe-simvastatin) ..... One tab. at bedtime Aspirin 81 Mg Tabs (Aspirin) ..... One tab. daily Coreg 12.5 Mg Tabs (Carvedilol) ..... 1 1/2 tab in pm BP today: 152/90 Prior BP: 143/87 (01/18/2008) N uclear Stress Findings: 1. Adenosine infusion per protocol 2 . No undue symptoms or arrhythmias [address] segment depression 4 . Stable hemodynamics 5 . Radiopharmaceutical injected at maximal coronary vasodilation 6 . Normal perfusion. 7 . LVEF 66% (02/03/2008) C ardiac Cath: EF - 50%. N o instent restenosis, previously placed stent in the RCA. V roman mild disease involving the mid LAD. (02/16/2006) C arotid Doppler/Duplex: normal: (08/12/2006) Chapo Cheng MD office visit: H is updated medication list for this problem includes: Coreg 12.5 Mg Tabs (Carvedilol) ..... One tab. daily am Vytorin 10-20 Mg Tabs (Ezetimibe-simvastatin) ..... One tab. at bedtime Aspirin 81 Mg Tabs (Aspirin) ..... One tab. daily Coreg 12.5 Mg Tabs (Carvedilol) ..... 1 1/2 tab in pm Chapo Cheng MD office visit: H is updated medication list for this problem includes: Coreg 12.5 Mg Tabs (Carvedilol) ..... One tab. daily am Vytorin 10-20 Mg Tabs (Ezetimibe-simvastatin) ..... One tab. at bedtime Aspirin 81 Mg Tabs (Aspirin) ..... One tab. daily Coreg 12.5 Mg Tabs (Carvedilol) ..... 1 1/2 tab in pm BP today: 152/90 Prior BP: 143/87 (01/18/2008) N uclear Stress Findings: 1. Adenosine infusion per protocol 2 . No undue symptoms or arrhythmias [address] segment depression 4 . Stable hemodynamics 5 . Radiopharmaceutical injected at maximal coronary vasodilation 6 . Normal perfusion. 7 . LVEF 66% (02/03/2008) C ardiac Cath: EF - 50%. N o instent restenosis, previously placed stent in the RCA. V roman mild disease involving the mid LAD. (02/16/2006) C arotid Doppler/Duplex: normal: (08/12/2006) Chapo Cheng MD office visit: H is updated medication list for this problem includes: Coreg 12.5 Mg Tabs (Carvedilol) ..... One tab. daily am Aspirin 81 Mg Tabs (Aspirin) ..... One tab. daily Coreg 12.5 Mg Tabs (Carvedilol) ..... 1 1/2 tab in pm BP today: 152/90 Prior BP: 143/87 (01/18/2008) N uclear Stress Findings: 1. Adenosine infusion per protocol 2 . No undue symptoms or arrhythmias [address] segment depression 4 . Stable hemodynamics 5 . Radiopharmaceutical injected at maximal coronary vasodilation 6 . Normal perfusion. 7 . LVEF 66% (02/03/2008) C ardiac Cath: EF - 50%. N o instent restenosis, previously placed stent in the RCA. V roman mild disease involving the mid LAD. (02/16/2006) C arotid Doppler/Duplex: normal: (08/12/2006) E chocardiogram: The left ventricular chamber size is normal. N ormal left ventricular wall thickness. L V EF is estimated at 60%. M yxomatous mitral valve. T he aortic valve appears mildly thickened (sclerotic). M inimal mitral regurgitation. T here is a trace of aortic regurgitation. M inimal tricuspid regurgitation. Minimal tricuspid regurgitation. N o evidence of pulmonic valve regurgitation. (02/03/2008) Chapo Cheng MD office visit: H is updated medication list for this problem includes: Coreg 12.5 Mg Tabs (Carvedilol) ..... One tab. daily am Hydrochlorothiazide 12.5 Mg Caps (Hydrochlorothiazide) ..... 1/2 tab. daily Aspirin 81 Mg Tabs (Aspirin) ..... One tab. daily Benicar 40 Mg Tabs (Olmesartan medoxomil) ..... One tab. daily Coreg 12.5 Mg Tabs (Carvedilol) ..... 1 1/2 tab in pm BP today: 152/90 P rior BP: 143/87 (01/18/2008) Chapo Cheng MD office visit: H is updated medication list for this problem includes: Coreg 12.5 Mg Tabs (Carvedilol) ..... One tab. daily am Vytorin 10-20 Mg Tabs (Ezetimibe-simvastatin) ..... One tab. at bedtime Aspirin 81 Mg Tabs (Aspirin) ..... One tab. daily Coreg 12.5 Mg Tabs (Carvedilol) ..... 1 1/2 tab in pm BP today: 152/90 Prior BP: 143/87 (01/18/2008) N uclear Stress Findings: 1. Adenosine infusion per protocol 2 . No undue symptoms or arrhythmias [address] segment depression 4 . Stable hemodynamics 5 . Radiopharmaceutical injected at maximal coronary vasodilation 6 . Normal perfusion. 7 . LVEF 66% (02/03/2008) C ardiac Cath: EF - 50%. N o instent restenosis, previously placed stent in the RCA. V roman mild disease involving the mid LAD. (02/16/2006) C arotid Doppler/Duplex: normal: (08/12/2006) Chapo Cheng MD office visit: H is updated medication list for this problem includes: Coreg 12.5 Mg Tabs (Carvedilol) ..... One tab. daily am Aspirin 81 Mg Tabs (Aspirin) ..... One tab. daily Coreg 12.5 Mg Tabs (Carvedilol) ..... 1 1/2 tab in pm BP today: 152/90 Prior BP: 143/87 (01/18/2008) N uclear Stress Findings: 1. Adenosine infusion per protocol 2 . No undue symptoms or arrhythmias [address] segment depression 4 . Stable hemodynamics 5 . Radiopharmaceutical injected at maximal coronary vasodilation 6 . Normal perfusion. 7 . LVEF 66% (02/03/2008) E chocardiogram: The left ventricular chamber size is normal. N ormal left ventricular wall thickness. L V EF is estimated at 60%. M yxomatous mitral valve. T he aortic valve appears mildly thickened (sclerotic). M inimal mitral regurgitation. T here is a trace of aortic regurgitation. M inimal tricuspid regurgitation. Minimal tricuspid regurgitation. N o evidence of pulmonic valve regurgitation. (02/03/2008) C ardiac Cath: EF - 50%. N o instent restenosis, previously placed stent in the RCA. V roman mild disease involving the mid LAD. (02/16/2006) Chapo Cheng MD cp: H is updated medication list for this problem includes: Coreg 12.5 Mg Tabs (Carvedilol) ..... One tab. twice daily Aspirin 81 Mg Tabs (Aspirin) ..... One tab. daily N uclear Stress Findings: EF - 67%. N o EKG changes diagnostic for ischemia. N ormal myocardial perfusion without infarct or ischemia. (03/02/2007) E cho: EF - 60-65%. M ild diastolic dysfunction. Thickened aortic valve. A trial and ventricular pace wires. P acemaker. T race mitral regurgitation. T race tricuspid regurgitation. PA pressure of 27mmHg. (03/02/2007) C ardiac Cath: EF - 50%. N o instent restenosis, previously placed stent in the RCA. V roman mild disease involving the mid LAD. (02/16/2006) Chapo Cheng MD cp: H is updated medication list for this problem includes: Coreg 12.5 Mg Tabs (Carvedilol) ..... One tab. twice daily Aspirin 81 Mg Tabs (Aspirin) ..... One tab. daily Orders: Stress Test - Adenosine ([id number]) N uclear Stress Findings: EF - 67%. N o EKG changes diagnostic for ischemia. N ormal myocardial perfusion without infarct or ischemia. (03/02/2007) Echo: EF - 60-65%. M ild diastolic dysfunction. T hickened aortic valve. A trial and ventricular pace wires. P acemaker. T race mitral regurgitation. T race tricuspid regurgitation. PA pressure of 27mmHg. (03/02/2007) C ardiac Cath: EF - 50%. N o instent restenosis, previously placed stent in the RCA. V roman mild disease involving the mid LAD. (02/16/2006) C arotid Doppler/Duplex: normal: (08/12/2006) Chapo Cheng MD cp: H is updated medication list for this problem includes: Coreg 12.5 Mg Tabs (Carvedilol) ..... One tab. twice daily Vytorin 10-20 Mg Tabs (Ezetimibe-simvastatin) ..... One tab. at bedtime Aspirin 81 Mg Tabs (Aspirin) ..... One tab. daily Orders: E KG ([id number]) N uclear Stress Findings: EF - 67%. N o EKG changes diagnostic for ischemia. N ormal myocardial perfusion without infarct or ischemia. (03/02/2007) E cho: EF - 60-65%. M ild diastolic dysfunction. T hickened aortic valve. A trial and ventricular pace wires. P acemaker. T race mitral regurgitation. T race tricuspid regurgitation. PA pressure of 27mmHg. (03/02/2007) C ardiac Cath: EF - 50%. N o instent restenosis, previously placed stent in the RCA. V roman mild disease involving the mid LAD. (02/16/2006) C arotid Doppler/Duplex: normal: (08/12/2006) Chapo Cheng MD Date Name Arterial Duplex Bi-L ower EX Arterial Duplex Bi-L ower EX Aorta Duplex Ultraso und Complete Echo Stress Regadenoson PROTHROMBIN TIME WIT H INR LIPID PANEL CBC (INCLUDES DIFF/P LT) BASIC METABOLIC PANE L W/EGFR AIF Diagnostic - [facility] V URINALYSIS, COMPLETE W/REFLEX TO CULTURE Partial Thromboplast in Time, Activated PROTHROMBIN TIME WIT H INR CBC (INCLUDES DIFF/P LT) COMPREHENSIVE METABO LIC PANEL, W/EGFR Stress Regadenoson Complete Echo Arterial Duplex Bi-L ower EX Cardioversion - GC Complete Echo STR - Nuclear Complete Echo Stress Test - Adenos ine Pacemaker Dual Chamb er - GC Complete Echo Stress Test - Nuclea r Carotid Duplex Bilat eral Complete Echo Gallbaladder Ultraso und Stress Test - Adenos ine HISTORY OF PROCEDURES Procedure Date Procedure Name Provider Procedure Notes S tatus Complex e/m visit ad d on Chapo Cheng MD completed EKG Chapo Cheng MD complete d EKG Chapo Cheng MD complete d Regadenoson, 4 units Chapo Cheng MD completed Cardiolite, 2 units Chapo Cheng MD completed SPECT Images Chapo Cheng MD comple maxx Stress EKG Chapo hCeng MD complete d Pacemaker Interrogation, Remote (Tech) Chapo Cheng MD INTERROGATION REMOTE </90 D GUIDE WINDER REVIEW completed Pacemaker Interrogation, Remote (Prof) Chapo Cheng MD INTERROGATION EVAL REMOTE </90 D 1/2/CRADLE PLACER LEAD P completed Pacemaker Interrogation, Remote (Tech) Chapo Cheng MD INTERROGATION REMOTE </90 D GUIDE WINDER REVIEW completed Pacemaker Interrogation, Remote (Prof) Chapo Cheng MD INTERROGATION EVAL REMOTE </90 D 1/2/CRADLE PLACER LEAD P completed Pacemaker Interrogation, Remote (Tech) Chapo Cheng MD INTERROGATION REMOTE </90 D GUIDE WINDER REVIEW completed Pacemaker Interrogation, Remote (Prof) Chapo Cheng MD INTERROGATION EVAL REMOTE </90 D 1/2/CRADLE PLACER LEAD P completed Pacemaker Interrogation, Remote (Tech) Chapo Cheng MD INTERROGATION REMOTE </90 D GUIDE WINDER REVIEW completed Pacemaker Interrogation, Remote (Prof) Chapo Cheng MD INTERROGATION EVAL REMOTE </90 D 1/2/CRADLE PLACER LEAD P completed EKG Chapo Cheng MD complete d Pacemaker Interrogation, Remote (Tech) Chapo Cheng MD INTERROGATION REMOTE </90 D GUIDE WINDER REVIEW completed Pacemaker Interrogation, Remote (Prof) Chapo Cheng MD INTERROGATION EVAL REMOTE </90 D 1/2/CRADLE PLACER LEAD P completed Pacemaker Interrogation, Remote (Tech) Chapo Cheng MD INTERROGATION REMOTE </90 D GUIDE WINDER REVIEW completed Pacemaker Interrogation, Remote (Prof) Chapo Cheng MD INTERROGATION EVAL REMOTE </90 D 1/2/CRADLE PLACER LEAD P completed EKG Chapo Cheng MD complete d EKG Chapo Cheng MD complete d ICM Interrogation, Remote (Prof) Chapo Cheng MD INTERROGATION EVAL REMOTE </30 D CV MNTR SYS completed Pacemaker Interrogation, Remote (Tech) Chapo Cheng MD INTERROGATION REMOTE </90 D GUIDE WINDER REVIEW completed Pacemaker Interrogation, Remote (Prof) Chapo Cheng MD INTERROGATION EVAL REMOTE </90 D 1/2/CRADLE PLACER LEAD P completed Pacemaker Interrogation, Remote (Tech) Chapo Cheng MD INTERROGATION REMOTE </90 D GUIDE WINDER REVIEW completed Pacemaker Interrogation, Remote (Prof) Chapo Cheng MD INTERROGATION EVAL REMOTE </90 D 1/2/CRADLE PLACER LEAD P completed EKG Andrzej Reaves RN completed Pacemaker Interrogation, Remote (Tech) Chapo Cheng MD INTERROGATION REMOTE </90 D GUIDE WINDER REVIEW completed Pacemaker Interrogation, Remote (Prof) Chapo Cheng MD INTERROGATION EVAL REMOTE </90 D 1/2/CRADLE PLACER LEAD P completed Pacemaker Interrogation, Remote (Tech) Chapo Cheng MD INTERROGATION REMOTE </90 D GUIDE WINDER REVIEW completed Pacemaker Interrogation, Remote (Prof) Chapo Cheng MD INTERROGATION EVAL REMOTE </90 D 1/2/CRADLE PLACER LEAD P completed Pacemaker Programmin g (Dual Lead) Chapo Cheng MD PROGRAM EVAL IMPLANTABLE IN PERSN DUAL LD PACER completed Pacemaker Interrogation, Remote (Tech) Chapo Cheng MD INTERROGATION REMOTE </90 D GUIDE WINDER REVIEW completed Pacemaker Interrogation, Remote (Prof) Chapo Cheng MD INTERROGATION EVAL REMOTE </90 D 1/2/CRADLE PLACER LEAD P completed Pacemaker Interrogation, Remote (Tech) Chapo Cheng MD INTERROGATION REMOTE </90 D GUIDE WINDER REVIEW completed Pacemaker Interrogation, Remote (Prof) Chapo Cheng MD INTERROGATION EVAL REMOTE </90 D 1/2/CRADLE PLACER LEAD P completed ePrescribe - Check this box if eRx is used Chapo Cheng MD completed EKG Chapo Cheng MD complete d EKG Chapo Cheng MD complete d EKG Chapo Cheng MD complete d
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
--- OUTSIDE RECORDS SUMMARY | 2024-08-05 02:23 | XMS_ITS | Clinical Summary ---
Author Organization [facility] Address [facility] [place] [address] Care Team Providers Care Heating And Ventilating Tender Name Role Phone Isacc Talamantes DO Primary Care Provider [phone]- [phone] Anel Ansari MD Unavailable [phone] Allergies No known active allergies Medications aspirin [...] fibrillation 04/07/2017 Coronary artery disease invo lving [place] coronary artery of [place] heart without angina pectoris 04/07/2017 S/P coronary artery stent placement 04/07/2017 Cardiac pacemaker in situ 04/02/2017 Overview (04/02/2017): Medtronic Dual Pacemaker Dx; SSS, PAF. DOI 03/18/2011, Chronic leads 08/11/2002. CardioKinetix remote home monitor Q3 mo, Office pacer [...] (12+ YRS) 09/25/2020,08/28/2020 Pneumococcal Conjugate, Unspecified 05/05/2008 Surgical History Surgery Date Site/Laterality Comments CARDIAC SURGERY LITHOTRIPSY COLONOSCOPY NECK SURGERY INSERT / REPLACE / REMOVE PACEMAKER Medical History Medical History Date Comments Atrial fibrillation (CMS/HCC) (HCC) Hypercholesteremia Hypertension Diabetes mellitus (HCC) patient states pre-diabetic Family History Medical History Relation Name Comments Other Brother 1 Unknown; Cause of : Unknown Cancer Brother 2 Cancer, unknown ; Cause of : Cancer, unknown Cancer Father Cancer, unknown ; Cause of : Cancer, unknown Cancer Mother Cancer, unknown ; Cause of : Cancer, unknown Cancer Sister Cancer, unknown ; Cause of : Cancer, unknown Relation Name Status Comments Brother 1 Brother 2 Father Mother Sister Social History [...] on file 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 Gender Identity Not on file Sexual Orientation Not on file Obstetrics History Last Filed Vital Signs Vital Sign Reading [...] 03/11/2023 8:56 AM CDT Plan of Treatment Health Maintenance Due Date Last Done Comments Depression Screening 1940 Fall Risk Assessment 1940 DTaP/Tdap/Td Vaccine (1 - Tdap) 10/20/1951 Hepatitis B Screening 1958 Zoster Vaccine (1 of 2) 1990 Well Visit 65+ 2005 Pneumococcal vaccine 65+ (2 of 2 - PPSV23 or PCV20) 06/30/2008 05/05/2008 Covid-19 Vaccine (3 - 2023-2 5 season) 2024 09/25/2020, 08/28/2020 Influenza Vaccine (#1) 2024 , 05/05/2017, 05/05/2016, Additional history exists Medical Devices Implanted Type Area Admissions Rn Device Identifier Shelf Expiration Date Model / Serial / Lot Pacemaker-2010 Implanted:12/2010 (Quantity not on file) Pacemaker Chest Medtronic Inc SSS, PAF ADAPTA / [id number] / Insurance MEDICARE COMMERCIAL GENERIC MEDICARE SOLUTIONS MEDICARE SOLUTIONS Care Teams Heating And Ventilating Tender Relationship Specialty Start Date End Date Isacc Talamantes DO PCP - General 10/10/16 Anel Ansari MD [address] [place] [address] Medical Oncologist/Floor Worker [place] H[facility] 03/11/24
== END 2024-08-03 14:42 | disposition home or self-care (01) ==
LOC: ANHGOSHLAB 14:42
PROVIDERS: PCP Internal Medicine; Visit Provider Nurse Practitioner
DX: R63.4 Abnormal weight loss (principal); Z11.4 Encounter for screening for human immunodeficiency virus [HIV]
CPT/HCPCS: 36415; 80053; 85025; 85652; 86703; 86803; G0432

== ENCOUNTER 2024-08-03 14:51 | Outpatient (CLI) | payer MEDICARE, SELFPAY ==
--- NOTE | ~2024-08-03 | XR_ITS ---
CHEST RADIOGRAPH, PA AND LATERAL CLINICAL HISTORY: R05.1 - Acute cough . COMPARISON: 08/28/2023 TECHNIQUE: PA and lateral views of the chest. FINDINGS The left mid lung is partially obscured due to pacemaker generator. Wires project over the right atrium and right ventricle. The remainder of the cardiomediastinal silhouette is otherwise unremarkable. Pleural plaques identified. The lungs are clear. IMPRESSION: No focal infiltrate or effusion. Reviewed, dictated and finalized at location A. [employer]
== END 2024-08-03 14:52 | disposition home or self-care (01) ==
LOC: GOSHIMG 14:53
PROVIDERS: PCP Nurse Practitioner; Visit Provider Nurse Practitioner
DX: R05.1 Acute cough (principal)
CPT/HCPCS: 71046

== ENCOUNTER 2025-01-27 09:14 | Outpatient (CLI) | payer MEDICARE, SELFPAY ==
--- NOTE | ~2025-01-27 | CT_ITS ---
EXAMINATION: CT cervical spine wo con DATE: 01/27/2025 09:28 INDICATION: Cervical radiculopathy TECHNIQUE: Computed tomography (CT) of the cervical spine was performed without intravenous contrast. The dose-length product was 261.06 mGy-cm. COMPARISON: None FINDINGS: 1-2 mm anterolisthesis C7 on T1. Cervical alignment is normal.. Severe atlantoaxial osteoarthritis. A nterior and posterior osseous fusion at C4-C5. Remaining vertebral body heights are normal. No acute fracture. Severe disc height loss at C6-C7 and moderate to severe disc height loss at C5-C6. Small am ount of a sclerotic callus location at the bilateral carotid bulbs. Cervical soft tissues are otherwi se unremarkable. Minimal pleural calcification at the left apex. The following disc levels are specif ically discussed: C2-C3: The disc does not extend beyond the endplate margin. There is mild right and moderate left unc overtebral joint osteoarthritis. There is mild to moderate right and moderate left facet joint osteoa rthritis. There is mild to moderate left neural foraminal stenosis. There is no central canal stenosi s. C3-C4: Disc is bulging. There is mild right and moderate left uncovertebral joint osteoarthritis. The re is mild to moderate right and severe left right and facet joint osteoarthritis. There is moderate to severe left and mild right neural foraminal stenosis. There is mild central canal stenosis. C4-C5: Anterior and posterior spinal fusion with hypertrophic changes along the posterior margin of t he fused disc space. There is moderate right and moderate to severe left neural foraminal stenosis. T here is mild central canal stenosis. C5-C6: Posterior disc osteophyte complex. There is severe bilateral uncovertebral joint osteoarthriti s. There is moderate right and severe left facet joint osteoarthritis. There is moderate to severe le ft and moderate right neural foraminal stenosis. There is mild central canal stenosis. C6-C7: Posterior disc osteophyte complex. There is severe bilateral uncovertebral joint osteoarthriti s. There is mild to moderate bilateral facet joint osteoarthritis. There is moderate left and mild to moderate left neural foraminal stenosis. There is no central canal stenosis. C7-T1: The disc does not extend beyond the more posterior T1 endplate margin. There is no uncovertebr al joint osteoarthritis. There is severe left and moderate to severe right facet joint osteoarthritis . There is mild right and moderate left neural foraminal stenosis. There is no central canal stenosis . IMPRESSION: 1. Minimal progression of severe cervical spondylosis with anterior and posterior spinal fusion at C4 -C5. Reviewed, dictated and finalized at location A. IMPRESSION: 1. Minimal progression of severe cervical spondylosis with anterior and posteri or spinal fusion at C4-C5.
== END 2025-01-27 09:15 | disposition home or self-care (01) ==
LOC: MICIMG 09:14
PROVIDERS: PCP Internal Medicine; Visit Provider Anesthesiology
DX: M47.812 Spondylosis without myelopathy or radiculopathy, cervical region (principal); Z98.1 Arthrodesis status
CPT/HCPCS: 72125

== ENCOUNTER 2025-02-09 08:31 | Outpatient (CLI) | payer MEDICARE, SELFPAY ==
--- OUTSIDE RECORDS SUMMARY | 2025-02-09 08:38 | XMS_ITS ---
Author Organization [facility] Address [address] [facility] [place] [address] Care Team Providers Care Power Electronics Engineer Name Role Phone JONES SALES DO Primary Care Provider Valerio Mustafa Unavailable [phone] SADE HOLBROOK CHARLES Unavailable Unavailable REASON FOR VISIT Right = Left Low Back Pain, Left > Right Lower Extrmeity Pain MEDICATIONS Medication SIG (Take, Route, Frequency, Duration) Notes Start Date End Date Status Gabapentin 600 MG 1 tablet Oral Three a day Active Tamsulosin HCl 0.4 MG 1 capsule Oral Onc e a day Active Rosuvastatin Calcium 10 MG 1 tablet Oral Once a day Active Esomeprazole Magnesium 40 MG 1 tablet 1/ 2 to 1 hour before morning meal Oral Once a day Active Sertraline HCl 25 MG 1 tablet Oral Once a day Active Olmesartan Medoxomil 20 MG 1 tablet Oral Once a day Active Potassium Gluconate 595 MG 1 tablet Oral ly Once a day Active Carvedilol 12.5 MG 1 tablet with food Oral Twice a day Active hydroCHLOROthiazide 12.5 MG 1 tablet in the morning Oral Once a day Active Potassium Chloride ER 10 MEQ 1 tablet wi th food Oral Twice a day Active ASA 81 1 tab Oral Active Eliquis 5 MG as directed Orally Active Tylenol 325 MG 1 tablet as needed Orally every 6 hrs Active Fluticasone Propionate 0.05 % 1 applicat ion Externally Once a day for 14 day(s) Active SOCIAL HISTORY Tobacco Use: Social History Observation Description Date Details (start date - stop date) Current Smoker NA - NA Sex Assigned At : Social History Observation Description Sex Assigned At Unknown Tobacco Use/Smoking Question Answer Notes Are you a current smoker How often do you smoke cigarettes? every day How many cigarettes a day do you smoke? 6-10 Are you interested in quitting? 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 He drinks alcohol occasionally. He denies drug use. VITAL SIGNS Blood pressure systolic 136 mm Hg 02/01/20 25 Blood pressure diastolic 77 mm Hg 025 Heart Rate 60 /min 01/31/2025 Respiratory Rate 18 /min 01/31/2025 Height 5 ft 9 in in 01/31/2025 Weight 211 lbs 01/31/2025 BMI 31.16 kg/m2 01/31/2025 Oximetry 95 % 01/31/2025 Post Op Vitals: BP 139/80, H R 60, RR 18, Spo2 95%Discharged to home with self, ambulatory without assistance at baseline, and in no acute distress. Encounters Encounter Location Date Provider Diagnosis [facility] [address] [place] [address] [place] [address] 01/31/2025 Valerio Ellington Spondylosis without myelopathy or radiculopathy, lumbar region M47.816 and Spondylosis without myelopathy or radiculopathy, lumbosacral region M47.817 ASSESSMENTS Encounter Date Diagnosis Assessment Notes Treatment Notes Treatment Clinical Notes Section Notes 01/31/2025 Spondylosis without myelopathy or radiculopathy, lumbar region (ICD-10 - M47.816) 01/31/2025 Spondylosis without myelopathy or radiculopathy, lumbosacral region (ICD-10 - M47.817) 01/31/2025 Other The patient voiced understanding of the treatment plan and all questions were addressed. Obtain informed consent: Bilateral Lumbar 3-5 Radiofrequency Ablation under fluoroscopy. Monitor pulse, blood pressure and SaO2 before, after and as needed during procedure. Verify if the patient is currently taking blood thinner. Verify patients is not currently on antibiotics for infection. Patient may drive home. CARE PLAN: Knowledge deficit: Will verbalize understanding of the proposed procedure, including risk of electrical burn, complications and benefits of the procedure? Will the patient exhibit understanding of the discharge instructions? Safety: The potential for injury related to surgery was assessed; Fire risk score determined, test completed if applicable. Risk for injury related to wrong patient, site, procedure. TIME OUT for safety of patient and includes patient name, , procedure site, side, level, allergies, blood thinners, antibiotics, surgical counts, consents correct and signed etc. Risk for infection: Implements aseptic technique, protects from cross-contaminatio n, performs skin preparations. Pain/Discomfort: Patient verbalizes acceptable level of pain relief prior to discharge and the ability to engage in desired activity. I HAVE REVIEWED THE PATIENT'S MEDICATION LIST AND HAVE RECONCILED THE ABOVE MEDICATIONS. PATIENT GOALS AND SAFETY CONCERNS HAVE BEEN ADDRESSED. LOREN CRANE. PLAN OF TREATMENT Treatment Notes Assessment Notes Other The patient voiced understanding of the treatment plan and all questions were addressed. Obtain informed consent: Bilateral Lumbar 3-5 Radiofrequency Ablation under fluoroscopy. Monitor pulse, blood pressure and SaO2 before, after and as needed during procedure. Verify if the patient is currently taking blood thinner. Verify patients is not currently on antibiotics for infection. Patient may drive home. CARE PLAN: Knowledge deficit: Will verbalize understanding of the proposed procedure, including risk of electrical burn, complications and benefits of the procedure? Will the patient exhibit understanding of the discharge instructions? Safety: The potential for injury related to surgery was assessed; Fire risk score determined, test completed if applicable. Risk for injury related to wrong patient, site, procedure. TIME OUT for safety of patient and includes patient name, , procedure site, side, level, allergies, blood thinners, antibiotics, surgical counts, consents correct and signed etc. Risk for infection: Implements aseptic technique, protects from cross-contamination, performs skin preparations. Pain/Discomfort: Patient verbalizes acceptable level of pain relief prior to discharge and the ability to engage in desired activity. I HAVE REVIEWED THE PATIENT'S MEDICATION LIST AND HAVE RECONCILED THE ABOVE MEDICATIONS. PATIENT GOALS AND SAFETY CONCERNS HAVE BEEN ADDRESSED. LOREN CRANE. Next Appt Details Follow Up: FU 02/21, Reason: Provider Name:Valerio hall, 02/21/2025 10:30:00 AM, [address] [place], [address], Procedure Notes * Category Sub-Category Detail Notes Radiofrequency Ablation Procedure: L3-5 Med ial Branch Nerve Radiofrequency Ablation Location: Bilateral Anesthesia: Local without IV sed ation Operative Technique: After the risks, be nefits, alternative treatment options and potential complications related to the procedure were discussed, informed consent was obtained. The specific risks of this procedure including pain, bleeding, infection, nerve damage, spinal cord injury, paralysis, total spinal anesthesia resulting in cardiopulmonary arrest/, respiratory distress requiring intubation, neuritis after radiofrequency ablation, hyperglycemia, insomnia, hair loss, muscle atrophy, skin depigmentation, weight gain, fluid retention, adrenal suppression, osteoporosis resulting in fractures, avascular necrosis of the hip, cataracts, bleeding gastric ulcer, worsening pain and failure to relieve pain were discussed and the patient is agreeable to proceeding at this time. The patient was placed in the prone position on the fluoroscopy table. Standard ASA monitors were applied. The back was prepped and draped in the usual sterile fashion with chlorhexidine 2%/IPA 70%. The bilateral L4 pedicles were identified with x-ray and the c-arm was obliqued 45 degrees to the selected side superimposing the L4 pedicle on the L4 vertebral body. The skin and subcutaneous structures above it were anesthetized with 3 mL of 1% Preservative-Free lidocaine through a 25 g 1.5-inch needle. A 20-gauge coude 10 cm radiofrequency needle with a 10 mm active tip was inserted in a gun barrel fashion to the junction of the superior articular process and transverse process of L4 until periosteum was contacted. The bilateral L3 medial branch nerves were stimulated with negative motor stimulation at 2 Hz up to 3.0 V. A solution of 10 mg of Preservative-Free Dexamethasone (10 mg/mL), plus 5 mL of 1% Preservative-Free lidocaine was mixed. After negative aspiration for blood, air or CSF, 1 mL of this solution was injected. The bilateral L3 medial branch nerves were lesioned at 80 degrees Celsius for 90 seconds. The exact same procedure was repeated at the bilateral L4 medial branch nerves (at the junction of the superior articular process and transverse process of L5) and the bilateral L5 dorsal rami (at the junction of the superior articular process of S1 and the sacral ala) with no motor stimulation into the lower extremity at 2 Hz up to 3.0 V. The needles were then removed, the skin was cleaned and band-aids were placed over the puncture sites. The patient tolerated the procedure well, was able to ambulate without difficulty and was monitored for 20 minutes. The patient remained hemodynamically and neurologically stable. No complications were observed. Postoperative instructions were reviewed with the patient. The patient was discharged home in good condition with a semi driver. X- ray time:?51 secondsInstrumentation for this procedure came from load number(s): 174 Safe Surgery Practices First Critical Point Constance ent identified by verbal and ID band. Surgical site marked. Assessement of allergies, airway and aspiration risk. Assessed if patient is on anticoagulant. Operataive Consent signed. Patient has discussed procedure with physician JONATHAN HERNANDEZ 01/31/2025 12:32:18 PM > Second Critical Point TIME OUT: Confirm patient identity, procedure and surgical incision site. Patient in proper position and safety straps placed appropriately. ASA score: _3_ Fire Risk Score:_2_ . Alcohol based prep solution had significant time for fumes to dissipate. Confirm surgical steam plant operator and roles. Anticipated critical events. Essential imaging displayed as appropriate. Fluoroscopy precautions taken if applicable. Equipment and supplies in room. Verify patient is not if applicable JONATHAN HERNANDEZ 01/31/2025 12:32:18 PM > Third Critical Point SAFE SURGERY PRACTI SHUN-POST: Complete count of surgical instruments and accessories. Identify barakat patient concerns for recovery and management of the patient. Patient remains free from injury related to surgery. The patient tolerated the procedure well and there were no complications. The patient was taken to the recovery area. The patient remained in stable condition with no apparent complications. Vital signs stable. Injection/procedure/surgical site clean, dry and intact. Post procedure discharge instructions were give to the patient and a follow up appointment was confirmed. The patient was discharged with information on how to reach the clinic at anytime for questions or concerns. Patient discharged ambulatory. Patient denies complaints or questions JONATHAN HERNANDEZ 01/31/2025 1:26:18 PM > Progress Notes * Examination Category Sub-Category Detail Notes Category Not es Examination/ Pre-Anesthesia Assessment General: The patient is alert and oriented X 3 in moderate distress secondary to pain HEENT: Normocephalic, atrau matic. PERRL. The oropharynx is clear Neck: There is limited ran ge of motion of the cervical spine to 60 degrees with extension and lateral rotation bilaterally. There is tenderness to palpation over the bilateral C3-4 through C7-T1 facet joints. Extension and lateral rotation of the cervical spine reproduces the patients typical axial neck pain. The axial loading test is positive. There is diffuse tenderness to palpation over the bilateral cervical paraspinal muscles and significant muscle spasm throughout. There are palpable myofascial trigger points within the body of the trapezius muscles bilaterally Heart: Regular rate and rhy thm Chest: Clear to auscultatio n bilaterally Abdomen: Soft and benign with normal bowel sounds throughout Musculoskeletal and Extremities: There i s tenderness to palpation over the bilateral L2-3 through L5-S1 facet joints. Extension and lateral rotation of the lumbar spine reproduces the patient's typical axial low back pain. Umer's, Kerens's and Gaenslen's are positive bilaterally. There is tenderness to palpation over the bilateral sacroiliac joints and greater trochanters. There is tenderness to palpation over the bilateral lumbar paraspinal muscles and palpable myofascial trigger points throughout. There is weakness and atrophy of the bilateral lumbar paraspinal muscles Neurological: There is positive st raight leg raising bilaterally. There are no focal strength deficits in the bilateral upper and lower extremities Skin: Clean, dry and intac t Psychiatric: Mood and affect are normal History and Physical Notes * HPI (History of Present Illness) Category Sub-Category Detail Notes Category Not es Pain Management Radiographic Imaging A CT lumbar spine done on 11/19/18 demonstrates severe DDD and bilateral facet arthropathy at the lower 4 levels of the lumbar spine. At L2-3 there is moderate bilateral foraminal stenosis. At L3-4 there is moderate bilateral foraminal stenosis. At L4-5 there is a 3 mm retrolisthesis and in combination with posterior disc bulging and severe facet arthropathy there is moderate to severe central canal and bilateral foraminal stenosis. At L5-S1 there is a 3 mm retrolisthesis and in combination with posterior disc bulging and facet hypertrophy there is moderate central canal and bilateral foraminal stenosis. A CT cervical spine done on 10/08/18 demonstrates bilateral facet and uncovertebral hypertrophy from C3-4 through C6-7. There is moderate to severe DDD at C5-6 and C6-7. There is osseous lesion of the C4-5 level. There is bilateral foraminal stenosis at C3-4 C5-6 and C6-7 , A CT lumbar spine done on 11/19/18 demonstrates severe DDD and bilateral facet arthropathy at the lower 4 levels of the lumbar spine. At L2-3 there is moderate bilateral foraminal stenosis. At L3-4 there is moderate bilateral foraminal stenosis. At L4-5 there is a 3 mm retrolisthesis and in combination with posterior disc bulging and severe facet arthropathy there is moderate to severe central canal and bilateral foraminal stenosis. At L5-S1 there is a 3 mm retrolisthesis and in combination with posterior disc bulging and facet hypertrophy there is moderate central canal and bilateral foraminal stenosis. A CT cervical spine done on 10/08/18 demonstrates bilateral facet and uncovertebral hypertrophy from C3-4 through C6-7. There is moderate to severe DDD at C5-6 and C6-7. There is osseous lesion of the C4-5 level. There is bilateral foraminal stenosis at C3-4 C5-6 and C6-7 Assessment and Follow-up: Follow-up Plan documen maxx:: Yes [facility] Quality 2020: MIPS Documented:: Compliant
--- OUTSIDE RECORDS SUMMARY | 2025-02-09 08:38 | XMS_ITS ---
Author Organization [facility] Address [address] [facility] [place] [address] Care Team Providers Care Price Clerk Name Role Phone JONES SALES DO Primary Care Provider Valerio Mustafa Unavailable [phone] SADE HOLBROOK CHARLES Unavailable Unavailable REASON FOR VISIT post procedure call Encounters Encounter Location Date Provider Diagnosis [facility] [address] [place] [address] 02/01/2025 Valerio Ellington PLAN OF TREATMENT Next Appt Details Provider Name:Valerio hall, 02/21/2025 10:30:00 AM, [address] [facility] [place], [address],
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
--- OUTSIDE RECORDS SUMMARY | 2025-02-09 08:38 | XMS_ITS ---
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 Name Role Phone JONES SALES DO Primary Care Provider Valerio Mustafa Unavailable [phone] SADE HOLBROOK CHARLES Unavailable Unavailable ALLERGIES No Known Allergies REASON FOR VISIT Follow Up, Right > Left Low Back Pain, Right = left neck pain MEDICATIONS Medication SIG (Take, Route, Frequency, Duration) Notes Start Date End Date Status Carvedilol 12.5 MG 1 tablet with food Oral Twice a day Active Olmesartan Medoxomil 20 MG 1 tablet Oral Once a day Active Eliquis 5 MG as directed Orally Active Potassium Gluconate 595 MG 1 tablet Oral ly Once a day Active ASA 81 1 tab Oral Active Fluticasone Propionate 0.05 % 1 applicat ion Externally Once a day for 14 day(s) Active Rosuvastatin Calcium 10 MG 1 tablet Oral Once a day Active Gabapentin 600 MG 1 tablet Oral Three a day Active Tylenol 325 MG 1 tablet as needed Orally every 6 hrs Active Sertraline HCl 25 MG 1 tablet Oral Once a day Active Tamsulosin HCl 0.4 MG 1 capsule Oral Onc e a day Active Potassium Chloride ER 10 MEQ 1 tablet wi th food Oral Twice a day Active Esomeprazole Magnesium 40 MG 1 tablet 1/ 2 to 1 hour before morning meal Oral Once a day Active hydroCHLOROthiazide 12.5 MG 1 tablet in the morning Oral Once a day Active SOCIAL HISTORY Tobacco Use: Social History [...] drug use. VITAL SIGNS Blood pressure systolic 113 mm Hg 01/20/20 25 Blood pressure diastolic 68 mm Hg 025 Heart Rate 60 /min 01/19/2025 Respiratory Rate 18 /min 01/19/2025 Height 5 ft 9 in in 01/19/2025 Weight 211 lbs 01/19/2025 BMI 31.16 kg/m2 01/19/2025 Encounters Encounter Location Date Provider Diagnosis [facility] [address] [place] [id number] 01/19/2025 Valerio Ellington Spondylosis without myelopathy or radiculopathy, lumbar region M47.816 ; Spondylosis without myelopathy or radiculopathy, lumbosacral region M47.817 ; Lumbar radiculopathy M54.16 ; Spinal stenosis, lumbar region with neurogenic claudication M48.062 and Radiculopathy, cervical region M54.12 ASSESSMENTS Encounter Date Diagnosis Assessment Notes Treatment Notes Treatment Clinical Notes Section Notes 01/19/2025 Spondylosis without myelopathy or radiculopathy, lumbar region (ICD-10 - M47.816) Schedule a bilateral L3-5 radiofrequency ablation for a more durable treatment of the patient's facet-generated low back pain originating from the L4-5 and L5-S1 facet joints. The risks of this procedure including pain, bleeding, [...] is agreeable to proceeding at this time. 01/19/2025 Spondylosis without myelopathy or radiculopathy, lumbosacral region (ICD-10 - M47.817) 01/19/2025 Lumbar radiculopathy (ICD-10 - M54.16) 01/19/2025 Spinal stenosis, lumbar region with neurogenic claudication (ICD-10 - M48.062) 01/19/2025 Radiculopathy, cervical region (ICD-10 - M54.12) The patient was instructed to notify the office after imaging has been obtained so it can be reviewed and treatment plan formulated moving forward. Patient verbalized understanding and agrees with current plan. 01/19/2025 Other The above-named patient was evaluated in conjunction with Dr. Ellington. I have discussed and reviewed all of the pertinent history, physical examination findings and diagnostic imaging results with him. As a result of our discussion, Dr. Ellington has determined the above assessment and directed the treatment plan. This note was dictated using voice recognition software and therefore inadvertent errors may have occurred. This note was dictated by ANDER Aviles. Total Time Spent with Patient and Medical Decision Makin minutes PLAN OF TREATMENT Treatment Notes Assessment Notes Spondylosis without myelopat hy or radiculopathy, lumbar region Schedule a bilateral L3-5 radiofrequency ablation for a more durable treatment of the patient's facet-generated low back pain originating from the L4-5 and L5-S1 facet joints. The risks of this procedure including pain, bleeding, [...] is agreeable to proceeding at this time. Radiculopathy, cervical region The patie nt was instructed to notify the office after imaging has been obtained so it can be reviewed and treatment plan formulated moving forward. Patient verbalized understanding and agrees with current plan. Other The above-named patient was evaluated in conjunction with Dr. Ellington. I have discussed and reviewed all of the pertinent history, physical examination findings and diagnostic imaging results with him. As a result of our discussion, Dr. Ellington has determined the above assessment and directed the treatment plan. This note was dictated using voice recognition software and therefore inadvertent errors may have occurred. This note was dictated by ANDER Aviles. Total Time Spent with Patient and Medical Decision Makin minutes Pending Test Test Name Order Date CT Scan : C-Spine W/O Contrast Next Appt Details Follow Up: bilateral L3-5 RF A, Reason: Provider Name:Valerio hall, 02/21/2025 10:30:00 AM, [address] [place], [phone], Progress Notes * Examination Category Sub-Category Detail [...] patient's typical axial low back pain. [place]'s, [place]'s and [place]'s are positive bilaterally. There is [...] and Follow-up: Follow-up Plan documen maxx:: Yes MIPS Quality 2020: MIPS Documented:: Compliant
--- OUTSIDE RECORDS SUMMARY | 2025-02-09 08:38 | XMS_ITS | Patient Health Record ---
Author Organization [facility] Address [address] [place] [address] DINAH Sandhu [address] Care Team Providers Care Law Reporter Name Role Phone JONES SALES DO Primary Care Provider Valerio Mustafa Unavailable [phone] SADE HOLBROOK CHARLES Unavailable Unavailable ALLERGIES No Known Allergies REASON FOR REFERRAL No Information MEDICATIONS Medication SIG (Take, Route, Frequency, Duration) Notes Start Date End Date Status Tylenol 325 MG 1 tablet as needed Orally every 6 hrs Active Tamsulosin HCl 0.4 MG 1 capsule Oral Onc e a day Active Fluticasone Propionate 0.05 % 1 applicat ion Externally Once a day for 14 day(s) Active Rosuvastatin Calcium 10 MG 1 tablet Oral Once a day Active Esomeprazole Magnesium 40 MG 1 tablet 1/ 2 to 1 hour before morning meal Oral Once a day Active Sertraline HCl 25 MG 1 tablet Oral Once a day Active hydroCHLOROthiazide 12.5 MG 1 tablet in the morning Oral Once a day Active Potassium Chloride ER 10 MEQ 1 tablet wi th food Oral Twice a day Active Olmesartan Medoxomil 20 MG 1 tablet Oral Once a day Active Potassium Gluconate 595 MG 1 tablet Oral ly Once a day Active Carvedilol 12.5 MG 1 tablet with food Oral Twice a day Active ASA 81 1 tab Oral Active Gabapentin 600 MG 1 tablet Oral Three a day Active Eliquis 5 MG as directed Orally Active SOCIAL HISTORY Tobacco Use: Social History [...] in quitting? Not ready to vj t Alcohol Screen (Audit-C) Question Answer Notes Did you have a drink contain ing alcohol in the past year? Yes How often did you have a dri nk containing alcohol in the past year? Monthly or less (1 point) How many drinks did you have on a typical day when you were drinking in the past year? 1 or 2 drinks (0 point) How often did you have 6 or more drinks on one occasion in the past year? Never (0 point) Points 1 Interpretation Negative Section Notes: Patient is retired. He smoke s a pack of cigarettes daily. He drinks alcohol occasionally. He denies drug use. Patient is retired. He smoke s a pack of cigarettes daily. He drinks alcohol occasionally. He denies drug use. Patient is retired. He smoke s a pack of cigarettes daily. He drinks alcohol occasionally. He denies drug use. 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 He drinks alcohol occasionally. He denies drug use. 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 He drinks alcohol occasionally. He denies drug use. 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 He drinks alcohol occasionally. He denies drug use. 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 He drinks alcohol occasionally. He denies drug use. 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 He drinks alcohol occasionally. He denies drug use. 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 He drinks alcohol occasionally. He denies drug use. 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 He drinks alcohol occasionally. He denies drug use. 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 He drinks alcohol occasionally. He denies drug use. 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 He drinks alcohol occasionally. He denies drug use. PROBLEMS Problem Type ICD Code Onset Dates Problem Status W/U Status Risk SNOMED Code Notes Problem Spondylolisthesis , lumbar region (M43.16) Active confirmed Acquired spondylolisthesis (939767248) Problem Spinal enthesopathy, site unspecified (M46.00) Active confirmed Spinal enthesopathy (83647696) Problem Spondylosis without myelopathy or radiculopathy, cervical region (M47.812) Active confirmed Cervical spondylosis without myelopathy (476671316) Problem Spondylosis without myelopathy or radiculopathy, cervicothoracic region (M47.813) Active confirmed Cervical spondylosis without myelopathy (214855201) Problem Spondylosis without myelopathy or radiculopathy, lumbar region (M47.816) Active confirmed Lumbosacral spondylosis without myelopathy (65499105) Problem Spondylosis without myelopathy or radiculopathy, lumbosacral region (M47.817) Active confirmed Lumbosacral spondylosis without myelopathy (disorder) (06947575) Problem Other intervertebral disc degeneration, lumbar region (M51.36) Active confirmed Degeneration of lumbar intervertebral disc (26190980) Problem Other intervertebral disc degeneration, lumbosacral region (M51.37) Active confirmed Degeneration of lumbosacral intervertebral disc (98999199) Problem Other specified dorsopathies, cervical region (M53.82) Active confirmed Disorder of cervical spine (035760894) Problem Radiculopathy, cervical region (M54.12) Active confirmed Cervical radiculopathy (72019934) Problem Radiculopathy, lumbar region (M54.16) Active confirmed Lumbar radiculopathy (339981542) Problem Radiculopathy, lumbosacral region (M54.17) Active confirmed Lumbosacral radiculopathy (6469718) Problem Postlaminectomy syndrome, not elsewhere classified (M96.1) Active confirmed Post-laminectom y syndrome (56994807) Cervical Problem Osseous stenosis of neural canal of cervical region (M99.31) Active confirmed Spinal steno sis in cervical region (43301887) Problem Osseous stenosis of neural canal of lumbar region (M99.33) Active confirmed Spinal stenosis of lumbar region (27612370) Problem Osseous and subluxation stenosis of intervertebral foramina of lumbar region (M99.63) Active confirmed Spinal stenosis of lumbar region (92543494) Problem shelter (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 (Z79.01) Active confirmed Long-term curre nt use of anticoagulant (181635977) Problem Spinal stenosis, lumbar region with neurogenic claudication (M48.062) Active confirmed Neurogenic claudication (512925280) Problem Degenerative cervical spinal stenosis (M48.02) Active confirmed Degenerati ve cervical spinal stenosis (185480704) Problem Lumbar radiculopathy (M54.16) Active confirmed Lumbar radiculopathy (728063730) Problem Other intervertebral disc degeneration, lumbar region with discogenic back pain and lower extremity pain (M51.362) Active confirmed VITAL SIGNS Heart Rate 60 /min 01/31/2025 Post Op Vitals: BP 139/80, HR 60, RR 18, Spo2 95% Discharged to home with self, ambulatory without assistance at baseline, and in no acute distress. Respiratory Rate 18 /min 01/31/2025 Post Op Vitals: BP 139/80, HR 60, RR 18, Spo2 95% Discharged to home with self, ambulatory without assistance at baseline, and in no acute distress. Oximetry 95 % 01/31/2025 Post Op Vitals: BP 139/80, HR 60, RR 18, Spo2 95% Discharged to home with self, ambulatory without assistance at baseline, and in no acute distress. Blood pressure diastolic 77 mm Hg 01/31/2025 Post Op Vitals: BP 139/80, HR 60, RR 18, Spo2 95% Discharged to home with self, ambulatory without assistance at baseline, and in no acute distress. Height 5 ft 9 in in 01/31/2025 Post Op Vitals: BP 139/80, HR 60, RR 18, Spo2 95% Discharged to home with self, ambulatory without assistance at baseline, and in no acute distress. Blood pressure systolic 136 mm Hg 01/31/2025 Post Op Vitals: BP 139/80, HR 60, RR 18, Spo2 95% Discharged to home with self, ambulatory without assistance at baseline, and in no acute distress. Weight 211 lbs 01/31/2025 Post Op Vitals: BP 139/80, HR 60, RR 18, Spo2 95% Discharged to home with self, ambulatory without assistance at baseline, and in no acute distress. BMI 31.16 kg/m2 01/31/2025 Post Op Vitals: BP 139/80, HR 60, RR 18, Spo2 95% Discharged to home with self, ambulatory without assistance at baseline, and in no acute distress. Encounters Encounter Location Date Provider Diagnosis [facility] [address] [place] [id number] 11/17/2024 Valerio Stynowick Lumbar radiculopathy M54.16 ; Radiculopathy, lumbosacral region M54.17 ; Spinal stenosis, lumbar region with neurogenic claudication M48.062 ; Other intervertebral disc degeneration, lumbar region with discogenic back pain and lower extremity pain M51.362 ; Spondylolisthesis, lumbar region M43.16 ; Osseous and subluxation stenosis of intervertebral foramina of lumbar region M99.63 ; Spondylosis without myelopathy or radiculopathy, lumbar region M47.816 ; Spondylosis without myelopathy or radiculopathy, lumbosacral region M47.817 ; Spondylosis without myelopathy or radiculopathy, cervical region M47.812 ; Spondylosis without myelopathy or radiculopathy, cervicothoracic region M47.813 ; Degenerative cervical spinal stenosis M48.02 ; Osseous stenosis of neural canal of cervical region M99.31 and 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 exterminator (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 Z79.01 [facility] [address] [address] 11/22/2024 Valerio Stynowick Radiculopathy, lumba r region M54.16 ; Radiculopathy, lumbosacral region M54.17 and Spinal stenosis, lumbar region with neurogenic claudication M48.062 [facility] [address] [place] [address] 11/23/2024 Valerio Stynowick [facility] [address] [place] [phone] 12/01/2024 Valerio Stynowick Lumbar radiculopathy M54.16 ; Spondylosis without myelopathy or radiculopathy, lumbar region M47.816 ; Radiculopathy, lumbosacral region M54.17 ; Spinal stenosis, lumbar region with neurogenic claudication M48.062 ; Other intervertebral disc degeneration, lumbar region with discogenic back pain and lower extremity pain M51.362 ; Spondylolisthesis, lumbar region M43.16 ; Osseous and subluxation stenosis of intervertebral foramina of lumbar region M99.63 ; Spondylosis without myelopathy or radiculopathy, lumbosacral region M47.817 ; Spondylosis without myelopathy or radiculopathy, cervical region M47.812 ; Spondylosis without myelopathy or radiculopathy, cervicothoracic region M47.813 ; Degenerative cervical spinal stenosis M48.02 ; Osseous stenosis of neural canal of cervical region M99.31 and shelter (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 Z79.01 [facility] [address] [place] [address] 12/13/2024 Valerio Stynowick Spondylosis without myelopathy or radiculopathy, lumbar region M47.816 and Spondylosis without myelopathy or radiculopathy, lumbosacral region M47.817 [facility] [address] [place] [address] 12/27/2024 Valerio Stynowick Spondylosis without myelopathy or radiculopathy, lumbar region M47.816 and Spondylosis without myelopathy or radiculopathy, lumbosacral region M47.817 [facility] [address] [place] [address] 12/28/2024 Valerio Stynowick [facility] [address] [place] [address] [place] [address] 01/04/2025 Valerio Stynowick Spondylosis without myelopathy or radiculopathy, lumbar region M47.816 ; Spondylosis without myelopathy or radiculopathy, lumbosacral region M47.817 ; Lumbar radiculopathy M54.16 and Radiculopathy, lumbosacral region M54.17 [facility] [address] [place] [address] 01/11/2025 Valerio Stynowick Spondylosis without myelopathy or radiculopathy, lumbar region M47.816 and Spondylosis without myelopathy or radiculopathy, lumbosacral region M47.817 [facility] [address] [address] 01/12/2025 Valerio Ellington [facility] [address] [place] [address] [place] [address] 01/19/2025 Valerio Ellington Spondylosis without myelopathy or radiculopathy, lumbar region M47.816 ; Spondylosis without myelopathy or radiculopathy, lumbosacral region M47.817 ; Lumbar radiculopathy M54.16 ; Spinal stenosis, lumbar region with neurogenic claudication M48.062 and Radiculopathy, cervical region M54.12 [facility] [address] [address] 01/31/2025 Valerio Ellington Spondylosis without myelopathy or radiculopathy, lumbar region M47.816 and Spondylosis without myelopathy or radiculopathy, lumbosacral region M47.817 [facility] [address] [address] 02/01/2025 Valerio Ellington ASSESSMENTS Encounter Date Diagnosis Assessment Notes Treatment Notes Treatment Clinical Notes Section Notes 11/17/2024 Radiculopathy, lumbosacral region (ICD-10 - M54.17) 11/22/2024 Radiculopathy, lumbar region (ICD-10 - M54.16) 11/22/2024 Radiculopathy, lumbosacral region (ICD-10 - M54.17) 11/17/2024 Lumbar radiculopathy (ICD-10 - M54.16) Schedule a bilateral L4-5 transforaminal epidural steroid injection. The risks of this procedure including pain, bleeding, infection, spinal headache, persistent spinal fluid leak, epidural hematoma, nerve damage, spinal cord injury, paralysis, total spinal anesthesia resulting in cardiopulmonary arrest/, respiratory distress requiring intubation, insomnia, hyperglycemia, hair loss, muscle atrophy, skin depigmentation, weight gain, fluid retention, adrenal suppression, immunosuppression, osteoporosis resulting in fractures, avascular necrosis of the hip, cataracts, bleeding gastric ulcer, worsening pain and failure to relieve pain were discussed and the patient is agreeable to proceeding at this time. 12/01/2024 Spondylosis without myelopathy or radiculopathy, lumbar region (ICD-10 - M47.816) schedule a bilateral L3-5 medial branch nerve block as a diagnostic and potentially therapeutic endeavor to isolate the source of the patient's facet-generated low back pain originating from the L4-5 and L5-S1 facet joints and to ultimately perform radiofrequency ablation for more durable pain relief. The risks of this procedure including pain, [...] is agreeable to proceeding at this time. 12/01/2024 Lumbar radiculopathy (ICD-10 - M54.16) 12/13/2024 Spondylosis without myelopathy or radiculopathy, lumbar region (ICD-10 - M47.816) 12/13/2024 Spondylosis without myelopathy or radiculopathy, lumbosacral region (ICD-10 - M47.817) 12/27/2024 Spondylosis without myelopathy or radiculopathy, lumbar region (ICD-10 - M47.816) 12/27/2024 Spondylosis without myelopathy or radiculopathy, lumbosacral region (ICD-10 - M47.817) 01/04/2025 Spondylosis without myelopathy or radiculopathy, lumbar region (ICD-10 - M47.816) schedule a bilateral L3-5 medial branch nerve block as a diagnostic and potentially therapeutic endeavor to isolate the source of the patient's facet-generated low back pain originating from the L4-5 and L5-S1 facet joints and to ultimately perform radiofrequency ablation for more durable pain relief. The risks of this procedure including pain, [...] is agreeable to proceeding at this time. 01/04/2025 Spondylosis without myelopathy or radiculopathy, lumbosacral region (ICD-10 - M47.817) 01/11/2025 Spondylosis without myelopathy or radiculopathy, lumbar region (ICD-10 - M47.816) 01/11/2025 Spondylosis without myelopathy or radiculopathy, lumbosacral region (ICD-10 - M47.817) 01/19/2025 Spondylosis without myelopathy or radiculopathy, lumbar [...] radiculopathy, lumbosacral region (ICD-10 - M47.817) 01/31/2025 Spondylosis without myelopathy or radiculopathy, lumbar region (ICD-10 - M47.816) 01/31/2025 Spondylosis without myelopathy or radiculopathy, lumbosacral region (ICD-10 - M47.817) 01/04/2025 Lumbar radiculopathy (ICD-10 - M54.16) 01/19/2025 Lumbar radiculopathy (ICD-10 - M54.16) 12/01/2024 Radiculopathy, lumbosacral region (ICD-10 - M54.17) 11/22/2024 Spinal stenosis, lumbar region with neurogenic claudication (ICD-10 - M48.062) 11/17/2024 Spinal stenosis, lumbar region with neurogenic claudication (ICD-10 - M48.062) We discussed the utility of a minimally invasive lumbar decompression (MILD). Currently, the patient wants to avoid any surgical options. 11/17/2024 Other intervertebral disc degeneration, lumbar region with discogenic back pain and lower extremity pain (ICD-10 - M51.362) 01/04/2025 Radiculopathy, lumbosacral region (ICD-10 - M54.17) 12/01/2024 Spinal stenosis, lumbar region with neurogenic claudication (ICD-10 - M48.062) 01/19/2025 Spinal stenosis, lumbar region with neurogenic claudication (ICD-10 - M48.062) 01/19/2025 Radiculopathy, cervical region (ICD-10 - M54.12) The patient was instructed to notify the office after imaging has been obtained so it can be reviewed and treatment plan formulated moving forward. Patient verbalized understanding and agrees with current plan. 12/01/2024 Other intervertebral disc degeneration, lumbar region with discogenic back pain and lower extremity pain (ICD-10 - M51.362) 11/17/2024 Spondylolisthesis, lumbar region (ICD-10 - M43.16) 11/17/2024 Osseous and subluxation stenosis of intervertebral foramina of lumbar region (ICD-10 - M99.63) 12/01/2024 Spondylolisthesis, lumbar region (ICD-10 - M43.16) 11/17/2024 Spondylosis without myelopathy or radiculopathy, lumbar region (ICD-10 - M47.816) If the patient's axial low back pain persists after the above, schedule a bilateral L3-5 medial branch nerve block as a diagnostic and potentially therapeutic endeavor to isolate the source of the patient's facet-generated low back pain originating from the L4-5 and L5-S1 facet joints and to ultimately perform radiofrequency ablation for more durable pain relief. The risks of this procedure including pain, [...] is agreeable to proceeding at this time. 12/01/2024 Osseous and subluxation stenosis of intervertebral foramina of lumbar region (ICD-10 - M99.63) 12/01/2024 Spondylosis without myelopathy or radiculopathy, lumbosacral region (ICD-10 - M47.817) 11/17/2024 Spondylosis without myelopathy or radiculopathy, lumbosacral region (ICD-10 - M47.817) 11/17/2024 Spondylosis without myelopathy or radiculopathy, cervical region (ICD-10 - M47.812) If the patient's axial neck pain becomes his primary complaint, schedule a bilateral C5-7 medial branch nerve block as a diagnostic and potentially therapeutic endeavor to isolate the source of the patient's facet-generated neck pain originating from the C5-6 through C6-7 facet joints and to ultimately perform radiofrequency ablation for more durable pain relief. The risks of this procedure including pain, [...] is agreeable to proceeding at this time. 12/01/2024 Spondylosis without myelopathy or radiculopathy, cervical region (ICD-10 - M47.812) 12/01/2024 Spondylosis without myelopathy or radiculopathy, cervicothoracic region (ICD-10 - M47.813) 11/17/2024 Spondylosis without myelopathy or radiculopathy, cervicothoracic region (ICD-10 - M47.813) 11/17/2024 Degenerative cervical spinal stenosis (ICD-10 - M48.02) 12/01/2024 Degenerative cervical spinal stenosis (ICD-10 - M48.02) 12/01/2024 Osseous stenosis of neural canal of cervical region (ICD-10 - M99.31) 11/17/2024 Osseous stenosis of neural canal of cervical region (ICD-10 - M99.31) 11/17/2024 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 I made the patient aware that they will be at an increased risk for a thromboembolic event during this time and they are willing to accept this risk. The patient was instructed to notify their primary care physician and/or management associate to obtain clearance prior to discontinuing this medication. 12/01/2024 vermin exterminator (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 (ICD-10 - Z79.01) 11/17/2024 Other The above note was dictated by Dr. Ellington using voice recognition software and therefore inadvertent errors may have occurred. As a result, this note may not represent a completely accurate interpretation of the intended dictation provided. 11/22/2024 Other The patient voiced understanding of the treatment plan and all questions were addressed. Obtain informed consent: Bilateral Lumbar 4-5 Transforaminal Epidural Steroid Injection under fluoroscopy. Monitor pulse, blood pressure and [...] GOALS AND SAFETY CONCERNS HAVE BEEN ADDRESSED. RN initials JW 12/01/2024 Other The above-named patient was evaluated in [...] with Patient and Medical Decision Makin minutes 12/13/2024 Other The patient voiced understanding of the treatment plan and all questions were addressed. Obtain informed consent: under fluoroscopy. Monitor pulse, blood pressure and [...] GOALS AND SAFETY CONCERNS HAVE BEEN ADDRESSED. RN initials 12/27/2024 Other The patient voiced understanding of the treatment plan and all questions were addressed. Obtain informed consent: Bilateral Lumbar 3-5 Medial Branch Nerve Block under fluoroscopy. Monitor pulse, blood pressure and [...] AND SAFETY CONCERNS HAVE BEEN ADDRESSED. LOREN initials JW. 01/04/2025 Other The above-named patient was evaluated in [...] occurred. This note was dictated by ANDER Aviles Total time spent with patient and medical decision making 32 minutes 01/11/2025 Other The patient voiced understanding of the treatment plan and all questions were addressed. Obtain informed consent: Bilateral Lumbar 3-5 Medial Branch Nerve Block under fluoroscopy. Monitor pulse, blood pressure and [...] AND SAFETY CONCERNS HAVE BEEN ADDRESSED. LOREN mathias JW. 01/19/2025 Other The above-named patient was evaluated [...] with Patient and Medical Decision Makin minutes 01/31/2025 Other The patient voiced understanding of [...] AND SAFETY CONCERNS HAVE BEEN ADDRESSED. LOREN menards JE. PLAN OF TREATMENT Pending Test Test Name Order Date CT Scan : C-Spine W/O Contrast Next Appt Details Provider Name:Valerio hall, 02/21/2025 10:30:00 AM, [address] [place] [address], [id number], Insurance Providers Payer Name Payer Address Payer Phone Subscriber Number Group Number Insured Name Patient Relationship to Insured Coverage Start Date Coverage End Date [facility] MEDIC[facility] [employer]VANTAGE (PPO) [address] [address] [place] [phone] [id number] JONES MEREDITH Self - patient is the insured MEDICAL (GENERAL) HISTORY Medical History History ICD Code AFIB COPD Diabetes Emphysema CAD Hypertension Surgical History Surgery Date(Month/Year) Cervical fusion 11/2002 Pacemaker Stents Hernia repair 2023
--- OUTSIDE RECORDS SUMMARY | 2025-02-09 08:38 | XMS_ITS | Encounter Summary ---
Author Organization [facility] Address [address] [facility] [address] [place] [address] Care Team Providers Care Picu Nurse Name Role Phone Isacc Talamantes DO Primary Care Provider [phone] Isacc Talamantes DO Primary Care Provider [phone] Kip Chandler MD Unavailable [phone] Anel Ansari MD Unavailable [phone] Encounter Details Date Type Department Care Team (Late st Contact Info) Description 09/10/2016 Orders Only [facility] ProviderDonovan MD [address] [phone] Social History Tobacco Use Types Packs/Day Years Used Date Smoking Tobacco: Heavy Smoker Comments:Smoking History Pac ks/day: 1 Packs Alcohol Use Standard Drinks/Week Comments Yes 0 (1 standard drink = 0.6 oz pur e alcohol) Sex and Gender Information Value Date Recorded Sex Assigned at Not on file 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
--- OUTSIDE RECORDS SUMMARY | 2025-02-09 08:38 | XMS_ITS | Referral Summary ---
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 DOI 03/18/2011, Chronic leads 08/11/2002. 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 Gender Identity Not on file Sexual Orientation [...] on file Medical Devices Implanted Type Area Accounts Payable Assistant Device Identifier Shelf Expiration Date Model / Serial / Lot Pacemaker-2010 Implanted:12/2010 (Quantity not on file) Pacemaker Chest Medtronic Inc SSS, PAF CECIL / [id number] / Insurance MEDICARE [facility] Address: [address] [address] [place] [address] COMMERCIAL GENERIC [facility] MEDICARE ADVANTAGE [facility] Address: [address] [address] [place] [address] [facility] MEDICARE ADVANTAGE Care Teams Structural Steel Erection Supervisor Relationship Specialty Start Date End Date Isacc Talamantes DO PCP - General 10/10/16 Anel Ansari MD [address] [place] [address] Medical Oncologist/Belt Molder Hematology 03/11/24
--- OUTSIDE RECORDS SUMMARY | 2025-02-09 08:38 | XMS_ITS | Clinical Summary ---
Author Organization [facility] Address [address] [facility] [place] [address] Care Team Providers Care Pmo Business Analyst Name Role Phone Jones Talamantes DO Primary Care Provider [phone] Source Comments [facility],non-owned Affiliates and Associated Physician Practices is amultiple site organization consisting of ambulatory clinics and hospital sitesin [place], [place], [place] and [place]. This disclosure is being madepursuant to the Care Everywhere program and may not contain all information available regarding this patient. Last updated 18.[facility] Allergies No known active allergies Medications * Be aware that medications may not be up to date on this document. Alwaysverify current medications with the patient. acetaminophen (TYLENOL) 325 MG tablet Take 650 mg by mouth as needed Active apixaban (ELIQUIS) 5 MG tablet Take 5 mg by mouth 12/17/2016 Active esomeprazole (NEXIUM) 40 MG capsule 40 mg 10/13/2014 Active carvedilol (COREG) 12.5 MG tablet 12.5 mg 04/02/2015 Active hydroCHLOROthia zide (HYDRODIURIL) 25 MG tablet 25 mg 10/07/2016 Active fluticasone propionate (FLONASE) 50 MCG/ACT nasal spray [place] 1 spray into each nostril once daily [...] 5 03/02/2019 Active ketoconazole (NIZORAL) 2 % creamIndication s:Tinea pedis of both feet Apply to both feet twice daily. 30 days supply. 60 g 2 05/13/2019 Active fluorouracil (EFUDEX) 5 % creamIndication s:Actinic keratoses Apply to affected area (scalp, lateral neck, forearms/dors al hands) twice daily for 2 weeks at [...] SSS, PAF. DOI 03/18/2011, Chronic leads 08/11/2002. 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 on file Not on file Not on file Last Filed Vital Signs [...] Health Maintenance Due Date Last Done Comments DTAP/TDAP/TD VACCINES (1 - Tdap) 10/20/1959 PNEUMOCOCCAL VACCINE 50+ (1 of 1 - PCV) 1990 ZOSTER VACCINE (1 of 2) 1990 Respiratory Syncytial Virus (RSV) Vaccine Pt: or over 60 yrs (1 - 1-dose 75+ series) 10/20/2015 COVID-19 VACCINE (1 - 2023-2 5 season) 2024 DEPRESSION SCREENING 07/13/2024 INFLUENZA VACCINE (#1) 2025 7, 05/05/2016, 05/05/2015 HEPATITIS B VACCINE Aged Out No longe r eligible based on patient's age to complete this topic HIB VACCINE Aged Out No longer eligi ble based on patient's age to complete this topic HPV VACCINE Aged Out No longer eligi ble based on patient's age to complete this topic MENINGOCOCCAL (Group B) VACCINE SHARED DECISION-MAKING Aged Out No longer eligible based on patient's age to complete this topic MENINGOCOCCAL GROUPS A/C/Y/W VACCINE Aged Out No longer eligible b ased on patient's age to complete this topic Insurance MEDICARE Care Teams Pmo Business Analyst Relationship Specialty Start Date End Date Jones Talamantes DO [facility] - General 03/12/09
[2025-02-09 13:10] LABS: Hematocrit 45.1 % (42.0-52.0); Hemoglobin 14.1 g/dL (14.0-18.0); Immature Granulocyte Percent A 0.3 % (0-0.5); Immature Platelet Fraction Pct 7.4 % (0.9-11.2); Lymphocytes Absolute Auto 1.37 K/mm3 (0.9-3.2); Mean Corpuscular HGB Conc 31.3 g/dl (32-36); Mean Corpuscular Hemoglobin 28.7 pg (26-34); Mean Corpuscular Volume 91.9 fl (80-100); Nucleated Red Blood Cells Absolute Auto 0.000 K/mm3 (0.0-0.012); Nucleated Red Blood Cells Perc 0.0 % (0.0-0.2); Platelet Count Result 107 k/mm3 (150-375); Red Blood Count 4.91 M/mm3 (4.6-6.20); White Blood Count 5.8 K/mm3 (4.5-10.0)
[2025-02-09 13:19] LABS: Alanine Aminotransferase 13 U/L (6-50); Albumin Level 3.9 g/dL (3.5-5.1); Alkaline Phosphatase 59 U/L (38-126); Anion Gap 4 mmol/L (4-12); Aspartate Amino Transferase 40 U/L (17-59); Bilirubin,Total 0.9 mg/dL (0.2-1.3); Blood Urea Nitrogen 16 mg/dL (9-20); Calcium 7.9 mg/dL (8.4-10.2); Carbon Dioxide 30 mmol/L (22-30); Chloride 101 mmol/L (98-107); Cholesterol 161 mg/dL (0-200); Estimated Glomerular Filt Rate > 60; Glucose 96 mg/dL (65-110); HDL Direct 34 mg/dL; Potassium 3.9 mmol/L (3.4-5.0); Sodium 135 mmol/L (137-145); Total Protein 6.8 g/dL (6.3-8.2); Triglycerides 106 mg/dL (<150)
[2025-02-09 13:54] LABS: MALB Creatinine Ratio 406.8 mg/g (0-30)
[2025-02-09 14:15] LABS: Hemoglobin A1C 6.3 % (<5.7)
== END 2025-02-09 08:32 | disposition home or self-care (01) ==
LOC: ANHGOSHLAB 08:32
PROVIDERS: PCP Internal Medicine; Visit Provider Internal Medicine
DX: I48.0 Paroxysmal atrial fibrillation (principal); I10 Essential (primary) hypertension; E78.5 Hyperlipidemia, unspecified; E11.9 Type 2 diabetes mellitus without complications; I25.10 Atherosclerotic heart disease of native coronary artery without angina pectoris; Z79.01 Long term (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
CPT/HCPCS: 36415; 80053; 80061; 82043; 83036; 85025; 85055

== ENCOUNTER 2025-03-01 09:45 | Outpatient (CLI) | payer MEDICARE, SELFPAY ==
--- NOTE | ~2025-03-01 | CT_ITS ---
EXAMINATION: CT thoracic spine wo con DATE: 03/01/2025 16:47 CDT INDICATION: Preprocedure testing. Back pain for years. TECHNIQUE: Computed tomography (CT) of the thoracic spine was performed without intravenous contrast. The dose-length product was 969.47 mGy-cm. COMPARISON: None FINDINGS: Thoracic vertebral body heights and alignment are within normal limits. No compression fracture in the thoracic spine. There is a 1.0 cm sclerotic lesion in the right transverse process of T7. There is a 1.7 cm low-density lesion in the left thyroid lobe. A thyroid ultrasound is recommended. There is a 2.0 cm exophytic mass in the left kidney. A renal mass CT is recommended. Mild to moderate degenerative change scattered throughout the thoracic spine. Evaluation of the spinal canal contents and bilateral neuroforamen is limited due to CT technique. However, no CT evidence for significant narrowing of the spinal canal in the thoracic spine. IMPRESSION: 1. No compression fracture in the thoracic spine. 2. Mild to moderate degenerative change scattered throughout the thoracic spine. 3. Indeterminate 1.0 cm sclerotic lesion in the right transverse process of T7. Differential includes bone island or metastatic bone lesion. A total body bone scan or MRI with and without contrast of the thoracic spine is recommended. 4. There is a 2.0 cm exophytic mass in the left kidney. A renal mass CT is recommended. 5. There is a 1.7 cm low-density lesion in the left thyroid lobe. A thyroid ultrasound is recommended. Reviewed, dictated and finalized at location A. IMPRESSION: 1. No compression fracture in the thoracic spine. 2. Mild to moderate degenerative change scattered throughout the thoracic spine . 3. Indeterminate 1.0 cm sclerotic lesion in the right transverse process of T7. Differential includes bone island or metastatic bone lesion. A total body bone scan or MRI with and without contrast of the thoracic spine is recommended. 4. There is a 2.0 cm exophytic mass in the left kidney. A renal mass CT is carlos mmended. 5. There is a 1.7 cm low-density lesion in the left thyroid lobe. A thyroid ult rasound is recommended.
== END 2025-03-01 09:46 | disposition home or self-care (01) ==
LOC: MICIMG 09:46
PROVIDERS: PCP Internal Medicine; Visit Provider Anesthesiology
DX: M51.34 Other intervertebral disc degeneration, thoracic region (principal); M89.8X8 Other specified disorders of bone, other site; N28.89 Other specified disorders of kidney and ureter; E07.9 Disorder of thyroid, unspecified
CPT/HCPCS: 72128

== ENCOUNTER 2025-03-24 10:30 | Outpatient (CLI) | payer MEDICARE, SELFPAY ==
--- OUTSIDE RECORDS SUMMARY | 2025-03-03 04:42 | XMS_ITS ---
Author Organization [facility] Address [address] [facility] [place] [address] Care Team Providers Care Nursing Unit Coordinator Name Role Phone JONES SALES DO Primary Care Provider Valerio Mustafa Unavailable [phone] REASON FOR VISIT Test results Encounters Encounter Location Date Provider Diagnosis [facility] [address] [facility] [place] [address] 03/03/2025 Valerio Ellington PLAN OF TREATMENT Next Appt Details Provider Name:Valerio hall, 03/28/2025 02:45:00 PM, [address] [place], [address],
--- OUTSIDE RECORDS SUMMARY | 2025-03-15 09:45 | XMS_ITS ---
Author Organization [facility] Address [address] [facility] [place] [address] Care Team Providers Care Certified Nursing Assistant Name Role Phone JONES SALES DO Primary Care Provider Ever Blandjannabryanna Valerio Unavailable [phone] ALLERGIES No Known Allergies REASON FOR VISIT FOLLOW UP, Right = Left Low Back Pain, Right = Left Lower Extremity Pain, Right = left neck pain MEDICATIONS Medication SIG (Take, Route, Frequency, Duration) Notes Start Date End Date Status Fluticasone Propionate 0.05 % 1 applicat ion Externally Once a day for 14 day(s) Active Potassium Gluconate 595 MG 1 tablet Oral ly Once a day Active Carvedilol 12.5 MG 1 tablet with food Oral Twice a day Active ASA 81 1 tab Oral Active Eliquis 5 MG as directed Orally Active Tylenol 325 MG 1 tablet as needed Orally every 6 hrs Active Doxycycline Hyclate 100 MG 1 tablet Oral ly twice a day for 5 days Active Pregabalin 75 MG 1 capsule Oral Once a day Active Gabapentin 600 MG 1 tablet Oral Three a day Active Chlorhexidine Gluconate 4 % as directed Externally prior to surgery for 2 days Active Potassium Chloride ER 10 MEQ 1 tablet wi th food Oral Twice a day Active Tamsulosin HCl 0.4 MG [...] the morning Oral Once a day Active Olmesartan Medoxomil 20 MG 1 tablet Oral Once a day Active SOCIAL HISTORY [...] point) Points 1 Interpretation Negative Section Notes: 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 He drinks alcohol occasionally. He denies drug use. VITAL SIGNS Blood pressure systolic 158 mm Hg 03/15/20 25 Blood pressure diastolic 85 mm Hg 025 Heart Rate 60 /min 03/15/2025 Respiratory Rate 18 /min 03/15/2025 Height 5 ft 9 in in 03/15/2025 Weight 212 lbs 03/15/2025 BMI 31.30 kg/m2 03/15/2025 Encounters Encounter Location Date Provider Diagnosis [facility] [address] [place] [address] 03/15/2025 Valerio Ellington Radiculopathy, cervical region M54.12 ; Spondylosis without myelopathy or radiculopathy, cervical region M47.812 ; Radiculopathy, cervicothoracic region M54.13 ; Degenerative cervical spinal stenosis M48.02 ; Lumbar radiculopathy M54.16 ; Radiculopathy, lumbosacral region M54.17 ; FDC (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 Z79.01 and Spondylosis without myelopathy or radiculopathy, 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 03/15/2025 Radiculopathy, cervicothoracic region (ICD-10 - M54.13) 03/15/2025 Degenerative cervical spinal stenosis (ICD-10 - M48.02) 03/15/2025 Lumbar radiculopathy (ICD-10 - M54.16) 03/15/2025 Radiculopathy, lumbosacral region (ICD-10 - M54.17) 03/15/2025 FDC (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 (ICD-10 - Z79.01) The patient was instructed to discontinue eliquis for 3 days add aspirin for 6 days prior to the procedure. I made the patient aware that they will be at an increased risk for a thromboembolic event during this time and they are willing to accept this risk. The patient was instructed to notify their primary care physician and/or poker manager to obtain clearance prior to discontinuing this medication. 03/15/2025 Spondylosis without myelopathy or radiculopathy, cervicothoracic region (ICD-10 - M47.813) 03/15/2025 Other The above-named patient was evaluated in [...] Notes Spondylosis without myelopat hy or radiculopathy, cervical region schedule a bilateral C5-7 medial branch nerve [...] is agreeable to proceeding at this time. FDC (current) use of 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 The patient was instructed to discontinue eliquis for 3 days add aspirin for 6 days prior to the procedure. I made the patient aware that they will be at an increased risk for a thromboembolic event during this time and they are willing to accept this risk. The patient was instructed to notify their primary care physician and/or poker manager to obtain clearance prior to discontinuing this medication. Other The above-named patient was evaluated in [...] with Patient and Medical Decision Makin minutes Next Appt Details Follow Up: bilateral C5-7 MB NB, Reason: Provider Name:Valerio Jeffery hall, 03/28/2025 02:45:00 PM, [address] [place] [address], [phone], Progress Notes * Examination Category Sub-Category Detail [...] patient's typical axial low back pain. Umer's, [place]'s and Gaenslen's are positive bilaterally. There is [...]
--- OUTSIDE RECORDS SUMMARY | 2025-03-21 08:15 | XMS_ITS ---
Author Organization [facility] Address [address] [facility] [place] [address] Care Team Providers Care Spiral Spring Winder Name Role Phone JONES SALES DO Primary Care Provider Ever Blandjannabryanna Valerio Unavailable [phone] REASON FOR VISIT Right = Left Neck [...] Encounters Encounter Location Date Provider Diagnosis [facility] [address] [place] [address] 03/21/2025 Valerio Ellington Spondylosis without myelopathy or [...] 03/28 SCHEDULED , Reason: Provider Name:Valerio hall, 03/28/2025 02:45:00 PM, [address] [place], [address], Procedure Notes * Category Sub-Category Detail Notes [...] discharged home in good condition with a rental car ferry driver. X-ray time: 17 seconds Safe Surgery Practices [...] time for fumes to dissipate. Confirm surgical seam steamer and roles. Anticipated critical events. Essential imaging [...] patient's typical axial low back pain. Umer's, Liguori's and Gaenslen's are positive bilaterally. There is [...]
--- OUTSIDE RECORDS SUMMARY | 2025-03-22 03:01 | XMS_ITS ---
Author Organization [facility] Address [address] [facility] [place] [address] Care Team Providers Care Sports Marketer Name Role Phone JONES SALES DO Primary Care Provider Valerio Mustafa Unavailable [phone] REASON FOR VISIT post procedure call Encounters Encounter Location Date Provider Diagnosis [facility] [address] [place] [address] 03/22/2025 Valerio Ellington PLAN OF TREATMENT Next Appt Details Provider Name:Valerio hall, 03/28/2025 02:45:00 PM, [address] [facility] [place], [address],
--- OUTSIDE RECORDS SUMMARY | 2025-03-22 03:03 | XMS_ITS ---
Author Organization [facility] Address [address] [facility] [place] [address] Care Team Providers Care Chief Innovation Officer Name Role Phone JONES SALES DO Primary Care Provider Valerio Mustafa Unavailable [phone] REASON FOR VISIT post procedure call Encounters Encounter Location Date Provider Diagnosis [facility] [address] [place] [address] 03/22/2025 Valerio Ellington PLAN OF TREATMENT Next Appt Details Provider Name:Valerio hall, 03/28/2025 02:45:00 PM, [address] [place], [address],
--- NOTE | 2025-03-24 | ECG_ITS ---
Test Date: 2025-03-24 11:35:22 Measurements Intervals Bronson Rate: 59 P: 0 SD: 0 QRS: -81 QRSD: 195 T: 100 QT: 468 QTc: 466 Interpretive Statements ELECTRONIC VENTRICULAR PACEMAKER ABNORMAL RHYTHM ECG Compared to ECG 06/29/2024 22:59:04 No significant changes Electronically Signed On 03-24-2025 15:41:39 CDT by Fitz De Dios M.D.
--- NOTE | ~2025-03-24 | XR_ITS ---
EXAMINATION: XR chest 2V, 03/24/2025 10:50 CDT HISTORY: Pre pro Testing COMPARISON: No comparisons available. Technique: 2 views obtained. Findings: COPD changes noted with chronic changes evident. Mild pulmonary venous congestion. No pneumothorax. Mild cardiomegaly. Mediastinal and hilar contours are within normal limits. Bony thorax no acute abnormality. Left pacemaker. Impression: No acute cardiopulmonary abnormality. Reviewed, dictated and finalized at location A. Impression: No acute cardiopulmonary abnormality.
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
--- OUTSIDE RECORDS SUMMARY | 2025-03-24 11:23 | XMS_ITS | Clinical Summary ---
Author Organization [facility] Address [address] [facility] [place] [address] Care Team Providers Care Environmental Field Office Manager Name Role Phone Jones Talamantes DO Primary Care Provider Source Comments [facility],non-owned Affiliates and Associated Physician Practices is amultiple site organization consisting of ambulatory clinics and hospital sitesin [place], [place], [place] and [place]. This disclosure is being madepursuant to the Care Everywhere program and may not contain all information available regarding this patient. 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
--- OUTSIDE RECORDS SUMMARY | 2025-03-24 11:23 | XMS_ITS | Patient Health Record ---
Author Organization [facility] Address [address] [place] [address] DINAH Sandhu [address] Care Team Providers Care Senior Project Engineer Name Role Phone JONES SALES DO Primary Care Provider Valerio Mustafa Unavailable [phone] ALLERGIES No Known Allergies REASON FOR REFERRAL No Information MEDICATIONS Medication SIG (Take, Route, Frequency, Duration) Notes Start Date End Date Status Olmesartan Medoxomil 20 MG 1 tablet Oral Once a day Active hydroCHLOROthiazide 12.5 MG 1 tablet in the morning Oral Once a day Active Doxycycline Hyclate 100 MG 1 tablet Oral ly twice a day for 5 days Active Carvedilol 12.5 MG 1 tablet with food Oral Twice a day Active Pregabalin 75 MG 1 capsule Oral Once a day Active Sertraline HCl 25 MG 1 tablet Oral Once a day Active Tylenol 325 [...] Eliquis 5 MG as directed Orally Active Chlorhexidine Gluconate 4 % as directed Externally prior to surgery for 2 days Active Potassium Gluconate 595 MG 1 tablet Oral ly Once a day Active Fluticasone Propionate 0.05 % 1 applicat ion Externally Once a day for 14 day(s) Active Rosuvastatin Calcium 10 MG 1 tablet Oral Once a day Active ASA 81 1 tab Oral Active Gabapentin 600 MG 1 tablet Oral Three a day Active SOCIAL HISTORY Tobacco Use: [...] W/U Status Risk SNOMED Code Notes Problem Fear of injections and transfusions (F40.231) Active confirmed Fear of medical treatment (475992367) Problem Chronic pain syndrome (G89.4) Active confirmed Chronic armaan n syndrome (472904252) Problem Spondylolisthesis , lumbar region (M43.16) Active confirmed Acquired spondylolisthesis (086394813) Problem Spinal enthesopathy, site unspecified (M46.00) Active confirmed Spinal enthesopathy (49237891) Problem Spondylosis without myelopathy or radiculopathy, cervical region (M47.812) Active confirmed Cervical spondylosis without myelopathy (652643612) Problem Spondylosis without myelopathy or radiculopathy, cervicothoracic region (M47.813) Active confirmed Cervical spondylosis without myelopathy (178341313) Problem Spondylosis without myelopathy or radiculopathy, lumbar region (M47.816) Active confirmed Lumbosacral spondylosis without myelopathy (06583007) Problem Spondylosis without myelopathy or radiculopathy, lumbosacral region (M47.817) Active confirmed Lumbosacral spondylosis without myelopathy (disorder) (26177381) Problem Other intervertebral disc degeneration, lumbar region (M51.36) Active confirmed Degeneration of lumbar intervertebral disc (65829738) Problem Other intervertebral disc degeneration, lumbosacral region (M51.37) Active confirmed Degeneration of lumbosacral intervertebral disc (01250414) Problem Other specified dorsopathies, cervical region (M53.82) Active confirmed Disorder of cervical spine (322247425) Problem Radiculopathy, cervical region (M54.12) Active confirmed Cervical radiculopathy (20974707) Problem Radiculopathy, cervicothoracic region (M54.13) Active confirmed Cervical radiculopathy (35548627) Problem Radiculopathy, lumbar region (M54.16) Active confirmed Lumbar radiculopathy (625033531) Problem Radiculopathy, lumbosacral region (M54.17) Active confirmed Lumbosacral radiculopathy (9383006) Problem Postlaminectomy syndrome, not elsewhere classified (M96.1) Active confirmed Post-laminectom y syndrome (25843498) Cervical Problem Osseous stenosis of neural canal of cervical region (M99.31) Active confirmed Spinal steno sis in cervical region (35919325) Problem Osseous stenosis of neural canal of lumbar region (M99.33) Active confirmed Spinal stenosis of lumbar region (03505650) Problem Osseous and subluxation stenosis of intervertebral foramina of lumbar region (M99.63) Active confirmed Spinal stenosis of lumbar region (85642663) Problem superintendent terminal (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 (Z79.01) Active confirmed Long-term curre nt use of anticoagulant (024465129) Problem Spinal stenosis, lumbar region with neurogenic claudication (M48.062) Active confirmed Neurogenic claudication (134227331) Problem Degenerative cervical spinal stenosis (M48.02) Active confirmed Degenerati ve cervical spinal stenosis (383203499) Problem Lumbar radiculopathy (M54.16) Active confirmed Lumbar radiculopathy (915326442) Problem Other intervertebral disc degeneration, lumbar region with discogenic back pain and lower extremity pain (M51.362) Active confirmed VITAL SIGNS Heart Rate 60 /min 03/21/2025 Post Op Vitals: BP 163/92, HR 60, RR 18, Spo2 99% Discharged to home with self, ambulatory without assistance at baseline, and in no acute distress. Respiratory Rate 18 /min 03/21/2025 Post Op Vitals: BP 163/92, HR 60, RR 18, Spo2 99% Discharged to home with self, ambulatory without assistance at baseline, and in no acute distress. Oximetry 99 % 03/21/2025 Post Op Vitals: BP 163/92, HR 60, RR 18, Spo2 99% Discharged to home with self, ambulatory without assistance at baseline, and in no acute distress. Blood pressure diastolic 90 mm Hg 03/21/2025 Post Op Vitals: BP 163/92, HR 60, RR 18, Spo2 99% Discharged to home with self, ambulatory without assistance at baseline, and in no acute distress. Height 5 ft 9 in in 03/21/2025 Post Op Vitals: BP 163/92, HR 60, RR 18, Spo2 99% Discharged to home with self, ambulatory without assistance at baseline, and in no acute distress. Blood pressure systolic 154 mm Hg 03/21/2025 Post Op Vitals: BP 163/92, HR 60, RR 18, Spo2 99% Discharged to home with self, ambulatory without assistance at baseline, and in no acute distress. Weight 212 lbs 03/21/2025 Post Op Vitals: BP 163/92, HR 60, RR 18, Spo2 99% Discharged to home with self, ambulatory without assistance at baseline, and in no acute distress. BMI 31.30 kg/m2 03/21/2025 Post Op Vitals: BP 163/92, HR 60, RR 18, Spo2 99% Discharged to home with self, ambulatory without assistance at baseline, and in no acute distress. Encounters Encounter Location Date Provider Diagnosis [facility] [address] [place] [address] 11/17/2024 Valerio Ellington Lumbar radiculopathy M54.16 ; Radiculopathy, lumbosacral region [...] neural canal of cervical region M99.31 and superintendent terminal (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 Z79.01 [facility] [address] [address] 11/22/2024 Valerio Ellington Radiculopathy, lumba r region M54.16 ; Radiculopathy, lumbosacral region M54.17 and Spinal stenosis, lumbar region with neurogenic claudication M48.062 [facility] [address] [place] [address] 11/23/2024 Valerio Ellington [facility] [address] [place] [address] [place] [address] 12/01/2024 Valerio Stlaura Lumbar radiculopathy M54.16 ; Spondylosis without myelopathy [...] neural canal of cervical region M99.31 and superintendent terminal (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 Z79.01 [facility] [address] [place] [address] 12/13/2024 Valerio Stlaura Spondylosis without myelopathy or radiculopathy, lumbar region M47.816 and Spondylosis without myelopathy or radiculopathy, lumbosacral region M47.817 [facility] [address] [place] [address] 12/27/2024 Valerio Stynowick Spondylosis without myelopathy or radiculopathy, lumbar region M47.816 and Spondylosis without myelopathy or radiculopathy, lumbosacral region M47.817 [facility] [address] [place] [address] 12/28/2024 Valerio Stynowick [facility] [address] [place] [address] [place] [address] 01/04/2025 Valerio Stynowick Spondylosis without myelopathy or radiculopathy, lumbar region M47.816 ; Spondylosis without myelopathy or radiculopathy, lumbosacral region M47.817 ; Lumbar radiculopathy M54.16 and Radiculopathy, lumbosacral region M54.17 [facility] [address] [place] [address] 01/11/2025 Valerio Stynowick Spondylosis without myelopathy or radiculopathy, lumbar region M47.816 and Spondylosis without myelopathy or radiculopathy, lumbosacral region M47.817 [facility] [address] [place] [address] 01/12/2025 Valerio Stynowick [facility] [address] [place] [address] [place] [address] 01/19/2025 Valerio Stynowick Spondylosis without myelopathy or radiculopathy, lumbar region M47.816 ; Spondylosis without myelopathy or radiculopathy, lumbosacral region M47.817 ; Lumbar radiculopathy M54.16 ; Spinal stenosis, lumbar region with neurogenic claudication M48.062 and Radiculopathy, cervical region M54.12 [facility] [address] [place] [address] 01/31/2025 Valerio Stynowick Spondylosis without myelopathy or radiculopathy, lumbar region M47.816 and Spondylosis without myelopathy or radiculopathy, lumbosacral region M47.817 [facility] [address] [place] [address] 02/01/2025 Valerio Stynowick [facility] [address] [place] [address] [place] [address] 02/21/2025 Valerio Stynowick Spondylosis without myelopathy or radiculopathy, lumbar region M47.816 ; Radiculopathy, cervical region M54.12 ; Spondylosis without myelopathy or radiculopathy, lumbosacral region M47.817 ; superintendent terminal (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 Z79.01 ; Chronic pain syndrome G89.4 ; Fear of injections and transfusions F40.231 and Lumbar radiculopathy M54.16 [facility] [address] [place] [address] 03/01/2025 Valerio Stynowick Radiculopathy, cervical region M54.12 ; Radiculopathy, cervicothoracic region M54.13 and Degenerative cervical spinal stenosis M48.02 [facility] [address] [place] [address] 03/02/2025 Valerio Stynowick [facility] [address] [place] [address] [place] [address] 03/03/2025 Valerio Stynowick [facility] [address] [place] [address] [place] [address] 03/15/2025 Valerio Stynowick Radiculopathy, cervical region M54.12 ; Spondylosis without myelopathy or radiculopathy, cervical region M47.812 ; Radiculopathy, cervicothoracic region M54.13 ; Degenerative cervical spinal stenosis M48.02 ; Lumbar radiculopathy M54.16 ; Radiculopathy, lumbosacral region M54.17 ; superintendent terminal (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 Z79.01 and Spondylosis without myelopathy or radiculopathy, cervicothoracic region M47.813 [facility] [address] [place] [address] 03/21/2025 Valerio Stynowick Spondylosis without myelopathy or radiculopathy, cervical region M47.812 and Spondylosis without myelopathy or radiculopathy, cervicothoracic region M47.813 [facility] [address] [place] [address] 03/22/2025 Valerio Chandana [facility] [address] [place] [address] 03/22/2025 Valerio Blandrafael ASSESSMENTS Encounter Date Diagnosis Assessment Notes Treatment [...] or radiculopathy, lumbosacral region (ICD-10 - M47.817) 02/21/2025 Spondylosis without myelopathy or radiculopathy, lumbar region (ICD-10 - M47.816) 02/21/2025 Radiculopathy, cervical region (ICD-10 - M54.12) The results of the patient's recent. Cervical spine MRI were discussed with the patient using an anatomical model and layman's terminology. All questions were answered, Schedule a cervical epidural steroid injection at C7-T1. The risks of this procedure including pain, [...] is agreeable to proceeding at this time. 03/01/2025 Radiculopathy, cervical region (ICD-10 - M54.12) 03/01/2025 Radiculopathy, cervicothoracic region (ICD-10 - M54.13) 03/15/2025 Radiculopathy, cervical region (ICD-10 - M54.12) [...] is agreeable to proceeding at this time. 03/21/2025 Spondylosis without myelopathy or radiculopathy, cervical region (ICD-10 - M47.812) 03/21/2025 Spondylosis without myelopathy or radiculopathy, cervicothoracic region (ICD-10 - M47.813) 03/15/2025 Radiculopathy, cervicothoracic region (ICD-10 - M54.13) 03/01/2025 Degenerative cervical spinal stenosis (ICD-10 - M48.02) 02/21/2025 Spondylosis without myelopathy or radiculopathy, lumbosacral region (ICD-10 - M47.817) 01/19/2025 Lumbar radiculopathy (ICD-10 - M54.16) 01/04/2025 Lumbar radiculopathy (ICD-10 - M54.16) 12/01/2024 Radiculopathy, [...] region with neurogenic claudication (ICD-10 - M48.062) 02/21/2025 [facility] (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 (ICD-10 - Z79.01) The patient was instructed to discontinue eliquis for 3 days and aspirin for 6 days prior to the procedure. I made the patient aware that they will be at an increased risk for a thromboembolic event during this time and they are willing to accept this risk. The patient was instructed to notify their primary care physician and/or supervisor core drilling to obtain clearance prior to discontinuing this medication. 03/15/2025 Degenerative cervical spinal stenosis (ICD-10 - M48.02) 03/15/2025 Lumbar radiculopathy (ICD-10 - M54.16) 02/21/2025 Chronic pain syndrome (ICD-10 - G89.4) The patient was given a handout explaining the preoperative bathing instructions 01/19/2025 Radiculopathy, cervical region (ICD-10 - M54.12) [...] 12/01/2024 Spondylolisthesis, lumbar region (ICD-10 - M43.16) 02/21/2025 Fear of injections and transfusions (ICD-10 - F40.231) Due to a severe fear of needles and injections, the patient is insisting on IV Sedation with this procedure. The patient was advised he may drink clear liquids up until 2 hours prior to the procedure, but was instructed not to eat for 8 hours prior to the procedure. The inherent risks of anesthesia up to and including airway obstruction potentially resulting in cardiac arrest and were also discussed and the patient is agreeable to proceeding at this time. 03/15/2025 Radiculopathy, lumbosacral region (ICD-10 - M54.17) 03/15/2025 [facility] (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 (ICD-10 - Z79.01) [...] to notify their primary care physician and/or supervisor core drilling to obtain clearance prior to discontinuing this medication. 02/21/2025 Lumbar radiculopathy (ICD-10 - M54.16) Spinal cord stimulation was discussed with patient for more durable relief of his low back and lower extremity pain and the patient was given a DVD and brochure for more information. She/He would like to schedule a spinal cord stimulator trial at this time. The risks of this procedure including pain, bleeding, infection, epidural hematoma, spinal headache, persistent spinal fluid leak, nerve damage, spinal cord injury, paralysis, worsening pain and failure to relieve pain were discussed and the patient is agreeable to proceeding at this time. 12/01/2024 Osseous and subluxation stenosis of intervertebral foramina of lumbar region (ICD-10 - M99.63) 11/17/2024 Spondylosis without myelopathy or radiculopathy, lumbar [...] is agreeable to proceeding at this time. 11/17/2024 Spondylosis without myelopathy or radiculopathy, lumbosacral region (ICD-10 - M47.817) 12/01/2024 Spondylosis without myelopathy or radiculopathy, lumbosacral region (ICD-10 - M47.817) 03/15/2025 Spondylosis without myelopathy or radiculopathy, cervicothoracic region (ICD-10 - M47.813) 11/17/2024 Spondylosis without myelopathy or radiculopathy, cervical [...] of cervical region (ICD-10 - M99.31) 11/17/2024 [facility] (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 I made the patient aware that they will be at an increased risk for a thromboembolic event during this time and they are willing to accept this risk. The patient was instructed to notify their primary care physician and/or supervisor core drilling to obtain clearance prior to discontinuing this medication. 12/01/2024 superintendent terminal (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 (ICD-10 - Z79.01) [...] SAFETY CONCERNS HAVE BEEN ADDRESSED. LOREN menards OLIVIA. 01/04/2025 Other The above-named patient was evaluated [...] SAFETY CONCERNS HAVE BEEN ADDRESSED. LOREN BAKER. 01/19/2025 Other The above-named patient was evaluated [...] SAFETY CONCERNS HAVE BEEN ADDRESSED. LOREN CRANE. 02/21/2025 Other The patient was instructed to take this medication following their SCS Trial to prevent infection The above-named patient was evaluated in conjunction [...] with Patient and Medical Decision Makin minutes 03/01/2025 Other The patient voiced understanding of the treatment plan and all questions were addressed. Obtain informed consent: Cervical Epidural Steroid Injection under fluoroscopy. Monitor pulse, [...] SAFETY CONCERNS HAVE BEEN ADDRESSED. RN initials CR. 03/15/2025 Other The above-named patient was evaluated [...] with Patient and Medical Decision Makin minutes 03/21/2025 Other The patient voiced understanding of [...] SAFETY CONCERNS HAVE BEEN ADDRESSED. RN initials JW. PLAN OF TREATMENT Pending Test Test Name Order Date CT Scan : C-Spine W/O Contrast Next Appt Details Provider Name:Valerio hall, 03/28/2025 02:45:00 PM, [address] [place], [address], Insurance Providers Payer Name Payer Address Payer Phone Subscriber Number Group Number Insured Name Patient Relationship to Insured Coverage Start Date Coverage End Date [facility] MEDICARE ADVANTAGE (PPO) [address] [address] [place] [address] [id number] JONES MEREDITH Self - patient is the insured MEDICAL (GENERAL) HISTORY Medical History History ICD Code AFIB COPD Diabetes Emphysema CAD Hypertension Surgical History Surgery Date(Month/Year) Cervical fusion 11/2002 Pacemaker Stents Hernia repair 2023
--- OUTSIDE RECORDS SUMMARY | 2025-03-24 11:24 | XMS_ITS | Encounter Summary ---
Author Organization [facility] Address [address] [facility] [address] [place] [address] Care Team Providers Care Distribution Operations Manager Name Role Phone Isacc Talamantes DO Primary Care Provider [phone] Isacc Talamantes DO Primary Care Provider [phone] Kip Chandler MD Unavailable [phone] Anel Ansari MD Unavailable [phone] Encounter Details Date Type Department Care Team (Late st Contact Info) Description 09/10/2016 Orders Only [facility] ProviderDonovan MD [address] [id number] Social History Tobacco Use Types Packs/Day Years Used Date Smoking Tobacco: Heavy Smoker Comments:Smoking History Pac ks/day: 1 Packs Alcohol Use Standard Drinks/Week Comments Yes 0 (1 standard drink = 0.6 oz pur e alcohol) Sex and Gender Information Value Date Recorded Sex Assigned at Not on file Legal Sex Male 3:35 AM [employer]IGARET[employer] P[employer] EXAM[employer] Gender Identity Not on file Sexual Orientation [...] on filedocumented in this encounter Care Teams Distribution Operations Manager Relationship Specialty Start Date End Date Isacc Talamantes DO PCP - General 10/10/16 Isacc Talamantes DO PCP - General 03/05/16 10/09/16 Kip Chandler MD Medical Oncologist/Sales Operations Specialist Hematology and Oncology 01/24/19 02/17/23 Anel Ansari MD [address] [facility] [address] [place] [address] Medical Oncologist/Sales Operations Specialist Hematology 03/11/24 documented as of this encounter
[2025-03-24 12:08] LABS: Hematocrit 51.5 % (42.0-52.0); Hemoglobin 16.3 g/dL (14.0-18.0); Immature Granulocyte Percent A 0.7 % (0-0.5); Immature Platelet Fraction Pct 6.9 % (0.9-11.2); Lymphocytes Absolute Auto 2.60 K/mm3 (0.9-3.2); Mean Corpuscular HGB Conc 31.7 g/dl (32-36); Mean Corpuscular Hemoglobin 28.3 pg (26-34); Mean Corpuscular Volume 89.4 fl (80-100); Nucleated Red Blood Cells Absolute Auto 0.000 K/mm3 (0.0-0.012); Nucleated Red Blood Cells Perc 0.0 % (0.0-0.2); Platelet Count Result 136 k/mm3 (150-375); Red Blood Count 5.76 M/mm3 (4.6-6.20); White Blood Count 9.1 K/mm3 (4.5-10.0)
[2025-03-24 12:22] LABS: Add Urine Microscopic? YES; Appearance Urine Clear (Clear); Glucose Urine UA Negative (Negative); Leukocyte Esterase Ur 1+ LEU/UL (Negative); Nitrate Urine Negative (Negative); Non Pathogenic Casts 0-2; Specific Grav Ur 1.017 (1.001-1.035)
[2025-03-24 12:27] LABS: INR 1.1; Prothrombin Time 14.5 Seconds (11.1-14.7)
[2025-03-24 12:28] LABS: Partial Thromboplastin Time 36.5 Seconds (22.3-36.8)
[2025-03-24 12:48] LABS: Anion Gap 11 mmol/L (4-12); Blood Urea Nitrogen 25 mg/dL (9-20); CRP < 0.5 mg/dL (<1.0); Calcium 9.5 mg/dL (8.4-10.2); Carbon Dioxide 28 mmol/L (22-30); Chloride 98 mmol/L (98-107); Estimated Glomerular Filt Rate 57; Glucose 96 mg/dL (65-110); Potassium 3.6 mmol/L (3.4-5.0); Sodium 137 mmol/L (137-145)
== END 2025-03-24 10:31 | disposition home or self-care (01) ==
PROVIDERS: PCP Internal Medicine; Visit Provider Anesthesiology
DX: A79.1 Rickettsialpox due to Rickettsia akari (principal); I25.10 Atherosclerotic heart disease of native coronary artery without angina pectoris; M54.16 Radiculopathy, lumbar region; R07.89 Other chest pain; Z00.00 Encounter for general adult medical examination without abnormal findings
CPT/HCPCS: 36415; 71046; 80048; 81001; 85025; 85055; 85610; 85652; 85730; 86140; 93005

== ENCOUNTER 2025-04-03 13:47 | Outpatient (CLI) | payer MEDICARE, SELFPAY ==
--- OUTSIDE RECORDS SUMMARY | 2025-03-21 08:15 | XMS_ITS ---
Author Organization [facility] Address [address] [facility] [place] [address] Care Team Providers Care Fermenter Helper Name Role Phone JONES SALES DO Primary Care Provider Ever Blandjannabryanna Valerio Unavailable [phone] REASON FOR VISIT Right = Left Neck Pain MEDICATIONS Medication SIG (Take, Route, Frequency, Duration) Notes Start Date End Date Status Doxycycline Hyclate 100 MG 1 tablet Oral ly twice a day for 5 days Active Pregabalin 75 MG 1 capsule Oral Once a day Active Tylenol 325 MG 1 tablet as needed Orally every 6 hrs Active Fluticasone Propionate 0.05 % 1 applicat ion Externally Once a day for 14 day(s) Active ASA 81 1 tab Oral Active Sertraline HCl 25 MG 1 tablet Oral Once a day Active Tamsulosin HCl 0.4 MG 1 capsule Oral Onc e a day Active Chlorhexidine Gluconate 4 % as directed Externally prior to surgery for 2 days Active Rosuvastatin Calcium 10 MG 1 tablet Oral Once a day Active Gabapentin 600 MG 1 tablet Oral Three a day Active Olmesartan Medoxomil 20 MG 1 tablet Oral Once a day Active hydroCHLOROthiazide 12.5 MG 1 tablet in the morning Oral Once a day Active Carvedilol 12.5 MG 1 tablet with food Oral Twice a day Active Potassium Chloride ER 10 MEQ 1 tablet wi th food Oral Twice a day Active Esomeprazole Magnesium 40 MG 1 tablet 1/ 2 to 1 hour before morning meal Oral Once a day Active Eliquis 5 MG as directed Orally Active Potassium Gluconate 595 MG 1 tablet Oral ly Once a day Active VITAL SIGNS Blood pressure systolic 154 mm Hg 03/21/20 25 Blood pressure diastolic 90 mm Hg 025 Heart Rate 60 /min 03/21/2025 Respiratory Rate 18 /min 03/21/2025 Height 5 ft 9 in in 03/21/2025 Weight 212 lbs 03/21/2025 BMI 31.30 kg/m2 03/21/2025 Oximetry 99 % 03/21/2025 Post Op Vitals: BP 163/92, H R 60, RR 18, Spo2 99%Discharged to home with self, ambulatory without assistance at baseline, and in no acute distress. 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 Obtain informed consent: Bilateral Cervical 5-7 Medial Branch Nerve Block under fluoroscopy. Monitor [...] for infection: Implements aseptic technique, protects from cross-contaminati on, performs skin preparations. Pain/Discomfort: Patient verbalizes acceptable level of pain relief prior to discharge and the ability to engage in desired activity. I HAVE REVIEWED THE PATIENT'S MEDICATION LIST AND HAVE RECONCILED THE ABOVE MEDICATIONS. PATIENT GOALS AND SAFETY CONCERNS HAVE BEEN ADDRESSED. LOREN BAKER. PLAN OF TREATMENT Treatment Notes Assessment Notes Other The patient voiced understanding of the treatment plan and all questions were addressed. Obtain informed consent: Bilateral Cervical 5-7 Medial Branch Nerve Block under fluoroscopy. Monitor [...] AND SAFETY CONCERNS HAVE BEEN ADDRESSED. LOREN BAKER. Next Appt Details Follow Up: FU 03/28 SCHEDULED , Reason: Provider Name:Valerio hall, 04/11/2025 08:45:00 AM, [address] [place], [address], Procedure Notes * Category Sub-Category Detail Notes C5-7 Medial Branch Nerve Block Under Fluoroscopy Location Bilateral Anesthesia Local without IV sed ation Operative Technique After the risks, papi efits, alternative treatment options and potential complications related [...] table. Standard ASA monitors were applied. The neck was prepped and draped in the usual sterile fashion with chlorhexidine 2%/IPA 70%. The waist of the articular pillars of C5, C6 and C7 were identified under live x-ray guidance using an AP view. A 25 gauge 3.5 inch spinal needle was inserted in a gun barrel fashion to the middle of the waist of the articular pillars using multiple AP and lateral fluoroscopic views to ensure correct placement until periosteum was contacted at each level. 3 mL of 0.25% Preservative-Free bupivacaine was mixed. After negative aspiration for blood, air or CSF, 0.5 mL of this solution was injected, blocking the bilateral C5, C6 and C7 medial branch nerves. The needles were then removed, the skin was cleaned and band-aids were placed over the puncture sites. The patient tolerated the procedure well, was able to ambulate without difficulty and was monitored for 20 minutes. The patient remained hemodynamically and neurologically stable. No complications were observed. The patient noted an 80% reduction in his typical neck pain associated with extension and lateral rotation of the cervical spine. Postoperative instructions were reviewed with the patient. The patient was discharged home in good condition with a school bus driver/custodian. X-ray time: 17 seconds [facility] First Critical Point Constance ent identified by verbal and ID band. Surgical site marked. Assessement of allergies, airway and aspiration risk. Assessed if patient is on anticoagulant. Operataive Consent signed. Patient has discussed procedure with physician LISETTE BEAUCHAMP 03/21/2025 1:05:34 PM > Second Critical Point TIME OUT: Confirm patient identity, procedure and surgical incision site. Patient in proper position and safety straps placed appropriately. ASA score: _3_ Fire Risk Score:_1_ . Alcohol based prep solution had significant time for fumes to dissipate. Confirm surgical seal delivery vehicle team technician and roles. Anticipated critical events. Essential imaging displayed as appropriate. Fluoroscopy precautions taken if applicable. Equipment and supplies in room. Verify patient is not if applicable LISETTE BEAUCHAMP 03/21/2025 1:05:38 PM > Third Critical Point SAFE SURGERY [...] discharged ambulatory. Patient denies complaints or questions LISETTE BEAUCHAMP 03/21/2025 2:05:48 PM > Progress Notes * Examination Category [...] patient's typical axial low back pain. Umer's, [place]'s and Gaenslen's are positive bilaterally. There is [...]
--- OUTSIDE RECORDS SUMMARY | 2025-03-22 03:01 | XMS_ITS ---
Author Organization [facility] Address [address] [facility] [address] [place] [address] Care Team Providers Care Extruder Operator Helper Name Role Phone JONES SALES DO Primary Care Provider Valerio Mustafa Unavailable [phone] REASON FOR VISIT post procedure call Encounters Encounter Location Date Provider Diagnosis [facility] [place] [address] [place] [address] 03/22/2025 Valerio Ellington PLAN OF TREATMENT Next Appt Details Provider Name:Valerio hall, 04/11/2025 08:45:00 AM, [address], [place], [address],
--- OUTSIDE RECORDS SUMMARY | 2025-03-22 03:03 | XMS_ITS ---
Author Organization [facility] Address [address] [facility] [address] [place] [place] [address] Care Team Providers Care Chemical Packager Name Role Phone JONES SALES DO Primary Care Provider Valerio Mustafa Unavailable [phone] REASON FOR VISIT post procedure call Encounters Encounter Location Date Provider Diagnosis [facility] [place] [address] [place] [address] 03/22/2025 Valerio Ellington PLAN OF TREATMENT Next Appt Details Provider Name:Valerio hall, 04/11/2025 08:45:00 AM, [address], [place], [address],
--- OUTSIDE RECORDS SUMMARY | 2025-03-27 04:03 | XMS_ITS ---
Author Organization [facility] Address [address] [facility] [place] Sandhu [address] Care Team Providers Care Programmer Analyst Name Role Phone JONES SALES DO Primary Care Provider Ever cross Salmabryanna Valerio Unavailable [phone] REASON FOR VISIT Test results MEDICATIONS Medication SIG (Take, Route, Frequency, Duration) Notes Start Date End Date Status Pregabalin 75 MG 1 capsule Oral Once a day Active levoFLOXacin 500 MG 1 tablet Orally Once a day for 5 days 03/27/2025 Active Gabapentin 600 MG 1 tablet Oral Three a day Active Chlorhexidine Gluconate 4 % as directed Externally prior to surgery for 2 days Active Doxycycline Hyclate 100 MG 1 tablet Oral ly twice a day for 5 days Active Potassium Chloride ER 10 MEQ [...] 1 tablet Oral Once a day Active Carvedilol 12.5 MG 1 tablet with food Oral Twice a day Active Olmesartan Medoxomil 20 MG 1 tablet Oral Once a day Active hydroCHLOROthiazide 12.5 MG 1 tablet in the morning Oral Once a day Active Eliquis 5 MG as directed Orally Active Potassium Gluconate 595 MG 1 tablet Oral ly Once a day Active Tylenol 325 MG 1 tablet as needed Orally every 6 hrs Active Fluticasone Propionate 0.05 % 1 applicat ion Externally Once a day for 14 day(s) Active ASA 81 1 tab Oral Active Encounters Encounter Location Date Provider Diagnosis [facility] [address] [place] [address] [place] [address] 03/27/2025 Valerio Ellington Urinary tract infection, site not specified N39.0 ASSESSMENTS Encounter Date Diagnosis Assessment Notes Treatment Notes Treatment Clinical Notes Section Notes 03/27/2025 Urinary tract infection, site not specified (ICD-10 - N39.0) Patient notified of UA results. Positive for urinary tract infection. Antibiotics sent to patient's pharmacy. Patient instructed to complete an aquatic therapy and report back to the lab for repeat UA 24 hours after completing antibiotic therapy. Patient verbalizes understanding PLAN OF TREATMENT Medication Medication Name Sig Start Date Stop Date Notes levoFLOXacin 500 MG 1 tablet Orally Once a day for 5 days 03/27/2025 Treatment Notes Assessment Notes Urinary tract infection, sit e not specified Patient notified of UA results. Positive for urinary tract infection. Antibiotics sent to patient's pharmacy. Patient instructed to complete an aquatic therapy and report back to the lab for repeat UA 24 hours after completing antibiotic therapy. Patient verbalizes understanding Pending Test Test Name Order Date Urine Culture and Sensitivity 03/27/2025 Urinalysis 03/27/2025 Next Appt Details Provider Name:Valerio hall, 04/11/2025 08:45:00 AM, [address] [place] [address], [place], [address],
--- OUTSIDE RECORDS SUMMARY | 2025-03-28 09:45 | XMS_ITS ---
Author Organization [facility] Address [address] [facility] DINAH Sandhu [address] Care Team Providers Care Mantel Craftsman Name Role Phone JONES SALES DO Primary Care Provider Vishnuneftaly america Chandana Valerio Unavailable [phone] ALLERGIES No Known Allergies REASON FOR VISIT Follow Up, Right = Left Neck Pain MEDICATIONS Medication SIG (Take, Route, Frequency, Duration) Notes Start Date End Date Status Gabapentin 600 MG 1 tablet Oral Three a day Active Rosuvastatin Calcium 10 MG 1 tablet Oral Once a day Active Pregabalin 75 MG 1 capsule Oral Once a day Active Doxycycline Hyclate 100 MG 1 tablet Oral ly twice a day for 5 days Active Chlorhexidine Gluconate 4 % as directed Externally prior to surgery for 2 days Active Tamsulosin HCl 0.4 MG 1 capsule Oral Onc e a day Active Sertraline HCl 25 MG 1 tablet Oral Once a day Active Esomeprazole Magnesium 40 MG 1 tablet 1/ 2 to 1 hour before morning meal Oral Once a day Active Potassium Chloride ER 10 MEQ 1 tablet wi th food Oral Twice a day Active hydroCHLOROthiazide 12.5 MG 1 tablet in the morning Oral Once a day Active Eliquis 5 MG as directed Orally Active ASA 81 1 tab Oral Active Olmesartan Medoxomil 20 MG 1 tablet Oral Once a day Active Carvedilol 12.5 MG 1 tablet with food Oral Twice a day Active Potassium Gluconate 595 MG 1 tablet Oral ly Once a day Active Fluticasone Propionate 0.05 % 1 applicat ion Externally Once a day for 14 day(s) Active Tylenol 325 MG 1 tablet as needed Orally every 6 hrs Active SOCIAL HISTORY Tobacco Use: Social History [...] drug use. 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 03/28/2025 Other The above-named patient was evaluated in [...] is agreeable to proceeding at this time. buttermaker continuous churn (current) use of 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 The patient was instructed to discontinue eliquis for 3 days and aspirin for 6 days prior to the procedure. I made the patient aware that they will be at an increased risk for a thromboembolic event during this time and they are willing to accept this risk. The patient was instructed to notify their primary care physician and/or vat house laborer to obtain clearance prior to discontinuing this [...] bilateral C5-7 MB NB, Reason: Provider Name:Valerio hall, 04/11/2025 08:45:00 AM, [address] [place], [address], Progress Notes * Examination Category Sub-Category Detail [...] patient's typical axial low back pain. Umer's, Waddington's and Gaenslen's are positive bilaterally. There is [...]
[2025-04-03 14:09] LABS: Add Urine Microscopic? YES; Appearance Urine Clear (Clear); Glucose Urine UA Negative (Negative); Leukocyte Esterase Ur 1+ LEU/UL (Negative); Nitrate Urine Negative (Negative); Non Pathogenic Casts 0-2; Specific Grav Ur 1.008 (1.001-1.035)
--- OUTSIDE RECORDS SUMMARY | 2025-04-03 14:11 | XMS_ITS | Clinical Summary ---
Author Organization [facility] Address [facility] [place] [address] Care Team Providers Care Grass Cutter Name Role Phone Isacc Talamantes DO Primary Care Provider [phone] Anel Ansari MD Unavailable [phone] Allergies No known active allergies Medications aspirin [...] Description 03/06/2025 10:00 AM CDT Office Visit [facility] [address] [place] [address] [address] [place] [address] Saritha Leon NP Monoclonal gammopathy of unknown significance (Primary Dx) 03/06/2025 9:15 AM CDT Lab [facility] at [address] [address] Monoclonal gammopathy of unknown significance from Last [...] on file 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 Gender Identity Not on file Sexual Orientation [...] history exists Medical Devices Implanted Type Area Hydrologic Engineer Device Identifier Shelf Expiration Date Model / Serial / Lot Pacemaker-2010 Implanted:12/2010 (Quantity not on file) Pacemaker Chest [employer] SSS, PAF ADAPTA / [id number] / Procedures Procedure Name Priority Date/Time Associated [...] Luo MD, PhD 03/08/2025 Testing performed by: [facility], [address] [facility], [place]., [address] Blood 03/06/2025 9:24 AM CDT 03/06/2025 3:12 PM CDT Narrative [facility] - 03/09/2025 10:23 AM CDT Reflex Immunotyping, Ser Anel Ansari MD LAB BLOOD ORDERABLES Final Result Performing Organization Address [facility] Co de Phone Number [address] [address] * eGFR (03/06/2025 9:24 AM CDT) Pathologist [facility] eGFR 60 >=60 mL/min/1. 73 m2 Comment: [...] was last reviewed 2021. Testing performed by: [facility], [address] [place] [address]., [address] Blood 03/06/2025 9:24 AM CDT 03/06/2025 9:32 AM CDT Anel Ansari MD LAB BLOOD ORDERABLES Final Result Performing Organization Address City/[facility]/ZIP Co de Phone Number [address] [place] [address] * (ABNORMAL) Differential, auto (03/06/2025 9:24 AM CDT) Neutrophil abs 4.71 1.50 - 6.50 K/cumm Comment:Testing performed by : [address], [place]., [address] Imm gran abs 0.15(H) 0.00 - 0.10 K/cumm [facility] Comment:Testing performed by : [address], [place]., [address] Lymphocyte abs 1.83 0.80 - 3.30 K/cumm [facility] Comment:Testing performed by : [address], [place]., [address] Monocyte abs 0.46 0.20 - 0.80 K/cumm [facility] Comment:Testing performed by : [address], [place]., [address] Eosinophil abs 0.17 0.00 - 0.50 K/cumm [facility] Comment:Testing performed by : [address], [place]., [address] Basophil abs 0.05 0.00 - 0.10 K/cumm [facility] Comment:Testing performed by : [address] [address] Neutrophil pct 64.0 % [facility] Comment: Interpretive Data Percent cell count reference ranges are not reported, since discordance with absolute values may lead to misinterpretation of CBC data. Current Interpretive Data was last revised on 2017. Testing performed by: [address] [address] Imm gran pct 2.0 % [facility] Comment: Interpretive Data Percent cell count reference ranges are not reported, since discordance with absolute values may lead to misinterpretation of CBC data. Current Interpretive Data was last revised on 2017. Testing performed by: [address] [address] Lymphocyte pct 24.8 % [facility] Comment: Interpretive Data Percent cell count reference ranges are not reported, since discordance with absolute values may lead to misinterpretation of CBC data. Current Interpretive Data was last revised on 2017. Testing performed by: [address] [address] Monocyte pct 6.2 % [facility] Comment: Interpretive Data Percent cell count reference ranges are not reported, since discordance with absolute values may lead to misinterpretation of CBC data. Current Interpretive Data was last revised on 2017. Testing performed by: [address] [address] Eosinophil pct 2.3 % [facility] Comment: Interpretive Data Percent cell count reference ranges are not reported, since discordance with absolute values may lead to misinterpretation of CBC data. Current Interpretive Data was last revised on 2017. Testing performed by: [address] [address] Basophil pct 0.7 % [facility] Comment: Interpretive Data Percent cell count reference ranges are not reported, since discordance with absolute values may lead to misinterpretation of CBC data. Current Interpretive Data was last revised on 2017. Testing performed by: [address] [address] Blood 03/06/2025 9:24 AM CDT 03/06/2025 9:32 AM CDT Anel Ansari MD LAB BLOOD ORDERABLES Final Result [facility] [address] [facility] [place] [address] * (ABNORMAL) Immunoglobulin free light chains (03/06/2025 9:24 AM CDT) Olympia/Lambda ratio [facility] 0.67 0.26 - 1.65 Comment: Interpretive Data The Binding Site FreeLite assay procedure was used. Results from different manufacturers or methods may not be comparable. Serial testing should be performed using the same methods and instrumentation. Current Interpretive Data was last revised on 2023. Testing performed by: [facility], [address] [place]., [address] Olympia free light chain BJH 2.46(H) 0.33 - 1.94 mg/dL [facility] Comment: Interpretive Data The Binding Site FreeLite assay procedure was used. Results from different manufacturers or methods may not be comparable. Serial testing should be performed using the same methods and instrumentation. Current Interpretive Data was last revised on 2023. Testing performed by: [facility], [address] [place]., [address] Lambda free light chain BJH 3.68(H) 0.57 - 2.63 mg/dL [facility] Comment: Interpretive Data The Binding Site FreeLite assay procedure was used. Results from different manufacturers or methods may not be comparable. Serial testing should be performed using the same methods and instrumentation. Current Interpretive Data was last revised on 2023. Testing performed by: [facility], [address] [place]., [address] Blood 03/06/2025 9:24 AM CDT 03/06/2025 3:13 PM CDT Anel Ansari MD LAB BLOOD ORDERABLES Final Result [facility] [address] [facility] [place] [address] * (ABNORMAL) CBC with auto differential (03/06/2025 9:24 AM CDT) WBC 7.37 3.80 - 9.90 K/cumm Comment:Testing performed by : [address] [address] Hgb 15.7 13.0 - 17.5 g/dL [facility] Comment:Testing performed by : [address] [address] Hct 47.8 38.9 - 50.3 % [facility] Comment:Testing performed by : [address] [address] Plt 123(L) 150 - 400 K/cumm [facility] Comment:Testing performed by : [address] [address] MPV 11.1 9.1 - 12.3 fL [facility] Comment:Testing performed by : [address] [address] RBC 5.51 4.30 - 5.80 M/cumm [facility] Comment:Testing performed by : [address] [address] MCV 86.8 81.3 - 96.4 fL [facility] Comment:Testing performed by : [address] [address] MCH 28.5 27.1 - 33.3 pg [facility] Comment:Testing performed by : [address] [address] MCHC 32.8 32.3 - 35.7 g/dL [facility] Comment:Testing performed by : [address], [address] RDW CV 14.4 11.1 - 14.9 % [facility] Comment:Testing performed by : [address] [address] RDW SD 46.1 35.7 - 48.1 fL [facility] Comment:Testing performed by : [address] [address] NRBC abs 0.00 0.00 - 0.01 K/cumm [facility] Comment:Testing performed by : [address] [address] ANC Prelim 4.71 1.50 - 6.50 K/cumm [facility] Comment: Interpretive Data The rapid ANC is a preliminary automated count and may vary from the final ANC (Neut Abs) reported in the WBC differential that follows. Current interpretive data was last revised 2024. Testing performed by: [address] [address] Morphologic Screen Results confirmed by manual morphology review. [facility] Comment:Testing performed by : [address] [address] Blood 03/06/2025 9:24 AM CDT 03/06/2025 9:32 AM CDT us Anel Ansari MD LAB BLOOD ORDERABLES Edited Result - Final [facility] [address] [facility] [place] [address] * Protein electrophoresis with reflex, serum with interpretation (03/06/2025 9:24 AM CDT) Protein, sr 6.6 6.2 - 8.2 g/dL Comment:Testing performed by : [facility], [address] [place] [address], [address] Albumin 3.9 3.2 - 5.0 g/dL [facility] Comment:Testing performed by : [facility], [address] [place] [address], [address] Alpha-1 globulin 0.3 0.2 - 0.4 g/dL [facility] Comment:Testing performed by : [facility], [address] [place] [address], [address] Alpha-2 globulin 0.8 0.5 - 1.0 g/dL [facility] Comment:Testing performed by : [facility], [address] [place] [address], [address] Beta-1 globulin 0.4 0.3 - 0.6 g/dL [facility] Comment:Testing performed by : [facility], [address] [facility], [address] Beta-2 globulin 0.4 0.2 - 0.6 g/dL [facility] Comment:Testing performed by : [facility], [address] [place] [address], [address] Gamma globulin 0.6 0.5 - 1.7 g/dL [facility] Comment:Testing performed by : [facility], [address] [place] [address], [address] SPEP interp Please see comment [facility] Comment: Abnormal restricted peak in beta 2 region Quantity of restricted peak too low to quantify accurately See immunofixation for further information Reviewed and Signed by Shai Luo MD, PhD 03/08/2025 Testing performed by: [facility], [address] [facility], [place]., [address] Immunotyping See Immunotyping Results [facility] Comment:Testing performed by : [facility], [address] [place]., [address] Blood 03/06/2025 9:24 AM CDT 03/06/2025 3:12 PM CDT Anel Ansari MD LAB BLOOD ORDERABLES Final Result [facility] [address] [place] [address] * Lactate dehydrogenase (LD) (03/06/2025 9:24 AM CDT) Pathologist [facility] Lactate dehydrogenase (LDH) 239 100 - 250 Units/L Comment: HEMOLYZED: Hemolysis interferes with the above test. Testing performed by: [facility], [address] [place] [address]., [address] Blood 03/06/2025 9:24 AM CDT 03/06/2025 9:32 AM CDT Anel Ansari MD LAB BLOOD ORDERABLES Final Result Performing Organization Address City/[facility] Co de Phone Number BOWEN[address] [place] [address] * IgA (03/06/2025 9:24 AM CDT) Pathologist [facility] Immunoglobulin A 298 70 - 400 mg/dL Blood 03/06/2025 9:24 AM CDT 03/06/2025 2:31 PM CDT Anel Ansari MD LAB BLOOD ORDERABLES Final Result [facility] [address] [place] [address] * IgM (03/06/2025 9:24 AM CDT) Pathologist [facility] Immunoglobulin M 79 40 - 230 mg/dL Blood 03/06/2025 9:24 AM CDT 03/06/2025 2:31 PM CDT us Anel Ansari MD LAB BLOOD ORDERABLES Final Result Performing Organization Address City/[facility] Co de Phone Number [address] [address] * (ABNORMAL) IgG (03/06/2025 9:24 AM CDT) Immunoglobulin G 693(L) 700 - 1,600 mg/dL Blood 03/06/2025 9:24 AM CDT 03/06/2025 2:31 PM CDT Anel Ansari MD LAB BLOOD ORDERABLES Final Result Performing Organization Address [facility] de Phone Number [address] [address] * Comprehensive metabolic panel (03/06/2025 9:24 AM CDT) [facility] Sodium 139 135 - 145 mmol/L Comment:Testing performed by : [address] [address] Potassium, pl 4.6 3.3 - 4.9 mmol/L [facility] Comment:Testing performed by : [address] [address] Chloride 100 97 - 110 mmol/L [facility] Comment:Testing performed by : [address] [address] CO2 25 22 - 32 mmol/L [facility] Comment:Testing performed by : [address] [address] Anion gap 14 2 - 15 mmol/L [facility] Comment:Testing performed by : [address] [address] BUN 19 6 - 25 mg/dL [facility] Comment:Testing performed by : [address] [address] Creatinine 1.20 0.80 - 1.30 mg/dL [facility] Comment:Testing performed by : [address] [address] Glucose 164 70 - 199 mg/dL [facility] Comment: Interpretive Data Fasting glucose >/= [...] was last revised 2022. Testing performed by: [address] [address] Calcium 9.3 8.5 - 10.3 mg/dL [facility] Comment:Testing performed by : [address] [address] Bilirubin, total 0.6 0.1 - 1.2 mg/dL [facility] Comment:Testing performed by : [address] [address] Protein, pl 6.8 6.5 - 8.5 g/dL [facility] Comment:Testing performed by : [address] [address] Albumin 4.0 3.5 - 5.0 g/dL [facility] Comment:Testing performed by : [address] [address] Alk phos 68 40 - 130 Units/L [facility] Comment:Testing performed by : [address] [address] ALT 11 7 - 55 Units/L [facility] Comment:Testing performed by : [address] [address] AST 18 10 - 50 Units/L [facility] Comment: HEMOLYZED: Hemolysis interferes with the above test. Testing performed by: [address] [address] Blood 03/06/2025 9:24 AM CDT 03/06/2025 9:32 AM CDT Anel Ansari MD LAB BLOOD ORDERABLES Final Result Performing Organization Address City/State/ZIP Co id Phone Number [facility] [address] [facility] [place] [address] from Last 3 Months Insurance MEDICARE [facility] MEDICARE [facility] MEDIC[facility] Address: [address] [address] [place] [address] [facility] MEDICARE [facility] MEDICARE Address: [address] [address] [place] [address] Care Teams Grass Cutter Relationship Specialty Start Date End Date Isacc Talamantes DO PCP - General 10/10/16 Anel Ansari MD [address] [place] [address] Medical Oncologist/Cloth Mender Hematology 03/11/24
--- OUTSIDE RECORDS SUMMARY | 2025-04-03 14:12 | XMS_ITS | Encounter Summary ---
Author Organization [facility] Address [address] [facility] [address] [place] [address] Care Team Providers Care Senior Sales Administrator Name Role Phone Isacc Talamantes DO Primary Care Provider [phone] Isacc Talamantes DO Primary Care Provider [phone] Kip Chandler MD Unavailable [phone] Anel Ansari MD Unavailable [phone] Encounter Details Date Type Department Care Team (Late st Contact Info) Description 09/10/2016 Orders Only [facility] ProviderDonovan MD [facility] [place] [id number] Social History Tobacco Use Types Packs/Day Years Used Date Smoking Tobacco: Heavy Smoker Comments:Smoking History Pac ks/day: 1 Packs Alcohol Use Standard Drinks/Week Comments Yes 0 (1 standard drink = 0.6 oz pur e alcohol) Sex and Gender Information Value Date Recorded Sex Assigned at Not on file 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
--- OUTSIDE RECORDS SUMMARY | 2025-04-03 14:12 | XMS_ITS | Patient Health Record ---
Author Organization [facility] Address [address] [place] [address] DINAH Sandhu [address] Care Team Providers Care Deputy Director Of Finance Name Role Phone JONES SALES DO Primary Care Provider Valerio Mustafa Unavailable [phone] ALLERGIES No Known Allergies REASON FOR REFERRAL No Information MEDICATIONS Medication SIG (Take, Route, Frequency, Duration) Notes Start Date End Date Status Eliquis 5 MG as directed Orally Active ASA 81 1 tab Oral Active Gabapentin 600 MG 1 tablet Oral Three a day Active Fluticasone Propionate 0.05 % [...] 1 capsule Oral Once a day Active Potassium Gluconate 595 MG 1 tablet Oral ly Once a day Active Doxycycline Hyclate 100 MG 1 tablet Oral ly twice a day for 5 days Active Chlorhexidine Gluconate 4 % as directed Externally prior to surgery for 2 days Active PROBLEMS Problem Type ICD Code Onset Dates Problem Status W/U Status Risk SNOMED Code Notes Problem Fear of injections and transfusions (F40.231) Active confirmed Fear of medical treatment (150001850) Problem Chronic pain syndrome (G89.4) Active confirmed Chronic armaan n syndrome (568615090) Problem Spondylolisthesis , lumbar region (M43.16) Active confirmed Acquired spondylolisthesis (315257334) Problem Spinal enthesopathy, site unspecified (M46.00) Active confirmed Spinal enthesopathy (75962423) Problem Spondylosis without myelopathy or radiculopathy, cervical region (M47.812) Active confirmed Cervical spondylosis without myelopathy (357879932) Problem Spondylosis without myelopathy or radiculopathy, cervicothoracic region (M47.813) Active confirmed Cervical spondylosis without myelopathy (882543806) Problem Spondylosis without myelopathy or radiculopathy, lumbar region (M47.816) Active confirmed Lumbosacral spondylosis without myelopathy (29715885) Problem Spondylosis without myelopathy or radiculopathy, lumbosacral region (M47.817) Active confirmed Lumbosacral spondylosis without myelopathy (disorder) (17266876) Problem Other intervertebral disc degeneration, lumbar region (M51.36) Active confirmed Degeneration of lumbar intervertebral disc (90071568) Problem Other intervertebral disc degeneration, lumbosacral region (M51.37) Active confirmed Degeneration of lumbosacral intervertebral disc (46810604) Problem Other specified dorsopathies, cervical region (M53.82) Active confirmed Disorder of cervical spine (918952498) Problem Radiculopathy, cervical region (M54.12) Active confirmed Cervical radiculopathy (79081000) Problem Radiculopathy, cervicothoracic region (M54.13) Active confirmed Cervical radiculopathy (46519502) Problem Radiculopathy, lumbar region (M54.16) Active confirmed Lumbar radiculopathy (665392660) Problem Radiculopathy, lumbosacral region (M54.17) Active confirmed Lumbosacral radiculopathy (1419322) Problem Postlaminectomy syndrome, not elsewhere classified (M96.1) Active confirmed Post-laminectom y syndrome (02956267) Cervical Problem Osseous stenosis of neural canal of cervical region (M99.31) Active confirmed Spinal steno sis in cervical region (37873987) Problem Osseous stenosis of neural canal of lumbar region (M99.33) Active confirmed Spinal stenosis of lumbar region (81850199) Problem Osseous and subluxation stenosis of intervertebral foramina of lumbar region (M99.63) Active confirmed Spinal stenosis of lumbar region (08824649) Problem prison (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 (Z79.01) Active confirmed Long-term curre nt use of anticoagulant (649148165) Problem Spinal stenosis, lumbar region with neurogenic claudication (M48.062) Active confirmed Neurogenic claudication (613770869) Problem Degenerative cervical spinal stenosis (M48.02) Active confirmed Degenerati ve cervical spinal stenosis (975210378) Problem Lumbar radiculopathy (M54.16) Active confirmed Lumbar radiculopathy (033209329) Problem Other intervertebral disc degeneration, lumbar region with discogenic back pain and lower extremity pain (M51.362) Active confirmed VITAL SIGNS Heart Rate 60 /min 03/28/2025 Respiratory Rate 16 /min 03/28/2025 Oximetry 99 % 03/21/2025 Post Op Vitals: BP 163/92, HR 60, RR 18, Spo2 99% Discharged to home with self, ambulatory without assistance at baseline, and in no acute distress. Blood pressure diastolic 77 mm Hg 03/28/2025 Height 5 ft 9 in in 03/28/2025 Blood pressure systolic 135 mm Hg 03/28/2025 Weight 210 lbs 03/28/2025 BMI 31.01 kg/m2 03/28/2025 Encounters Encounter Location Date Provider Diagnosis [facility] [address] [facility] [place] [address] 11/17/2024 Valerio Ellington Lumbar radiculopathy M54.16 ; [...] neural canal of cervical region M99.31 and prison (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 Z79.01 [facility] [address] [place] [address] 11/22/2024 Valerio Stlaura Radiculopathy, lumba r region M54.16 ; Radiculopathy, lumbosacral region M54.17 and Spinal stenosis, lumbar region with neurogenic claudication M48.062 [facility] [address] [address] 11/23/2024 Valerio Stlaura [facility] [address] [place] [address] [place] [address] 12/01/2024 Valerio Stynrafael Lumbar radiculopathy M54.16 ; Spondylosis without myelopathy [...] neural canal of cervical region M99.31 and prison (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 Z79.01 [facility] [address] [place] [address] 12/13/2024 Valerio Stynowick Spondylosis without myelopathy or radiculopathy, lumbar region M47.816 and Spondylosis without myelopathy or radiculopathy, lumbosacral region M47.817 [facility] [address] [place] [address] 12/27/2024 Valerio Stynowick Spondylosis without myelopathy or radiculopathy, lumbar region M47.816 and Spondylosis without myelopathy or radiculopathy, lumbosacral region M47.817 [facility] [address] [place] [address] [place] [address] 12/28/2024 Valerio Stynowick [facility] [address] [place] [address] [place] [address] 01/04/2025 Valerio Stynowick Spondylosis without myelopathy or radiculopathy, lumbar region M47.816 ; Spondylosis without myelopathy or radiculopathy, lumbosacral region M47.817 ; Lumbar radiculopathy M54.16 and Radiculopathy, lumbosacral region M54.17 [facility] [address] [place] [address] 01/11/2025 Valerio Stynowick Spondylosis without myelopathy or radiculopathy, lumbar region M47.816 and Spondylosis without myelopathy or radiculopathy, lumbosacral region M47.817 [facility] [address] [place] [address] 01/12/2025 Valerio Stynowick [facility] [address] [place] [address] [place] [address] 01/19/2025 Valerio Stynowick Spondylosis without myelopathy or radiculopathy, lumbar region M47.816 ; Spondylosis without myelopathy or radiculopathy, lumbosacral region M47.817 ; Lumbar radiculopathy M54.16 ; Spinal stenosis, lumbar region with neurogenic claudication M48.062 and Radiculopathy, cervical region M54.12 [facility] [address] [place] [address] 01/31/2025 Valerio Stynowick Spondylosis without myelopathy or radiculopathy, lumbar region M47.816 and Spondylosis without myelopathy or radiculopathy, lumbosacral region M47.817 [facility] [address] [place] [address] 02/01/2025 Valerio Stynowick [facility] [address] [place] [address] [place] [address] 02/21/2025 Valerio Stynowick Spondylosis without myelopathy or radiculopathy, lumbar region M47.816 ; Radiculopathy, cervical region M54.12 ; Spondylosis without myelopathy or radiculopathy, lumbosacral region M47.817 ; prison (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 Z79.01 ; Chronic pain syndrome G89.4 ; Fear of injections and transfusions F40.231 and Lumbar radiculopathy M54.16 [facility] [address] [place] [address] 03/01/2025 Valerio Stynowick Radiculopathy, cervical region M54.12 ; Radiculopathy, cervicothoracic region M54.13 and Degenerative cervical spinal stenosis M48.02 [facility] [address] [place] [address], [place] [address] 03/02/2025 Valerio Stynowick [facility] [address] [place] [address] [place] [address] 03/03/2025 Valerio Stynowick [facility] [address] [place] [address] [place] [address] 03/15/2025 Valerio Stynowick Radiculopathy, cervical region M54.12 ; Spondylosis without myelopathy or radiculopathy, cervical region M47.812 ; Radiculopathy, cervicothoracic region M54.13 ; Degenerative cervical spinal stenosis M48.02 ; Lumbar radiculopathy M54.16 ; Radiculopathy, lumbosacral region M54.17 ; 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 exterminator (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 Z79.01 and Spondylosis without myelopathy or radiculopathy, cervicothoracic region M47.813 [facility] [address] [place] [address] 03/21/2025 Valerio Stynowick Spondylosis without myelopathy or radiculopathy, cervical region M47.812 and Spondylosis without myelopathy or radiculopathy, cervicothoracic region M47.813 [facility] [address] [place] [address] [place] [address] 03/22/2025 Valerio Ellington [facility] [address] [place] [address] [place] [address] 03/22/2025 Valerio Stlaura [facility] [address] [place] [address] [place] [address] 03/27/2025 Valerio Ellington Urinary tract infection, site not specified N39.0 [facility] [address] [place] [address] [place] [address] 03/28/2025 Valerio Ellington Spondylosis without myelopathy or radiculopathy, cervical region M47.812 ; Spondylosis without myelopathy or radiculopathy, cervicothoracic region M47.813 ; Radiculopathy, cervical region M54.12 ; Lumbar radiculopathy M54.16 and prison (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 Z79.01 ASSESSMENTS Encounter [...] after completing antibiotic therapy. Patient verbalizes understanding 03/28/2025 Spondylosis without myelopathy or radiculopathy, cervicothoracic region (ICD-10 - M47.813) 03/28/2025 Spondylosis without myelopathy or radiculopathy, cervical [...] time. 03/21/2025 Spondylosis without myelopathy or radiculopathy, cervicothoracic region (ICD-10 - M47.813) 03/21/2025 Spondylosis without myelopathy or radiculopathy, cervical region (ICD-10 - M47.812) 03/15/2025 Radiculopathy, cervical region (ICD-10 - M54.12) [...] to proceeding at this time. 03/01/2025 Radiculopathy, cervicothoracic region (ICD-10 - M54.13) 03/01/2025 Radiculopathy, cervical region (ICD-10 - M54.12) 02/21/2025 Radiculopathy, cervical region (ICD-10 - M54.12) [...] is agreeable to proceeding at this time. 02/21/2025 Spondylosis without myelopathy or radiculopathy, lumbar region (ICD-10 - M47.816) 01/31/2025 Spondylosis without myelopathy or radiculopathy, lumbosacral region (ICD-10 - M47.817) 01/31/2025 Spondylosis without myelopathy or radiculopathy, lumbar region (ICD-10 - M47.816) 01/19/2025 Spondylosis without myelopathy or radiculopathy, lumbosacral [...] is agreeable to proceeding at this time. 01/11/2025 Spondylosis without myelopathy or radiculopathy, lumbosacral region (ICD-10 - M47.817) 01/11/2025 Spondylosis without myelopathy or radiculopathy, lumbar region (ICD-10 - M47.816) 11/17/2024 Radiculopathy, lumbosacral region (ICD-10 - M54.17) 01/04/2025 Spondylosis without myelopathy or radiculopathy, lumbosacral [...] is agreeable to proceeding at this time. 12/27/2024 Spondylosis without myelopathy or radiculopathy, lumbosacral region (ICD-10 - M47.817) 12/27/2024 Spondylosis without myelopathy or radiculopathy, lumbar region (ICD-10 - M47.816) 11/17/2024 Lumbar radiculopathy (ICD-10 - M54.16) Schedule [...] is agreeable to proceeding at this time. 12/13/2024 Spondylosis without myelopathy or radiculopathy, lumbosacral region (ICD-10 - M47.817) 11/22/2024 Radiculopathy, lumbar region (ICD-10 - M54.16) 11/22/2024 Radiculopathy, lumbosacral region (ICD-10 - M54.17) 12/13/2024 Spondylosis without myelopathy or radiculopathy, lumbar region (ICD-10 - M47.816) 12/01/2024 Lumbar radiculopathy (ICD-10 - M54.16) 12/01/2024 Spondylosis without myelopathy or radiculopathy, lumbar [...] agreeable to proceeding at this time. 03/28/2025 Radiculopathy, cervical region (ICD-10 - M54.12) 03/15/2025 Radiculopathy, cervicothoracic region (ICD-10 - M54.13) [...] patient wants to avoid any surgical options. 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 01/19/2025 Spinal stenosis, lumbar region with neurogenic claudication (ICD-10 - M48.062) 01/04/2025 Radiculopathy, lumbosacral region (ICD-10 - M54.17) 11/17/2024 Other intervertebral disc degeneration, lumbar region with discogenic back pain and lower extremity pain (ICD-10 - M51.362) 12/01/2024 Spinal stenosis, lumbar region with neurogenic [...] 11/17/2024 Spondylolisthesis, lumbar region (ICD-10 - M43.16) 02/21/2025 Chronic pain syndrome (ICD-10 - G89.4) The patient was given a handout explaining the preoperative bathing instructions 03/15/2025 Lumbar radiculopathy (ICD-10 - M54.16) 03/28/2025 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 11/17/2024 Osseous and subluxation stenosis of intervertebral [...] 03/15/2025 Radiculopathy, lumbosacral region (ICD-10 - M54.17) 11/17/2024 Spondylosis without myelopathy or radiculopathy, lumbar [...] is agreeable to proceeding at this time. 02/21/2025 Lumbar radiculopathy (ICD-10 - M54.16) Spinal [...] agreeable to proceeding at this time. 03/15/2025 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 12/01/2024 Osseous and subluxation stenosis of intervertebral foramina of lumbar region (ICD-10 - M99.63) 11/17/2024 Spondylosis without myelopathy or radiculopathy, lumbosacral region (ICD-10 - M47.817) 03/15/2025 Spondylosis without myelopathy or radiculopathy, cervicothoracic region (ICD-10 - M47.813) 12/01/2024 Spondylosis without myelopathy or radiculopathy, lumbosacral [...] or radiculopathy, cervical region (ICD-10 - M47.812) 11/17/2024 Spondylosis without myelopathy or radiculopathy, cervicothoracic region (ICD-10 - M47.813) 12/01/2024 Spondylosis without myelopathy or radiculopathy, cervicothoracic region (ICD-10 - M47.813) 11/17/2024 Degenerative cervical spinal stenosis (ICD-10 - M48.02) 12/01/2024 Degenerative cervical spinal stenosis (ICD-10 - M48.02) 11/17/2024 Osseous stenosis of neural canal of cervical region (ICD-10 - M99.31) 12/01/2024 Osseous stenosis of neural canal of cervical region (ICD-10 - M99.31) 11/17/2024 prison (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 I made the patient aware that they will be at an increased risk for a thromboembolic event during this time and they are willing to accept this risk. The patient was instructed to notify their primary care physician and/or horseradish grinder to obtain clearance prior to discontinuing this medication. 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 LOREN initials OLIVIA 12/01/2024 Other The above-named patient was evaluated [...] CONCERNS HAVE BEEN ADDRESSED. RN initials JW. 01/04/2025 Other The above-named patient [...] CONCERNS HAVE BEEN ADDRESSED. LOREN menards JE. 02/21/2025 Other The patient was instructed to [...] SAFETY CONCERNS HAVE BEEN ADDRESSED. LOREN mathias CR. 03/15/2025 Other The above-named patient was [...] CONCERNS HAVE BEEN ADDRESSED. RN initials JW. 03/28/2025 Other The above-named patient was evaluated [...] Medical Decision Makin minutes PLAN OF TREATMENT Pending Test Test Name Order Date Urine Culture and Sensitivity 03/27/2025 Urinalysis 03/27/2025 CT Scan : C-Spine W/O Contrast Next Appt Details Provider Name:Valerio hall, 04/11/2025 08:45:00 AM, [address], [place], [address], Insurance Providers Payer Name Payer Address Payer Phone Subscriber Number Group Number Insured Name Patient Relationship to Insured Coverage Start Date Coverage End Date [facility] MEDIC[facility] ADVANTAGE (PPO) [address] [address] [place] [address] [phone] [id number] JONES MEREDITH Self - patient is the insured MEDICAL (GENERAL) HISTORY Medical History History ICD Code AFIB COPD Diabetes Emphysema CAD Hypertension Surgical History Surgery Date(Month/Year) Cervical fusion 11/2002 Pacemaker Stents Hernia repair 2023
--- OUTSIDE RECORDS SUMMARY | 2025-04-03 14:12 | XMS_ITS | Clinical Summary ---
Author Organization [facility] Address [address] [place] [address] Care Team Providers Care Visitor Services Coordinator Name Role Phone Jones Talamantes DO Primary Care Provider Source Comments [facility],non-owned Affiliates and Associated Physician Practices is amultiple site organization consisting of ambulatory clinics and hospital sitesin [place], [place] and [place]. This disclosure is being madepursuant to the Care Everywhere program and may not contain all information available regarding this patient. Last updated 18.[facility] Allergies No known active allergies Medications * [...] fluticasone propionate (FLONASE) 50 MCG/ACT nasal spray Mercedes 1 spray into each nostril once daily [...] Hx Relation Name Status Comments Brother 1 [place] Brother 2 Father Mother Sister Social History Tobacco Use Types Packs/Day Years Used Date Smoking Tobacco: Every Day Cigarettes 1 43 Smokeless Tobacco: Never Alcohol Use Standard Drinks/Week Comments Yes 2.5 (1 standard drink = 0.6 oz p ure alcohol) social Sex and Gender Information Value Date Recorded Sex Assigned at Not on file Legal 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
== END 2025-04-03 13:48 | disposition home or self-care (01) ==
LOC: ANHLAB 13:50
PROVIDERS: PCP Internal Medicine; Visit Provider Anesthesiology
DX: N39.0 Urinary tract infection, site not specified (principal)
CPT/HCPCS: 81001; 87086

== ENCOUNTER 2025-05-03 12:36 | Outpatient (CLI) | payer MEDICARE, SELFPAY ==
--- NOTE | ~2025-05-03 | US_ITS ---
EXAMINATION: US FNA w image guidance DATE: 05/03/2025 13:39 INDICATION: Nontoxic single left thyroid nodule TECHNIQUE: A time-out was performed to verify the patient's name, date of , and procedure to be performed. The procedure and its benefits and risks were discussed with the patient. Risks specifically discussed included bleeding and infection. The patient understood the risks and agreed to proceed. The neck was prepped and draped in the usual sterile manner. 3 mL 1% lidocaine was used for local anesthesia. 6 passes were made with a 25G needle into the lesion. Appropriate needle location was documented with continuous sonographic guidance. A sterile bandage was applied. There were no immediate complications. FINDINGS: Grayscale ultrasound images demonstrate biopsy needles advanced into a 1.6 cm solid hypoechoic TI RADS 4 nodule in the left thyroid lobe. IMPRESSION: 1. Successful ultrasound-guided fine needle aspiration of a 1.6 cm TI RADS 4 left thyroid nodule. Reviewed, dictated and finalized at location A. IMPRESSION: 1. Successful ultrasound-guided fine needle aspiration of a 1.6 cm TI RADS 4 l eft thyroid nodule.
--- NOTE | 2025-05-03 13:14 | CY_PTH ---
PATIENT: Isacc Sorto LOC: [facility] U#:[id number] AGE/SX: 84/M ROOM: RE05/03/[address]: Isacc Talamantes DO : 1940 BED: DIS: 05/03/2025 SPEC #: [id number] RECD: 05/03/25 13:47 STATUS: JORGE REQ #: [id number] SHANTELL: 05/03/25 13:[address]: Isacc Talamantes DEPT: [facility] Cytology RECD BY: Karma Goff Tissues: A - FNA Thyroid Procedures: Hematoxylin and Eosin Stain Cell Block Fine Needle Aspiration Evaluation Fine Needle Aspiration Pathologist
== END 2025-05-03 12:37 | disposition home or self-care (01) ==
PROVIDERS: PCP Internal Medicine; Visit Provider Internal Medicine
DX: E04.1 Nontoxic single thyroid nodule (principal)
CPT/HCPCS: 10005; 88172; 88173; 88305